=== PATIENT | female | born 1970 | race Caucasian/White ===

== ENCOUNTER → 2017-12-10 16:42 | Outpatient (CLI) | payer OTHER, SELFPAY ==
--- NOTE | 2017-12-10 16:45 | CT_ITS ---
STUDY: CT SOFT TISSUE NECK WITHOUT CONTRAST REASON FOR EXAM: Female, 47 years old. Dysphonia. Sleep apnea. Chronic hoarseness. Prior thyroidectomy. Chronic pansinusitis. RADIATION DOSAGE (If Supplied By Facility): CTDIvol = ( 17.96 ) mGy, DLP = ( 601.12 ) mGycm TECHNIQUE: The patient was scanned in a multi-detector CT scanner. High resolution transaxial imaging was performed without the administration of intravenous contrast material. Sagittal and coronal images were reconstructed. Individualized dose optimization techniques were used for this CT. COMPARISON: CT scan paranasal sinuses. FINDINGS: Normal bilateral parotid glands. Normal bilateral sports psychologist spaces. Normal bilateral parapharyngeal spaces. Normal bilateral carotid spaces. Normal bilateral sublingual and submandibular glands and spaces. Normal visualized nasopharynx. Normal retropharyngeal space. Normal perivertebral space. Normal visualized bilateral faucial tonsils. The visualized tongue, tongue base and oropharynx are normal. The visualized cervical lymph nodes (levels I-) are within normal size limits, and maintain normal morphology. There is no demonstrated solid or cystic mass lesion. Normal epiglottis, bilateral vallecula and hypopharynx. The pre-epiglottic and paraglottic adipose spaces are normal. The left piriform sinus is effaced. There is no visualized soft tissue mass or fat infiltration in this region and finding is of uncertain significance. Otherwise normal visualized piriform sinuses, aryepiglottic folds, vocal cords, and arytenoid-cricoid articulations. Normal subglottic trachea. The thyroid gland is surgically absent. Normal visualized pulmonary apices. There are calcified granulomas in the visualized hilum of the right lung and in the visualized mediastinum. There is minimal mucoperiosteal thickening in the maxillary sinuses. There are multilevel degenerative changes in the cervical spine. Of note is a central posterior disc protrusion at the C3-4 level with superior migration of extruded disc material and with substantial impingement upon the anterior midline spinal cord. CT/Soft Tissue Neck without Contr IMPRESSION: Left piriform sinus is effaced. No discrete mass or fat infiltration is seen in this region, and finding may be incidental. Would suggest direct visualization to ensure against a mucosal lesion. Previous thyroidectomy. Otherwise, normal noncontrast CT scan of the neck. Incidental finding a prominent central posterior disc protrusion and extrusion at the C3-4 level, with spinal cord impingement. Electronically Signed: Jimmie Francis MD at 5:18 EDT , Service support ,
--- NOTE | 2017-12-10 16:45 | CT_ITS ---
STUDY: CT MAXILLOFACIAL SINUSES REASON FOR EXAM: Female, 47 years old. Chronic pansinusitis. Dysphonia. Sleep apnea. Chronic hoarseness. Prior thyroidectomy. RADIATION DOSAGE (If Supplied By Facility): CTDIvol = ( 33.06 ) mGy, DLP = ( 788.40 ) mGycm TECHNIQUE: The patient was scanned in a multi detector CT scanner. High resolution axial imaging was performed without the administration of intravenous contrast material. Sagittal and coronal images were reconstructed. Individualized dose optimization techniques were used for this CT. COMPARISON: None. FINDINGS: FRONTAL SINUSES: Normal aeration, without mucosal inflammatory disease. ETHMOIDAL SINUSES: Normal aeration, without mucosal inflammatory disease. MAXILLARY SINUSES: Mild mucoperiosteal thickening bilaterally. SPHENOIDAL SINUSES: Normal aeration, without mucosal inflammatory disease. There is patency of the bilateral maxillary infundibuli with normal uncinate processes, ethmoid bullae, and hiatus semilunaris. There is a very small jose bullosa of the left middle turbinate. Normal bilateral inferior turbinates. Normal midline nasal septum. There is patency of the bilateral nasal airways. The visualized osseous structures are normal. The visualized bilateral orbital contents are normal. CT/Sinus/Facial Bone IMPRESSION: Very mild chronic bilateral maxillary sinusitis. No evidence for acute sinusitis. Ostiomeatal units are patent bilaterally. Electronically Signed: Jimmie Francis MD at 4:26 EDT , Service support ,
== END ==
PROVIDERS: Family Provider Family Medicine; PCP Family Medicine; Visit Provider Otolaryngology
DX: J32.9 Chronic sinusitis, unspecified (principal); J32.4 Chronic pansinusitis; R49.0 Dysphonia
CPT/HCPCS: 70486; 70490

== ENCOUNTER → 2018-07-17 14:41 | Outpatient (CLI) | payer OTHER, SELFPAY ==
[2017-07-09 12:08] VITALS: BMI 23.1
[2018-07-17 15:29] LABS: Calcium,Total 8.5 mg/dL (8.5-10.1); T4 Total, Thyroxin 18.6 ug/dL (4.8-13.9); Thyroid Stim Hormone (TSH) 1.02 uIU/mL (0.358-3.74)
== END ==
PROVIDERS: Visit Provider Family Medicine
DX: E03.9 Hypothyroidism, unspecified (principal); E21.3 Hyperparathyroidism, unspecified; Z01.419 Encounter for gynecological examination (general) (routine) without abnormal findings
CPT/HCPCS: 36415; 82310; 84436; 84443

== ENCOUNTER → 2018-09-24 17:30 | Outpatient (CLI) | payer OTHER, SELFPAY ==
--- NOTE | 2018-09-24 17:21 | BI_ITS ---
MAMMOGRAPHY - BILATERAL SCREENING REASON FOR EXAM: Female, 48 years old. Routine annual screening examination. PERTINENT HISTORY: Grandmother with breast cancer. TECHNIQUE: Digital bilateral breast roxanne (3D mammographic acquisition) in the CC and MLO projections. 2-D mediolateral oblique (MLO) and craniocaudad (CC) views of both breasts were obtained. CAD: Full Field Digital Mammography with Computer Added Detection was performed. COMPARISON: Comparison is made with prior study dated July 16, 2017 and April 02, 2016. FINDINGS: Breast Composition: The breasts are heterogeneously dense, which may obscure small masses. There are no dominant masses or suspicious calcifications. No other significant abnormalities are identified. There has been no significant change since the prior study. BI/SCREENING MAMM (CAD), BILAT IMPRESSION: Stable bilateral screening mammogram. Yearly follow-up mammogram recommended. (A) ASSESSMENT CATEGORY: BIRADS Category 1: Negative. A letter regarding these results will be sent to the patient by the facility within 30 days. Approximately 10% of breast cancers are not detected by mammography. A normal mammogram should not delay biopsy of a clinically suspicious abnormality. [id number] Electronically Signed: Rodriguez Kurtz MD at 9:33 EST , Service support ,
== END ==
PROVIDERS: Family Provider Family Medicine; PCP Family Medicine; Referring Provider Family Medicine; Visit Provider Family Medicine
DX: Z12.31 Encounter for screening mammogram for malignant neoplasm of breast (principal)
CPT/HCPCS: 77063; 77067

== ENCOUNTER → 2018-12-24 17:56 | Outpatient (CLI) | payer OTHER, SELFPAY ==
[2017-07-09 12:08] VITALS: BMI 23.1
== END ==
PROVIDERS: Family Provider Family Medicine; PCP Family Medicine; Referring Provider Nurse Practitioner Family; Visit Provider Nurse Practitioner Family
DX: N39.0 Urinary tract infection, site not specified (principal)
CPT/HCPCS: 87086; 87088; 87186

== ENCOUNTER → 2019-05-24 16:51 | Outpatient (CLI) | payer OTHER, SELFPAY ==
[2017-07-09 12:08] VITALS: BMI 23.1
[2019-05-24 18:27] LABS: Anion Gap 7 (5-15); BUN 18 mg/dL (7-18); BUN/Creat Ratio 22.9 RATIO (10-20); Calcium,Total 8.5 mg/dL (8.5-10.1); Chloride 105 mmol/L (98-107); Creatinine, Serum 0.78 mg/dL (0.55-1.02); EST Glomerular Filtration Rate 83 mL/min (>60); Est Glom Filt Rate - Afr Amer 100 mL/min (>60); Glucose 86 mg/dL (74-106); Potassium 3.4 mmol/L (3.5-5.1); Sodium Level 137 mmol/L (136-145); T4 Total, Thyroxin 18.1 ug/dL (4.8-13.9); Thyroid Stim Hormone (TSH) 0.66 uIU/mL (0.358-3.74)
== END ==
PROVIDERS: Family Provider Family Medicine; PCP Family Medicine; Visit Provider Family Medicine
DX: I10 Essential (primary) hypertension (principal); E03.9 Hypothyroidism, unspecified
CPT/HCPCS: 36415; 80048; 84436; 84443

== ENCOUNTER → 2019-10-12 15:58 | Outpatient (CLI) | payer OTHER, SELFPAY ==
[2017-07-09 12:08] VITALS: BMI 23.1
--- NOTE | 2019-10-12 16:01 | BI_ITS ---
MAMMOGRAPHY - BILATERAL SCREENING REASON FOR EXAM: Female, 49 years old. Routine annual screening examination. PERTINENT HISTORY: Grandmother with breast cancer. TECHNIQUE: Digital bilateral breast declan (3D mammographic acquisition) in the CC and MLO projections. 2-D mediolateral oblique (MLO) and craniocaudad (CC) views of both breasts were obtained. CAD: Full Field Digital Mammography with Computer Added Detection was performed. COMPARISON: Comparison is made with prior study dated September 24, 2018 and July 16, 2017. FINDINGS: Breast Composition: The breasts are heterogeneously dense, which may obscure small masses. There are no dominant masses or suspicious calcifications. No other significant abnormalities are identified. There has been no significant change since the prior study. BI/SCREEN MAMM (CAD) W/DECLAN BILAT IMPRESSION: Stable bilateral screening mammogram. Yearly follow-up mammogram recommended. (A) ASSESSMENT CATEGORY: BIRADS Category 1: Negative. A letter regarding these results will be sent to the patient by the facility within 30 days. Approximately 10% of breast cancers are not detected by mammography. A normal mammogram should not delay biopsy of a clinically suspicious abnormality. [id number] Electronically Signed: Rodriguez Kurtz, at 9:18 EST , Service support ,
== END ==
PROVIDERS: Family Provider Family Medicine; PCP Family Medicine; Referring Provider Nurse Practitioner Family; Visit Provider Nurse Practitioner Family
DX: Z12.31 Encounter for screening mammogram for malignant neoplasm of breast (principal)
CPT/HCPCS: 77063; 77067

== ENCOUNTER 2019-11-08 10:30 | Day surgery (SDC) | payer OTHER, SELFPAY ==
[2017-07-09 12:08] VITALS: BMI 23.1
[2019-11-08] VITALS (7 sets, daily range): BP systolic 112–126; BP diastolic 63–83; PULSE 74–90; RESP 16; TEMP 36.8–37.4; O2SAT 98–100; BMI 23.6
[2019-11-08] MEDS: Lactated Ringers 1,000 ML 100 ML IV (10:59)
--- NOTE | 2019-11-08 11:29 | H&P.OPEN ---
History of Present Illness Date of Admission: 11/08/19 The patient is a 49 year old F presents for screening colonoscopy. Patient has never had a previous colonoscopy. Denies any family history of colon cancer. Patient denies any chronic abdominal pain/nausea/vomiting/reflux. Patient normally has bowel movements daily denies any blood Past Medical/Surgical History - Planned Operation Planned Operative Procedure/s: COLONOSCOPY Date of Operative Procedure: 11/08/19 Permit Signed: Yes S.O.S: No Is This Patient Having a Total Joint: No - Previous Hospitalizations/Surgeries HX Hospitalizations: No HX of Surgeries: TONSILS. . TUBAL. THYROIDECTOMY Any Problems With Anesthesia: Yes - HARD TIME WAKING, WENT INTO CARDIAC ARREST WITH TONSILS-HAD TRACH PLACED You/Your Family Experience Fever (Hyperthermia) With Anes: No Cholinesterase deficiency: No - Cardiovascular Hx Chest Pain within Last 2 months: No Hx of Irregular Heartbeat and/or Afib: No Hx Heart Attack: No Hx Congestive Heart Failure: No Hx Rheumatic Fever: No Hx Hypertension: Yes - ON MED Hx Internal Defibrillator: No Hx Pacemaker: No Hx Cardiac Catheterization: No Hx Cardiac Surgery/Stents/Etc.: No Hx Stress Test: No HX Edema: No Hx Pain in Legs when Walking/Leg Cramps: No - Respiratory Chronic Cough: No HX of Shortness of Breath: No Hoarseness: No Hx Chronic Obstructive Pulmonary Disease (COPD): No Hx Asthma: No Hx Emphysema: No Hx Sleep Apnea: Yes CPAP: Yes BIPAP: No Hx Oxygen Use at Home: No Hx Respiratory Tract Infection/Cold (presently): No Result (for STOP score): Positive Hx Smoking: No Smoking Status: Never smoker - Gastrointestinal Hx Gastroesophageal Reflux: No Hx Gastrointestinal Disorders: No Hx Gastrointestinal Bleed: No Hx Ulcer: No Hx Hiatal Hernia: No Difficulty Chewing/Swallowing: No Recent Onset of Swallowing Problems: No Special diet followed at home: No Hx Unplanned Weight Loss of 20#: No HX Unplanned Weight Gain of 20#: No - Neurological Hx Seizures: No HX Syncope/Blackout Spells/Unconsciousness: No Hx CVA/Stroke: No Hx Transient Ischemic Attacks (TIA): No Hx Multiple Sclerosis: No Hx Parkinson's Disease: No Hx Head/Neck Injury: No Hx Headaches: No Hx Back Injury/Pain: No Recent Onset of Speech Difficulty: No Restless Legs: No Does patient have nerve stimulator: No - Blood Disorder Hx Leukemia: No Bleeding Tendencies: No Hx Deep Vein Thrombosis: No Hx High Cholesterol: No Blood Transmitted Disease: No Hx Hepatitis: No Hx Cirrhosis: No Hx Anemia: No Hx Blood Disorders: No - Reproduction : No Is Patient Lactating: No Hx Hysterectomy: No Hx Tubal Ligation: No Are You Post Menopause: No Pt Instructed Not To Have Any Sex From Now Until Surgery: No - Genitourinary Hx Renal Disease: No - Musculoskeletal Hx Arthritis: No Hx Rheumatoid Arthritis: No Hx Gout: No Recent Onset of an Orthopedic Problem: No - Endocrine Hx Diabetes: No Thyroid Disease: Yes - ON MED Hx Steroid Therapy: No - Psycho/Social Hx Substance Use: No Hx Alcohol Use: No Hx Anxiety: No Hx Depression: No Mental Illness: No Hx Dementia: No - Miscellaneous Hx Cancer: No Recent Exposure to Contagious Disease: No Active MRSA: No Hx of C-Diff: No Any Loose Teeth: No Allergies No Known Allergies Allergy (Verified 11/04/19 13:06) - Discharge Is Pt Admitted From a Custodial, or a Custodial: No Who Could Help: After D/C, Where Do you Plan to Go: Return Home - Physical Exam Vitals/I&O's: Vital Signs Temp Pulse Resp BP Pulse Ox 99.3 F H 78 16 116/63 98 11/08/19 10:55 11/08/19 10:55 11/08/19 10:55 11/08/19 10:55 11/08/19 10:55 Oxygen Delivery Method Room Air Weight: 135 lb 5.821 oz Body Mass Index (BMI) 23.6 General: Alert, Oriented x3, Cooperative, No apparent distress HEENT: Atraumatic Lungs: Normal air movement Cardiovascular: Regular rate Abdomen: Soft, Non Tender, Non-Distended Extremities: No clubbing, No cyanosis, No edema Neurological: Cranial nerves II-XII grossly intact Psych/Mental Status: Normal Affect Current Medications Lactated Ringer's () 1,000 mls @ 100 mls/hr IV .Q10H NICK Last Admin: 11/08/19 10:59 Dose: 100 mls/hr Documented by: Assessment/Plan 49-year-old female for screening for colon cancer Surgery Risks - Colonoscopy I discussed with the patient the risks of the procedure: Yes Risks Include but are not Limited To: Risks include but are not limited to: Bleeding, perforation requiring further surgery, inability to complete colonoscopy requiring barium enema. Patient and her had no further questions this time.
--- NOTE | 2019-11-08 12:06 | OP.CCLET_ITS ---
11/08/2019 Toshia Sousa [address] [place] [address] Re : Colonoscopy procedure for Nayeli Ryanfabi Dear Dr. Sousa This procedure was performed on Friday, November 08, 2019. My impressions and recommendations are as follows: Impressions : - Hemorrhoids found on perianal exam. - The entire examined colon is normal. - No specimens collected. Recommendations : - Discharge patient to home. - Resume previous diet. - Continue present medications. - Repeat colonoscopy in 10 years for screening purposes. My findings are described in the full procedure note, which is enclosed. If I can be of further assistance, please feel free to contact me at Doctor phone number(s): , Work: . Sincerely, MD Marilee Keyes MD 11/08/2019 12:05:37 PM This report has been signed electronically.
--- NOTE | 2019-11-08 12:06 | OP.COLON_ITS ---
Patient Name: Nayeli Granados Procedure Date: 11/08/2019 11:36 AM Date of : 1970 Age: 49 Procedure: Colonoscopy Indications: Screening for colorectal malignant neoplasm Providers: Marilee Rosen MD Referring MD: Toshia Sousa Medicines: Monitored Anesthesia Care Patient Profile: This is a 49 year old female. Last Colonoscopy: none. The patient's first colonoscopy is today. Complications: No immediate complications. Procedure: Pre-Anesthesia Assessment: - Prior to the procedure, a History and Physical was performed, and patient medications and allergies were reviewed. The patient's tolerance of previous anesthesia was also reviewed. The risks and benefits of the procedure and the sedation options and risks were discussed with the patient. All questions were answered, and informed consent was obtained. Prior Anticoagulants: The patient has taken no previous anticoagulant or antiplatelet agents. ASA Grade Assessment: II - A patient with mild systemic disease. After reviewing the risks and benefits, the patient was deemed in satisfactory condition to undergo the procedure. After I obtained informed consent, the scope was passed under direct vision. Throughout the procedure, the patient's blood pressure, pulse, and oxygen saturations were monitored continuously. The colonoscope was introduced through the anus and advanced to the cecum, identified by the appendiceal orifice, ileocecal valve and palpation. The colonoscopy was performed without difficulty. The patient tolerated the procedure well. The quality of the bowel preparation was good. Scope In: 11:43:59 AM Scope Withdrawal Time 0 hours 10 minutes 36 seconds Scope Out: 11:59:45 AM Total Procedure Duration Time 0 hours 15 minutes 46 seconds Findings: Hemorrhoids were found on perianal exam. The entire examined colon appeared normal. Impression: - Hemorrhoids found on perianal exam. - The entire examined colon is normal. - No specimens collected. Recommendation: - Discharge patient to home. - Resume previous diet. - Continue present medications. - Repeat colonoscopy in 10 years for screening purposes. Procedure Code(s): --- Professional --- G0121, PT, Colorectal cancer screening; colonoscopy on individual not meeting criteria for high risk Diagnosis Code(s): --- Professional --- Z12.11, Encounter for screening for malignant neoplasm of colon K64.9, Unspecified hemorrhoids CPT copyright 2017 [employer]. All rights reserved. The codes documented in this report are preliminary and upon divorce attorney review may be revised to meet current compliance requirements. MD Marilee Keyes MD 11/08/2019 12:05:37 PM This report has been signed electronically. Number of Addenda: 0 Note Initiated On: 11/08/2019 11:36 AM
== END 2019-11-08 12:51 | disposition home or self-care (01) ==
LOC: EN 10:30 → AC 10:32
PROVIDERS: Family Provider Family Medicine; PCP Family Medicine; Referring Provider Family Medicine; Visit Provider Surgery
PROC: 0DJD8ZZ Inspection of Lower Intestinal Tract, Via Natural or Artificial Opening Endoscopic (ICD-10-PCS; CPT 45378; principal; 2019-11-08 11:25)
DX: Z12.11 Encounter for screening for malignant neoplasm of colon (principal); K64.9 Unspecified hemorrhoids; I10 Essential (primary) hypertension; Z86.74 Personal history of sudden cardiac arrest
CPT/HCPCS: 45378; J7120

== ENCOUNTER → 2020-04-12 16:35 | Outpatient (CLI) | payer OTHER, SELFPAY ==
[2019-11-08 10:55] VITALS: BMI 23.6
[2020-04-12 19:30] LABS: Anion Gap 7 (5-15); BUN 14 mg/dL (7-18); BUN/Creat Ratio 20.5 RATIO (10-20); Calcium,Total 8.6 mg/dL (8.5-10.1); Chloride 106 mmol/L (98-107); Creatinine, Serum 0.68 mg/dL (0.55-1.02); EST Glomerular Filtration Rate 97 mL/min (>60); Est Glom Filt Rate - Afr Amer 117 mL/min (>60); Glucose 85 mg/dL (74-106); Potassium 3.7 mmol/L (3.5-5.1); Sodium Level 139 mmol/L (136-145); T4 Total, Thyroxin 18.7 ug/dL (4.8-13.9); Thyroid Stim Hormone (TSH) 0.35 uIU/mL (0.358-3.74)
== END ==
PROVIDERS: PCP Family Medicine; Referring Provider Family Medicine; Visit Provider Family Medicine
DX: I10 Essential (primary) hypertension (principal); E03.9 Hypothyroidism, unspecified
CPT/HCPCS: 36415; 80048; 84436; 84443

== ENCOUNTER → 2020-10-10 16:43 | Outpatient (CLI) | payer OTHER, SELFPAY ==
[2019-11-08 10:55] VITALS: BMI 23.6
[2020-10-10 18:37] LABS: Anion Gap 6 (5-15); BUN 17 mg/dL (7-18); BUN/Creat Ratio 20.3 RATIO (10-20); Calcium,Total 8.5 mg/dL (8.5-10.1); Chloride 109 mmol/L (98-107); Creatinine, Serum 0.84 mg/dL (0.55-1.02); EST Glomerular Filtration Rate 76 mL/min (>60); Est Glom Filt Rate - Afr Amer 92 mL/min (>60); Glucose 97 mg/dL (74-106); Potassium 3.4 mmol/L (3.5-5.1); Sodium Level 139 mmol/L (136-145)
== END ==
PROVIDERS: PCP Family Medicine; Referring Provider Family Medicine; Visit Provider Family Medicine
DX: I10 Essential (primary) hypertension (principal); E21.3 Hyperparathyroidism, unspecified
CPT/HCPCS: 36415; 80048

== ENCOUNTER → 2021-03-20 17:20 | Outpatient (CLI) | payer OTHER, SELFPAY ==
[2019-11-08 10:55] VITALS: BMI 23.6
--- NOTE | 2021-03-20 16:17 | BI_ITS ---
MAMMOGRAPHY - BILATERAL SCREENING REASON FOR EXAM: Female, 50 years old. Routine annual screening examination. PERTINENT HISTORY: Grandmother with breast cancer. TECHNIQUE: Digital bilateral breast declan (3D mammographic acquisition) in the CC and MLO projections. 2-D mediolateral oblique (MLO) and craniocaudad (CC) views of both breasts were obtained. CAD: Full Field Digital Mammography with Computer Added Detection was performed. COMPARISON: Comparison is made with prior study dated 10/12/2019 and 09/24/2018. FINDINGS: Breast Composition: The breasts are heterogeneously dense, which may obscure small masses. There are no dominant masses or suspicious calcifications. No other significant abnormalities are identified. There has been no significant change since the prior study. BI/SCRN MAMM (CAD)W/DECLAN BILAT IMPRESSION: Stable bilateral screening mammogram. Yearly follow-up mammogram recommended. (A) ASSESSMENT CATEGORY: BIRADS Category 1: Negative. A letter regarding these results will be sent to the patient by the facility within 30 days. Approximately 10% of breast cancers are not detected by mammography. A normal mammogram should not delay biopsy of a clinically suspicious abnormality. [id number] Electronically Signed: Rodriguez Kurtz MD at 8:47 EDT , Service support ,
== END ==
PROVIDERS: PCP Family Medicine; Referring Provider Family Medicine; Visit Provider Family Medicine
DX: Z12.31 Encounter for screening mammogram for malignant neoplasm of breast (principal)
CPT/HCPCS: 77063; 77067

== ENCOUNTER → 2021-06-04 16:42 | Outpatient (CLI) | payer OTHER, SELFPAY ==
[2021-06-04 18:37] LABS: Anion Gap 7 (5-15); BUN 12 mg/dL (7-18); BUN/Creat Ratio 17.3 RATIO (10-20); Calcium,Total 8.6 mg/dL (8.5-10.1); Chloride 104 mmol/L (98-107); Creatinine, Serum 0.69 mg/dL (0.55-1.02); EST Glomerular Filtration Rate 95 mL/min (>60); Est Glom Filt Rate - Afr Amer 115 mL/min (>60); Glucose 91 mg/dL (74-106); Potassium 3.4 mmol/L (3.5-5.1); Sodium Level 138 mmol/L (136-145); T4 Total, Thyroxin 16.8 ug/dL (4.8-13.9); Thyroid Stim Hormone (TSH) 1.75 uIU/mL (0.358-3.74)
[2021-06-07 14:12] LABS: HPV Reflexed? NOT INDICATED
== END ==
PROVIDERS: PCP Family Medicine; Referring Provider Family Medicine; Visit Provider Family Medicine
DX: I10 Essential (primary) hypertension (principal); E03.9 Hypothyroidism, unspecified; E21.3 Hyperparathyroidism, unspecified
CPT/HCPCS: 36415; 80048; 84436; 84443; 88175; G0145

== ENCOUNTER → 2022-06-14 | Outpatient (CLI) | payer OTHER, SELFPAY ==
--- NOTE | 2022-06-13 17:02 | BI_ITS ---
MAMMOGRAPHY - BILATERAL SCREENING REASON FOR EXAM: Female, 52 years old. Routine annual screening examination. PERTINENT HISTORY: Grandmother with breast cancer. TECHNIQUE: Digital bilateral breast declan (3D mammographic acquisition) in the CC and MLO projections. 2-D mediolateral oblique (MLO) and craniocaudad (CC) views of both breasts were obtained. CAD: Full Field Digital Mammography with Computer Added Detection was performed. COMPARISON: Comparison is made with prior study dated 03/20/2021 and 10/12/2019. FINDINGS: Breast Composition: The breasts are heterogeneously dense, which may obscure small masses. There are no dominant masses or suspicious calcifications. No other significant abnormalities are identified. There has been no significant change since the prior study. BI/SCRN MAMM (CAD)W/DECLAN BILAT IMPRESSION: Stable bilateral screening mammogram. Yearly follow-up mammogram recommended. (A) ASSESSMENT CATEGORY: BIRADS Category 1: Negative. A letter regarding these results will be sent to the patient by the facility within 30 days. Approximately 10% of breast cancers are not detected by mammography. A normal mammogram should not delay biopsy of a clinically suspicious abnormality. [id number] Electronically Signed: Rodriguez Kurtz MD at 8:30 EDT ,
== END | disposition home or self-care (01) ==
PROVIDERS: PCP Family Medicine; Referring Provider Family Medicine; Visit Provider Family Medicine
DX: Z12.31 Encounter for screening mammogram for malignant neoplasm of breast (principal); Z80.3 Family history of malignant neoplasm of breast
CPT/HCPCS: 77063; 77067

== ENCOUNTER → 2023-08-07 | Outpatient (CLI) | payer OTHER, SELFPAY ==
--- NOTE | 2023-08-07 14:05 | BI_ITS ---
MAMMOGRAPHY - BILATERAL SCREENING REASON FOR EXAM: Female, 53 years old. Routine annual screening examination. PERTINENT HISTORY: Grandmother with breast cancer. TECHNIQUE: Digital bilateral breast roxanne (3D mammographic acquisition) in the CC and MLO projections. 2-D mediolateral oblique (MLO) and craniocaudad (CC) views of both breasts were obtained. CAD: Full Field Digital Mammography with Computer Added Detection was performed. COMPARISON: Comparison is made with prior study June 13, 2022 and March 20, 2021. FINDINGS: Breast Composition: The breasts are heterogeneously dense, which may obscure small masses. There are no dominant masses or suspicious calcifications. No other significant abnormalities are identified. There has been no significant change since the prior study. BI/SCREENING MAMM (CAD), BILAT IMPRESSION: Stable bilateral screening mammogram. Yearly follow-up mammogram recommended. (A) ASSESSMENT CATEGORY: BIRADS Category 1: Negative. A letter regarding these results will be sent to the patient by the facility within 30 days. Approximately 10% of breast cancers are not detected by mammography. A normal mammogram should not delay biopsy of a clinically suspicious abnormality. [id number] Electronically Signed: Rodriguez Kurtz MD at 14:42 EST ,
[2023-08-07 18:08] LABS: Anion Gap 3 (5-15); BUN 15 mg/dL (7-18); BUN/Creat Ratio 20.7 RATIO (10-20); Calcium,Total 8.3 mg/dL (8.5-10.1); Chloride 108 mmol/L (98-107); Creatinine, Serum 0.72 mg/dL (0.55-1.02); EST Glomerular Filtration Rate 89 mL/min (>60); Est Glom Filt Rate - Afr Amer 108 mL/min (>60); Glucose 88 mg/dL (74-106); Potassium 3.9 mmol/L (3.5-5.1); Sodium Level 138 mmol/L (136-145); Thyroid Stim Hormone (TSH) 0.42 uIU/mL (0.358-3.74)
[2023-08-07 18:19] LABS: Microalbumin,Random Urine 11.8 mg/L (NO RANGE EST.); Microalbumin:Creatinine Ratio 15.7 mg/g CRE (<30 mg/g CRE)
== END | disposition home or self-care (01) ==
LOC: OPBI 14:03
PROVIDERS: PCP Family Medicine; Referring Provider Family Medicine; Visit Provider Family Medicine
DX: Z12.31 Encounter for screening mammogram for malignant neoplasm of breast (principal); E21.3 Hyperparathyroidism, unspecified; I10 Essential (primary) hypertension; E03.9 Hypothyroidism, unspecified
CPT/HCPCS: 36415; 77067; 80048; 82043; 82570; 84436; 84443

== ENCOUNTER → 2023-10-15 | Outpatient (CLI) | payer OTHER, SELFPAY ==
--- OUTSIDE RECORDS SUMMARY | 2023-10-15 12:29 | XMS RPT_ITS | CCD ---
Author Name Unknown Address [address] [place] [address] Organization [facility] Care Team Providers Care Vice President Of Consulting Services Name Role Phone Toshia Sousa Unavailable Kandi Macdonald Unavailable Unavailable Medications Current Medications Medication Drug Class(es) Dates Sig (Normalized) Sig (Original) cephalexin 500 mg oral capsule (2 sources) Cephalosporin Antibacterial Start: 06-24-2021 End: 06-28-2021 take 1 capsule by mouth every eight hours Keflex 500 mg oral capsule ; 1 cap(s) orally every 8 hours Quantity: 15 Refills: 0 Ordered: 24-Jun-2021 Kandi Macdonald Start: 24-Jun-2021 End: 28-Jun-2021 Generic Substitution Allowed Comments: Finish all this medication unless otherwise directed by prescriber. Problems Problem Classification Problem Date Documented Da te Episodic/Chronic Open wounds of extremities (3 sources) Laceration of finger; Translations: [Laceration of right index finger] 06-24-2021 Episodic Results Test Name Value Interpretation Reference Range Facil ity Vital Signs Date Time Vital Sign Value Performing Clinician Facility 06-24-2021 12:14040 Body height 162.5 cm Toshia Sousa Other Phone: [facility] 06-24-2021 12:14040 Body temperature 98.24 [degF] Toshia Sousa Other Phone: [facility] 06-24-2021 12:14040 Body weight 62.7 kg Toshia Sousa Other Phone: [facility] 06-24-2021 12:14040 Diastolic blood pressure 82 mm[Hg] Toshia Sousa Other Phone: [facility] 06-24-2021 12:14-0400 Heart rate 87 /min Toshia Sousa Other Phone: [facility] 06-24-2021 12:14-0400 Respiratory rate 15 /min Toshia Sousa Other Phone: [facility] 06-24-2021 12:14-0400 SaO2% (BldA) [Mass fraction] 100 % Toshia Sousa Other Phone: [facility] 06-24-2021 12:14-0400 Systolic blood pressure 130 mm[Hg] Toshia Sousa Other Phone: [facility] Encounters Encounter Date Encounter Type Care Provider Facility Start: 06-24-2021 End: 06-24-2021 Emergency department patient visit Kandi Macdonald [facility] Immunizations Immunization Date Immunization Notes Care Provider Fa cility 06-24-2021 tetanus toxoid, redu wilder diphtheria toxoid, and acellular pertussis vaccine, adsorbed Toshia Islasvince Other Phone: [facility] Payers Date Payer Category Payer Policy ID Unknown [employer] [facility] [employer] [facility] Social History Date Type Detail Facility [facility] Tobacco smoking consumption unknown [facility] Summary Purpose Family History No Family History Records Found Advance Directives No Advanced Directives Records Found Additional Source Comments <item> Privacy Markings (unrecogniz ed section and content) Section Author: Patsy Jenkins PROHIBITION ON REDISCLOSURE OF CONFIDENTIAL INFORMATION This notice accompanies a disclosure of information concerning a client made to you with the consent of such client. INFORMATION SOURCE (unrecogn ized section and content) FOR RECORDS PERTAINING TO PATIENTS WHO ARE OR HAVE BEEN ENROLLED IN A CHEMICAL DEPENDENCY/SUBSTANCEABUSE PROGRAM, SOME INFORMATION MAY BE OMITTED. This clinical summary was aggregated from multiple sources. Caution should be exercised in using it in the provision of clinical care. This summary normalizes information from multiple sources, and as a consequence, information in this document may materially change the coding, format and clinical context of patient data. In addition, data may be omitted in some cases. CLINICAL DECISIONS SHOULD BE BASED ON THE PRIMARY CLINICAL RECORDS. [facility] provides no warranty or guarantee of the accuracy or completeness of information in this document.
[2023-10-15 15:36] LABS: Absolute Lymphocyte Count 1.57 X10^3/uL (0.83-4.51); Absolute Neutrophil Count 3.6 X10^3/uL (2.0-7.7); Basophil# 0.08 X10^3/uL; Basophil% 1.3 % (0-1); Eosinophil# 0.16 X10^3/uL; Eosinophils% 2.6 % (0-5); Hematocrit 42.6 % (37-47); Hemoglobin 13.7 g/dL (12.0-15.0); Lymphocyte # 1.57 X10^3/ul (0.83-4.51); Lymphocyte % 25.5 % (19-41); Mean Corp Hgb Conc 32.2 g/dL (32-36); Mean Corpuscular Volume 87.1 fL (81-99); Mean Platelet Vol. 11.4 fl (6.2-12.0); Monocyte# 0.74 X10^3/uL; NRBC Flagged by Analyzer 0 % (0-5); Neutrophil # 3.57 X10^3/uL (2.7-7.7); Neutrophil % 58.1 % (47-70); Platelet Count 271 K/mm3 (150-450); RBC Distribution Width CV 12.8 % (11.6-14.6); RBC Distribution Width SD 40.5 fl (35.1-43.9); Red Blood Count 4.89 M/mm3 (4.2-5.4); White Blood Count 6.2 K/mm3 (4.4-11.0)
[2023-10-15 16:10] LABS: Vitamin B12 483 pg/mL (211-911); Vitamin D,25 Hydroxy 42.6 ng/mL
[2023-10-15 16:27] LABS: ALB/GLOB Ratio 1.1 RATIO (0.9-2.4); AST(SGOT) 62 U/L (15-37); Alanine Aminotransfer ALT/SGPT 133 U/L (13-56); Albumin, Serum 3.6 g/dL (3.2-5.0); Alkaline Phosphatase 155 U/L (45-117); Anion Gap 3 (5-15); BUN 21 mg/dL (7-18); BUN/Creat Ratio 31.2 RATIO (10-20); CRP < 2.90 mg/L (0.0-3.0); Calcium,Total 9.2 mg/dL (8.5-10.1); Chloride 109 mmol/L (98-107); Creatinine, Serum 0.67 mg/dL (0.55-1.02); EST Glomerular Filtration Rate 97 mL/min (>60); Est Glom Filt Rate - Afr Amer 117 mL/min (>60); Globulin 3.4 g/dL (2.2-4.2); Glucose 94 mg/dL (74-106); Sodium Level 140 mmol/L (136-145); T4 Free Direct 1.57 ng/dL (0.76-1.46); Thyroid Stim Hormone (TSH) 0.01 uIU/mL (0.358-3.74)
[2023-10-17 12:09] LABS: ANTINUCLEAR ANTIBODIES DIRECT Negative (Negative)
== END | disposition home or self-care (01) ==
LOC: MFPLAB 12:16
PROVIDERS: Nurse Practitioner Family; PCP Family Medicine; Visit Provider Family Medicine
DX: R20.0 Anesthesia of skin (principal)
CPT/HCPCS: 36415; 80053; 82306; 82607; 84439; 84443; 85025; 86038; 86140; 86431

== ENCOUNTER → 2023-12-26 | Outpatient (CLI) | payer OTHER, SELFPAY ==
[2023-12-26 13:11] LABS: AST(SGOT) 34 U/L (15-37); Alanine Aminotransfer ALT/SGPT 58 U/L (13-56); Albumin, Serum 3.6 g/dL (3.2-5.0); Alkaline Phosphatase 149 U/L (45-117); Bilirubin, Direct 0.14 mg/dL (0.00-0.30); Globulin 3.4 g/dL (2.2-4.2); Thyroid Stim Hormone (TSH) 0.02 uIU/mL (0.358-3.74)
== END | disposition home or self-care (01) ==
LOC: MFPLAB 09:53
PROVIDERS: PCP Family Medicine; Visit Provider Family Medicine
DX: E03.9 Hypothyroidism, unspecified (principal); R74.8 Abnormal levels of other serum enzymes
CPT/HCPCS: 36415; 80076; 84443

== ENCOUNTER → 2024-01-03 | Outpatient (CLI) | payer OTHER, SELFPAY ==
--- NOTE | 2024-01-03 10:10 | US_ITS ---
EXAM: US ABDOMEN LIMITED, RIGHT UPPER QUADRANT CLINICAL INDICATION: elevated lft TECHNIQUE: Real-time ultrasound of the right upper quadrant with image documentation. COMPARISON: No relevant prior studies available. FINDINGS: LIVER: No significant abnormality. There is normal echotexture. No focal hepatic lesion. No intrahepatic biliary ductal dilation. GALLBLADDER: Small amount of sludge is identified within the gallbladder lumen. There is a round 5 mm polyp within the body of the gallbladder and there is a round 5 mm polyp at the fundus of the gallbladder. No focal stones. No pericholecystic fluid. Negative Dugan''s sign. No gallbladder wall thickening is demonstrated. COMMON BILE DUCT: Normal as visualized. The proximal common bile duct is within normal limits for the patient''s age. PANCREAS: Normal as visualized. No focal abnormality is demonstrated in the pancreas. No pancreatic ductal dilatation. RIGHT KIDNEY: No significant abnormality. There is no hydronephrosis. No shadowing calculus. No focal lesion or perinephric collection is demonstrated. US/Abdomen Limited IMPRESSION: 1. There are 2 gallbladder polyps each measuring 5 mm. These are extremely low risk follow-up space on rounded morphology and therefore no follow-up is indicated. 2. Biliary sludge. No secondary signs of cholecystitis. Electronically Signed: Austin Vieyra DO at 21:50 EDT ,
== END | disposition home or self-care (01) ==
LOC: US 10:06
PROVIDERS: PCP Family Medicine; Referring Provider Family Medicine; Visit Provider Family Medicine
DX: E03.9 Hypothyroidism, unspecified (principal)
CPT/HCPCS: 76705

== ENCOUNTER → 2024-01-27 | Outpatient (CLI) | payer OTHER, SELFPAY ==
[2024-01-27 14:01] LABS: AST(SGOT) 50 U/L (15-37); Alanine Aminotransfer ALT/SGPT 73 U/L (13-56); Albumin, Serum 3.5 g/dL (3.2-5.0); Alkaline Phosphatase 175 U/L (45-117); Bilirubin, Direct 0.08 mg/dL (0.00-0.30); Globulin 3.6 g/dL (2.2-4.2); Protein, Total 7.1 g/dL (6.4-8.2)
== END | disposition home or self-care (01) ==
LOC: PAVLAB 13:15
PROVIDERS: PCP Family Medicine; Referring Provider Surgery; Visit Provider Surgery
DX: R74.8 Abnormal levels of other serum enzymes (principal)
CPT/HCPCS: 36415; 80076

== ENCOUNTER → 2024-01-29 | Outpatient (CLI) | payer OTHER, SELFPAY ==
--- NOTE | 2024-01-29 06:55 | CT_ITS ---
STUDY: CT ABDOMEN WITH CONTRAST REASON FOR EXAM: Female, 53 years old. Elevated LFT/ -- with po an d IV contrast RADIATION DOSAGE (If Supplied By Facility): CTDIvol = ( 10.23 ) mGy, DLP = ( 247.01 ) mGycm TECHNIQUE: Transaxial images were obtained post I.V. administration of Oral and amp; IV Readi-CAT and amp; 100mL Isovue-300, and with oral contrast. Sagittal and coronal images were reconstructed. Individualized dose optimization techniques were used for this CT. COMPARISON: None. FINDINGS: The visualized lung bases are unremarkable. The visualized portions of the heart are within normal limits. Normal liver. Normal gallbladder and extrahepatic biliary system. Normal spleen. Normal pancreas. Normal bilateral adrenal glands. Normal right kidney. Normal left kidney. Normal visualized stomach. Normal small intestine. Large amount of fecal material is seen in the right hemicolon. The appendix is visualized and appears normal. Normal abdominal aorta. Normal inferior vena cava. Normal retroperitoneum. Normal abdominal wall. There are mild degenerative changes of the visualized lumbar spine. CT/Abdomen WITH IV Contrast IMPRESSION: Large amount of fecal material is seen in the right hemicolon. Electronically Signed: Rodriguez Kurtz MD at 13:34 EDT ,
== END | disposition home or self-care (01) ==
PROVIDERS: PCP Family Medicine; Referring Provider Surgery; Visit Provider Surgery
DX: R74.8 Abnormal levels of other serum enzymes (principal)
CPT/HCPCS: 74160; Q9967; A4216

== ENCOUNTER 2024-03-08 09:09 | Day surgery (SDC) | payer OTHER, SELFPAY ==
[2024-03-08] VITALS (10 sets, daily range): BP systolic 133–167; BP diastolic 70–87; PULSE 68–97; RESP 16; TEMP 36.3–37.3; O2SAT 96–99; BMI 24.0
--- NOTE | 2024-03-08 09:28 | PCM.HP.STD ---
HPI - General General Date of Service: 03/08/24 HPI Narrative ARDHA CHASE, is a 53 F who presents for laparoscopic cholecystectomy and liver biopsy due to gallbladder sludge and elevated LFTs. Patient still denies any abdominal pain nausea or vomiting been tolerating a diet. Patient just got back from a trip to [place] for 2 weeks. office visit 01/27/24 HPI HPI: 53-year-old female presents due to elevated LFTs and gallbladder polyp/sludge. Patient states she saw her PCP for annual lab work did note elevated LFTs at that point. Patient denies any abdominal pain nausea vomiting or reflux. However upon talking more patient states she has occasionally gotten some epigastric pain that went to her back that may have lasted for few hours patient's not sure when she got this denies any nausea and vomiting with that denies any issues after eating. Patient states maybe she got it when she had increased activity so they be more of a muscle strain seem to be more over the left lower ribs then really in the epigastrium. Patient states she does have arthritis takes Tylenol occasionally at night otherwise does not take a lot of Tylenol. Patient only rarely has alcohol. Ultrasound showed two 5 mm gallbladder polyps and called some minimal sludge no thickening of the wall no pericholecystic fluid with normal common bile duct. [facility] Medical History (Updated 02/24/24 @ 11:18 by Suzanne Nicholas) Wears glasses Heartburn Gastric reflux CPAP (continuous positive airway pressure) dependence Sleep apnea Non-smoker Thyroid disease HTN (hypertension) Home Medications ?Medication ?Instructions ?Recorded ?Last Taken ?Type lisinopril 20 1 ea PO DAILY 11/04/19 Unknown History mg-hydrochlorothiazide 12.5 mg tablet B-complex with vitamin C 1 tab PO DAILY 01/27/24 Unknown History calcium carbonate 600 mg PO QHS 01/27/24 Unknown History potassium chloride 10 mEq 10 meq PO DAILY 01/27/24 Unknown History tablet,extended release levothyroxine 112 mcg tablet 112 mcg PO DAILY 02/24/24 Unknown History (Synthroid) Allergy/AdvReac Type Severity Reaction Status Date / Time No Known Allergies Allergy Verified 02/24/24 11:07 Surgical History (Updated 02/24/24 @ 11:18 by Suzanne Nicholas) History of History of tonsillectomy (~1973) H/O thyroidectomy Social History (Updated 01/27/24 @ 12:59 by Annalee Grier) Smoking Status: Never smoker alcohol intake: never substance use type: does not use Physical Exam Const alert, oriented x3 and no apparent distress HEENT normocephalic and head/scalp atraumatic Resp normal respiratory effort Cardio regular rate GI soft to palpation and non-tender; Negative for non-distended Palpation: Negative for guarding Extremity no clubbing, cyanosis or edema Skin no rashes or lesions noted Neuro CN's II-XII intact bilaterally Psych mental status grossly normal Results Lab / Micro Data 03/08/24 09:52 03/08/24 09:52 Assessment & Plan Assessment/Plan (1) Gallbladder sludge: (2) Elevated liver enzymes: PLAN: Plan Repeat LFTs are pending Reviewed the anatomy with the patient and discussed the procedure: laparoscopic cholecystectomy with possible cholangiograms, possible open, liver biopsy. Review risks including but not limited to bleeding, infection, hernia, bile leak, retained gallstones requiring another procedure ERCP- Endoscopic Retrograde Cholangiopancreatography, injury to another organ (bile ducts, common bile duct, small bowel, etc.) and conversion to an open procedure. All questions were answered. Marilee Rosen M.D. Pager: [phone] [facility] [address] [place] [address], [facility], [address] [place] [address] Office: [phone]
--- NOTE | 2024-03-08 09:33 | EKG12_ITS ---
Test Reason : pre op Blood Pressure : / mmHG Vent. Rate : 067 BPM Atrial Rate : 067 BPM P-R Int : 132 ms QRS Dur : 086 ms QT Int : 420 ms P-R-T Axes : 077 089 061 degrees QTc Int : 443 ms Normal sinus rhythm Normal ECG When compared with ECG of 03-OCT-2002 06:45, No significant change was found Confirmed by Martin Parra ([id number]), editor magazine SUMANTH SLADE ([id number]) on 03/11/2024 2:24:43 PM Referred By: Marilee Rosen Confirmed By:Martin Parra
--- NOTE | 2024-03-08 09:35 | PRE.ANES_ITS ---
ASA Classification* ASA Classification ASA Classification: 2 Assessment & Plan Anesthesia* Anesthesia Assessment Anesthesia Assessment: Discussed sedation and/or anesthesia options, risks, benefits, and alternatives with patient/parents/legal guardian/POA. Questions invited. The patient/parents/legal guardian/POA seems to understand and agrees to proceed with anesthesia plan. Reviewed the physical assessment, medical history, allergy history and patient home medications list prior to surgery/procedure/anesthetic and documented any changes. Performed airway and anesthesia risk assessments. Anesthesia Type Anesthesia Type: General Anesthesia Focused Assessment* Airway Assessment Mouth opens: >3 cm Mallampati Score: II Focused Labs Anesthesia Preop lab: CBC WBC 6.2 K/mm3 (4.4-11.0) 10/15/23 12:16 RBC 4.89 M/mm3 (4.2-5.4) 10/15/23 12:16 Hgb 13.7 g/dL (12.0-15.0) 10/15/23 12:16 Hct 42.6 % (37-47) 10/15/23 12:16 Plt Count 271 K/mm3 (150-450) 10/15/23 12:16 CHEMISTRY Potassium 4.0 mmol/L (3.5-5.1) 10/15/23 12:16 Sodium 140 mmol/L (136-145) 10/15/23 12:16 BUN 21 mg/dL (7-18) H 10/15/23 12:16 Creatinine 0.67 mg/dL (0.55-1.02) 10/15/23 12:16 Glucose 94 mg/dL (74-106) 10/15/23 12:16 TSH 0.02 uIU/mL (0.358-3.74) L 12/26/23 09:53 COAG Pre-Assessment Diagnosis/Proposed Procedure Planned Operative Procedure(s): LAP MEE WITH IOC, LIVER BIOPSY Anesthesia History Anesthesia History - manufacturing lead: Anesthesia History - manufacturing lead Hx Hospitalization No 02/24/24 11:10 Any Problems With Anesthesia Yes: AT AGE 4 WENT IN 02/24/24 11:10 CARDIAC ARREST, UNSURE OF REASON, NO ISSUES SINCE Cholinesterase deficiency No 02/24/24 11:10 You/Your Family Experience No 02/24/24 11:10 fever (hyperthermia) with Relationship Recent Exposure to Contagious No 11/08/19 10:55 Disease Does patient have nerve No 02/24/24 11:10 stimulator Patient instructed to have device shut off --Does patient have Pacemaker or ICD? When Was Last Pacemaker Check QUESTION #4 FULL TEXT: You/Your Family Experience fever (hyperthermia) with Anesthesia Last Oral Intake Last Oral intake: Last Oral Intake NPO since Meds taken in AM with sips of water? Meds patient instructed to take am of surgery PONV PONV - manufacturing lead: PONV - manufacturing lead Female Yes 02/24/24 11:10 HX of Motion Sickness No 02/24/24 11:10 HX of N/V After Surgery No 02/24/24 11:10 Non-Smoker Yes 02/24/24 11:10 Duration of Surgery greater Yes 02/24/24 11:10 than 60 minutes Number of Risk Factors 3 02/24/24 11:10 PONV Score Moderate Risk 02/24/24 11:10 Height & Weight Height & Weight: Anesthesia: Height & Weight Height 5 ft 3 in 01/27/24 12:59 Respiratory Assessment Respiratory Assessment - manufacturing lead: Respiratory Tract Infection Hx - manufacturing lead Hx Respiratory Tract Infection No 02/24/24 11:10 STOP Sleep Apnea STOP Sleep Apnea - manufacturing lead: STOP Sleep Apnea - manufacturing lead Hx Hypertension Yes: CONTROLLED WITH MED 02/24/24 11:10 Hx Sleep Apnea No 02/24/24 11:10 CPAP No 11/08/19 12:03 BIPAP No 11/04/19 13:10 Do you snore loudly (louder No 02/24/24 11:10 than talking or can be heard Do you often feel tired/ No 02/24/24 11:10 fatigued/ sleepy during daytime? Has anyone observed you stop No 02/24/24 11:10 breathing during sleep? STOP Results Negative 02/24/24 11:10 QUESTION #5 FULL TEXT : Do you snore loudly (louder than talking or can be heard through closed doors)? 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 Specify any problems Hx of Preganancy in last 3 N/A 02/24/24 11:10 Months Nurse Filling Out Transfusion NBUCHER 02/24/24 11:10 & Questions: Date: 02/24/24 02/24/24 11:10 Time: 11:14 02/24/24 11:10 Patient unable to answer at this time (ie. confused, unrespo /Reproduction History /Reproductive History - manufacturing lead: /Reproductive Hx- manufacturing lead Hx Now No 02/24/24 11:10 Gestational Age (in weeks): EDC: Hx Hx Para Hx Section SAB No 02/24/24 11:10 Active Medications Active Medications: Current Medications Generic Name Dose Route Start Last Admin Trade Name Freq PRN Reason Stop Dose Admin Cefazolin Sodium 2 gm/ Sodium 110 mls @ 150 mls/hr 03/08/24 11:00 Chloride IV 03/08/24 11:43 PREOP ONE Lactated Ringer's 1,000 mls @ 15 mls/hr 03/08/24 09:30 IV .Q48H NICK PFSH Medical History (Updated 02/24/24 @ 11:18 by Suzanne Nicholas) Wears glasses Heartburn Gastric reflux CPAP (continuous positive airway pressure) dependence Sleep apnea Non-smoker Thyroid disease HTN (hypertension) Home Medications ?Medication ?Instructions ?Recorded ?Last Taken ?Type lisinopril 20 1 ea PO DAILY 11/04/19 Unknown History mg-hydrochlorothiazide 12.5 mg tablet B-complex with vitamin C 1 tab PO DAILY 01/27/24 Unknown History calcium carbonate 600 mg PO QHS 01/27/24 Unknown History potassium chloride 10 mEq 10 meq PO DAILY 01/27/24 Unknown History tablet,extended release levothyroxine 112 mcg tablet 112 mcg PO DAILY 02/24/24 Unknown History (Synthroid) Allergy/AdvReac Type Severity Reaction Status Date / Time No Known Allergies Allergy Verified 02/24/24 11:07 Surgical History (Updated 02/24/24 @ 11:18 by Suzanne Nicholas) History of History of tonsillectomy (~1973) H/O thyroidectomy Social History (Updated 01/27/24 @ 12:59 by Annalee Grier) Smoking Status: Never smoker alcohol intake: never substance use type: does not use Review of Systems (Anesthesia) ROS Narrative System reviewed and no additional complaints, except as documented.
--- NOTE | 2024-03-08 09:37 | PCM.PRE.AN2 ---
ASA Classification* ASA Classification ASA Classification: 2 Assessment & Plan Anesthesia* Anesthesia Assessment Anesthesia Assessment: Discussed sedation and/or anesthesia options, risks, benefits, and alternatives with patient/parents/legal guardian/POA. Questions invited. The patient/parents/legal guardian/POA seems to understand and agrees to proceed with anesthesia plan. Reviewed the physical assessment, medical history, allergy history and patient home medications list prior to surgery/procedure/anesthetic and documented any changes. Performed airway and anesthesia risk assessments. Anesthesia Type Anesthesia Type: General Anesthesia Focused Assessment* Airway Assessment Mouth opens: >3 cm Mallampati Score: II Focused Labs Anesthesia Preop lab: CBC WBC 8.9 K/mm3 (4.4-11.0) 07/20/24 10:50 07/20/24 RBC 5.12 M/mm3 (4.2-5.4) 07/20/24 10:50 07/20/24 Hgb 14.1 g/dL (12.0-15.0) 07/20/24 10:50 07/20/24 Hct 43.6 % (37-47) 07/20/24 10:50 07/20/24 Plt Count 264 K/mm3 (150-450) 07/20/24 10:50 07/20/24 CHEMISTRY Potassium 3.6 mmol/L (3.5-5.1) 07/20/24 10:50 07/20/24 Sodium 138 mmol/L (136-145) 07/20/24 10:50 07/20/24 BUN 14 mg/dL (7-18) 07/20/24 10:50 07/20/24 Creatinine 0.73 mg/dL (0.55-1.02) 07/20/24 10:50 07/20/24 Glucose 112 mg/dL (74-106) H 07/20/24 10:50 07/20/24 TSH 1.330 uIU/mL (0.358-3.740) 05/01/24 10:02 05/01/24 COAG Pre-Assessment Diagnosis/Proposed Procedure Planned Operative Procedure(s): LAP MEE WITH IOC, LIVER BIOPSY Anesthesia History Anesthesia History - area operations director: Anesthesia History - area operations director Hx Hospitalization No 02/24/24 11:10 Any Problems With Anesthesia Yes: AT AGE 4 WENT IN 02/24/24 11:10 CARDIAC ARREST, UNSURE OF REASON, NO ISSUES SINCE Cholinesterase deficiency No 02/24/24 11:10 You/Your Family Experience No 02/24/24 11:10 fever (hyperthermia) with Relationship Recent Exposure to Contagious No 11/08/19 10:55 Disease Does patient have nerve No 02/24/24 11:10 stimulator Patient instructed to have device shut off --Does patient have Pacemaker or ICD? When Was Last Pacemaker Check QUESTION #4 FULL TEXT: You/Your Family Experience fever (hyperthermia) with Anesthesia Last Oral Intake Last Oral intake: Last Oral Intake NPO since Meds taken in AM with sips of water? Meds patient instructed to take am of surgery PONV PONV - area operations director: PONV - area operations director Female Yes 02/24/24 11:10 HX of Motion Sickness No 02/24/24 11:10 HX of N/V After Surgery No 02/24/24 11:10 Non-Smoker Yes 02/24/24 11:10 Duration of Surgery greater Yes 02/24/24 11:10 than 60 minutes Number of Risk Factors 3 02/24/24 11:10 PONV Score Moderate Risk 02/24/24 11:10 Height & Weight Height & Weight: Anesthesia: Height & Weight Height 5 ft 3 in 01/27/24 12:59 Respiratory Assessment Respiratory Assessment - area operations director: Respiratory Tract Infection Hx - area operations director Hx Respiratory Tract Infection No 02/24/24 11:10 STOP Sleep Apnea STOP Sleep Apnea - area operations director: STOP Sleep Apnea - area operations director Hx Hypertension Yes: CONTROLLED WITH MED 02/24/24 11:10 Hx Sleep Apnea No 02/24/24 11:10 CPAP No 11/08/19 12:03 BIPAP No 11/04/19 13:10 Do you snore loudly (louder No 02/24/24 11:10 than talking or can be heard Do you often feel tired/ No 02/24/24 11:10 fatigued/ sleepy during daytime? Has anyone observed you stop No 02/24/24 11:10 breathing during sleep? STOP Results Negative 02/24/24 11:10 QUESTION #5 FULL TEXT : Do you snore loudly (louder than talking or can be heard through closed doors)? 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 Specify any problems Hx of Preganancy in last 3 N/A 02/24/24 11:10 Months Nurse Filling Out Transfusion NBUCHER 02/24/24 11:10 & Questions: Date: 02/24/24 02/24/24 11:10 Time: 11:14 02/24/24 11:10 Patient unable to answer at this time (ie. confused, unrespo /Reproduction History /Reproductive History - area operations director: /Reproductive Hx- area operations director Hx Now No 02/24/24 11:10 Gestational Age (in weeks): EDC: Hx Hx Para Hx Section SAB No 02/24/24 11:10 Active Medications Active Medications: Current Medications Generic Name Dose Route Start Last Admin Trade Name Freq PRN Reason Stop Dose Admin Cefazolin Sodium 2 gm/ Sodium 110 mls @ 150 mls/hr 03/08/24 11:00 Chloride IV 03/08/24 11:43 PREOP ONE Lactated Ringer's 1,000 mls @ 15 mls/hr 03/08/24 09:30 IV .Q48H [facility] Medical History (Updated 03/17/24 @ 18:[address] Marilee Rosen MD) Wears glasses Heartburn Gastric reflux CPAP (continuous positive airway pressure) dependence Sleep apnea Non-smoker Thyroid disease HTN (hypertension) Home Medications ?Medication ?Instructions ?Recorded ?Last Taken ?Type lisinopril 20 1 ea PO DAILY 11/04/19 Unknown History mg-hydrochlorothiazide 12.5 mg tablet B-complex with vitamin C 1 tab PO DAILY 01/27/24 Unknown History calcium carbonate 600 mg PO QHS 01/27/24 Unknown History potassium chloride 10 mEq 10 meq PO DAILY 01/27/24 Unknown History tablet,extended release levothyroxine 112 mcg tablet 112 mcg PO DAILY 02/24/24 Unknown History (Synthroid) Allergy/AdvReac Type Severity Reaction Status Date / Time No Known Allergies Allergy Verified 03/17/24 13:50 Surgical History (Updated 03/17/24 @ 13:51 by Pat Ryan LPN) History of History of tonsillectomy (~1973) H/O thyroidectomy Social History (Updated 01/27/24 @ 12:59 by Annalee Grier) Smoking Status: Never smoker alcohol intake: never substance use type: does not use Review of Systems (Anesthesia) ROS Narrative System reviewed and no additional complaints, except as documented.
[2024-03-08] MEDS: Lactated Ringers 1,000 ML 15 ML IV (09:58)
[2024-03-08 10:17] LABS: Hematocrit 40.7 % (37-47); Hemoglobin 13.1 g/dL (12.0-15.0); Mean Corp Hgb Conc 32.2 g/dL (32-36); Mean Corpuscular Hgb 27.6 pg (27.0-32.0); Mean Corpuscular Volume 85.7 fL (81-99); Mean Platelet Vol. 10.5 fl (6.2-12.0); Platelet Count 265 K/mm3 (150-450); RBC Distribution Width CV 14.3 % (11.6-14.6); RBC Distribution Width SD 43.9 fl (35.1-43.9); Red Blood Count 4.75 M/mm3 (4.2-5.4)
[2024-03-08 10:31] LABS: Anion Gap 5 (5-15); BUN 26 mg/dL (7-18); BUN/Creat Ratio 36.7 RATIO (10-20); Calcium,Total 9.3 mg/dL (8.5-10.1); Chloride 108 mmol/L (98-107); Creatinine, Serum 0.71 mg/dL (0.55-1.02); EST Glomerular Filtration Rate 91 mL/min (>60); Est Glom Filt Rate - Afr Amer 110 mL/min (>60); Estimated Creatinine Clearance 74.93 ml/min; Glucose 87 mg/dL (74-106); Potassium 3.7 mmol/L (3.5-5.1); Sodium Level 143 mmol/L (136-145)
[2024-03-08 10:35] LABS: AST(SGOT) 47 U/L (15-37); Alanine Aminotransfer ALT/SGPT 72 U/L (13-56); Albumin, Serum 3.6 g/dL (3.2-5.0); Alkaline Phosphatase 183 U/L (45-117); Bilirubin, Direct 0.14 mg/dL (0.00-0.30); Globulin 3.6 g/dL (2.2-4.2); Protein, Total 7.2 g/dL (6.4-8.2)
[2024-03-08] MEDS: Cefazolin 2 GM in 0.9% Normal Saline (100mL Bag) 100 ML IV (10:40)
--- NOTE | 2024-03-08 11:00 | RAD_ITS ---
STUDY: INTRAOPERATIVE CHOLANGIOGRAM. REASON FOR EXAM: Female, 53 years old. Laparoscopic cholecystectomy. FLUOROSCOPY TIME (if supplied): ( 4 seconds ) minutes/seconds. 1.05 mGy. TECHNIQUE: An intraoperative cholangiogram was performed by the surgeon. Imaging was provided. COMPARISON: None. FINDINGS: The intra and extrahepatic biliary ducts are unremarkable. No intraluminal filling defect is seen. There is free flow of contrast into the duodenum. RAD/Cholangiogram/ O R,Initial IMPRESSION: Unremarkable intraoperative cholangiogram. Electronically Signed: Rodriguez Kurtz MD at 15:11 EDT ,
--- NOTE | 2024-03-08 11:00 | LIVB_PTH ---
PATIENT: RADHA CHASE [place] [facility] [id number] AGE/SX: 53/F ROOM: RE03/08/[address]: Dr. Marilee Rosen MD : 1970 BED: DIS: 03/08/2024 SPEC #: [id number] RECD: 03/08/24 15:13 STATUS: ADDIE SRINI #: [id number] YUNIEL: 03/08/24 11:[address]: Marilee Rosen DEPT: SURGICAL PATHOLOGY RECD BY: Anabelle Aguilera ENTERED: 03/09/24 10:28 SP TYPE: LIVER BX OTHR DR: Dr. Toshia Sousa MD Tissues: A - Liver, NOS B - Gallbladder, NOS Procedures: Surgery Specimen Level III Surgery Specimen Level V HEADER OPERATION: Laparoscopic, cholecystectomy with IOC with liver biopsy PRE-OP DIAGNOSIS: Gallbladder sludge/polyp, elevated LFT's TISSUE SUBMITTED: A- Liver biopsy, B- Gallbladder and contents MICROSCOPIC DIAGNOSIS A. Liver, core biopsy: Liver parenchymal tissue with focal minimal portal chronic inflammation. See microscopic description and comment. B. Gallbladder and contents, cholecystectomy: Mild chronic cholecystitis and cholesterolosis. See comment. LONNIE/ 03/10/2024 COMMENT B. No stones are identified in the container or in the gallbladder. Correlation with clinical laboratory findings and appropriate follow up are necessary. MICROSCOPIC DESCRIPTION Slides are reviewed. A. This specimen shows liver parenchymal tissue with preserved lobular architecture. Hepatocytes are unremarkable. Portal area show focal minimal chronic inflammation. Interfaced inflammation is not seen. Iron stains show absent iron. Reticulin stains highlights normal lobular architecture. Trichrome stains do not show any increased portal or periportal fibrosis. PAS stain with and without diastase do not show any abnormal accumulation of protein. All stains are performed with appropriate matched controls. GROSS DESCRIPTION A. Received in fixative is one container labeled with the patient's name and designated Liver biopsy. The specimen consists of an elongated fragment of fox soft tissue measuring 1.5cm in length and 0.1cm in diameter. The entire specimen is submitted in one cassette. B. Received is one container labeled with the patient's name and designated gallbladder. The specimen consists of a gallbladder measuring 8.5 cm in length and up to 4.0 cm in diameter. The external surface is pink-fox, smooth and glistening for the most part. Focally it is granular, hemorrhagic and contains cautery artifact. The gallbladder contains green-yellow mucoid bile and one detached fragment of yellowish-green polyp measuring 0.3cm in greatest dimension. No stones are identified in the container or in the gallbladder. Gallbladder wall also shows a fox-yellowish -green polyp measuring 0.4cm in greatest dimension consistent with cholesterolosis. The mucosa is bile stained. The gallbladder wall measures up to 0.1 cm in thickness. A few smaller polyp measuring 0.1cm is also noted. Sheeter Waxer Operator sections from the gallbladder and the cystic duct are submitted in one cassette. The polyps consistent with cholesterolosis are submitted in entirety. / : 03/09/2024 TC: CPT: 10112,10773,43458u1 / 03/09/2024 TC:3
[2024-03-08 11:28] LABS: Thyroid Stim Hormone (TSH) 0.23 uIU/mL (0.358-3.74)
--- NOTE | 2024-03-08 11:46 | PCM.OPRPT ---
Report of Operation Date of Procedure: 03/08/24 Pre-Operative Diagnosis: Gallbladder sludge, elevated LFTs Post-Operative Diagnosis: Same Surgery/Procedure Performed:: Laparoscopic cholecystectomy with cholangiograms, liver biopsy Surgeon: Marilee Rosen Type of Anesthesia: General/Supplemental Anesthesiologist: Aram Macdonald Special Medications: Ancef 2 g IV x 1 Specimen's removed: Gallbladder, liver biopsy Estimated Blood Loss (mL): 20 cc Description of Procedure: Indications: this is a 53 year-old female who had elevated LFTs with gallbladder sludge, denied abdominal pain. Laparoscopic cholecystectomy was elected. Description procedure: The patient was placed on operating table in supine position. A timeout was completed verifying correct patient, procedure, site, position and special equipment prior to beginning procedure. General Anesthesia was induced. The abdomen was prepped and draped in usual sterile fashion. An incision was made in the natural skin line above the the umbilicus. The fascia was elevated and incised. The peritoneum was elevated and incised. Entry into the peritoneum was confirmed visually and no bowel was noted in the vicinity of the incision. Flaherty trocar was placed. The abdomen was insufflated with carbon dioxide to a pressure of 12-15 mmHg. Patient tolerated insufflation well. The laparoscope was then inserted and abdomen inspected. No injuries from initial trocar placement were noted. Additional trochars were then inserted in the following locations 5 mm trocar in the epigastrium and 2 more 5 mm trochars along the right costal margin. The abdomen was inspected no abnormalities were found. The table is placed in reverse Trendelenburg position with the right side up. The dome of the gallbladder was grasped with atraumatic grasper passed through the lateral port and retracted over the dome of the liver. Infundibulum was then grasped with atraumatic grasper through the midclavicular port and retracted to the right lower quadrant. This maneuver exposed Calot's triangle. The peritoneum overlying the gallbladder infundibulum was then incised and cystic duct and artery identified and circumferentially dissected. Pena catheter was used for cholangiograms. The cholangiogram showed good filling of the common bile duct into the duodenum with no filling defects, good filling of the right and left bile ducts as well. The cystic duct and artery were then doubly clipped and divided close to the gallbladder. The gallbladder then dissected from its peritoneal attachments by electrocautery. Hemostasis was checked and the gallbladder was removed using the endoscopic retrieval bag through the umbilical port. The gallbladder is passed off table as specimen. The Temno biopsy 14-gauge device was used for liver biopsy. Erbe was used for hemostasis along with hemoblast at the biopsy site. The gallbladder fossa was irrigated with saline and hemostasis obtained. There is no evidence of bleeding from the gallbladder fossa or cystic artery leakage of bile from the cystic duct stump. Secondary trochars removed under direct vision. No bleeding was noted the trocar sites. The laparoscope was withdrawn and umbilical trocar removed. The abdomen was allowed to collapse. The fascia of the 12 mm trocar was closed with a [id number] 0 Vicryl suture. The skin was closed with sutures of 4-0 Monocryl and Steri-Strips. The patient was extubated. The patient tolerated procedure well and was taken to the postanesthesia care unit in stable condition. Complications none
[2024-03-08] MEDS: Bupivacaine Mpf 0.5% 30 ML VIAL (11:50)
--- NOTE | 2024-03-08 11:51 | DCINST_ITS ---
Discharge Instructions Diet Discharge Diet: Light diet - advance as tolerated Activity Discharge Activity: May Not Drive (while taking narcotic pain medications.) May shower in (days): 1 Lifting Restrictions: no lifting >20 lbs x 2 wks, no strenuous exercise for 4 wks Dressing / Incision Call your doctor if your incision/area has: Continuous Slow Oozing, Sudden Increased Bleeding, Increased Pain/ Swelling, Increased Redness, Foul Smelling Discharge and Swelling at the incision site Call your doctor if you observe: Fever of 101 or Higher Remove Dressing in: 2 days Cleanse incision/area with: Soap & Water Additional Dressing/Incision Instructions:: Steri-Strips will fall off in 7 to 10 days, if they do not fall off okay to remove after 10 days. Follow Up Care Please Follow Up With: Marilee Rosen MD When: Call the office for a follow-up appointment 2 weeks; after 5 PM and on the weekends call [phone] with any concerns. Test Results: Test results from this visit will be discussed in further detail at your follow- up appointment, if applicable. Discharge Plan Admission Attending Provider: Marilee Rosen Primary Care Provider: Toshia Sousa Instructions Additional Instructions / Restrictions: Avoid aspirin for 5 days-- okay for ibuprofen and Tylenol. Print Language: Montenegrin Discharge Orders/Prescriptions Prescriptions: New tramadol 50 mg tablet 50 mg PO Q6H PRN (Reason: pain) Qty: 7 0RF Continued potassium chloride 10 mEq tablet extended release 10 meq PO DAILY calcium carbonate 600 mg calcium (1,500 mg) tablet 600 mg PO QHS B-complex with vitamin C Tablet 1 tab PO DAILY lisinopril-hydrochlorothiazide 1 EACH tablet 1 ea PO DAILY levothyroxine [Synthroid] 112 mcg tablet 112 mcg PO DAILY Referrals / Follow Up: Toshia Sousa MD [Primary Care Provider] - Disposition Disposition (needs filled in before D/C Order can be placed): Home, Self Care
--- NOTE | 2024-03-08 12:04 | PCM.POST.ANE ---
Anesthesia: Postop Eval I Current Vital Signs Temperature: 97.8 F Pulse Rate: 97 Blood Pressure: 145/85 Respiratory Rate: 16 Pulse Ox: 98 Oxygen Delivery Method: Room Air Assessment Airway patent: Yes Spontaneous unlabored respirations: Yes Mental status: Awake (EASILY AROUSABLE) and Calm nausea: No Vomiting: No Anesthesia Complication: No Fluid Hydration Crystalloid volume administer (ml): 1,100 Total IV fluid infused: 1,100 Progress Note Anesthesia document: Postop Eval 1 completed: Yes
--- NOTE | 2024-03-08 12:43 | POSTOPAN2_ITS ---
Anesthesia Postop Eval I Sum Postop Eval Completion status Anesthesia document: Postop Eval 1 completed: Yes Anesthesia Postop Eval I Summary Anesthesia Postop Eval I Summary: Anesthesia Postop Eval I: Assessment Summary Airway patent Yes 03/08/24 12:06 [email or web address] Spontaneous unlabored Yes 03/08/24 12:06 TECHNICAL [email or web address] respirations Mental status Awake - EASILY 03/08/24 12:06 [email or web address] [email or web address].[email or web address] AROUSABLE,Calm nausea No 03/08/24 12:06 TECHNICAL COORDINATOR.[email or web address] Vomiting No 03/08/24 12:06 TECHNICAL [email or web address] Anesthesia Postop Eval I: Fluid Summary Crystalloid volume administer 1,100 03/08/24 12:06 TECHNICAL [email or web address] (ml) Colloids volume administered ( ml) Blood Product volume administered (ml) Total IV fluid infused 1,100 03/08/24 12:06 TECHNICAL [email or web address] Anesthesia Postop Eval I: Summary Notes Anesthesia Complication No 03/08/24 12:06 TECHNICAL COORDINATOR.[facility] Anesthesia Complication Comment: Post-operative progress note Anesthesia: Postop Eval II Evaluation Mental status: Awake and Calm Pain Level: 1 nausea: No Vomiting: No Complications Anesthesia Complication: No
--- NOTE | 2024-03-08 12:43 | PCM.POSTANE2 ---
Anesthesia Postop Eval I Sum Postop Eval Completion status Anesthesia document: Postop Eval 1 completed: Yes Anesthesia Postop Eval I Summary Anesthesia Postop Eval I Summary: Anesthesia Postop Eval I: Assessment Summary Airway patent Yes 03/08/24 12:06 [email or web address] Spontaneous unlabored Yes 03/08/24 12:06 PUMPER [email or web address] respirations Mental status Awake - EASILY 03/08/24 12:06 PUMPER [email or web address] AROUSABLE,Calm nausea No 03/08/24 12:06 PUMPER [email or web address] Vomiting No 03/08/24 12:06 PUMPER [email or web address] Anesthesia Postop Eval I: Fluid Summary Crystalloid volume administer 1,100 03/08/24 12:06 PUMPER [email or web address] (ml) Colloids volume administered ( ml) Blood Product volume administered (ml) Total IV fluid infused 1,100 03/08/24 12:06 PUMPER [email or web address] Anesthesia Postop Eval I: Summary Notes Anesthesia Complication No 03/08/24 12:06 PUMPER BREWERY.[facility] Anesthesia Complication Comment: Post-operative progress note Anesthesia: Postop Eval II Evaluation Mental status: Awake and Calm Pain Level: 1 nausea: No Vomiting: No Complications Anesthesia Complication: No
== END 2024-03-08 15:15 | disposition home or self-care (01) ==
LOC: SDC 09:10 → AC 09:11
PROVIDERS: Anesthesiology; PCP Family Medicine; Referring Provider Surgery; Visit Provider Surgery
PROC: (CPT 47610; principal; 2024-03-08 10:40)
DX: K73.8 Other chronic hepatitis, not elsewhere classified (principal); I10 Essential (primary) hypertension; K21.9 Gastro-esophageal reflux disease without esophagitis; K81.1 Chronic cholecystitis; Z79.899 Other long term (current) drug therapy; R74.8 Abnormal levels of other serum enzymes
CPT/HCPCS: 47563; 47000; 00790; 74300; 76000; 80048; 80076; 84443; 85027; 88304; 88307; 93005; J7120; J2405

== ENCOUNTER → 2024-03-15 | Outpatient (CLI) | payer OTHER, SELFPAY ==
[2024-03-15 18:23] LABS: AST(SGOT) 44 U/L (15-37); Alanine Aminotransfer ALT/SGPT 83 U/L (13-56); Albumin, Serum 3.6 g/dL (3.2-5.0); Alkaline Phosphatase 225 U/L (45-117); Bilirubin, Direct 0.23 mg/dL (0.00-0.30); Globulin 3.8 g/dL (2.2-4.2); Protein, Total 7.4 g/dL (6.4-8.2)
== END | disposition home or self-care (01) ==
LOC: MFPLAB 14:40
PROVIDERS: PCP Family Medicine; Visit Provider Surgery
DX: R74.8 Abnormal levels of other serum enzymes (principal)
CPT/HCPCS: 36415; 80076

== ENCOUNTER → 2024-03-29 | Outpatient (CLI) | payer OTHER, SELFPAY ==
[2024-03-29 12:23] LABS: AST(SGOT) 24 U/L (15-37); Alanine Aminotransfer ALT/SGPT 34 U/L (13-56); Albumin, Serum 3.3 g/dL (3.2-5.0); Alkaline Phosphatase 218 U/L (45-117); Bilirubin, Direct 0.08 mg/dL (0.00-0.30); Globulin 4.1 g/dL (2.2-4.2); Protein, Total 7.4 g/dL (6.4-8.2)
== END | disposition home or self-care (01) ==
LOC: MFPLAB 09:25
PROVIDERS: PCP Family Medicine; Visit Provider Surgery
DX: R74.8 Abnormal levels of other serum enzymes (principal)
CPT/HCPCS: 36415; 80076

== ENCOUNTER → 2024-05-01 | Outpatient (CLI) | payer OTHER, SELFPAY ==
[2024-05-01 11:42] LABS: AST(SGOT) 45 U/L (15-37); Alanine Aminotransfer ALT/SGPT 53 U/L (13-56); Albumin, Serum 3.7 g/dL (3.2-5.0); Alkaline Phosphatase 190 U/L (45-117); Bilirubin, Direct 0.11 mg/dL (0.00-0.30); Globulin 3.7 g/dL (2.2-4.2); Protein, Total 7.4 g/dL (6.4-8.2)
== END | disposition home or self-care (01) ==
LOC: LAB 09:57
PROVIDERS: PCP Family Medicine; Referring Provider Family Medicine; Visit Provider Family Medicine
DX: R74.8 Abnormal levels of other serum enzymes (principal); E03.9 Hypothyroidism, unspecified
CPT/HCPCS: 36415; 80076; 84443

== ENCOUNTER → 2024-06-07 | Outpatient (CLI) | payer OTHER, SELFPAY ==
[2024-06-11 15:09] LABS: Coxsackie A Type 16 IgM Negative titer (Neg:<1:10); Coxsackie A Type 24 IgM Negative titer (Neg:<1:10); Coxsackie A Type 7 IgM Negative titer (Neg:<1:10); Coxsackie A Type 9 IgM Negative titer (Neg:<1:10); HEPATITIS B SURFACE AG Negative (Negative); Hep C Antibodies Non Reactive (Non Reactive); Hepatitis A AB, Total Negative (Negative); Hepatitis A IgM Antibody Negative (Negative); Hepatitis B Core AB IgM Negative (Negative); Protein S, Free 110 % (61-136); Protein S, Funtional 93 % (63-140); Protein S, Total 84 % (60-150)
== END | disposition home or self-care (01) ==
PROVIDERS: PCP Family Medicine; Referring Provider Family Medicine; Visit Provider Family Medicine
DX: R74.8 Abnormal levels of other serum enzymes (principal)
CPT/HCPCS: 36415; 80074; 85305; 85306; 86658; 86708

== ENCOUNTER → 2024-07-20 | Outpatient (CLI) | payer OTHER, SELFPAY ==
--- NOTE | 2024-07-20 10:43 | RAD_ITS ---
STUDY: X-RAY - PELVIS REASON FOR EXAM: Female, 54 years old. PAIN TECHNIQUE: One view of the pelvis was obtained. COMPARISON: None. FINDINGS: There is a non-specific bowel gas pattern. Normal visualized soft tissue structures. Bilateral fallopian tube implants. Normal bilateral iliac wings, sacroiliac joints and visualized sacrum. Normal visualized bilateral superior and inferior pubic rami. Normal pubic symphysis. Normal ischial tuberosities. Normal visualized right femoral head. Normal right acetabulum. Normal right hip joint. Normal visualized left femoral head. Normal left acetabulum. Normal left hip joint. RAD/Pelvis 1 or 2 Views IMPRESSION: Normal x-ray examination of the pelvis. Electronically Signed: Anshul Mir MD at 10:55 EST ,
[2024-07-20 12:18] LABS: Erythrocyte Sedimentation Rate 19 mm/hr (0-30)
[2024-07-20 12:23] LABS: Absolute Lymphocyte Count 1.98 X10^3/uL (0.83-4.51); Absolute Neutrophil Count 5.8 X10^3/uL (2.0-7.7); Basophil% 1.1 % (0-1); Eosinophil# 0.21 X10^3/uL; Eosinophils% 2.4 % (0-5); Hematocrit 43.6 % (37-47); Hemoglobin 14.1 g/dL (12.0-15.0); Lymphocyte # 1.98 X10^3/ul (0.83-4.51); Lymphocyte % 22.3 % (19-41); Mean Corp Hgb Conc 32.3 g/dL (32-36); Mean Corpuscular Hgb 27.5 pg (27.0-32.0); Mean Corpuscular Volume 85.2 fL (81-99); Mean Platelet Vol. 10.8 fl (6.2-12.0); Monocyte# 0.69 X10^3/uL; Monocyte% 7.8 % (0-10); NRBC Flagged by Analyzer 0 % (0-5); Neutrophil # 5.82 X10^3/uL (2.7-7.7); Neutrophil % 65.7 % (47-70); Platelet Count 264 K/mm3 (150-450); RBC Distribution Width CV 14.3 % (11.6-14.6); RBC Distribution Width SD 44.5 fl (35.1-43.9); Red Blood Count 5.12 M/mm3 (4.2-5.4); White Blood Count 8.9 K/mm3 (4.4-11.0)
[2024-07-20 12:24] LABS: AST(SGOT) 30 U/L (15-37); Alanine Aminotransfer ALT/SGPT 57 U/L (13-56); Albumin, Serum 3.7 g/dL (3.2-5.0); Alkaline Phosphatase 187 U/L (45-117); Anion Gap 3 (5-15); BUN 14 mg/dL (7-18); BUN/Creat Ratio 19.3 RATIO (10-20); CRP 3.71 mg/L (0.0-3.0); Calcium,Total 9.2 mg/dL (8.5-10.1); Chloride 107 mmol/L (98-107); Creatinine, Serum 0.73 mg/dL (0.55-1.02); EST Glomerular Filtration Rate 89 mL/min (>60); Est Glom Filt Rate - Afr Amer 107 mL/min (>60); Globulin 3.8 g/dL (2.2-4.2); Glucose 112 mg/dL (74-106); Potassium 3.6 mmol/L (3.5-5.1); Protein, Total 7.5 g/dL (6.4-8.2); Rheumatoid Factor < 10.0 IU/mL (<15); Sodium Level 138 mmol/L (136-145)
[2024-07-20 13:02] LABS: Hepatitis B Surface Antibody Non-Reactive; Hepatitis B Surface Antigen Non-Reactive (Nonreactive); Hepatitis C Antibody Non-Reactive (Nonreactive)
[2024-07-21 12:10] LABS: CCP IgG Antibodies 11 units (0-19)
== END | disposition home or self-care (01) ==
LOC: MTLAB 10:42
PROVIDERS: PCP Family Medicine; Referring Provider Internal Medicine Rheumatology; Visit Provider Internal Medicine Rheumatology
DX: M06.4 Inflammatory polyarthropathy (principal); M35.00 Sjogren syndrome, unspecified
CPT/HCPCS: 36415; 72170; 80053; 85025; 85652; 86140; 86200; 86431; 86706; 86803; 87340

== ENCOUNTER → 2024-08-19 | Outpatient (CLI) | payer OTHER, SELFPAY ==
--- NOTE | 2024-08-19 10:06 | BI_ITS ---
MAMMOGRAPHY - BILATERAL SCREENING REASON FOR EXAM: Female, 54 years old. Routine annual screening examination. PERTINENT HISTORY: Grandmother with breast cancer. TECHNIQUE: Digital bilateral breast declan (3D mammographic acquisition) in the CC and MLO projections. 2-D mediolateral oblique (MLO) and craniocaudad (CC) views of both breasts were obtained. CAD: Full Field Digital Mammography with Computer Added Detection was performed. COMPARISON: Comparison is made with prior study August 07, 2023 and June 13, 2022. FINDINGS: Breast Composition: The breasts are heterogeneously dense, which may obscure small masses. There are no dominant masses or suspicious calcifications. No other significant abnormalities are identified. There has been no significant change since the prior study. BI/SCRN MAMM (CAD)W/DECLAN BILAT IMPRESSION: Stable bilateral screening mammogram. Yearly follow-up mammogram recommended. (A) ASSESSMENT CATEGORY: BIRADS Category 1: Negative. A letter regarding these results will be sent to the patient by the facility within 30 days. Approximately 10% of breast cancers are not detected by mammography. A normal mammogram should not delay biopsy of a clinically suspicious abnormality. [id number] Electronically Signed: Rodriguez Kurtz MD at 11:16 EST ,
== END | disposition home or self-care (01) ==
LOC: OPBI 10:04
PROVIDERS: PCP Family Medicine; Referring Provider Family Medicine; Visit Provider Family Medicine
DX: Z12.31 Encounter for screening mammogram for malignant neoplasm of breast (principal); Z80.3 Family history of malignant neoplasm of breast
CPT/HCPCS: 77063; 77067

== ENCOUNTER → 2024-10-30 | Outpatient (CLI) | payer OTHER, SELFPAY ==
[2024-10-30 10:51] LABS: Absolute Lymphocyte Count 1.38 X10^3/uL (0.83-4.51); Absolute Neutrophil Count 2.7 X10^3/uL (2.0-7.7); Basophil# 0.07 X10^3/uL; Basophil% 1.4 % (0-1); Eosinophil# 0.18 X10^3/uL; Eosinophils% 3.7 % (0-5); Hematocrit 40.6 % (37-47); Hemoglobin 13.3 g/dL (12.0-15.0); Lymphocyte # 1.38 X10^3/ul (0.83-4.51); Lymphocyte % 28.5 % (19-41); Mean Corp Hgb Conc 32.8 g/dL (32-36); Mean Corpuscular Hgb 28.3 pg (27.0-32.0); Mean Corpuscular Volume 86.4 fL (81-99); Mean Platelet Vol. 10.2 fl (6.2-12.0); Monocyte# 0.48 X10^3/uL; Monocyte% 9.9 % (0-10); NRBC Flagged by Analyzer 0 % (0-5); Neutrophil # 2.71 X10^3/uL (2.7-7.7); Neutrophil % 56.1 % (47-70); Platelet Count 230 K/mm3 (150-450); RBC Distribution Width CV 13.6 % (11.6-14.6); RBC Distribution Width SD 43.1 fl (35.1-43.9); White Blood Count 4.8 K/mm3 (4.4-11.0)
[2024-10-30 11:34] LABS: ALB/GLOB Ratio 1.6 RATIO (0.9-2.4); AST(SGOT) 29 U/L (<=31); Alanine Aminotransfer ALT/SGPT 25 U/L (<=34); Albumin, Serum 4.1 g/dL (3.5-5.0); Alkaline Phosphatase 128 U/L (35-104); Anion Gap 8 (5-15); BUN 17 mg/dL (4-19); BUN/Creat Ratio 22.5 RATIO (10-20); Calcium 9.1 mg/dL (7.6-11.0); Carbon Dioxide 25.7 mmol/L (22.0-29.0); Chloride 109 mmol/L (96-108); Creatinine, Serum 0.75 mg/dL (0.70-1.20); EST Glomerular Filtration Rate 93 (>60); Globulin 2.6 g/dL (2.2-4.2); Glucose 92 mg/dL (70-99); Potassium 4.2 mmol/L (3.3-5.1); Protein, Total 6.8 g/dL (5.9-8.4); Sodium Level 143 mmol/L (133-145); Total Bilirubin 0.37 mg/dL (0.00-1.30)
== END | disposition home or self-care (01) ==
LOC: LAB 10:35
PROVIDERS: PCP Family Medicine; Referring Provider Internal Medicine Rheumatology; Visit Provider Internal Medicine Rheumatology
DX: M06.4 Inflammatory polyarthropathy (principal); M35.00 Sjogren syndrome, unspecified; Z79.899 Other long term (current) drug therapy
CPT/HCPCS: 36415; 80053; 85025

== ENCOUNTER → 2025-01-05 | Outpatient (CLI) | payer OTHER, SELFPAY ==
[2025-01-05 18:12] LABS: PTHIN 50 pg/mL (11-61)
[2025-01-05 18:17] LABS: ALB/GLOB Ratio 1.6 RATIO (0.9-2.4); AST(SGOT) 27 U/L (<=31); Alanine Aminotransfer ALT/SGPT 24 U/L (<=34); Albumin, Serum 4.4 g/dL (3.5-5.0); Alkaline Phosphatase 125 U/L (35-104); Anion Gap 11 (5-15); BUN 15 mg/dL (4-19); BUN/Creat Ratio 20.2 RATIO (10-20); Calcium,Total 9.3 mg/dL (7.6-11.0); Carbon Dioxide 26.1 mmol/L (21.0-32.0); Chloride 104 mmol/L (98-108); Creatinine, Serum 0.73 mg/dL (0.70-1.20); EST Glomerular Filtration Rate 97 (>60); Globulin 2.7 g/dL (2.2-4.2); Glucose 92 mg/dL (70-99); Potassium 3.8 mmol/L (3.3-5.1); Sodium Level 141 mmol/L (133-145)
[2025-01-05 18:26] LABS: Vitamin B12 717 pg/mL (180-914); Vitamin D,25 Hydroxy 36.3 ng/mL (30-100)
[2025-01-07 14:08] LABS: Lyme Scn Total Ab w/Rflx Negative (Negative)
== END | disposition home or self-care (01) ==
LOC: MFPLAB 16:20
PROVIDERS: PCP Family Medicine; Referring Provider Family Medicine; Visit Provider Family Medicine
DX: E21.3 Hyperparathyroidism, unspecified (principal); R53.83 Other fatigue
CPT/HCPCS: 36415; 80053; 82306; 82607; 83970; 84439; 84443; 86618

== ENCOUNTER → 2025-03-05 | Outpatient (CLI) | payer OTHER, SELFPAY ==
[2025-03-05 09:43] LABS: Hematocrit 38.2 % (37-47); Hemoglobin 12.5 g/dL (12.0-15.0); Immature Granulocytes Count 0.030 X10^3/uL (0.0-0.0); Mean Corp Hgb Conc 32.7 g/dL (32-36); Mean Corpuscular Volume 86.2 fL (81-99); Mean Platelet Vol. 10.9 fl (6.2-12.0); NRBC Flagged by Analyzer 0 % (0-5); Platelet Count 241 K/mm3 (150-450); RBC Distribution Width CV 13.5 % (11.6-14.6); RBC Distribution Width SD 42.2 fl (35.1-43.9); Red Blood Count 4.43 M/mm3 (4.2-5.4); White Blood Count 4.8 K/mm3 (4.4-11.0)
[2025-03-05 11:02] LABS: BUN 17 mg/dL (4-19); Glucose 83 mg/dL (70-99)
[2025-03-05 11:03] LABS: AST(SGOT) 34 U/L (<=31); Alanine Aminotransfer ALT/SGPT 36 U/L (<=34); Albumin, Serum 4.2 g/dL (3.5-5.0); Alkaline Phosphatase 120 U/L (35-104); Anion Gap 10 (5-15); BUN/Creat Ratio 28.0 RATIO (10-20); Calcium,Total 9.3 mg/dL (7.6-11.0); Carbon Dioxide 25.6 mmol/L (21.0-32.0); Chloride 106 mmol/L (98-108); Globulin 2.5 g/dL (2.2-4.2); Potassium 3.9 mmol/L (3.3-5.1)
[2025-03-05 11:28] LABS: Cholesterol 172 mg/dL (<=200); Low Density Lipoprotein Calc. 88 mg/dL; Magnesium 2.1 mg/dL (1.5-2.2); Triglycerides 81 mg/dL; Very Low Density Lipoprotein 16 mg/dL (5-40); cholesterol:hdl ratio screen 2.56
== END | disposition home or self-care (01) ==
LOC: LAB 08:21
PROVIDERS: PCP Family Medicine; Referring Provider Internal Medicine Rheumatology; Visit Provider Internal Medicine Rheumatology
DX: M06.4 Inflammatory polyarthropathy (principal); M35.00 Sjogren syndrome, unspecified; I10 Essential (primary) hypertension; Z79.899 Other long term (current) drug therapy
CPT/HCPCS: 36415; 80053; 80061; 83735; 85025

== ENCOUNTER → 2025-03-17 | Outpatient (CLI) | payer OTHER, SELFPAY ==
--- NOTE | 2025-03-17 07:30 | US_ITS ---
PROCEDURE: ABD LIMITED W/ ELASTOGRAPHY REASON FOR EXAM: ELEVATED ALKALINE PHOSPHATASE. COMPARISON: None. TECHNIQUE: Right upper quadrant abdominal ultrasound. [facility] ElastQ Imaging shear wave elastography for non-invasive assessment of liver tissue stiffness. Douglas EPIQ Elite. FINDINGS: LIVER: Size: Unremarkable Length: 15.9 cm cm Echotexture: Normal Contour: Normal Lesions: None identified Elastography: EQI Med: 9.3 kPa EQI Med Killian: 1.74 m/s IQR/Med: 26 %* GALLBLADDER: Surgically absent. COMMON BILE DUCT: Normal measuring 4 mm. . PANCREAS: Visualized portions are sonographically unremarkable. Visualized portions of the right kidney are unremarkable. No right upper quadrant ascites. US/ABD Limited w/ Elastography IMPRESSION: Moderate degree of hepatic fibrosis. Status post cholecystectomy. Reference Values: SRU <1.37 m/s (5.7kPa): No to mild fibrosis 1.37 m/s - 2.2 m/s: Moderate to severe fibrosis >2.2 m/s (15kPa): Significant fibrosis / cirrhosis METAVIR Score F2 or higher: 1.34 m/s (5.7kPa) F3 or higher: 1.55 m/s (7.3kPa) F4: 1.80 m/s (10kPa) * If the IQR/Med is >30%, the variance in the measurements is a large and the a ccuracy of the measurement may be in question. Reading Location: [place] [id number]
--- OUTSIDE RECORDS SUMMARY | 2025-03-17 07:48 | XMS RPT_ITS | CCD ---
Author Organization [facility] Care Team Providers Care Ocular Pathologist Name Role Phone Toshia Sousa Unavailable Kandi Macdonald Unavailable Unavailable Merry ISRAEL, Dr. Toshia Partida Primary Care Provider [phone] Junie ISRAEL, Dr. Gillis Attending Provider Junie ISRAEL, Dr. Gillis Referring Provider Merry ISRAEL, Dr. Toshia Partida Attending Provider Merry ISRAEL, Dr. Toshia Partida Referring Provider Merry ISRAEL, Dr. Toshia Partida Primary Care Provider Dr. Elis Zaman MD Attending Provider Junie ISRAEL, Dr. Gillis Referring Provider Merry ISRAEL, Dr. Toshia Partida Referring Provider Zaire ISRAEL, Dr. Sarah Attending Provider Nelsy ISRAEL, Dr. Stas Ahumada Primary Care Provider [phone] Nelsy ISRAEL, Dr. Stas Ahumada Attending Provider Nelsy ISRAEL, Dr. Stas Ahumada Referring Provider Merry ISRAEL, Dr. Toshia Partida Primary Care Provider Junie ISRAEL, Dr. Gillis Attending Provider Junie ISRAEL, Dr. Gillis Referring Provider Toshia Sousa Attending Unavailable Toshia Sousa Referring Unavailable Toshia Sousa Primary Care Unavailable Jolliff, Toshia S Primary Care Unavailable Jolliff, Toshia S Attending Unavailable Jolliff, Toshia S Referring Unavailable Robotham, Marilee Consulting Unavailable Jolliff, Toshia S Primary Care Unavailable Robotham, Marilee Attending Unavailable Jolliff, Toshia S Primary Care Unavailable Robotham, Marilee Attending Unavailable Tyrel Tai Attending Unavailable Tyrel Tai Referring Unavailable Stas Whittington Primary Care Unavailable VelElis stovall Attending Unavailable Junie, Elis Referring Unavailable SchinStas conti Primary Care Unavailable Tyrel Tai Attending Unavailable Jolliff, Toshia S Referring Unavailable Jolliff, Toshia S Primary Care Unavailable Jolliff, Toshia S Primary Care Unavailable Jolliff, Toshia S Referring Unavailable Jessika, Marilee Attending Unavailable Stas Whittington Primary Care Unavailable Stas Whittington Attending Unavailable Stas Whittington Referring Unavailable Jolliff, Toshia S Primary Care Unavailable Vellanjolie, Elis Attending Unavailable Vellanki, Elis Referring Unavailable Jolliff, Toshia S Attending Unavailable Jolliff, Toshia S Referring Unavailable Jolliff, Toshia S Primary Care Unavailable Jolliff, Toshia S Primary Care Unavailable VellanElis dave Attending Unavailable Junie Elis Referring Unavailable Medications Current Medications Medication Drug Class(es) Dates Sig (Normalized) Sig (Original) B-Complex With Vitamin C tablet (3 sources) Start: 01-27-2024 B-Complex With Vitamin C tablet Active 1 {tbl} PO DAILY January 27, 2024 12:00am calcium carbonate 1500 mg oral tablet (11 sources) Start: 01-27-2024 take 1 tablet by mouth at bedtime Calcium Carbonate 600 mg calcium (1,500 mg) tablet Active 600 mg PO AT BEDTIME January 27, 2024 12:00am Start: 11-04-2019 End: 01-27-2024 take 1 tablet by mouth once daily Calcium Carbonate 500 MG tablet Discontinued 500 mg PO DAILY November 04, 2019 1:00am January 27, 2024 1:00pm cephalexin 500 mg oral capsule (2 sources) Cephalosporin Antibacterial Start: 06-24-2021 End: 06-28-2021 take 1 capsule by mouth every eight hours Keflex 500 mg oral capsule ; 1 cap(s) orally every 8 hours Quantity: 15 Refills: 0 Ordered: 24-Jun-2021 Kandi Macdonald Start: 24-Jun-2021 End: 28-Jun-2021 Generic Substitution Allowed Comments: Finish all this medication unless otherwise directed by prescriber. Comment on above: Finish all this medi cation unless otherwise directed by prescriber. hydroCHLOROthiazide 12.5 mg / lisinopril 20 mg oral tablet (8 sources) Thiazide Diuretic, Angiotensin Converting Enzyme Inhibitor Start: 11-04-2019 Lisinopril-[place] chlorothiazide 1 EACH tablet Active 1 NMA PO DAILY November 04, 2019 1:00am Start: 11-04-2019 Lisinopril-Hyd rochlorothiazide Active 1 EACH PO DAILY November 04, 2019 1:00am hydroxychloroquine sulfate 200 mg oral tablet (2 sources) Antimalarial, Antirheumatic Agent Start: 12-14-2024 Hydroxychloroquine (Plaquenil) 200 mg tablet Active 310 mg PO daily December 14, 2024 12:00am levothyroxine sodium 0.112 mg oral tablet (14 sources) l-Thyroxine Start: 02-24-2024 take 1 tablet by mouth once daily Levothyroxine (Synthroid) 112 mcg tablet Active 112 ug PO DAILY February 24, 2024 12:00am Start: 01-27-2024 End: 02-24-2024 take 1 capsule by mouth once daily Levothyroxine 125 mcg capsule Discontinued 125 ug PO DAILY January 27, 2024 12:00am February 24, 2024 11:08am Start: 07-09-2017 End: 01-27-2024 take 1 tablet by mouth once daily Levothyroxine 150 MCG tablet Discontinued 150 ug PO DAILY July 09, 2017 1:00am January 27, 2024 1:00pm potassium chloride 10 meq extended release oral tablet (3 sources) Start: 01-27-2024 take 1 tablet by mouth once daily Potassium Chloride 10 mEq tablet extended release Active 10 meq PO DAILY January 27, 2024 12:00am Completed/Discontinued Medications Medication Drug Class(es) Dates Sig (Normalized) Sig (Original) Levonorgestrel-Et hinyl Estrad (8 sources) Progestin, Estrogen, Progestin-containin g Intrauterine Device Start: 11-04-2019 End: 01-27-2024 take 1 tablet by mouth once daily Levonorgestrel-Eth inyl Estrad 0.15 mg-30 mcg (91) tablets,dose pack,3 month Discontinued 1 {tbl} PO DAILY November 04, 2019 1:00am January 27, 2024 1:00pm Start: 11-04-2019 take 1 tablet by kehinde th once daily Levonorgestrel-Ethinyl Estrad Active 1 TABLET PO DAILY November 04, 2019 12:00am Start: 11-04-2019 take 1 tablet by kehinde th once daily Levonorgestrel-Ethinyl Estrad Active 1 TABLET PO DAILY November 04, 2019 1:00am meloxicam 15 mg oral tablet (3 sources) Nonsteroidal Anti-inflammatory Drug Start: 01-27-2024 End: 02-24-2024 take 1 tablet by mouth once daily Meloxicam 15 mg tablet Discontinued 15 mg PO DAILY January 27, 2024 12:00am February 24, 2024 11:09am traMADol hydrochloride 50 mg oral tablet (3 sources) Opioid Agonist Start: 03-08-2024 End: 03-17-2024 take 1 tablet by mouth every six hours as needed for pain Tramadol 50 mg tablet Discontinued 50 mg PO EVERY 6 HOURS as needed for pain 7 0 March 08, 2024 12:00am March 17, 2024 1:50pm Postoperative pain Other acute postprocedural pain Problems Active Problems Problem Classification Problem Date Documented Da te Episodic/Chronic Biliary tract disease (3 sources) Biliary sludge; Translations: [Other specified diseases of gallbladder] 03-17-2024 Episodic Comment on above: And two 5 mm polyps Open wounds of extremities (3 sources) Laceration of finger; Translations: [Laceration of right index finger] 06-24-2021 Episodic Comment on above: FINGER LACERATION Other endocrine disorders (1 source) Hyperparathyroidism , unspecified; Translations: [Hyperparathyroidis m, unspecified] Onset: 01-11-2025 Chronic Other liver diseases (5 sources) Elevated liver enzymes level; Translations: [Abnormal levels of other serum enzymes] 01-27-2024 Episodic Other liver diseases (2 sources) Abnormal levels of other serum enzymes; Translations: [Abnormal levels of other serum enzymes] Onset: 06-28-2024 Episodic Rheumatoid arthritis and related disease (1 source) Inflammatory polyarthropathy; Translations: [Inflammatory polyarthropathy] Onset: 03-10-2025 Chronic Unclassified (1 source) Laceration of right index finger 06-24-2021 Past or Other Problems Problem Classification Problem Date Documented Da te Episodic/Chronic Other screening for suspected conditions (not mental disorders or infectious disease) (1 source) Encounter for screening mammogram for malignant neoplasm of breast; Translations: [Encounter for screening mammogram for malignant neoplasm of breast] Onset: 09-22-2024 Episodic Results Test Name Value Interpretation Reference Range Facility Absolute lymphocyte countOrd ered By: Elis Zaman on 03-05-2025 Lymphocytes Auto (Unsp spec) [#/Vol] 1.40 10*3/uL 0.83-4.51 [facility] Absolute neutrophil countOrd ered By: Elischelo Zaman on 03-05-2025 Neutrophils (Bld) [#/Vol] 2.6 10*3/uL 2.0-7.7 [facility] Anion gap in Serum or Plasma Ordered By: Elis Zaman on 03-05-2025 Anion gap [Moles/Vol] 10 mmol/L 5-15 [facility] Automated lymphocyte count a s percentage of total leukocytesOrdered By: Elis Zaman on 03-05-2025 Lymphocytes/100 WBC Auto (Unsp spec) 29.2 % 19-41 [facility] BUN/creatinine ratioOrdered By: [facility] Junie on 03-05-2025 Urea nitrogen/Creatinine [Mass ratio] 28.0 mg/mg High 10-20 [facility] Basophil percentageOrdered B y: Elis Zaman on 03-05-2025 Basophils/100 WBC (Bld) 1.5 % High 0-1 [facility] Bilirubin, totalOrdered By: Elis Zaman on 03-05-2025 Bilirubin [Mass/Vol] 0.46 mg/dL 0.00-1.30 [facility] CBC W/Diff, Automatedon 0 Absolute Lymph 1.40 X10 3/uL Normal 0.83-4.51 [facility] Comment on above: Performed By: #### L [id number] #### [facility] [address] [place], [place], [id number] Absolute Neut 2.6 X10 3/uL Normal 2.0-7.7 [facility] Comment on above: Performed By: #### L 550.4129 #### [facility] [address] [place], [address] Basophils/100 WBC (Bld) 1.5 % High 0-1 [facility] Comment on above: Performed By: #### L [id number] #### [facility] [address] [place], [address] Eosinophils/100 WBC (Bld) 3.3 % Normal 0-5 [facility] Comment on above: Performed By: #### L [id number] #### [facility] [address] [place], [address] Erythrocyte distribution width (RBC) [Ratio] 13.5 % Normal 11.6-14.6 [facility] Comment on above: Performed By: #### L [id number] #### [facility] [address] [place], [address] Hematocrit (Bld) [Volume fraction] 38.2 % Normal 37-47 [facility] Comment on above: Performed By: #### L [id number] #### [facility] [address] [place], [address] Hemoglobin (Bld) [Mass/Vol] 12.5 g/dL Normal 12.0-15.0 [facility] Comment on above: Performed By: #### L [id number] #### [facility] [address] [place], [address] IG% 0.600 Normal 0.0-0.9 [facility] Comment on above: Result Comment: IG% - Immature Granulocytes (promyelocytes, myelocytes and metamyelocytes) > 1% indicates that a LEFT SHIFT is Present. Performed By: #### L [id number] #### [facility] [address] [place], [address] Lymphocytes/100 WBC (Bld) 29.2 % Normal 19-41 [facility] Comment on above: Performed By: #### L [id number] #### [facility] [address] [place], [address] MCH (RBC) [Entitic mass] 28.2 pg Normal 27.0-32.0 [facility] Comment on above: Performed By: #### L [id number] #### [facility] [address] [place], [address] MCHC (RBC) [Mass/Vol] 32.7 g/dL Normal 32-36 [facility] Comment on above: Performed By: #### L [id number] #### [facility] [address] [place], [address] MCV (RBC) [Entitic vol] 86.2 fL Normal 81-99 [facility] Comment on above: Performed By: #### L [id number] #### [facility] [address] [place], [address] Monocytes/100 WBC (Bld) 12.1 % High 0-10 [facility] Comment on above: Performed By: #### L [id number] #### [facility] [address] [place], [address] Neutrophils/100 WBC (Bld) 53.3 % Normal 47-70 [facility] Comment on above: Performed By: #### L [id number] #### [facility] [address] [place], [address] Nucleated RBC (Bld) [#/Vol] 0 10*3/uL Normal 0-5 [facility] Comment on above: Performed By: #### L [id number] #### [facility] [address] [place], [address] Platelet mean volume (Bld) [Entitic vol] 10.9 fL Normal 6.2-12.0 [facility] Comment on above: Performed By: #### L [id number] #### [facility] [address] [place], [address] Platelets (Bld) [#/Vol] 241 10*3/uL Normal 150-450 [facility] Comment on above: Performed By: #### L [id number] #### [facility] [address] [place], [address] RBC (Bld) [#/Vol] 4.43 10*6/uL Normal 4.2-5.4 [facility] Comment on above: Performed By: #### L [id number] #### [facility] [address] [place], [address] RDW SD 42.2 fl Normal 35.1-43.9 [facility] Comment on above: Performed By: #### L [id number] #### [facility] [address] [place], [address] WBC (Bld) [#/Vol] 4.8 10*3/uL Normal 4.4-11.0 [facility] Comment on above: Performed By: #### L [id number] #### [facility] [address] [place], [address] Calculated very low density lipoprotein (VLDL) cholesterol measurementOrdered By: Stas Whittington on 03-05-2025 Calculated very low density lipoprotein (VLDL) cholesterol measurement 16 mg/dL 5-40 [facility] Carbon dioxide, total [Moles /volume] in Central venous bloodOrdered By: Elis Zaman on 03-05-2025 CO2 [Moles/Vol] 25.6 mmol/L 21.0-32.0 [facility] Chloride assayOrdered By: Jeremie Zaman on 03-05-2025 Chloride [Moles/Vol] 106 mmol/L 98-108 [facility] Comprehensive Metabolic Prof ilon 03-05-2025 Albumin [Mass/Vol] 4.2 g/dL Normal 3.5-5.0 [facility] Comment on above: Performed By: #### L [id number] #### [facility] [address] [place], [address] Albumin/Globulin [Mass ratio] 1.7 {ratio} Normal 0.9-2.4 [facility] Comment on above: Performed By: #### L [id number] #### [facility] [address] [place], [address] ALK PHOS 120 U/L High 35-104 [facility] Comment on above: Performed By: #### L 332.3106 #### [facility] [address] [place], [address] ALT [Catalytic activity/Vol] 36 U/L High <=34 [facility] Comment on above: Performed By: #### L 146.97 #### [facility] [address] [place], [address] AST [Catalytic activity/Vol] 34 U/L High <=31 [facility] Comment on above: Result Comment: Hemo lysis present, Results??could be affected. ?? Performed By: #### L 253.8234 #### [facility] [address] [place], [address] Bilirubin [Mass/Vol] 0.46 mg/dL Normal 0.00-1.30 [facility] Comment on above: Performed By: #### L 721.5010 #### [facility] [address] [place], [address] BUN/CRE 28.0 RATIO High 10-20 [facility] Comment on above: Performed By: #### L 380.4892 #### [facility] [address] [place], [address] Calcium [Mass/Vol] 9.3 mg/dL Normal 7.6-11.0 [facility] Comment on above: Performed By: #### L [id number] #### [facility] [address] [place], [address] Chloride [Moles/Vol] 106 mmol/L Normal 98-108 [facility] Comment on above: Performed By: #### L [id number] #### [facility] [address] [place], [address] CO2 [Moles/Vol] 25.6 mmol/L Normal 21.0-32.0 [facility] Comment on above: Performed By: #### L [id number] #### [facility] [address] [place], [address] GAP 10 Normal 5-15 [facility] Comment on above: Performed By: #### L 950.9519 #### [facility] [address] [place], [address] GFR/1.73 sq M.predicted among non-blacks MDRD (S/P/Bld) [Vol rate/Area] 106 mL/min/{1.73_m2} Normal >60 [facility] Comment on above: Result Comment: mL/m in/1.73m2 CKD-EPI Creatinine Equation (2020) Performed By: #### L [id number] #### [facility] [address] [place], [address] Globulin (S) [Mass/Vol] 2.5 g/dL Normal 2.2-4.2 [facility] Comment on above: Performed By: #### L 763.10 #### [facility] [address] [place], [address] Potassium [Moles/Vol] 3.9 mmol/L Normal 3.3-5.1 [facility] Comment on above: Result Comment: Hemo lysis present, Results??could be affected. ?? Performed By: #### L 210.3113 #### [facility] [address] [place], [address] Sodium [Moles/Vol] 142 mmol/L Normal 133-145 [facility] Comment on above: Performed By: #### L [id number] #### [facility] [address] [place], [address] T PROT 6.7 g/dL Normal 5.9-8.4 [facility] Comment on above: Performed By: #### L [id number] #### [facility] [address] [place], [address] Creatinine [Mass/Vol] 0.61 mg/dL Low 0.70-1.20 [facility] Comment on above: Performed By: #### L [id number] #### [facility] [address] [place], [address] Glucose [Mass/Vol] 83 mg/dL Normal 70-99 [facility] Comment on above: Performed By: #### L [id number] #### [facility] [address] [place], [address] Urea nitrogen [Mass/Vol] 17 mg/dL Normal 4-19 [facility] Comment on above: Performed By: #### L [id number] #### [facility] [address] [place], [address] Eosinophil percentageOrdered By: Elis Zaman on 03-05-2025 Eosinophils/100 WBC (Bld) 3.3 % 0-5 [facility] Erythrocyte distribution wid th ratioOrdered By: Elis Zaman on 03-05-2025 Erythrocyte distribution width (RBC) [Ratio] 13.5 % 11.6-14.6 [facility] Erythrocyte distribution wid th standard deviationOrdered By: Elis Zaman on 03-05-2025 Erythrocyte distribution width (RBC) [Ratio] 42.2 fl 35.1-43.9 [facility] Glomerular filtration rate ( GFR) estimation/1.73 sq m using serum, plasma, or whole bOrdered By: Elis Zaman on 03-05-2025 GFR/1.73 sq M.predicted among non-blacks MDRD (S/P/Bld) [Vol rate/Area] 106 mL/min/{1.73_m2} >60 [facility] Comment on above: mL/min/1.73m2 CKD-EP I Creatinine Equation (2020) Hematocrit Auto (Bld) [Volum e fraction]Ordered By: Elis Zaman on 03-05-2025 Hematocrit (Bld) [Volume fraction] 38.2 % 37-47 [facility] Hemoglobin measurementOrdere d By: Elis Zaman on 03-05-2025 Hemoglobin (Bld) [Mass/Vol] 12.5 g/dL 12.0-15.0 [facility] Immature granulocytes/100 WB C Auto (Bld)Ordered By: Elis Zaman on 03-05-2025 Immature granulocytes/100 WBC (Bld) 0.600 % 0.0-0.9 [facility] Comment on above: IG% - Immature Granu locytes (promyelocytes, myelocytes and metamyelocytes) > 1% indicates that a LEFT SHIFT is Present. LDL calc ser/plasOrdered By: Stas Whittington on 03-05-2025 Cholesterol in LDL [Mass/Vol] 88 mg/dL [facility] Comment on above: Gnzwdqumhf=203-402 m g/dL & Higher Qpnm=235 mg/dL or greater Laboratory - Chemistry and C hemistry - challengeOrdered By: Elis Zaman on 03-05-2025 AST [Catalytic activity/Vol] 34 U/L High <32 [facility] Comment on above: Hemolysis present, R esults could be affected. Lipid Profileon 03-05-2025 CHOL:HDL 2.56 Normal [facility] Comment on above: Order Comment: PT DO ES NOT WANT TO DO CHANDS BW AT THIS TIME-SWRIGHTOrder Date: 01/05/25Order Info: [id number] - LIPIDOrder Info: [id number] - MG Performed By: #### L [id number], L505.7010, L3890.6300, L101.9900, L100.0100, L3890.6100, L3890.6200, L4600.0100, L500.4050 #### [facility] [address] [place], [address] Cholesterol [Mass/Vol] 172 mg/dL Normal <=200 [facility] Comment on above: Order Comment: PT DO ES NOT WANT TO DO CHANDS BW AT THIS TIME-SWRIGHTOrder Date: 01/05/25Order Info: [id number] - LIPIDOrder Info: [id number] - MG Result Comment: Chol esterol level, Desirable <200 mg/dL Borderline high cholesterol 200-239 mg/dL High cholesterol >=240 mg/dL Recommendations of the NCEP Adult Treatment Panel for the following risk-cutoff thresholds for the [place] population. Performed By: #### L [id number], L505.7010, L3890.6300, L101.9900, L100.0100, L3890.6100, L3890.6200, L4600.0100, L500.4050 #### [facility] [address] [place], [address] Cholesterol in HDL [Mass/Vol] 67 mg/dL Normal [facility] Comment on above: Order Comment: PT DO ES NOT WANT TO DO CHANDS BW AT THIS TIME-SWRIGHTOrder Date: 01/05/25Order Info: [id number] - LIPIDOrder Info: [id number] - MG Result Comment: Rosa Isela onal Cholesterol Education Program (NCEP) guidelines: <40 mg/dL: Low HDL-cholesterol (major risk factor for CHD) >= 60 mg/dL: High HDL-cholesterol (negative risk factor for CHD) HDL-cholesterol is affected by a number of factors, e.g. smoking, exercise, hormones, sex and age. Performed By: #### L [id number], L505.7010, L3890.6300, L101.9900, L100.0100, L3890.6100, L3890.6200, L4600.0100, L500.4050 #### [facility] [address] [place], [address] Cholesterol in LDL [Mass/Vol] 88 mg/dL Normal [facility] Comment on above: Order Comment: PT DO ES NOT WANT TO DO CHANDS BW AT THIS TIME-SWRIGHTOrder Date: 01/05/25Order Info: [id number] - LIPIDOrder Info: [id number] - MG Result Comment: Bord amrdlq=240-598 mg/dL Higher Gwwq=923 mg/dL or greater Performed By: #### L [id number], L505.7010, L3890.6300, L101.9900, L100.0100, L3890.6100, L3890.6200, L4600.0100, L500.4050 #### [facility] [address] [place], [place], [address] Cholesterol in VLDL [Mass/Vol] 16 mg/dL Normal 5-40 [facility] Comment on above: Order Comment: PT DO ES NOT WANT TO DO CHANDS BW AT THIS TIME-SWRIGHTOrder Date: 01/05/25Order Info: [id number] - LIPIDOrder Info: [id number] - MG Performed By: #### L [id number], L505.7010, L3890.6300, L101.9900, L100.0100, L3890.6100, L3890.6200, L4600.0100, L500.4050 #### [facility] [address] [place], [address] Triglyceride [Mass/Vol] 81 mg/dL Normal [facility] Comment on above: Order Comment: PT DO ES NOT WANT TO DO CHANDS BW AT THIS TIME-SWRIGHTOrder Date: 01/05/25Order Info: [id number] - LIPIDOrder Info: [id number] - MG Result Comment: The drugs N-Acetylcysteine and Metamizole may falsely depress this assay. Normal range: <150 mg/dL Borderline High: 150-199 mg/dL High: 200-499 mg/dL Very High: >500 mg/dL Performed By: #### L [id number], L505.7010, L3890.6300, L101.9900, L100.0100, L3890.6100, L3890.6200, L4600.0100, L500.4050 #### [facility] [address] [place], [place], [id number] MCV (mean corpuscular volume ) determinationOrdered By: Elis Zaman on 03-05-2025 MCV (RBC) [Entitic vol] 86.2 fL 81-99 [facility] Magnesiumon 03-05-2025 Magnesium [Mass/Vol] 2.1 mg/dL Normal 1.5-2.2 [facility] Comment on above: Order Comment: PT DO ES NOT WANT TO DO BRANDON BW AT THIS TIME-SWRIGHTOrder Date: 01/05/25Order Info: [id number] - LIPIDOrder Info: [id number] - MG Performed By: #### L [id number], L505.7010, L3890.6300, L101.9900, L100.0100, L3890.6100, L3890.6200, L4600.0100, L500.4050 #### [facility] [address] [place], [place], [address] Magnesium measurement (mass/ volume)Ordered By: Stas Whittington on 03-05-2025 Magnesium (Unsp spec) [Mass/Vol] 2.1 mg/dL 1.5-2.2 [facility] Mean corpuscular hemoglobin (MCH) determinationOrdered By: Elis Zaman on 03-05-2025 MCH (RBC) [Entitic mass] 28.2 pg 27.0-32.0 [facility] Mean corpuscular hemoglobin concentration (MCHC) determinationOrdered By: Elis Zaman on 03-05-2025 MCHC (RBC) [Mass/Vol] 32.7 g/dL 32-36 [facility] Mean platelet volume determi nationOrdered By: Elis Zaman on 03-05-2025 Platelet mean volume (Bld) [Entitic vol] 10.9 fL 6.2-12.0 [facility] Monocyte percentageOrdered B y: Elis Zaman on 03-05-2025 Monocytes/100 WBC (Bld) 12.1 % High 0-10 [facility] Neutrophil percentageOrdered By: Elis Zaman on 03-05-2025 Neutrophils/100 WBC (Bld) 53.3 % 47-70 [facility] Nucleated red blood cell per centageOrdered By: Elis Zaman on 03-05-2025 Nucleated RBC/100 WBC (Bld) [Ratio] 0 % 0-5 [facility] Platelet countOrdered By: Jeremie Zaman on 03-05-2025 Platelets (Bld) [#/Vol] 241 10*3/uL 150-450 [facility] Potassium measurement (mass/ volume)Ordered By: Elis Zaman on 03-05-2025 Potassium (Unsp spec) [Mass/Vol] 3.9 mmol/L 3.3-5.1 [facility] Comment on above: Hemolysis present, R esults could be affected. RBC Auto (Bld) [#/Vol]Ordere d By: Elis Zaman on 03-05-2025 RBC (Bld) [#/Vol] 4.43 10*6/uL 4.2-5.4 [facility] Screening total cholesterol/ high density lipoprotein (HDL) cholesterol ratioOrdered By: Stas Whittington on 03-05-2025 Cholesterol.total/Lianne sterol in HDL [Mass ratio] 2.56 {ratio} [facility] Serum creatinine measurement (mass/volume)Ordered By: Elis Zaman on 03-05-2025 Creatinine [Mass/Vol] 0.61 mg/dL Low 0.70-1.20 [facility] Serum globulin measurementOr dered By: Elis Zaman on 03-05-2025 Globulin (S) [Mass/Vol] 2.5 g/dL 2.2-4.2 [facility] Serum glucose measurement (m ass/volume)Ordered By: Elis Zaman on 03-05-2025 Glucose [Mass/Vol] 83 mg/dL 70-99 [facility] Serum or plasma alanine ortiz otransferase (ALT) measurementOrdered By: Elis Zaman on 03-05-2025 ALT [Catalytic activity/Vol] 36 U/L High <35 [facility] Serum or plasma albumin maegan urement (mass/volume)Ordered By: Elis Zaman on 03-05-2025 Albumin [Mass/Vol] 4.2 g/dL 3.5-5.0 [facility] Serum or plasma albumin/glob ulin mass ratioOrdered By: Elis Zaman on 03-05-2025 Albumin/Globulin [Mass ratio] 1.7 {ratio} 0.9-2.4 [facility] Serum or plasma alkaline yayo sphatase measurementOrdered By: Elis Zaman on 03-05-2025 ALP [Catalytic activity/Vol] 120 U/L High 35-104 [facility] Serum or plasma calcium maegan urement (mass/volume)Ordered By: Elis Zaman on 03-05-2025 Calcium [Mass/Vol] 9.3 mg/dL 7.6-11.0 [facility] Serum or plasma cholesterol in HDL measurement (mass/volume)Ordered By: Stas Whittington on 03-05-2025 Cholesterol in HDL [Mass/Vol] 67 mg/dL >40 [facility] Comment on above: National Cholesterol Education Program (NCEP) guidelines:<40 mg/dL: Low HDL-cholesterol (major risk factor for CHD)>= 60 mg/dL: High HDL-cholesterol (negative risk factor for CHD)HDL-cholesterol is affected by a number of factors, e.g. smoking, exercise, hormones, sex and age. Serum or plasma cholesterol measurement (mass/volume)Ordered By: Stas Whittington on 03-05-2025 Cholesterol [Mass/Vol] 172 mg/dL <201 [facility] Comment on above: Cholesterol level, D esirable <200 mg/dLBorderline high cholesterol 200-239 mg/dLHigh cholesterol >=240 mg/dLRecommendations of the NCEP Adult Treatment Panel for the following risk-cutoff thresholds for the [place] population. Serum or plasma urea nitroge n measurement (mass/volume)Ordered By: Elis Zaman on 03-05-2025 Urea nitrogen [Mass/Vol] 17 mg/dL 4-19 [facility] Sodium levelOrdered By: Gino Zaman on 03-05-2025 Sodium [Moles/Vol] 142 mmol/L 133-145 [facility] Total proteinOrdered By: Jeni Zaman on 03-05-2025 Protein [Mass/Vol] 6.7 g/dL 5.9-8.4 [facility] Triglycerides measurementOrd ered By: Stas Whittington on 03-05-2025 Triglyceride [Mass/Vol] 81 mg/dL <199 [facility] Comment on above: The drugs N-Acetylcy steine and Metamizole may falsely depress this assay. Normal range: <150 mg/dLBorderline High: 150-199 mg/dLHigh: 200-499 mg/dLVery High: >500 mg/dL White blood cell (WBC) count Ordered By: Elis Zaman on 03-05-2025 WBC (Bld) [#/Vol] 4.8 10*3/uL 4.4-11.0 [facility] Lyme Screen W/Reflex WBon LYME SCREEN Ab Negative Normal Negative [facility] Comment on above: Order Comment: Order Date: 03/31/24 Order Info: 0788-1 - LIVER Order Date: 12/26/23 Order Info: 3016-3 - TSH SEND LIVER TO DR ZAFAR Result Comment: Lyme antibodies not detected. Reflex testing is not indicated. No laboratory evidence of infection with B. burgdorferi (Lyme disease). Negative results may occur in patients recently infected (less than or equal to 14 days) with B. burgdorferi. If recent infection is suspected, repeat testing on a new sample collected in 7 to 14 days is recommended. Performed at: [address] [id number] Computing Systems Mechanic: Scott Dudley PhD, Phone: [phone] Performed By: #### L [id number] #### [facility] [address] [place] [address], [address] Anion gap in Serum or Plasma Ordered By: Stas Whittington on 01-05-2025 Anion gap [Moles/Vol] 11 mmol/L 5-15 [facility] BUN/creatinine ratioOrdered By: Stas Whittington on 01-05-2025 Urea nitrogen/Creatinine [Mass ratio] 20.2 mg/mg High 10-20 [facility] Bilirubin, totalOrdered By: Stas Whittington on 01-05-2025 Bilirubin [Mass/Vol] 0.40 mg/dL 0.00-1.30 [facility] Carbon dioxide, total [Moles /volume] in Central venous bloodOrdered By: Stas Whittington on 01-05-2025 CO2 [Moles/Vol] 26.1 mmol/L 21.0-32.0 [facility] Chloride assayOrdered By: Janel Whittington on 01-05-2025 Chloride [Moles/Vol] 104 mmol/L 98-108 [facility] Comprehensive Metabolic Prof ilon 01-05-2025 Albumin [Mass/Vol] 4.4 g/dL Normal 3.5-5.0 [facility] Comment on above: Order Comment: Order Date: 03/31/24 Order Info: 0788-1 - LIVER Order Date: 12/26/23 Order Info: 3016-3 - TSH SEND LIVER TO DR ZAFAR Performed By: #### L [id number] #### [facility] [address] [place], [place], [address] Albumin/Globulin [Mass ratio] 1.6 {ratio} Normal 0.9-2.4 [facility] Comment on above: Order Comment: Order Date: 03/31/24 Order Info: 0788-1 - LIVER Order Date: 12/26/23 Order Info: 3016-3 - TSH SEND LIVER TO DR ZAFAR Performed By: #### L [id number] #### [facility] [address] [place], [place], [address] ALK PHOS 125 U/L High 35-104 [facility] Comment on above: Order Comment: Order Date: 03/31/24 Order Info: 0788-1 - LIVER Order Date: 12/26/23 Order Info: 3016-3 - TSH SEND LIVER TO DR ZAFAR Performed By: #### L [id number] #### [facility] [address] [place], [address] ALT [Catalytic activity/Vol] 24 U/L Normal <=34 [facility] Comment on above: Order Comment: Order Date: 03/31/24 Order Info: 88- - LIVER Order Date: 12/26/23 Order Info: 3015-3 - TSH SEND LIVER TO DR ZAFAR Performed By: #### L [id number] #### [facility] [address] [place], [place], [address] AST [Catalytic activity/Vol] 27 U/L Normal <=31 [facility] Comment on above: Order Comment: Order Date: 03/31/24 Order Info: 787- - LIVER Order Date: 12/26/23 Order Info: 3015-3 - TSH SEND LIVER TO DR ZAFAR Performed By: #### L [id number] #### [facility] [address] [place], [place], [address] Bilirubin [Mass/Vol] 0.40 mg/dL Normal 0.00-1.30 [facility] Comment on above: Order Comment: Order Date: 03/31/24 Order Info: 787- - LIVER Order Date: 12/26/23 Order Info: 3015-3 - TSH SEND LIVER TO DR ZAFAR Performed By: #### L [id number] #### [facility] [address] [place], [place], [address] BUN/CRE 20.2 RATIO High 10-20 [facility] Comment on above: Order Comment: Order Date: 03/31/24 Order Info: 0788- - LIVER Order Date: 12/26/23 Order Info: 3015-3 - TSH SEND LIVER TO DR ZAFAR Performed By: #### L [id number] #### [facility] [address] [place], [place], [address] Calcium [Mass/Vol] 9.3 mg/dL Normal 7.6-11.0 [facility] Comment on above: Order Comment: Order Date: 03/31/24 Order Info: 0788- - LIVER Order Date: 12/26/23 Order Info: 3015-3 - TSH SEND LIVER TO DR ZAFAR Performed By: #### L [id number] #### [facility] [address] [place], [place], [address] Chloride [Moles/Vol] 104 mmol/L Normal 98-108 [facility] Comment on above: Order Comment: Order Date: 03/31/24 Order Info: 0788- - LIVER Order Date: 12/26/23 Order Info: 3 - TSH SEND LIVER TO DR ZAFAR Performed By: #### L [id number] #### [facility] [address] [place], [place], [address] CO2 [Moles/Vol] 26.1 mmol/L Normal 21.0-32.0 [facility] Comment on above: Order Comment: Order Date: 03/31/24 Order Info: 787-09 - LIVER Order Date: 12/26/23 Order Info: 3 - TSH SEND LIVER TO DR ZAFAR Performed By: #### L [id number] #### [facility] [address] [place], [place], [address] Creatinine [Mass/Vol] 0.73 mg/dL Normal 0.70-1.20 [facility] Comment on above: Order Comment: Order Date: 03/31/24 Order Info: 787-09 - LIVER Order Date: 12/26/23 Order Info: 3 - TSH SEND LIVER TO DR ZAFAR Performed By: #### L [id number] #### [facility] [address] [place], [address] GAP 11 Normal 5-15 [facility] Comment on above: Order Comment: Order Date: 03/31/24 Order Info: 0788 - LIVER Order Date: 12/26/23 Order Info: 3 - TSH SEND LIVER TO DR ZAFAR Performed By: #### L [id number] #### [facility] [address] [place], [place], [address] GFR/1.73 sq M.predicted among non-blacks MDRD (S/P/Bld) [Vol rate/Area] 97 mL/min/{1.73_m2} Normal >60 [facility] Comment on above: Order Comment: Order Date: 03/31/24 Order Info: 0788-1 - LIVER Order Date: 12/26/23 Order Info: 3016-3 - TSH SEND LIVER TO DR ZAFAR Result Comment: mL/m in/1.73m2 CKD-EPI Creatinine Equation (2020) Performed By: #### L [id number] #### [facility] [address] [place], [place], [address] Globulin (S) [Mass/Vol] 2.7 g/dL Normal 2.2-4.2 [facility] Comment on above: Order Comment: Order Date: 03/31/24 Order Info: 0788- - LIVER Order Date: 12/26/23 Order Info: 3 - TSH SEND LIVER TO DR ZAFAR Performed By: #### L [id number] #### [facility] [address] [place], [place], [address] Glucose [Mass/Vol] 92 mg/dL Normal 70-99 [facility] Comment on above: Order Comment: Order Date: 03/31/24 Order Info: 0788- - LIVER Order Date: 12/26/23 Order Info: 3016-3 - TSH SEND LIVER TO DR ZAFAR Performed By: #### L [id number] #### [facility] [address] [place], [place], [address] [phone] Potassium [Moles/Vol] 3.8 mmol/L Normal 3.3-5.1 [facility] Comment on above: Order Comment: Order Date: 03/31/24 Order Info: 0788-1 - LIVER Order Date: 12/26/23 Order Info: 3016-3 - TSH SEND LIVER TO DR ZAFAR Performed By: #### L [id number] #### [facility] [address] [place], [place], [address] ([address]) Sodium [Moles/Vol] 141 mmol/L Normal 133-145 [facility] Comment on above: Order Comment: Order Date: 03/31/24 Order Info: 0788-1 - LIVER Order Date: 12/26/23 Order Info: 3016-3 - TSH SEND LIVER TO DR ZAFAR Performed By: #### L [id number] #### [facility] [address] [place], [address] T PROT 7.0 g/dL Normal 5.9-8.4 [facility] Comment on above: Order Comment: Order Date: 03/31/24 Order Info: 0788-1 - LIVER Order Date: 12/26/23 Order Info: 3016-3 - TSH SEND LIVER TO DR ZAFAR Performed By: #### L [id number] #### [facility] [address] [place], [place], [address] Urea nitrogen [Mass/Vol] 15 mg/dL Normal 4-19 [facility] Comment on above: Order Comment: Order Date: 03/31/24 Order Info: 0788-1 - LIVER Order Date: 12/26/23 Order Info: 3016-3 - TSH SEND LIVER TO DR ZAFAR Performed By: #### L [id number] #### [facility] [address] [place], [address] Glomerular filtration rate ( GFR) estimation/1.73 sq m using serum, plasma, or whole bOrdered By: Stas Whittington on 01-05-2025 GFR/1.73 sq M.predicted among non-blacks MDRD (S/P/Bld) [Vol rate/Area] 97 mL/min/{1.73_m2} >60 [facility] Comment on above: mL/min/1.73m2 CKD-EP I Creatinine Equation (2020) Laboratory - Chemistry and C hemistry - challengeOrdered By: Stas Whittington on 01-05-2025 AST [Catalytic activity/Vol] 27 U/L <32 [facility] PTHINon 01-05-2025 PTH 50 pg/mL Normal 11-61 [facility] Comment on above: Order Comment: Order Date: 03/31/24 Order Info: 88-1 - LIVER Order Date: 12/26/23 Order Info: 3016-3 - TSH SEND LIVER TO DR ZAFAR Performed By: #### L [id number] #### [facility] [place], [address] Potassium measurement (mass/ volume)Ordered By: Stas Whittington on 01-05-2025 Potassium (Unsp spec) [Mass/Vol] 3.8 mmol/L 3.3-5.1 [facility] Serum creatinine measurement (mass/volume)Ordered By: Stas Whittington on 01-05-2025 Creatinine [Mass/Vol] 0.73 mg/dL 0.70-1.20 [facility] Serum globulin measurementOr dered By: Stas Whittington on 01-05-2025 Globulin (S) [Mass/Vol] 2.7 g/dL 2.2-4.2 [facility] Serum glucose measurement (m ass/volume)Ordered By: Stas Whittington on 01-05-2025 Glucose [Mass/Vol] 92 mg/dL 70-99 [facility] Serum or plasma alanine ortiz otransferase (ALT) measurementOrdered By: Stas Whittington on 01-05-2025 ALT [Catalytic activity/Vol] 24 U/L <35 [facility] Serum or plasma albumin maegan urement (mass/volume)Ordered By: Stas Whittington on 01-05-2025 Albumin [Mass/Vol] 4.4 g/dL 3.5-5.0 [facility] Serum or plasma albumin/glob ulin mass ratioOrdered By: Stas Whittington on 01-05-2025 Albumin/Globulin [Mass ratio] 1.6 {ratio} 0.9-2.4 [facility] Serum or plasma alkaline yayo sphatase measurementOrdered By: Stas Whittington on 01-05-2025 ALP [Catalytic activity/Vol] 125 U/L High 35-104 [facility] Serum or plasma calcium maegan urement (mass/volume)Ordered By: Stas Whittington on 01-05-2025 Calcium [Mass/Vol] 9.3 mg/dL 7.6-11.0 [facility] Serum or plasma urea nitroge n measurement (mass/volume)Ordered By: Stas Whittington on 01-05-2025 Urea nitrogen [Mass/Vol] 15 mg/dL 4-19 [facility] Sodium levelOrdered By: Stas Whittington on 01-05-2025 Sodium [Moles/Vol] 141 mmol/L 133-145 [facility] T4 Free Directon 01-05-2025 T4 FREE DIRECT 1.20 ng/dL Normal 0.76-1.46 [facility] Comment on above: Order Comment: Order Date: 03/31/24 Order Info: 0788-1 - LIVER Order Date: 12/26/23 Order Info: 3016-3 - TSH SEND LIVER TO DR ZAFAR Performed By: #### L [id number] #### [facility] [address] [place], [place], [address] T4 freeOrdered By: Stas mckeon on 01-05-2025 Free T4 [Mass/Vol] 1.20 ng/dL 0.76-1.46 [facility] TSH DL <= 0.005 mIU/L QnOrde red By: Stas Whittington on 01-05-2025 TSH Qn 5.640 uIU/mL High 0.300-4.200 [facility] Thyroid Stim Hormone (TSH)on 01-05-2025 TSH 5.640 uIU/mL High 0.300-4.200 [facility] Comment on above: Order Comment: Order Date: 03/31/24 Order Info: 0788-1 - LIVER Order Date: 12/26/23 Order Info: 3016-3 - TSH SEND LIVER TO DR ZAFAR Performed By: #### L [id number] #### [facility] [address] [place], [address] Total proteinOrdered By: Hayden Whittington on 01-05-2025 Protein [Mass/Vol] 7.0 g/dL 5.9-8.4 [facility] Vitamin B12on 01-05-2025 Cobalamin (Vitamin B12) [Mass/Vol] 717 pg/mL Normal 180-914 [facility] Comment on above: Order Comment: Order Date: 01/05/25Order Info: 0786-1 - CMPOrder Info: 3016-3 - TSHOrder Info: 3027 - T4F Performed By: #### L [id number] #### [facility] [address] [place], [address] Vitamin B12 ser/plasOrdered By: Stas Whittington on 01-05-2025 Cobalamin (Vitamin B12) [Mass/Vol] 717 pg/mL 180-914 [facility] Vitamin D,25 Hydroxyon 01-05 Vitamin D 25-OH 36.3 ng/mL Normal 30-100 [facility] Comment on above: Order Comment: Order Date: 01/05/25Order Info: 0786-1 - CMPOrder Info: [id number] - TSHOrder Info: 30212-06 - T4F Result Comment: Rosa M min D Status Deficiency: <20 ng/mL (50nmol/L) Insufficiency: 20-30 ng/mL (50-75 nmol/L) Sufficiency: 30-100 ng/mL (75-250 nmol/L) Toxicity: >100 ng/mL (>250 nmol/L) Performed By: #### L [id number] #### [facility] [address] [place], [address] Gastroenterology Visit Repor ton 12-14-2024 Gastroenterology Visit Report [facility]enterology [address] [place] [address] OFFICE VISIT Date of Service: 12/14/24 MR#: [id number] Acct: [id number] Name: RADHA CHASE Rep #: [id number] : 1970 Provider: Dr. Tyrel schaffer MD Age/Sex: 54/F [place] [facility] [place] [facility] [place]: Signed Intake Vital Signs 03/08/24 09:58 12/14/24 14:06 Height 5 ft 3 in 5 ft 3 in Weight: 142 lb BMI 25.1 BP 121/81 H Blood Pressure Location Lt brachial Position Sitting Pulse 87 Pulse Oximetry (%) 96 Oxygen Delivery Method room air Intake Visit Reasons: Liver Inflammation Allergies No Known Allergies Allergy (Verified 03/17/24 13:50) Medications ???Medication ???Instructions ???Recorded ???Confirmed ???Type lisinopril 20 1 ea PO DAILY 11/04/19 12/14/24 Hi story mg-hydrochlorothiazid e 12.5 mg tablet B-complex with vitamin C 1 tab PO DAILY 01/27/24 02/24/24 H istory calcium carbonate 600 mg PO QHS 01/27/24 12/14/24 Hi story potassium chloride 10 mEq 10 meq PO DAILY 01/27/24 12/14/24 History tablet,extended release levothyroxine 112 mcg tablet 112 mcg PO DAILY 02/24/24 12/14/24 History (Synthroid) hydroxychloroquine 200 mg tablet 310 mg PO QDAY 12/14/24 12/14/24 H istory (Plaquenil) [facility] Medical History Wears glasses Heartburn Gastric reflux CPAP (continuous positive airway pressure) dependence Sleep apnea Non-smoker Thyroid disease HTN (hypertension) Surgical History History of History of tonsillectomy ( 1973) H/O thyroidectomy Social History Smoking Status: Never smoker alcohol intake: never substance use type: does not use HPI HPI Details: RADHA CHASE, is a 54 F who presents to the office today for consult elevated liver enzymes. PCP referred for elevated liver enzymes. ???Underwent cholecystectomy with liver biopsy March 2024 at [facility] that showed liver parenchymal tissue with minimal portal chronic inflammation. BGI Est 12.14.24 Pt referred by artistic associate for clearance from art installer before switching treatment for her inflammatory polyarthropathy. Current taking Plaquenil. Pt reports no hx of FH hx of liver disease. Denies any GI complaints. Does not drink alcohol. Denies abdominal pain or change in bowel movement. History of Graves' disease status post thyroidectomy on thyroid replacement treatment. Patient has inflammatory polyarthropathy with synovitis of the small joints probably RA but RF and anti-CCP for negative ROS Const Constitutional: Positive for fatigue and weight change; No fever(s), frequent falls, headache(s) or weakness ENT ENT: No headache(s) or difficulty swallowing Resp Respiratory: No shortness of breath or wheezing Cardio Cardiology: No leg pain with exertion Gastro GI: Positive for constipation and diarrhea; No abdominal pain, bloating, change in bowel habits, heartburn, difficulty swallowing, excessive flatus, Vomiting blood/hematemesis, Blood in stool, nausea/dyspepsia or vomiting Genitourinary-Female: No difficulty urinating or burning urination Musc Musculoskeletal: Positive for joint pain, numbness, tingling and Arthritis; No back pain, joint swelling, muscle cramps, muscle weakness, stiffness, sciatica, restless legs, leg pain at night or leg pain with exertion Skin Skin: No dry skin, lesions, itchy eyes or rash Neuro Neurology: Positive for numbness and tingling; No behavioral changes, unsteady gait/balance, weakness, frequent falls, headache(s), restless legs, tremor(s), Increased tone in limbs, paralysis or seizures Psych Psychiatric: No anxiety, No behavioral changes, No depression, No paranoia, No Compulsive Behavior, No hyperactivity, No inattentiveness, No obsessions/compulsion s, No Temper Tantrums and No suicidal ideation Endo Endocrine: Positive for fatigue and weight change Aller/Imm Allergy/Immunologic: No itchy eyes or wheezing Barber/Lymp Hematologic/Lymphatic : No easy bleeding or easy bruising Exam Const General: cooperative, no acute distress and well developed Nutritional Appearance: average body habitus Orientation: alert, awake and oriented x3 Other: BMI 25.1 kg/m???. Body weight 142 pounds [facility] Head: normocephalic and atraumatic Nose: external nose normal Face and sinus: normal facial exam Mouth: moist mucous membranes Eyes Pupils: PERRL EOM: EOM intact bilaterally Neck Neck: normal visual inspection, no meningeal signs and trachea midline Carotids: no bruits Chest Chest palpation inspection: normal inspection of the chest Resp Effort Inspection: normal respiratory effort and symmetric chest movement (more content not included)... Normal [facility] Absolute lymphocyte countOrd ered By: Elis Zaman on 10-30-2024 Lymphocytes Auto (Unsp spec) [#/Vol] 1.38 10*3/uL 0.83-4.51 [facility] Absolute neutrophil countOrd ered By: Elis Zaman on 10-30-2024 Neutrophils (Bld) [#/Vol] 2.7 10*3/uL 2.0-7.7 [facility] Automated lymphocyte count a s percentage of total leukocytesOrdered By: Elis Zaman on 10-30-2024 Lymphocytes/100 WBC Auto (Unsp spec) 28.5 % 19-41 [facility] BUN/creatinine ratioOrdered By: Elis Zaman on 10-30-2024 Urea nitrogen/Creatinine [Mass ratio] 22.5 mg/mg High 10-20 [facility] Basophil percentageOrdered B y: Elis Zaman on 10-30-2024 Basophils/100 WBC (Bld) 1.4 % High 0-1 [facility] Bilirubin, totalOrdered By: Elis Zaman on 10-30-2024 Bilirubin [Mass/Vol] 0.37 mg/dL 0.00-1.30 [facility] CBC W/Diff, Automatedon Absolute Lymph 1.38 X10 3/uL Normal 0.83-4.51 [facility] Comment on above: Performed By: #### L [id number] #### [facility] [address] [place], [address] Absolute Neut 2.7 X10 3/uL Normal 2.0-7.7 [facility] Comment on above: Performed By: #### L [id number] #### [facility] [address] [place], [address] Basophils/100 WBC (Bld) 1.4 % High 0-1 [facility] Comment on above: Performed By: #### L [id number] #### [facility] [address] [place], [address] Eosinophils/100 WBC (Bld) 3.7 % Normal 0-5 [facility] Comment on above: Performed By: #### L [id number] #### [facility] [address] [place], [address] Erythrocyte distribution width (RBC) [Ratio] 13.6 % Normal 11.6-14.6 [facility] Comment on above: Performed By: #### L [id number] #### [facility] [address] [place], [place], [address] Hematocrit (Bld) [Volume fraction] 40.6 % Normal 37-47 [facility] Comment on above: Performed By: #### L 500.3400 #### [facility] [address] [place], [address] Hemoglobin (Bld) [Mass/Vol] 13.3 g/dL Normal 12.0-15.0 [facility] Comment on above: Performed By: #### L 500.3400 #### [facility] [address] [place], [address] IG% 0.400 Normal 0.0-0.9 [facility] Comment on above: Result Comment: IG% - Immature Granulocytes (promyelocytes, myelocytes and metamyelocytes) > 1% indicates that a LEFT SHIFT is Present. Performed By: #### L 500.3400 #### [facility] [address] [place] [place], [address] Lymphocytes/100 WBC (Bld) 28.5 % Normal 19-41 [facility] Comment on above: Performed By: #### L 500.3400 #### [facility] [address] [place], [address] MCH (RBC) [Entitic mass] 28.3 pg Normal 27.0-32.0 [facility] Comment on above: Performed By: #### L 500.3400 #### [facility] [address] [place], [address] MCHC (RBC) [Mass/Vol] 32.8 g/dL Normal 32-36 [facility] Comment on above: Performed By: #### L 500.3400 #### [facility] [address] [place], [address] MCV (RBC) [Entitic vol] 86.4 fL Normal 81-99 [facility] Comment on above: Performed By: #### L 500.3400 #### [facility] [address] [place], [address] Monocytes/100 WBC (Bld) 9.9 % Normal 0-10 [facility] Comment on above: Performed By: #### L 500.3400 #### [facility] [address] [place], [address] Neutrophils/100 WBC (Bld) 56.1 % Normal 47-70 [facility] Comment on above: Performed By: #### L 500.3400 #### [facility] [place], [address] Nucleated RBC (Bld) [#/Vol] 0 10*3/uL Normal 0-5 [facility] Comment on above: Performed By: #### L 500.3400 #### [facility] [address] [place], [address] Platelet mean volume (Bld) [Entitic vol] 10.2 fL Normal 6.2-12.0 [facility] Comment on above: Performed By: #### L 500.3400 #### [facility] [address] [place], [address] Platelets (Bld) [#/Vol] 230 10*3/uL Normal 150-450 [facility] Comment on above: Performed By: #### L 500.3400 #### [facility] [address] [place], [address] RBC (Bld) [#/Vol] 4.70 10*6/uL Normal 4.2-5.4 [facility] Comment on above: Performed By: #### L 500.3400 #### [facility] [address] [place], [address] RDW SD 43.1 fl Normal 35.1-43.9 [facility] Comment on above: Performed By: #### L 500.3400 #### [facility] [address] [place], [address] WBC (Bld) [#/Vol] 4.8 10*3/uL Normal 4.4-11.0 [facility] Comment on above: Performed By: #### L 500.3400 #### [facility] [address] [place] [place], [address] Carbon dioxide measurementOr dered By: Elis Zaman on 10-30-2024 CO2 [Moles/Vol] 25.7 mmol/L 22.0-29.0 [facility] Chloride measurementOrdered By: Elis Zaman on 10-30-2024 Chloride [Moles/Vol] 109 mmol/L High 96-108 [facility] Comprehensive Metabolic Prof ilon 10-30-2024 Albumin [Mass/Vol] 4.1 g/dL Normal 3.5-5.0 [facility] Comment on above: Order Comment: CBCD Performed By: #### L 500.3400 #### [facility] [address] [place], [address] Albumin/Globulin [Mass ratio] 1.6 {ratio} Normal 0.9-2.4 [facility] Comment on above: Order Comment: CBCD Performed By: #### L 500.3400 #### [facility] [address] [place], [address] ALK PHOS 128 U/L High 35-104 [facility] Comment on above: Order Comment: CBCD Performed By: #### L 500.3400 #### [facility] [address] [place], [address] ALT [Catalytic activity/Vol] 25 U/L Normal <=34 [facility] Comment on above: Order Comment: CBCD Performed By: #### L 500.3400 #### [facility] [address] [place], [address] Anion gap [Moles/Vol] 8 mmol/L Normal 5-15 [facility] Comment on above: Order Comment: CBCD Performed By: #### L 500.3400 #### [facility] [address] [place], [address] AST [Catalytic activity/Vol] 29 U/L Normal <=31 [facility] Comment on above: Order Comment: CBCD Performed By: #### L 500.3400 #### [facility] [address] [place], [address] Bilirubin [Mass/Vol] 0.37 mg/dL Normal 0.00-1.30 [facility] Comment on above: Order Comment: CBCD Performed By: #### L 500.3400 #### [facility] [address] [place], [address] BUN/CRE 22.5 RATIO High 10-20 [facility] Comment on above: Order Comment: CBCD Performed By: #### L 500.3400 #### [facility] [address] [place], [address] Calcium [Mass/Vol] 9.1 mg/dL Normal 7.6-11.0 [facility] Comment on above: Order Comment: CBCD Performed By: #### L 500.3400 #### [facility] [address] [place], [address] Chloride [Moles/Vol] 109 mmol/L High 96-108 [facility] Comment on above: Order Comment: CBCD Performed By: #### L 500.3400 #### [facility] [address] [place], [address] CO2 [Moles/Vol] 25.7 mmol/L Normal 22.0-29.0 [facility] Comment on above: Order Comment: CBCD Performed By: #### L 500.3400 #### [facility] [address] [place], [address] Creatinine [Mass/Vol] 0.75 mg/dL Normal 0.70-1.20 [facility] Comment on above: Order Comment: CBCD Performed By: #### L 500.3400 #### [facility] [address] [place], [address] GFR/1.73 sq M.predicted among non-blacks MDRD (S/P/Bld) [Vol rate/Area] 93 mL/min/{1.73_m2} Normal >60 [facility] Comment on above: Order Comment: CBCD Result Comment: mL/m in/1.73m2 CKD-EPI Creatinine Equation (2020) Performed By: #### L 500.3400 #### [facility] [address] [place], [address] Globulin (S) [Mass/Vol] 2.6 g/dL Normal 2.2-4.2 [facility] Comment on above: Order Comment: CBCD Performed By: #### L 500.3400 #### [facility] [address] [place], [address] Glucose [Mass/Vol] 92 mg/dL Normal 70-99 [facility] Comment on above: Order Comment: CBCD Performed By: #### L 500.3400 #### [facility] [address] [place], [address] Potassium [Moles/Vol] 4.2 mmol/L Normal 3.3-5.1 [facility] Comment on above: Order Comment: CBCD Performed By: #### L 500.3400 #### [facility] [address] [place], [address] Sodium [Moles/Vol] 143 mmol/L Normal 133-145 [facility] Comment on above: Order Comment: CBCD Performed By: #### L 500.3400 #### [facility] [address] [place], [place], [id number] T PROT 6.8 g/dL Normal 5.9-8.4 [facility] Comment on above: Order Comment: CBCD Performed By: #### L 500.3400 #### [facility] [address] [place], [place], [address] Urea nitrogen [Mass/Vol] 17 mg/dL Normal 4-19 [facility] Comment on above: Order Comment: CBCD Performed By: #### L 500.3400 #### [facility] [address] [place], [place], [address] Eosinophil percentageOrdered By: Elis Zaman on 10-30-2024 Eosinophils/100 WBC (Bld) 3.7 % 0-5 [facility] Erythrocyte distribution wid th ratioOrdered By: Elis Zaman on 10-30-2024 Erythrocyte distribution width (RBC) [Ratio] 13.6 % 11.6-14.6 [facility] Erythrocyte distribution wid th standard deviationOrdered By: Elis Zaman on 10-30-2024 Erythrocyte distribution width (RBC) [Entitic vol] 43.1 fL 35.1-43.9 [facility] Erythrocyte distribution width (RBC) [Ratio] 43.1 fl 35.1-43.9 [facility] GFR/1.73 sq M.predicted marsha g non-blacks MDRD (S/P/Bld) [Vol rate/Area]Ordered By: Elis Zaman on 10-30-2024 Estimated GFR (MDRD) Non-Af Amer 93 >60 [facility] Comment on above: mL/min/1.73m2 CKD-EP I Creatinine Equation (2020) Glomerular filtration rate ( GFR) estimation/1.73 sq m using serum, plasma, or whole bOrdered By: Elis Zaman on 10-30-2024 GFR/1.73 sq M.predicted among non-blacks MDRD (S/P/Bld) [Vol rate/Area] 93 mL/min/{1.73_m2} >60 [facility] Comment on above: mL/min/1.73m2 CKD-EP I Creatinine Equation (2020) Hematocrit Auto (Bld) [Volum e fraction]Ordered By: Elis Zaman on 10-30-2024 Hematocrit (Bld) [Volume fraction] 40.6 % 37-47 [facility] Hemoglobin measurementOrdere d By: Elis Zaman on 10-30-2024 Hemoglobin (Bld) [Mass/Vol] 13.3 g/dL 12.0-15.0 [facility] Immature granulocytes/100 WB C Auto (Bld)Ordered By: Elis Zaman on 10-30-2024 Immature granulocytes/100 WBC (Bld) 0.400 % 0.0-0.9 [facility] Comment on above: IG% - Immature Granu locytes (promyelocytes, myelocytes and metamyelocytes) > 1% indicates that a LEFT SHIFT is Present. Laboratory - Chemistry and C hemistry - challengeOrdered By: Elis Zaman on 10-30-2024 AST [Catalytic activity/Vol] 29 U/L <32 [facility] Lymphocytes Auto (Unsp spec) [#/Vol]Ordered By: Elis Zaman on 10-30-2024 Lymphocytes (Bld) [#/Vol] 1.38 10*3/uL 0.83-4.51 [facility] Lymphocytes/100 WBC Auto (Un sp spec)Ordered By: Elis Zaman on 10-30-2024 Lymphocytes/100 WBC (Bld) 28.5 % 19-41 [facility] MCV (mean corpuscular volume ) determinationOrdered By: Elis Zaman on 10-30-2024 MCV (RBC) [Entitic vol] 86.4 fL 81-99 [facility] Mean corpuscular hemoglobin (MCH) determinationOrdered By: Elis Zaman on 10-30-2024 MCH (RBC) [Entitic mass] 28.3 pg 27.0-32.0 [facility] Mean corpuscular hemoglobin concentration (MCHC) determinationOrdered By: Elis Zaman on 10-30-2024 MCHC (RBC) [Mass/Vol] 32.8 g/dL 32-36 [facility] Mean platelet volume determi nationOrdered By: Elis Zaman on 10-30-2024 Platelet mean volume (Bld) [Entitic vol] 10.2 fL 6.2-12.0 [facility] Monocyte percentageOrdered B y: Elis Zaman on 10-30-2024 Monocytes/100 WBC (Bld) 9.9 % 0-10 [facility] Neutrophil percentageOrdered By: Elis Zaman on 10-30-2024 Neutrophils/100 WBC (Bld) 56.1 % 47-70 [facility] Nucleated red blood cell per centageOrdered By: Elis Zaman on 10-30-2024 Nucleated RBC/100 WBC (Bld) [Ratio] 0 % 0-5 [facility] Platelet countOrdered By: Jeremie Zaman on 10-30-2024 Platelets (Bld) [#/Vol] 230 10*3/uL 150-450 [facility] RBC Auto (Bld) [#/Vol]Ordere d By: Elis Zaman on 10-30-2024 RBC (Bld) [#/Vol] 4.70 10*6/uL 4.2-5.4 [facility] Serum creatinine measurement (mass/volume)Ordered By: Elis Zaman on 10-30-2024 Creatinine [Mass/Vol] 0.75 mg/dL 0.70-1.20 [facility] Serum globulin measurementOr dered By: Elis Zaman on 10-30-2024 Globulin (S) [Mass/Vol] 2.6 g/dL 2.2-4.2 [facility] Serum glucose measurement (m ass/volume)Ordered By: Elis Zaman on 10-30-2024 Glucose [Mass/Vol] 92 mg/dL 70-99 [facility] Serum or plasma alanine ortiz otransferase (ALT) measurementOrdered By: Elis Zaman on 10-30-2024 ALT [Catalytic activity/Vol] 25 U/L <35 [facility] Serum or plasma albumin maegan urement (mass/volume)Ordered By: Elis Zaman on 10-30-2024 Albumin [Mass/Vol] 4.1 g/dL 3.5-5.0 [facility] Serum or plasma albumin/glob ulin mass ratioOrdered By: Elis Zaman on 10-30-2024 Albumin/Globulin [Mass ratio] 1.6 {ratio} 0.9-2.4 [facility] Serum or plasma alkaline yayo sphatase measurementOrdered By: Elis Zaman on 10-30-2024 ALP [Catalytic activity/Vol] 128 U/L High 35-104 [facility] Serum or plasma anion gap de termination (moles/volume)Ordered By: Elis Zaman on 10-30-2024 Anion gap [Moles/Vol] 8 mmol/L 5-15 [facility] Serum or plasma calcium maegan urement (mass/volume)Ordered By: Elis Zaman on 10-30-2024 Calcium [Mass/Vol] 9.1 mg/dL 7.6-11.0 [facility] Serum or plasma potassium me asurementOrdered By: Elis Zaman on 10-30-2024 Potassium [Moles/Vol] 4.2 mmol/L 3.3-5.1 [facility] Serum or plasma sodium measu rement (moles/volume)Ordered By: Elis Zaman on 10-30-2024 Sodium [Moles/Vol] 143 mmol/L 133-145 [facility] Serum or plasma urea nitroge n measurement (mass/volume)Ordered By: Elis Zaman on 10-30-2024 Urea nitrogen [Mass/Vol] 17 mg/dL 4-19 [facility] Total proteinOrdered By: Jeni Zaman on 10-30-2024 Protein [Mass/Vol] 6.8 g/dL 5.9-8.4 [facility] White blood cell (WBC) count Ordered By: Elis Zaman on 10-30-2024 WBC (Bld) [#/Vol] 4.8 10*3/uL 4.4-11.0 [facility] SCRN MAMM (CAD)W/DECLAN BILATo n 08-19-2024 SCRN MAMM (CAD)W/DECLAN BILAT [facility] [address] [place], [place] [id number] SCRN MAMM (CAD)W/DECLAN BILAT MR#: [id number] Acct: [id number] Name: RADHA CHASE Rep #: [id number] : 1970 F 54 From: Rodriguez ozuna MD PCP: Dr. Toshia Sousa MD Status: [facility] Study: SCRN MAMM (CAD)W/DECLAN BILAT Date of Exam: 08/01 05/25 Exam# [id number] Ordering Dr: Toshia Sousa MD [id number] MAMMOGRAPHY - BILATERAL SCREENING REASON FOR EXAM: Female, 54 years old. Routine annual screening examination. PERTINENT HISTORY: Grandmother with breast cancer. TECHNIQUE: Digital bilateral breast declan (3D mammographic acquisition) in the CC and MLO projections. 2-D mediolateral oblique (MLO) and craniocaudad (CC) views of both breasts were obtained. CAD: Full Field Digital Mammography with Computer Added Detection was performed. COMPARISON: Comparison is made with prior study August 07, 2023 and June 13, 2022. FINDINGS: Breast Composition: The breasts are heterogeneously dense, which may obscure small masses. There are no dominant masses or suspicious calcifications. No other significant abnormalities are identified. There has been no significant change since the prior study. BI/SCRN MAMM (CAD)W/DECLAN BILAT IMPRESSION: Stable bilateral screening mammogram. Yearly follow-up mammogram recommended. (A) ASSESSMENT CATEGORY: BIRADS Category 1: Negative. A letter regarding these results will be sent to the patient by the facility within 30 days. Approximately 10% of breast cancers are not detected by mammography. A normal mammogram should not delay biopsy of a clinically suspicious abnormality. [id number] Electronically Signed: Rodriguez Kurtz MD at 11:16 EST Reading Location ID and State: [address] [place] [address] , Service support , CC: Dr. 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 11 units Normal 0-19 [facility] Comment on above: Result Comment: Nega tive <20 Weak positive 20 - 39 Moderate positive 40 - 59 Strong positive >59 Performed at: [facility] [address] [id number] Computing Systems Mechanic: Scott Dudley PhD, Phone: [phone] Performed By: #### L 501.3820 #### [facility] [address] [place], [address] Absolute neutrophil countOrd ered By: Elis Zaman on 07-20-2024 Neutrophils (Bld) [#/Vol] 5.8 10*3/uL 2.0-7.7 [facility] Albumin to globulin ratioOrd ered By: Elis Zaman on 07-20-2024 Albumin/Globulin [Mass ratio] 1.0 {ratio} 0.9-2.4 [facility] Basophil percentageOrdered B y: Elis Zaman on 07-20-2024 Basophils/100 WBC (Bld) 1.1 % High 0-1 [facility] Bilirubin, totalOrdered By: Elis Zaman on 07-20-2024 Bilirubin [Mass/Vol] 0.50 mg/dL 0.20-1.00 [facility] Comment on above: For patients on eltr ombopag therapy, use of [facility] TBIL is not recommended. Blood urea nitrogen (BUN)/cr eatinine ratioOrdered By: Elis Zaman on 07-20-2024 Urea nitrogen/Creatinine [Mass ratio] 19.3 mg/mg 10-20 [facility] C-reactive protein measureme nt by high sensitivity methodOrdered By: Elis Zaman on 07-20-2024 C-Reactive Protein Extended Range 3.71 mg/L High 0.0-3.0 [facility] Comment on above: C-Reactive Protein ( CRP) provides useful information for thediagnosis, therapy and monitoring of inflammatory processesand associated diseases. For the evaluation of Relative Riskfor Cardiovascular Disease, a High Sensitivity CRP (HSCRP)should be ordered. CBC W/Diff, Automatedon 07-02 Absolute Lymph 1.98 X10 3/uL Normal 0.83-4.51 [facility] Comment on above: Performed By: #### L 501.6710, L505.7010, L3890.6300, L101.9900, L100.0100, L3890.6100, L3890.6200, L4600.0100, L500.4050 #### [facility] [address] [place], [address] Absolute Neut 5.8 X10 3/uL Normal 2.0-7.7 [facility] Comment on above: Performed By: #### L 501.6710, L505.7010, L3890.6300, L101.9900, L100.0100, L3890.6100, L3890.6200, L4600.0100, L500.4050 #### [facility] [address] [place], [address] Basophils/100 WBC (Bld) 1.1 % High 0-1 [facility] Comment on above: Performed By: #### L 501.6710, L505.7010, L3890.6300, L101.9900, L100.0100, L3890.6100, L3890.6200, L4600.0100, L500.4050 #### [facility] [address] [place], [address] Eosinophils/100 WBC (Bld) 2.4 % Normal 0-5 [facility] Comment on above: Performed By: #### L 501.6710, L505.7010, L3890.6300, L101.9900, L100.0100, L3890.6100, L3890.6200, L4600.0100, L500.4050 #### [facility] [address] [facility] [place], [address] (010) Erythrocyte distribution width (RBC) [Ratio] 14.3 % Normal 11.6-14.6 [facility] Comment on above: Performed By: #### L 501.6710, L505.7010, L3890.6300, L101.9900, L100.0100, L3890.6100, L3890.6200, L4600.0100, L500.4050 #### [facility] [address] [place], [address] (583) Hematocrit (Bld) [Volume fraction] 43.6 % Normal 37-47 [facility] Comment on above: Performed By: #### L 501.6710, L505.7010, L3890.6300, L101.9900, L100.0100, L3890.6100, L3890.6200, L4600.0100, L500.4050 #### [facility] [address] [place], [address] Hemoglobin (Bld) [Mass/Vol] 14.1 g/dL Normal 12.0-15.0 [facility] Comment on above: Performed By: #### L 501.6710, L505.7010, L3890.6300, L101.9900, L100.0100, L3890.6100, L3890.6200, L4600.0100, L500.4050 #### [facility] [address] [facility] [place], [address] ([address] IG% 0.700 Normal 0.0-0.9 [facility] Comment on above: Result Comment: IG% - Immature Granulocytes (promyelocytes, myelocytes and metamyelocytes) > 1% indicates that a LEFT SHIFT is Present. Performed By: #### L 501.6710, L505.7010, L3890.6300, L101.9900, L100.0100, L3890.6100, L3890.6200, L4600.0100, L500.4050 #### [facility] [address] [place], [address] Lymphocytes/100 WBC (Bld) 22.3 % Normal 19-41 [facility] Comment on above: Performed By: #### L 501.6710, L505.7010, L3890.6300, L101.9900, L100.0100, L3890.6100, L3890.6200, L4600.0100, L500.4050 #### [facility] [address] [facility] [place], [address] MCH (RBC) [Entitic mass] 27.5 pg Normal 27.0-32.0 [facility] Comment on above: Performed By: #### L 501.6710, L505.7010, L3890.6300, L101.9900, L100.0100, L3890.6100, L3890.6200, L4600.0100, L500.4050 #### [facility] [address] [facility] [place], [address] MCHC (RBC) [Mass/Vol] 32.3 g/dL Normal 32-36 [facility] Comment on above: Performed By: #### L 501.6710, L505.7010, L3890.6300, L101.9900, L100.0100, L3890.6100, L3890.6200, L4600.0100, L500.4050 #### [facility] [address] [place], [address] MCV (RBC) [Entitic vol] 85.2 fL Normal 81-99 [facility] Comment on above: Performed By: #### L 501.6710, L505.7010, L3890.6300, L101.9900, L100.0100, L3890.6100, L3890.6200, L4600.0100, L500.4050 #### [facility] [address] [place], [address] Monocytes/100 WBC (Bld) 7.8 % Normal 0-10 [facility] Comment on above: Performed By: #### L 501.6710, L505.7010, L3890.6300, L101.9900, L100.0100, L3890.6100, L3890.6200, L4600.0100, L500.4050 #### [facility] [address] [facility] [place], [address] Neutrophils/100 WBC (Bld) 65.7 % Normal 47-70 [facility] Comment on above: Performed By: #### L 501.6710, L505.7010, L3890.6300, L101.9900, L100.0100, L3890.6100, L3890.6200, L4600.0100, L500.4050 #### [facility] [address] [facility] [place], [address] Nucleated RBC (Bld) [#/Vol] 0 10*3/uL Normal 0-5 [facility] Comment on above: Performed By: #### L 501.6710, L505.7010, L3890.6300, L101.9900, L100.0100, L3890.6100, L3890.6200, L4600.0100, L500.4050 #### [facility] [address] [place], [address] Platelet mean volume (Bld) [Entitic vol] 10.8 fL Normal 6.2-12.0 [facility] Comment on above: Performed By: #### L 501.6710, L505.7010, L3890.6300, L101.9900, L100.0100, L3890.6100, L3890.6200, L4600.0100, L500.4050 #### [facility] [address] [place], [address] Platelets (Bld) [#/Vol] 264 10*3/uL Normal 150-450 [facility] Comment on above: Performed By: #### L 501.6710, L505.7010, L3890.6300, L101.9900, L100.0100, L3890.6100, L3890.6200, L4600.0100, L500.4050 #### [facility] [address] [place], [address] RBC (Bld) [#/Vol] 5.12 10*6/uL Normal 4.2-5.4 [facility] Comment on above: Performed By: #### L 501.6710, L505.7010, L3890.6300, L101.9900, L100.0100, L3890.6100, L3890.6200, L4600.0100, L500.4050 #### [facility] [address] [place], [address] RDW SD 44.5 fl High 35.1-43.9 [facility] Comment on above: Performed By: #### L 501.6710, L505.7010, L3890.6300, L101.9900, L100.0100, L3890.6100, L3890.6200, L4600.0100, L500.4050 #### [facility] [address] [place], [address] WBC (Bld) [#/Vol] 8.9 10*3/uL Normal 4.4-11.0 [facility] Comment on above: Performed By: #### L 501.6710, L505.7010, L3890.6300, L101.9900, L100.0100, L3890.6100, L3890.6200, L4600.0100, L500.4050 #### [facility] [address] [place], [address] CRPon 07-20-2024 C-REACTIVE PROT 3.71 mg/L High 0.0-3.0 [facility] Comment on above: Result Comment: C-Re active Protein (CRP) provides useful information for the diagnosis, therapy and monitoring of inflammatory processes and associated diseases. For the evaluation of Relative Risk for Cardiovascular Disease, a High Sensitivity CRP (HSCRP) should be ordered. Performed By: #### L 501.6710, L505.7010, L3890.6300, L101.9900, L100.0100, L3890.6100, L3890.6200, L4600.0100, L500.4050 #### [facility] [address] [place], [address] Carbon dioxide measurementOr dered By: Elis Zaman on 07-20-2024 CO2 [Moles/Vol] 28.0 mmol/L 21.0-32.0 [facility] Chloride measurementOrdered By: Elis Zaman on 07-20-2024 Chloride [Moles/Vol] 107 mmol/L 98-107 [facility] Comprehensive Metabolic Prof ilon 07-20-2024 Albumin [Mass/Vol] 3.7 g/dL Normal 3.2-5.0 [facility] Comment on above: Performed By: #### L 501.6710, L505.7010, L3890.6300, L101.9900, L100.0100, L3890.6100, L3890.6200, L4600.0100, L500.4050 #### [facility] [address] [place], [place], [address] Albumin/Globulin [Mass ratio] 1.0 {ratio} Normal 0.9-2.4 [facility] Comment on above: Performed By: #### L 501.6710, L505.7010, L3890.6300, L101.9900, L100.0100, L3890.6100, L3890.6200, L4600.0100, L500.4050 #### [facility] [address] [place], [address] ALK P 187 U/L High 45-117 [facility] Comment on above: Performed By: #### L 501.6710, L505.7010, L3890.6300, L101.9900, L100.0100, L3890.6100, L3890.6200, L4600.0100, L500.4050 #### [facility] [address] [place], [place], [id number] ALT [Catalytic activity/Vol] 57 U/L High 13-56 [facility] Comment on above: Performed By: #### L 501.6710, L505.7010, L3890.6300, L101.9900, L100.0100, L3890.6100, L3890.6200, L4600.0100, L500.4050 #### [facility] [address] [place], [address] AST [Catalytic activity/Vol] 30 U/L Normal 15-37 [facility] Comment on above: Performed By: #### L 501.6710, L505.7010, L3890.6300, L101.9900, L100.0100, L3890.6100, L3890.6200, L4600.0100, L500.4050 #### [facility] [address] [place], [address] Bilirubin [Mass/Vol] 0.50 mg/dL Normal 0.20-1.00 [facility] Comment on above: Result Comment: For patients on eltrombopag therapy, use of [facility] [place] TBIL is not recommended. Performed By: #### L 501.6710, L505.7010, L3890.6300, L101.9900, L100.0100, L3890.6100, L3890.6200, L4600.0100, L500.4050 #### [facility] [address] [place], [address] BUN/CRE 19.3 RATIO Normal 10-20 [facility] Comment on above: Performed By: #### L 501.6710, L505.7010, L3890.6300, L101.9900, L100.0100, L3890.6100, L3890.6200, L4600.0100, L500.4050 #### [facility] [address] [place], [address] CA,Total 9.2 mg/dL Normal 8.5-10.1 [facility] Comment on above: Performed By: #### L 501.6710, L505.7010, L3890.6300, L101.9900, L100.0100, L3890.6100, L3890.6200, L4600.0100, L500.4050 #### [facility] [address] [place], [address] Chloride [Moles/Vol] 107 mmol/L Normal 98-107 [facility] Comment on above: Performed By: #### L 501.6710, L505.7010, L3890.6300, L101.9900, L100.0100, L3890.6100, L3890.6200, L4600.0100, L500.4050 #### [facility] [address] [place], [address] CO2 [Moles/Vol] 28.0 mmol/L Normal 21.0-32.0 [facility] Comment on above: Performed By: #### L 501.6710, L505.7010, L3890.6300, L101.9900, L100.0100, L3890.6100, L3890.6200, L4600.0100, L500.4050 #### [facility] [address] [place], [address] Creatinine [Mass/Vol] 0.73 mg/dL Normal 0.55-1.02 [facility] Comment on above: Result Comment: The validity of the calculated GFR GFRAA in patients over 70 years has not been determined. Clinical correlation is essential. Performed By: #### L 501.6710, L505.7010, L3890.6300, L101.9900, L100.0100, L3890.6100, L3890.6200, L4600.0100, L500.4050 #### [facility] [address] [place], [place], [id number] (144) EST GFR - AA 107 mL/min Normal >60 [facility] Comment on above: Result Comment: Afri can Ecuadorean GFR Calc Performed By: #### L 501.6710, L505.7010, L3890.6300, L101.9900, L100.0100, L3890.6100, L3890.6200, L4600.0100, L500.4050 #### [facility] [address] [place], [address] GAP 3 Low 5-15 [facility] Comment on above: Performed By: #### L 501.6710, L505.7010, L3890.6300, L101.9900, L100.0100, L3890.6100, L3890.6200, L4600.0100, L500.4050 #### [facility] [address] [place], [place], [id number] (052) GFR/1.73 sq M.predicted among non-blacks MDRD (S/P/Bld) [Vol rate/Area] 89 mL/min/{1.73_m2} Normal >60 [facility] Comment on above: Result Comment: Non- GFR Calc Performed By: #### L 501.6710, L505.7010, L3890.6300, L101.9900, L100.0100, L3890.6100, L3890.6200, L4600.0100, L500.4050 #### [facility] [address] [place], [address] Globulin (S) [Mass/Vol] 3.8 g/dL Normal 2.2-4.2 [facility] Comment on above: Performed By: #### L 501.6710, L505.7010, L3890.6300, L101.9900, L100.0100, L3890.6100, L3890.6200, L4600.0100, L500.4050 #### [facility] [address] [place], [address] Glucose [Mass/Vol] 112 mg/dL High 74-106 [facility] Comment on above: Result Comment: Fast ing Glucose result from 100 to 125 mg/dL suggests IMPAIRED HOMEOSTASIS per A.D.A. criteria. Performed By: #### L 501.6710, L505.7010, L3890.6300, L101.9900, L100.0100, L3890.6100, L3890.6200, L4600.0100, L500.4050 #### [facility] [address] [place], [address] Potassium [Moles/Vol] 3.6 mmol/L Normal 3.5-5.1 [facility] Comment on above: Performed By: #### L 501.6710, L505.7010, L3890.6300, L101.9900, L100.0100, L3890.6100, L3890.6200, L4600.0100, L500.4050 #### [facility] [address] [place], [address] Sodium [Moles/Vol] 138 mmol/L Normal 136-145 [facility] Comment on above: Performed By: #### L 501.6710, L505.7010, L3890.6300, L101.9900, L100.0100, L3890.6100, L3890.6200, L4600.0100, L500.4050 #### [facility] [address] [place], [address] T PROT 7.5 g/dL Normal 6.4-8.2 [facility] Comment on above: Performed By: #### L 501.6710, L505.7010, L3890.6300, L101.9900, L100.0100, L3890.6100, L3890.6200, L4600.0100, L500.4050 #### [facility] [address] [place], [address] Urea nitrogen [Mass/Vol] 14 mg/dL Normal 7-18 [facility] Comment on above: Performed By: #### L 501.6710, L505.7010, L3890.6300, L101.9900, L100.0100, L3890.6100, L3890.6200, L4600.0100, L500.4050 #### [facility] [address] [place], [address] Cyclic citrullinated peptide IgG QnOrdered By: Elis Zaman on 07-20-2024 Cyclic Citrullinated Peptide IgG Ab 11 units 0-19 [facility] Comment on above: Negative <20 Weak po sitive 20 - 39 Moderate positive 40 - 59 Strong positive >59Performed at: - [facility] [id number] Director: Scott Dudley PhD, Phone: [phone] Eosinophil percentageOrdered By: Elis Zaman on 07-20-2024 Eosinophils/100 WBC (Bld) 2.4 % 0-5 [facility] Erythrocyte Sed Rateon 07-20 SED RATE 19 mm/hr Normal 0-30 [facility] Comment on above: Performed By: #### L 501.6710, L505.7010, L3890.6300, L101.9900, L100.0100, L3890.6100, L3890.6200, L4600.0100, L500.4050 #### [facility] [place], [address] Erythrocyte distribution wid th ratioOrdered By: Elis Zaman on 07-20-2024 Erythrocyte distribution width (RBC) [Ratio] 14.3 % 11.6-14.6 [facility] Erythrocyte distribution wid th standard deviationOrdered By: Elischelo Zaman on 07-20-2024 Erythrocyte distribution width (RBC) [Entitic vol] 44.5 fL High 35.1-43.9 [facility] Erythrocyte sedimentation ra teOrdered By: Elis Zaman on 07-20-2024 ESR (Bld) [Velocity] 19 mm/h 0-30 [facility] Estimated glomerular filtrat ion rate (GFR) AmericanOrdered By: Elis Zaman on 07-20-2024 Estimated GFR (MDRD) Amer 107 mL/min >60 [facility] Comment on above: GFR Calc Glomerular filtration rate ( GFR) estimationOrdered By: Elis Zaman on 07-20-2024 Estimated GFR (MDRD) Non-Af Amer 89 mL/min >60 [facility] Comment on above: Non- GFR Calc Glucose measurementOrdered B y: Elis Zaman on 07-20-2024 Glucose [Mass/Vol] 112 mg/dL High 74-106 [facility] Comment on above: Fasting Glucose resu lt from 100 to 125 mg/dL suggests IMPAIRED HOMEOSTASIS per A.D.A. criteria. HBV surface IgG Ql (S)Ordere d By: Elischelo Zaman on 07-20-2024 Hepatitis B Surface Antibody Non-Reactive [facility] Comment on above: Non Reactive: Incons istent with immunity less than <10 mIU/mL Reactive: Consistent with immunity greater than or equal to 10 mIU/mL Hematocrit Auto (Bld) [Volum e fraction]Ordered By: Elis Zaman on 07-20-2024 Hematocrit (Bld) [Volume fraction] 43.6 % 37-47 [facility] Hemoglobin measurementOrdere d By: Elis Zaman on 07-20-2024 Hemoglobin (Bld) [Mass/Vol] 14.1 g/dL 12.0-15.0 [facility] Hepatitis B Surface Antibody on 07-20-2024 HEP B Surf Ab Non-Reactive Normal [facility] Comment on above: Result Comment: Non Reactive: Inconsistent with immunity less than <10 mIU/mL Reactive: Consistent with immunity greater than or equal to 10 mIU/mL Performed By: #### L 501.6710, L505.7010, L3890.6300, L101.9900, L100.0100, L3890.6100, L3890.6200, L4600.0100, L500.4050 #### [facility] [address] [place], [address] Hepatitis B Surface Antigeno n 07-20-2024 HEP B Surf Ag Non-Reactive Normal Nonreactive [facility] Comment on above: Performed By: #### L 501.6710, L505.7010, L3890.6300, L101.9900, L100.0100, L3890.6100, L3890.6200, L4600.0100, L500.4050 #### [facility] [address] [facility] [place], [address] Hepatitis B surface antigen detectionOrdered By: Elis Zaman on 07-20-2024 Hepatitis B Surface Antigen Non-Reactive Nonreactive [facility] Hepatitis C Antibodyon 07-20 Hepatitis C AB Non-Reactive Normal Nonreactive [facility] Comment on above: Result Comment: Non Reactive: < 0.8 Equivocal: >/= 0.8 to < 1.0 Reactive: >/= 1.0 The CDC requires that a reactive/equivocal HCV antibody result be sent out for confirmation. HCV Quant by PCR testing. Performed By: #### L 501.9520 #### [facility] [address] [place], [address] Hepatitis C virus antibody a ssayOrdered By: Elis Zaman on 07-20-2024 Hepatitis C Antibody Non-Reactive Nonreactive [facility] Comment on above: Non Reactive: < 0.8 Equivocal: >/= 0.8 to < 1.0 Reactive: >/= 1.0The CDC requires that a reactive/equivocal HCV antibody result be sent out for confirmation. HCV Quant by PCR testing. Immature granulocytes/100 WB C Auto (Bld)Ordered By: Elis Zaman on 07-20-2024 Immature granulocytes/100 WBC (Bld) 0.700 % 0.0-0.9 [facility] Comment on above: IG% - Immature Granu locytes (promyelocytes, myelocytes and metamyelocytes) > 1% indicates that a LEFT SHIFT is Present. Laboratory - Chemistry and C hemistry - challengeOrdered By: Elis Zaman on 07-20-2024 AST [Catalytic activity/Vol] 30 U/L 15-37 [facility] Lymphocytes Auto (Unsp spec) [#/Vol]Ordered By: Elis Zaman on 07-20-2024 Lymphocytes (Bld) [#/Vol] 1.98 10*3/uL 0.83-4.51 [facility] Lymphocytes/100 WBC Auto (Un sp spec)Ordered By: Elis Zaman on 07-20-2024 Lymphocytes/100 WBC (Bld) 22.3 % 19-41 [facility] MCV (mean corpuscular volume ) determinationOrdered By: Elis Zaman on 07-20-2024 MCV (RBC) [Entitic vol] 85.2 fL 81-99 [facility] Mean corpuscular hemoglobin (MCH) determinationOrdered By: Elis Zaman on 07-20-2024 MCH (RBC) [Entitic mass] 27.5 pg 27.0-32.0 [facility] Mean corpuscular hemoglobin concentration (MCHC) determinationOrdered By: Elis Zaman on 07-20-2024 MCHC (RBC) [Mass/Vol] 32.3 g/dL 32-36 [facility] Mean platelet volume determi nationOrdered By: Elis Zaman on 07-20-2024 Platelet mean volume (Bld) [Entitic vol] 10.8 fL 6.2-12.0 [facility] Monocyte percentageOrdered B y: Elis Zaman on 07-20-2024 Monocytes/100 WBC (Bld) 7.8 % 0-10 [facility] Neutrophil percentageOrdered By: Elis Zaman on 07-20-2024 Neutrophils/100 WBC (Bld) 65.7 % 47-70 [facility] Nucleated red blood cell per centageOrdered By: Elis Zaman on 07-20-2024 Nucleated RBC/100 WBC (Bld) [Ratio] 0 % 0-5 [facility] Pelvis 1 or 2 Viewson 2023 Pelvis 1 or 2 Views [facility] [address] [place], [place] [address] Pelvis 1 or 2 Views MR#: [id number] Acct: [id number] Name: RADHA CHASE Rep #: [id number] : 1970 F 54 From: Anshul Mir MD PCP: Dr. Toshia Sousa MD Status: REG CLI Study: Pelvis 1 or 2 Views Date of Exam: 07/20/24 Exam# [id number] Ordering Dr: Elis Zaman MD [id number] STUDY: X-RAY - PELVIS REASON FOR EXAM: Female, 54 years old. PAIN TECHNIQUE: One view of the pelvis was obtained. COMPARISON: None. FINDINGS: There is a non-specific bowel gas pattern. Normal visualized soft tissue structures. Bilateral fallopian tube implants. Normal bilateral iliac wings, sacroiliac joints and visualized sacrum. Normal visualized bilateral superior and inferior pubic rami. Normal pubic symphysis. Normal ischial tuberosities. Normal visualized right femoral head. Normal right acetabulum. Normal right hip joint. Normal visualized left femoral head. Normal left acetabulum. Normal left hip joint. RAD/Pelvis 1 or 2 Views IMPRESSION: Normal x-ray examination of the pelvis. Electronically Signed: Anshul Mir MD at 10:55 EST , CC: Dr. Toshia Sousa MD; Dr. 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: Signed Normal [facility] Platelet countOrdered By: Jeremie Zaman on 07-20-2024 Platelets (Bld) [#/Vol] 264 10*3/uL 150-450 [facility] Potassium measurementOrdered By: Elis Zaman on 07-20-2024 Potassium [Moles/Vol] 3.6 mmol/L 3.5-5.1 [facility] RBC Auto (Bld) [#/Vol]Ordere d By: Elis Zaman on 07-20-2024 RBC (Bld) [#/Vol] 5.12 10*6/uL 4.2-5.4 [facility] Rheumatoid Factoron 07-20-20 24 RHEUMATOID FAC < 10.0 Normal <15 [facility] Comment on above: Performed By: #### L 501.6710, L505.7010, L3890.6300, L101.9900, L100.0100, L3890.6100, L3890.6200, L4600.0100, L500.4050 #### [facility] [address] [place] [address], [address] Rheumatoid factor measuremen tOrdered By: Elis Zaman on 07-20-2024 Rheumatoid Factor < 10.0 IU/mL <15 [facility] Serum anion gap measurementO rdered By: Elis Zaman on 07-20-2024 Anion gap [Moles/Vol] 3 mmol/L Low 5-15 [facility] Serum globulin measurementOr dered By: Elis Zaman on 07-20-2024 Globulin (S) [Mass/Vol] 3.8 g/dL 2.2-4.2 [facility] Serum or plasma alanine ortiz otransferase (ALT) measurementOrdered By: Elis Zaman on 07-20-2024 ALT [Catalytic activity/Vol] 57 U/L High 13-56 [facility] Serum or plasma albumin maegan urement (mass/volume)Ordered By: Elis Zaman on 07-20-2024 Albumin [Mass/Vol] 3.7 g/dL 3.2-5.0 [facility] Serum or plasma alkaline yayo sphatase measurementOrdered By: Elis Zaman on 07-20-2024 ALP [Catalytic activity/Vol] 187 U/L High 45-117 [facility] Serum or plasma calcium maegan urement (mass/volume)Ordered By: Elis Zaman on 07-20-2024 Calcium [Mass/Vol] 9.2 mg/dL 8.5-10.1 [facility] Serum or plasma creatinine m easurement (mass/volume)Ordered By: Elis Zaman on 07-20-2024 Creatinine [Mass/Vol] 0.73 mg/dL 0.55-1.02 [facility] Comment on above: The validity of the calculated GFR & GFRAA in patients over 70 years has not been determined. Clinical correlation is essential. Serum or plasma urea nitroge n measurement (mass/volume)Ordered By: Elis Zaman on 07-20-2024 Urea nitrogen [Mass/Vol] 14 mg/dL 7-18 [facility] Sodium levelOrdered By: Gino Zaman on 07-20-2024 Sodium [Moles/Vol] 138 mmol/L 136-145 [facility] Total proteinOrdered By: Jeni Zaman on 07-20-2024 Protein [Mass/Vol] 7.5 g/dL 6.4-8.2 [facility] White blood cell (WBC) count Ordered By: Elis Zaman on 07-20-2024 WBC (Bld) [#/Vol] 8.9 10*3/uL 4.4-11.0 [facility] [place] A AB Panelon 06-11 COXA TYPE 7 IgG 1:400 Abnormal Neg:<1:100 [facility] Comment on above: Performed By: #### L 500.8304 #### [facility] [address] [place], [address] COXA TYPE 7 IgM Negative Normal Neg:<1:10 [facility] Comment on above: Performed By: #### L 500.3400 #### [facility] [address] [place], [address] COXA TYPE 9 IgG 1:400 Abnormal Neg:<1:100 [facility] Comment on above: Performed By: #### L 500.3400 #### [facility] [address] [place], [address] COXA TYPE 9 IgM Negative Normal Neg:<1:10 [facility] Comment on above: Performed By: #### L 500.3400 #### [facility] [address] [place], [address] COXA TYPE16 IgG 1:400 Abnormal Neg:<1:100 [facility] Comment on above: Performed By: #### L 500.3400 #### [facility] [address] [place], [address] COXA TYPE16 IgM Negative Normal Neg:<1:10 [facility] Comment on above: Performed By: #### L 500.3400 #### [facility] [address] [place], [address] COXA TYPE24 IgG 1:400 Abnormal Neg:<1:100 [facility] Comment on above: Performed By: #### L 500.3400 #### [facility] [address] [place], [address] COXA TYPE24 IgM Negative Normal Neg:<1:10 [facility] Comment on above: Performed By: #### L 500.3400 #### [facility] [address] [place], [address] Hepatitis A AB, Totalon 10- HEPATITIS A,TOT Negative Normal Negative [facility] Comment on above: Result Comment: Comm ent: The HAV total antibody assay detects both IgG and IgM but does not differentiate between them. A negative result suggests susceptibility to infection. A positive result could be due to vaccination, previously resolved infection or active infection. Testing for HAV IgM should be performed if active HAV infection is suspected. [facility] offers profiles that will automatically reflex positive HAV total antibody results to IgM (e.g., panel #[id number] HAV Antibody w/ Rfx). Performed at: [address] [id number] Computing Systems Mechanic: Emiliano Farmer MD, Phone: [phone] Performed at: [address] [id number] Computing Systems Mechanic: Scott Dudley PhD, Phone: [phone] Performed By: #### L 500.3400 #### [facility] [address] [place], [address] Hepatitis Panel Acuteon 10- COMMENT Comment Normal . [facility] Comment on above: Result Comment: Not infected with HCV unless early or acute infection is suspected (which may be delayed in an immunocompromised individual), or other evidence exists to indicate HCV infection. Performed By: #### L 500.3400 #### [facility] [address] [place], [address] HEP B CORE,IgM Negative Normal Negative [facility] Comment on above: Performed By: #### L 500.3400 #### [facility] [address] [place], [address] HEP B SURF AG Negative Normal Negative [facility] Comment on above: Performed By: #### L 500.3400 #### [facility] [address] [place], [address] HEP C VIRUS AB Non-Reactive Normal Non Reactive [facility] Comment on above: Performed By: #### L 500.3400 #### [facility] [address] [place], [address] HEPATITIS A-IgM Negative Normal Negative [facility] Comment on above: Result Comment: A ne gative anti-HAV IgM result suggests no recent or current HAV infection. Performed By: #### L 500.3400 #### [facility] [address] [place], [address] Protein S Defic. Profileon 1 PROTEIN S, FREE 110 Normal 61-136 [facility] Comment on above: Performed By: #### L 500.3400 #### [facility] [address] [place], [address] PROTEIN S, FUNC 93 Normal 63-140 [facility] Comment on above: Result Comment: Prot ein S activity may be falsely increased (masking an abnormal, low result) in patients receiving direct Xa inhibitor (e.g., rivaroxaban, apixaban, edoxaban) or a direct thrombin inhibitor (e.g., dabigatran) anticoagulant treatment due to assay interference by these drugs. Performed By: #### L 500.3400 #### [facility] [address] [place], [address] PROTEIN S,TOTAL 84 Normal 60-150 [facility] Comment on above: Result Comment: This test was developed and its performance characteristics determined by [employer]. It has not been cleared or approved by the Food and Drug Administration. Performed By: #### L 500.3400 #### [facility] [address] [place], [address] Miscellaneous Lab Procedureo n 06-09-2024 [facility] Normal [facility] Comment on above: Order Comment: [id number] CO WB LAV [id number] CO WB LAV RF Result Comment: TEST RESULTS LIMITS Carbon Monoxide, Blood 2.1 % 0.0-3.6 Environmental Exposure: Nonsmokers <3.7 Smokers <9.9 Occupational Exposure: AMANDA 3.5 Detection Limit = 0.2 TESTING PERFORMED AT [facility]. ORIGINAL REPORT ON FILE IN LAB CONTAINS ADDITIONAL TEST SITE INFORMATION. Performed By: #### L 500.3400 #### [facility] [address] [place], [place], [address] Liver Profileon 05-01-2024 Albumin [Mass/Vol] 3.7 g/dL Normal 3.2-5.0 [facility] Comment on above: Order Comment: Order Date: 03/31/24Order Info: [id number] - LIVEROrder Date: 12/26/23Order Info: [id number] - TSHSEND LIVER TO DR ZAFAR Performed By: #### L 500.3400 #### [facility] [address] [place], [address] ALK P 190 U/L High 45-117 [facility] Comment on above: Order Comment: Order Date: 03/31/24Order Info: [id number] LIVEROrder Date: 12/26/23Order Info: [id number] - TSHSEND LIVER TO DR ZAFAR Performed By: #### L 500.3400 #### [facility] [address] [place], [place], [address] ALT [Catalytic activity/Vol] 53 U/L Normal 13-56 [facility] Comment on above: Order Comment: Order Date: 03/31/24Order Info: [id number] - LIVEROrder Date: 12/26/23Order Info: [id number] - TSHSEND LIVER TO DR ZAFAR Performed By: #### L 500.3400 #### [facility] [address] [place], [address] AST [Catalytic activity/Vol] 45 U/L High 15-37 [facility] Comment on above: Order Comment: Order Date: 03/31/24Order Info: 787-09 - LIVEROrder Date: 12/26/23Order Info: 3016-3 - TSHSEND LIVER TO DR ZAFAR Result Comment: Slig ht Hemolysis, Result may be falsely increased. Performed By: #### L [id number] #### [facility] [address] [place], [address] Bilirubin [Mass/Vol] 0.60 mg/dL Normal 0.20-1.00 [facility] Comment on above: Order Comment: Order Date: 03/31/24Order Info: 787-09 - LIVEROrder Date: 12/26/23Order Info: 3016-3 - TSHSEND LIVER TO DR ZAFAR Result Comment: For patients on eltrombopag therapy, use of [facility] TBIL is not recommended. Performed By: #### L [id number] #### [facility] [address] [place], [place], [address] (696) Bilirubin.direct [Mass/Vol] 0.11 mg/dL Normal 0.00-0.30 [facility] Comment on above: Order Comment: Order Date: 03/31/24Order Info: 787-09 - LIVEROrder Date: 12/26/23Order Info: 3016-3 - TSHSEND LIVER TO DR ZAFAR Performed By: #### L [id number] #### [facility] [address] [place], [place], [address] (978) Globulin (S) [Mass/Vol] 3.7 g/dL Normal 2.2-4.2 [facility] Comment on above: Order Comment: Order Date: 03/31/24Order Info: 787-09 - LIVEROrder Date: 12/26/23Order Info: 3016-3 - TSHSEND LIVER TO DR ZAFAR Performed By: #### L [id number] #### [facility] [address] [place], [place], [address] (713) T PROT 7.4 g/dL Normal 6.4-8.2 [facility] Comment on above: Order Comment: Order Date: 03/31/24Order Info: [id number] - LIVEROrder Date: 12/26/23Order Info: 3016-3 - TSHSEND LIVER TO DR ZAFAR Performed By: #### L [id number] #### [facility] [address] [place], [address] Thyroid Stim Hormone (TSH)on 05-01-2024 TSH 1.330 uIU/mL Normal 0.358-3.740 [facility] Comment on above: Order Comment: Order Date: 03/31/24 Order Info: [id number] - LIVER Order Date: 12/26/23 Order Info: 3016-3 - TSH SEND LIVER TO DR ZAFAR Performed By: #### L [id number] #### [facility] [address] [place], [address] Liver Profileon 03-29-2024 Albumin [Mass/Vol] 3.3 g/dL Normal 3.2-5.0 [facility] Comment on above: Performed By: #### L [id number] #### [facility] [address] [place], [address] ALK P 218 U/L High 45-117 [facility] Comment on above: Performed By: #### L [id number] #### [facility] [address] [place], [address] ALT [Catalytic activity/Vol] 34 U/L Normal 13-56 [facility] Comment on above: Performed By: #### [id number] #### [facility] [address] [place], [address] AST [Catalytic activity/Vol] 24 U/L Normal 15-37 [facility] Comment on above: Performed By: #### L [id number] #### [facility] [address] [place], [address] Bilirubin [Mass/Vol] 0.40 mg/dL Normal 0.20-1.00 [facility] Comment on above: Result Comment: For patients on eltrombopag therapy, use of [facility] TBIL is not recommended. Performed By: #### L [id number] #### [facility] [address] [place], [place], [address] Bilirubin.direct [Mass/Vol] 0.08 mg/dL Normal 0.00-0.30 [facility] Comment on above: Performed By: #### L [id number] #### [facility] [address] [place], [address] Globulin (S) [Mass/Vol] 4.1 g/dL Normal 2.2-4.2 [facility] Comment on above: Performed By: #### L [id number] #### [facility] [address] [place], [place], [address] T PROT 7.4 g/dL Normal 6.4-8.2 [facility] Comment on above: Performed By: #### L [id number] #### [facility] [address] [place], [place], [address] Surgery Visit Reporton 03-17 Surgery Visit Report [facility] [address] [place] [address] OFFICE VISIT Date of Service: 03/17/24 MR#: [id number] Acct: [id number] Name: RADHA CHASE Rep #: [id number] 18 : 1970 Provider: Dr. Marilee davis MD Age/Sex: 53/F Location: [facility] Status: Signed Intake Vital Signs 03/08/24 09:58 Height 5 ft 3 in Intake Visit Reasons: Cholecystectomy DOS 03/08 Chief Complaint: cholecystectomy f/u Is patient in pain?: No Allergies No Known Allergies Allergy (Verified 03/17/24 13:50) Medications ???Medication ???Instructions ???Recorded ???Confirmed ???Type lisinopril 20 1 ea PO DAILY 11/04/19 02/24/24 History mg-hydrochlorothiazid e 12.5 mg tablet B-complex with vitamin C 1 tab PO DAILY 01/27/24 02/24/24 History calcium carbonate 600 mg PO QHS 01/27/24 02/24/24 History potassium chloride 10 mEq 10 meq PO DAILY 01/27/24 02/24/24 History tablet,extended release levothyroxine 112 mcg tablet 112 mcg PO DAILY 02/24/24 02/24/24 History (Synthroid) Have you fallen in the past year?: No Subjective Details: 53-year-old female presents status post laparoscopic cholecystectomy. Patient's abdominal pain is improving from incisions. Patient's repeat LFTs were about the same a week from surgery. Patient still tolerating diet and having bowel function. Did review patient's liver biopsy briefly with GI recommended MRCP-Orders placed. Objective Details: Abdomen: Soft, nondistended, nontender, incisions healing well clean dry and intact Coding Level of Care Code Global Post Op Diagnoses Elevated liver enzymes R74.8 S/P cholecystectomy Z90.49 [facility] Medical History (Updated 03/17/24 @ 18:[address] Marilee Rosen MD) Wears glasses Heartburn Gastric reflux CPAP (continuous positive airway pressure) dependence Sleep apnea Non-smoker Thyroid disease HTN (hypertension) Surgical History (Updated 03/17/24 @ 13:51 by Pat Ryan LPN) History of History of tonsillectomy ( 1973) H/O thyroidectomy Social History (Updated 01/27/24 @ 12:59 by Annalee Grier) Smoking Status: Never smoker alcohol intake: never substance use type: does not use Assessment and Plan (No Qualifiers) Assessment and Plan (1) Elevated liver enzymes: Status: Acute (2) S/P cholecystectomy: Status: Acute Plan Discussed pathology report with the patient as well as repeat LFTs results--will repeat again 03/29- MRCP not schedule until early April. if LFTs normalize may hold off of MRCP- otherwise will refer to GI. Marilee Rosen M.D. Pager: [phone] [facility] [address] [place] [address], [facility], [address] [place] [address] Office: [phone] 03/17/24 183 Date Marilee Marie Signature: Date (if applicable) CC: Dr. Toshia Sousa MD Normal [facility] Liver Profileon 03-15-2024 Albumin [Mass/Vol] 3.6 g/dL Normal 3.2-5.0 [facility] Comment on above: Performed By: #### L [id number] #### [facility] [address] [place], [address] ALK P 225 U/L High 45-117 [facility] Comment on above: Performed By: #### L [id number] #### [facility] [address] [place], [address] ALT [Catalytic activity/Vol] 83 U/L High 13-56 [facility] Comment on above: Performed By: #### L [id number] #### [facility] [address] [place], [address] AST [Catalytic activity/Vol] 44 U/L High 15-37 [facility] Comment on above: Performed By: #### L [id number] #### [facility] [address] [place], [address] Bilirubin [Mass/Vol] 0.90 mg/dL Normal 0.20-1.00 [facility] Comment on above: Result Comment: For patients on eltrombopag therapy, use of [facility] [place] [facility] TBIL is not recommended. Performed By: #### L [id number] #### [facility] [address] [place], [place], [address] Bilirubin.direct [Mass/Vol] 0.23 mg/dL Normal 0.00-0.30 [facility] Comment on above: Performed By: #### L [id number] #### [facility] [address] [place], [address] Globulin (S) [Mass/Vol] 3.8 g/dL Normal 2.2-4.2 [facility] Comment on above: Performed By: #### L [id number] #### [facility] [address] [place], [place], [address] T PROT 7.4 g/dL Normal 6.4-8.2 [facility] Comment on above: Performed By: #### L [id number] #### [facility] [address] [place], [place], [address] Basophil percentageOrdered B y: Toshia Sousa on 12-26-2023 Bilirubin [Mass/Vol] 0.40 mg/dL 0.20-1.00 [facility] Comment on above: For patients on eltr ombopag therapy, use of [facility] TBIL is not recommended. Protein [Mass/Vol] 7.0 g/dL 6.4-8.2 [facility] Direct bilirubinOrdered By: Toshia Sousa on 12-26-2023 Bilirubin.direct [Mass/Vol] 0.14 mg/dL 0.00-0.30 [facility] - Chemistry and C hemistry - challengeOrdered By: Toshia Sousa on 12-26-2023 ALP [Catalytic activity/Vol] 149 U/L 45-117 [facility] ALT [Catalytic activity/Vol] 58 U/L 13-56 [facility] Globulin (S) [Mass/Vol] 3.4 g/dL 2.2-4.2 [facility] Serum or plasma thyroid stim ulating hormone (TSH) measurement (units/volume)Ordered By: Toshia Sousa on 12-26-2023 TSH Qn 0.02 uIU/mL 0.358-3.74 [facility] Thin prep Papanicolaou smear with manual screeningOrdered By: Toshia Sousa on 12-26-2023 Thin prep Papanicolaou smear with manual screening 3.6 g/dL 3.2-5.0 [facility] Thin prep Papanicolaou smear with manual screening 34 U/L 15-37 [facility] Absolute lymphocyte countOrd ered By: Lesia Statmiladoulos on 10-15-2023 Lymphocytes Auto (Unsp spec) [#/Vol] 1.57 10*3/uL 0.83-4.51 [facility] Automated lymphocyte count a s percentage of total leukocytesOrdered By: Lesia Statmiladoulos on 10-15-2023 Lymphocytes/100 WBC Auto (Unsp spec) 25.5 % 19-41 [facility] Basophil percentageOrdered B y: Lesia Stathopoulos on 10-15-2023 Basophil percentage 16.0 IU/mL <15 [facility] Basophils/100 WBC (Bld) 1.3 % 0-1 [facility] Bilirubin [Mass/Vol] 0.30 mg/dL 0.20-1.00 [facility] Comment on above: For patients on eltr ombopag therapy, use of [facility] TBIL is not recommended. Chloride [Moles/Vol] 109 mmol/L 98-107 [facility] Eosinophils/100 WBC (Bld) 2.6 % 0-5 [facility] Glucose [Mass/Vol] 94 mg/dL 74-106 [facility] Hemoglobin (Bld) [Mass/Vol] 13.7 g/dL 12.0-15.0 [facility] Monocytes/100 WBC (Bld) 12.0 % 0-10 [facility] Neutrophils (Bld) [#/Vol] 3.6 10*3/uL 2.0-7.7 [facility] Neutrophils/100 WBC (Bld) 58.1 % 47-70 [facility] Potassium [Moles/Vol] 4.0 mmol/L 3.5-5.1 [facility] Protein [Mass/Vol] 7.0 g/dL 6.4-8.2 [facility] Sodium [Moles/Vol] 140 mmol/L 136-145 [facility] WBC (Bld) [#/Vol] 6.2 10*3/uL 4.4-11.0 [facility] Determination of erythrocyte mean corpuscular volume (MCV)Ordered By: Lesia Mena on 10-15-2023 MCV (RBC) [Entitic vol] 87.1 fL 81-99 [facility] Erythrocyte distribution wid th ratioOrdered By: [facility] on 10-15-2023 Erythrocyte distribution width (RBC) [Ratio] 12.8 % 11.6-14.6 [facility] Erythrocyte distribution wid th standard deviationOrdered By: [facility] on 10-15-2023 Erythrocyte distribution width (RBC) [Entitic vol] 40.5 fL 35.1-43.9 [facility] Hematocrit Auto (Bld) [Volum e fraction]Ordered By: [facility] on 10-15-2023 Hematocrit (Bld) [Volume fraction] 42.6 % 37-47 [facility] Immature granulocytes/100 WB C Auto (Bld)Ordered By: [facility] on 10-15-2023 Immature granulocytes/100 WBC (Bld) 0.500 % 0.0-0.9 [facility] Comment on above: IG% - Immature Granu locytes (promyelocytes, myelocytes and metamyelocytes) > 1% indicates that a LEFT SHIFT is Present. Laboratory - Chemistry and C hemistry - challengeOrdered By: [facility] Trina on 10-15-2023 Albumin/Globulin [Mass ratio] 1.1 {ratio} 0.9-2.4 [facility] ALP [Catalytic activity/Vol] 155 U/L 45-117 [facility] ALT [Catalytic activity/Vol] 133 U/L 13-56 [facility] CO2 [Moles/Vol] 28.0 mmol/L 21.0-32.0 [facility] Cobalamin (Vitamin B12) [Mass/Vol] 483 pg/mL 211-911 [facility] Globulin (S) [Mass/Vol] 3.4 g/dL 2.2-4.2 [facility] Urea nitrogen/Creatinine [Mass ratio] 31.2 mg/mg 10-20 [facility] - Hematology and Cell countsOrdered By: Lesia Mena on 10-15-2023 MCH (RBC) [Entitic mass] 28.0 pg 27.0-32.0 [facility] MCHC (RBC) [Mass/Vol] 32.2 g/dL 32-36 [facility] Nucleated RBC/100 WBC (Bld) [Ratio] 0 % 0-5 [facility] Platelet mean volume (Bld) [Entitic vol] 11.4 fL 6.2-12.0 [facility] Platelets (Bld) [#/Vol] 271 10*3/uL 150-450 [facility] No Panel InformationOrdered By: Lesia Mena on 10-15-2023 Anti-Nuclear Antibody Screen Negative Negative [facility] Comment on above: Performed at: [employer] [address] [id number] Director: Scott Dudley PhD, Phone: [phone] C-Reactive Protein Extended Range < 2.90 mg/L 0.0-3.0 [facility] Comment on above: C-Reactive Protein ( CRP) provides useful information for thediagnosis, therapy and monitoring of inflammatory processesand associated diseases. For the evaluation of Relative Riskfor Cardiovascular Disease, a High Sensitivity CRP (HSCRP)should be ordered. Estimated GFR (MDRD) Amer 117 mL/min >60 [facility] Comment on above: GFR Calc Estimated GFR (MDRD) Non-Af Amer 97 mL/min >60 [facility] Comment on above: Non- GFR Calc Vitamin D 25-Hydroxy 42.6 ng/mL [facility] Comment on above: Vitamin D 25(OH) Sta tus Range Deficiency <20 ng/mL (50nmol/L) Insufficiency 20 - 30 ng/mL (50 - 75 nmol/L) Sufficiency 30 - 100 ng/mL (75 - 250 nmol/L) Toxicity >100 ng/mL (>250 nmol/L) RBC Auto (Bld) [#/Vol]Ordere d By: Lesia Mena on 10-15-2023 RBC (Bld) [#/Vol] 4.89 10*6/uL 4.2-5.4 [facility] Serum or plasma calcium maegan urement (mass/volume)Ordered By: [facility] Trina on 10-15-2023 Calcium [Mass/Vol] 9.2 mg/dL 8.5-10.1 [facility] Serum or plasma creatinine m easurement (mass/volume)Ordered By: [facility] on 10-15-2023 Creatinine [Mass/Vol] 0.67 mg/dL 0.55-1.02 [facility] Comment on above: The validity of the calculated GFR & GFRAA in patients over 70 years has not been determined. Clinical correlation is essential. Serum or plasma thyroid stim ulating hormone (TSH) measurement (units/volume)Ordered By: [facility] on 10-15-2023 TSH Qn 0.01 uIU/mL 0.358-3.74 [facility] Serum or plasma urea nitroge n measurement (mass/volume)Ordered By: [facility] on 10-15-2023 Urea nitrogen [Mass/Vol] 21 mg/dL 7-18 [facility] Thin prep Papanicolaou smear with manual screeningOrdered By: [facility] on 10-15-2023 Thin prep Papanicolaou smear with manual screening 3.6 g/dL 3.2-5.0 [facility] Thin prep Papanicolaou smear with manual screening 62 U/L 15-37 [facility] Thin prep Papanicolaou smear with manual screening 3 5-15 [facility] Thin prep Papanicolaou smear with manual screening 1.57 ng/dL 0.76-1.46 [facility] Basophil percentageOrdered B y: Toshia Sousa on 08-07-2023 Chloride [Moles/Vol] 108 mmol/L 98-107 [facility] Glucose [Mass/Vol] 88 mg/dL 74-106 [facility] Potassium [Moles/Vol] 3.9 mmol/L 3.5-5.1 [facility] Sodium [Moles/Vol] 138 mmol/L 136-145 [facility] - Chemistry and C hemistry - challengeOrdered By: Toshia Sousa on 08-07-2023 CO2 [Moles/Vol] 27.0 mmol/L 21.0-32.0 [facility] T4 [Mass/Vol] 16.0 ug/dL 4.8-13.9 [facility] Urea nitrogen/Creatinine [Mass ratio] 20.7 mg/mg 10-20 [facility] No Panel InformationOrdered By: Toshia Sousa on 08-07-2023 Estimated GFR (MDRD) Amer 108 mL/min >60 [facility] Comment on above: GFR Calc Estimated GFR (MDRD) Non-Af Amer 89 mL/min >60 [facility] Comment on above: Non- GFR Calc Thyroid Stimulating Hormone (TSH) 0.42 uIU/mL 0.358-3.74 [facility] Urine Microalbumin/Creatinine Ratio 15.7 mg/g CRE <30 [facility] Serum or plasma calcium maegan urement (mass/volume)Ordered By: Toshia Sousa on 08-07-2023 Calcium [Mass/Vol] 8.3 mg/dL 8.5-10.1 [facility] Serum or plasma creatinine m easurement (mass/volume)Ordered By: Toshia Sousa on 08-07-2023 Creatinine [Mass/Vol] 0.72 mg/dL 0.55-1.02 [facility] Comment on above: The validity of the calculated GFR & GFRAA in patients over 70 years has not been determined. Clinical correlation is essential. Serum or plasma urea nitroge n measurement (mass/volume)Ordered By: Toshia Sousa on 08-07-2023 Urea nitrogen [Mass/Vol] 15 mg/dL 7-18 [facility] Thin prep Papanicolaou smear with manual screeningOrdered By: Toshia Sousa on 08-07-2023 Thin prep Papanicolaou smear with manual screening 3 5-15 [facility] Thin prep Papanicolaou smear with manual screening 11.8 mg/L NO RANGE EST. [facility] Urine creatinine measurement (mass/volume)Ordered By: Toshia Sousa on 08-07-2023 Creatinine (U) [Mass/Vol] 75.00 mg/dL NO RANGE EST. [facility] Provider Note - ED v3on 10-2 Provider Note - ED v3 Provider Note: Chart Review: ED NOTES ED NOTES: ====HPI==== Patient present to the ED with a chief complaint of a right index finger laceration. She states that this occurred around 4:00 yesterday evening while she was working on a fence. She states that it continues to bleed. She denies any difficulty with movement. She is not up-to-date on her tetanus immunization. She denies any redness or warmth to the area. No purulent drainage. PMHX: Denies Social HX: Denies TOBACCO Denies ETOH Denies DRUGS ====Review of Systems==== 10 point system review is negative except for those specifically mentioned in history of present illness ====Physical Exam==== Constitutional/Genera l: Alert and oriented x3, well appearing, nontoxic, and in NAD. Head: Normocephalic and atraumatic. Eyes: EOMI, conjunctive normal, sclera nonicteric, subconjunctival layer is pink. Neck: Supple, full ROM, no stridor, no crepitus, no meningeal signs. Trachea at midline. Respiratory: Lungs clear to auscultation bilaterally, no wheezes, rales, or rhonchi, not in respiratory distress. Cardiovascular: Regular rate, regular rhythm, no murmurs, gallops, or rubs, 2+ distal pulses. GI: Abdomen soft, nontender, nondistended, + BS, no organomegaly, no palpable masses, no rebound, guarding, or rigidity. Musculoskeletal: right second finger laceration there is a 3 cm gaping irregular laceartion. Moves all extremities x4, warm and well perfused, no clubbing, cyanosis, or edema, cap refill <3 seconds Integument: Skin warm and dry, no rashes. Neurologic: No focal deficits Psychiatric: Normal affect. ====ED Course and Medical Decision Making==== See MDM section for review of findings & plan of care. Portions of this note were dictated by speech recognition. An attempt at proof reading was made to minimize errors. Minor errors in fraud manager may be present. Please call if questions.. HISTORY OF PRESENTING ILLNESS RADHA ALVES is a 51 year old Female and was seen by me at 24-Jun-2021 10:09 for a chief complaint of finger injury (Laceration to R fore finger happened about 1600 06/23)(1). Triage Information: Most recent Vital Sign Value Date Temp (F): 98.4 06-24-2021 10:14 Temp (C): 36.8 06-24-2021 10:14 Heart Rate (beats/min): 87 06-24-2021 10:14 Respirations (breaths/min): 15 06-24-2021 10:14 SpO2 (%): 100 06-24-2021 10:14 BP Systolic (mm Hg): 130 06-24-2021 10:14 BP Diastolic (mm Hg): 82 06-24-2021 10:14 PAST MEDICAL HISTORY ALLERGIES/INTOLERANCE S: No Known Allergies HEALTH HISTORY: No documented data. OUTPATIENT MEDICATIONS: Home Medications Review Status for Reconciliation: Complete Med Status: Patient Currently Takes Medications Drug Name: Keflex 500 mg oral capsule Instructions: 1 cap(s) orally every 8 hours SIGNIFICANT EVENTS: Immunizations Description:Tdap Past Medical History Description:Hypertens ion (HTN) MDM MDM/ED COURSE: Patient presents with a right index finger laceration. This occurred around 4:00 yesterday evening. The wound is still gaping and is actively bleeding. No evidence of any tendon injury. She has full range of motion. I did discuss with the patient the concern of closing this wound as it is a delayed closure. We discussed the risk of possible infection. At this time the patient would like the wound closed but I do feel it is reasonable as the wound is still gaping. I will place her on prophylactic antibiotics. The wound was copiously irrigated. Her tetanus immunization was updated. She is to follow-up with her family physician to return for any new or worsening symptoms. PROGRESS NOTE LACERATION REPAIR Procedure performed by: ia Electron Beam Operator(s): none Findings: grossly normal anatomy Specimen: no Estimated Blood Loss (mL): none Post-Procedure Diagnosis: right index finger laceration The patient presents with a 3.00 cm long laceration of the 2nd digit of the right, finger. The area was draped and prepped per protocol. Local anesthesia was achieved with 1% lidocaine. The wound was extensively cleansed, cleansed and irrigated, the area was explored in a bloodless field. There was no injury to the tendon(s). 4 4-0 interrupted Ethilon sutures in the skin. Complications: There were no complications associated with the procedure DISPOSITION Diagnosis/Annotation: ED Dx Name:Laceration of right index finger Code:S61.210A Disposition: discharged Type: home CONSULT CRITICAL CARE TIME Is this a critically ill patient: no Electronic Signatures: Kandi Macdonald (PAC) (Signed 24-Jun-2021 10:53) Authored: ED Notes, HPI, PMH, MDM/ED Course, Procedure, Clinical Impression, Attestation, Chart Review, Scores Last Updated: 24-Jun-2021 10:53 by Kandi Macdonald (PAC) References: 1. Data Referenced From Triage - ED 24-Jun-2021 10:14 [facility] Risk Screen - Adult Emergenc yon 06-24-2021 Risk Screen - Adult Emergency Preferred Language: Preferred Language: Preferred Language for Discussing Health Care (patient/designee)Eng caty Advanced Directives: Advance Directive/DNRno Advance Directive Information Givenpatient/family declined Family Violence Adult: Abuse Screen: Are you or have you been threatened or abused physically, emotionally, or sexually by anyoneno Learning Assessment (Patient): Learning Assessment (Patient): Patient is Able to be Assessed for Learningyes Factors Influencing Readiness to Learninterest in learning Factors that Impact Ability to Learnnone Devices/Methods Used to Communicatenone Learning Preferencesaudio Cultural Considerationsnone Developmental Considerationsnone Nondenominational Considerationsnone Learning Assessment (Other Learner): Learning Assessment (Other Learner): Other learner availableno Pressure Injury/TB/Substance: Pressure Injury: Pressure Injury Present on Admissionno Do you have a coughno Smoking Statusnever smoker Admission Risk Screen: Significant IndicatorsComplete CAGE: CAGE: Is this an injured patient at a Trauma Center ([facility] [place]/[facility]/[place]): no Electronic Signatures: Zari Gonzalez (CLAYTON) (Signed 24-Jun-2021 11:01) Authored: Preferred Language, Advanced Directives, Family Violence Adult, Learning Assessment (Patient), Learning Assessment (Other Learner), Pressure Injury/TB/Substance, Pressure Injury, CAGE Last Updated: 24-Jun-2021 11:01 by Zari Gonzalez (CLAYTON) [facility] Triage - EDon 06-24-2021 Triage - ED Quick Triage: Are You no Have You Given In The Last 6 Weeksno Are You Currently Breastfeedingno The patient and/or guardian verbally acknowledges placement for services into the following (when Urgent Care Service hours are operating):emergency department Chart Review: ARRIVAL INFORMATION Mode of Arrival: private vehicle CHIEF COMPLAINT RADHA CHASE is a Female patient with a chief complaint of finger injury (Laceration to R fore finger happened about 1600 06/23). Triage Date/Time: 24-Jun-2021 10:14 LAURITA: 4 Pain Rating (0-10): 3 = Mild Vital Signs: Temperature: 98.4F ( 36.8C) taken temporal Blood Pressure: 130/82 Mean: Heart Rate: 87 Respiratory Rate: 15 Pulse Oximetry: 100% on room air, no respiratory support. Height: 5 feet 4.00 inches. 162.5 CM Weight: 138.2 pounds. Calculated 62.7 kg. (stated) Calculated BMI (kg/m2): 23.744 Calculated BSA (m2) 1.68 Christopher Coma Scale: Best Eye Response: (E4) spontaneous Best Motor Response: (M6) obeys commands Best Verbal Response: (V5) oriented Christopher Score: 15 Cough lasting greater than 3 weeks: no Allergies: no Mask applied: yes Patient has homicidal thoughts: no Symptom Notes: . Symptoms Are POSITIVE For: bleeding and pain (describe). Symptoms Are Negative For: abrasion, bruising, deformity, difficulty bending, difficulty walking, numbness, decreased ROM and tingling. Risk Screens Suicide Risk Screen In the Past Month: Have you wished you were or wished you could go to sleep and not wake up no In the Past Month: Have you had any actual thoughts of killing yourself no In Your Lifetime: Have you ever done anything, started to do anything, or prepared to do anything to end your life no Haley Fall Scale Screening Has the patient fallen before (or is the patient in the ED as a result of a fall) has not had a fall Does the patient have an impaired gait does not have impaired gait Is the patient cognitively impaired not cognitively impaired Interventions: Sudha Fall Interventions: LOW INTERVENTIONS: *patient oriented to surroundings and call system, * patient/family falls education completed and documented, *patients fall status communicated during bedside handoff, *whiteboard updated, *mode of toileting discussed with patient, *bed in low position with brakes locked, *call light in reach, * non-skid footwear TRAVEL HISTORY Travel History Coronavirus Screening: no exposure or symptoms Travel Exposure History: NO travel to International locations in the past 30 days PAIN Pain Scale Used: KEMAL Pain Rating (0-10): 3 = Mild Past Medical History: Past Medical History Reviewedyes Hypertension (HTN): Past Medical History, Active Electronic Signatures: Zari GonzalezRN) (Signed 24-Jun-2021 10:34) Authored: Quick Triage, Chart Review Darrin Graf (EMT-P) (Signed 24-Jun-2021 10:18) Entered: Risk Screens, Pain, Travel History, Chart Review, Scores, Past Medical History Authored: Quick Triage, Risk Screens, Pain, Travel History, Chart Review, Scores, Past Medical History Last Updated: 24-Jun-2021 10:34 by Zari Gonzlaez (RN) [facility] Vital Signs Date Time Vital Sign Value Performing Clinician Facility 12-14-2024 14:06-0400 Body height 160.[address] Toshia Sousa MD Work Phone: [facility] 12-14-2024 14:06-0400 Body mass index (BMI) [Ratio] 25.1 kg/m2 Dr. Toshia Sousa MD Work Phone: [facility] 12-14-2024 14:06-0400 Body weight 64.[address] Toshia Sousa MD Work Phone: [facility] 12-14-2024 14:06-0400 Diastolic blood pressure 81 mm[Hg] Dr. Toshia Sousa MD Work Phone: [facility] 12-14-2024 14:06-0400 Heart rate 87 /min Dr. Toshia Sousa MD Work Phone: [facility] 12-14-2024 14:06-0400 SaO2% (BldA) [Mass fraction] 96 % Dr. Toshia Sousa MD Work Phone: [facility] 12-14-2024 14:06-0400 Systolic blood pressure 121 mm[Hg] Dr. Toshia Sousa MD Work Phone: [facility] 06-24-2021 12:14-0400 Body height 162.5 cm Toshia Sousa Other Phone: [facility] 06-24-2021 12:14-0400 Body temperature 98.24 [degF] Toshia Sousa Other Phone: [facility] 06-24-2021 12:14-0400 Body weight 62.7 kg Toshia Sousa Other Phone: [facility] 06-24-2021 12:14-0400 Diastolic blood pressure 82 mm[Hg] Toshia Sousa Other Phone: [facility] 06-24-2021 12:14-0400 Heart rate 87 /min Toshia Sousa Other Phone: [facility] 06-24-2021 12:14-0400 Respiratory rate 15 /min Toshia Sousa Other Phone: [facility] 06-24-2021 12:14-0400 SaO2% (BldA) [Mass fraction] 100 % Toshia Sousa Other Phone: [facility] 06-24-2021 12:14-0400 Systolic blood pressure 130 mm[Hg] Toshia Sousa Other Phone: [facility] Encounters Encounter Date Encounter Type Care Provider Facility Start: 03-17-2025 ambulatory [facility] Facility: [facility] Start: 03-05-2025 End: 03-05-[address] Toshia Sousa MD Work Phone: -Laboratory Start: 03-05-2025 End: 03-05-[address] Elis Zaman MD -Laboratory Work Phone: Start: 03-05-2025 End: 03-05-2025 ambulatory Elis Zaman Facility:[facility] Start: 01-05-2025 End: 01-05-[address] Toshia Sousa MD Work Phone: [facility] Work Phone: Start: 01-05-2025 End: 01-05-[address] [facility] Start: 01-05-2025 End: 01-05-2025 ambulatory Stas Whittington Facility:[facility] Start: 12-14-2024 End: 12-14-[address] Tyrel Tai MD -[facility] Work Phone: Start: 12-14-2024 End: 12-14-2024 ambulatory Tyrel Tai Facility:[facility] Start: 10-30-2024 End: 10-30-[address] Toshia Sousa MD Work Phone: [facility] Work Phone: Start: 10-30-2024 End: 10-30-[address] Elis Zaman MD -Laboratory Work Phone: Start: 10-30-2024 End: 10-30-2024 ambulatory Toshia S Jolliff Facility:[facility] Start: 08-19-2024 End: 08-19-[address] Toshia Sousa MD -Outpatient [facility] Work Phone: Start: 08-19-2024 End: 08-19-2024 ambulatory Toshia S Janellladriano Facility:[facility] Start: 07-20-2024 End: 07-20-[address] Elis Zaman MD -Laboratory, [place] Work Phone: Start: 07-20-2024 End: 07-20-2024 ambulatory Toshia S Jolliff Facility:[facility] Start: 06-07-2024 End: 06-07-2024 ambulatory Toshia S Jolliff Facility:[facility] Start: 05-01-2024 End: 05-01-2024 ambulatory Toshia S Jolladriano Facility:[facility] Start: 03-29-2024 End: 03-29-2024 ambulatory Toshia S Jolladriano Facility:[facility] Start: 03-17-2024 End: 03-17-2024 ambulatory Toshia Sousa [place] [place] Start: 03-15-2024 End: 03-15-2024 ambulatory Toshia Sousa Facility:[facility] Start: 01-03-2024 End: 01-03-2024 [facility]ulatory [facility] Work Phone: Start: 01-03-2024 End: 01-03-2024 Patient encounter procedure [facility] [place], [facility] Work Phone: Start: 12-26-2023 End: 12-26-2023 ambulatory [facility] Work Phone: Start: 12-26-2023 End: 12-26-2023 Patient encounter procedure [facility] Start: 10-15-2023 End: 10-15-2023 ambulatory [facility] Work Phone: Start: 10-15-2023 End: 10-15-2023 Patient encounter procedure [facility] Start: 08-07-2023 End: 08-07-2023 ambulatory [facility] Work Phone: Start: 08-07-2023 End: 08-07-2023 Patient encounter procedure [facility] Work Phone: Start: 06-14-2022 End: 06-14-2022 ambulatory [facility] Work Phone: Start: 06-14-2022 End: 06-14-2022 Patient encounter procedure [facility] Start: 06-24-2021 End: 06-24-2021 Emergency department patient visit Kandi Renae [facility] Emergency 14 Procedures Date Procedure Procedure Detail Performing Clinician Start: 01-05-2025 Measurement of Borre jess burgdorferi antibody Dr. Toshia Sousa MD Work Phone: Comment on above: Lyme antibodies not detected. Reflex testing is notindicated.No laboratory evidence of infection with B. burgdorferi(Lyme disease). Negative results may occur in patientsrecently infected (less than or equal to 14 days) with B.burgdorferi. If recent infection is suspected, repeattesting on a new sample collected in 7 to 14 days isrecommended.Performed at: [facility] [employer] [id number] Director: Scott Dudley PhD, Phone: [phone] Start: 01-05-[address] Toshia Sousa MD Work Phone: Start: 01-05-2025 Vitamin D, 25-hydrox y measurement Dr. Toshia Sousa MD Work Phone: Comment on above: Vitamin D StatusDefi ciency: <20 ng/mL (50nmol/L)Insufficiency: 20-30 ng/mL (50-75 nmol/L)Sufficiency: 30-100 ng/mL (75-250 nmol/L)Toxicity: >100 ng/mL (>250 nmol/L) Start: 08-19-2024 Screening mammography Araseli Sousa MD Work Phone: Start: 07-20-2024 Plain radiography of pelvis Dr. Toshia Sousa MD Work Phone: Start: 01-03-2024 Ultrasonography of abdomen Start: 08-07-2023 Screening mammograph y of bilateral breasts Start: 06-13-2022 Screening mammography History of cholecystectomy S/P cholecyste ctomy Dr. Toshia Sousa MD Work Phone: Plan of Treatment Date Care Activity Detail Author Bilirubin.direct [Ma ss/volume] in Serum or Plasma [facility] C reactive protein [ Mass/volume] in Serum or Plasma [facility] CBC W Auto Differential panel - Blood [facility] Comprehensive metabo lic 1999 panel - Serum or Plasma [facility] Cytoplasmic ANCA Screen [facility] Ferritin [Mass/volume] in Serum or Plasma [facility] Gamma glutamyl transferase measurement [facility] Hemoglobin A1c/Hemoglobin.total in Blood [facility] Hepatitis B virus rice rface Ab [Presence] in Serum [facility] Immunoglobulin measurement [facility] Iron and Iron bindin g capacity panel - Serum or Plasma [facility] Lipid 1995 panel - Serum or Plasma [facility] Liver stiffness by US.transient elastogra phy [facility] Mitochondria Ab [Presence] in Serum [facility] Prothrombin time [facility] Serum immunofixation [facility] Smooth muscle Ab [Presence] in Serum [facility] T4 free measurement [facility] Thyroid stimulating hormone measurement [facility] Immunizations Immunization Date Immunization Notes Care Provider Cali adan 06-24-2021 tetanus toxoid, redu wilder diphtheria toxoid, and acellular pertussis vaccine, adsorbed Toshia Sousa Other Phone: [facility] Payers Date Payer Category Payer Self-pay [id number] 2024 Unknown [id number] 1999 Unknown [id number] Unknown [facility] CE PLAN\[facility] CHOICE PREF Unknown [employer] DO NOT USE [id number] Unknown [id number] Unknown [id number] Unknown [id number] Unknown [id number] Unknown [id number] Unknown [id number] Unknown [id number] Unknown [id number] Unknown [id number] Unknown [id number] Unknown [id number] Unknown [id number] Social History Date Type Detail Facility [facility] Start: 11-04-2019 End: 11-04-2019 Tobacco smoking consumption unknown [facility] Start: 11-04-2019 Non-smoker [facility] Start: 1970 Sex Assigned At Female [facility] Start: 02-24-2024 Tobacco smoking status NHIS Never smoked tobacco (finding) [facility] Start: 11-12-2024 Sex Female (finding) [facility] Medical Equipment Procedure Code Equipment Code Equipment Original Text Equipment Identifier Dates Total cholecystectomy with exploration of common bile duct CLIP,HEMOLOCK MED WECK FDA Start: 03-08-2024 Total cholecystectomy with exploration of common bile duct CLIP,HEMOLOCK MED WECK FDA Start: 03-08-2024 Total cholecystectomy with exploration of common bile duct HEMOBLAST CIERA FDA Start: 03-08-2024 Total cholecystectomy with exploration of common bile duct CLIP,HEMOLOCK MED WECK FDA Start: 03-08-2024 Total cholecystectomy with exploration of common bile duct CLIP,HEMOLOCK MED WECK FDA Start: 03-08-2024 Total cholecystectomy with exploration of common bile duct HEMOBLAST CIERA FDA Start: 03-08-2024 Total cholecystectomy with exploration of common bile duct CLIP,HEMOLOCK MED WECK FDA Start: 03-08-2024 Total cholecystectomy with exploration of common bile duct CLIP,HEMOLOCK MED WECK FDA Start: 03-08-2024 Total cholecystectomy with exploration of common bile duct HEMOBLAST CIERA FDA Start: 03-08-2024 Evaluation note 12-14-2024 Note Date & Type Note Facility 12-14-2024 Evaluation note Diagnosis Onset Date Resolution Elevated liver enzymes chronic December 14, 2024 2:01pm [facility] Work Phone: Evaluation note Note Date & Type Note Facility Evaluation note No assessment information availa timothy [facility] Work Phone: Reason for referral (narrative) Note Date & Type Note Facility Reason for referral (narrative) No reason for referral information available [facility] Work Phone: Summary Purpose Family History No Family History Records FoundNo Family History Records Found Advance Directives No Advanced Directives Records Found Advance Directive Response Recorded Date/ Time Living Will No November 04, 2019 2:10pm Power of Plexiglas Former No November 03 0 2:10pm Advance Directive Response Recorded Date/ Time Living Will No November 04, 2019 1:10pm Power of Plexiglas Former No November 03 0 1:10pm Advance Directive Response Recorded Date/ Time Living Will No February 24, 2024 11:10am Power of [place]lexiglas Former No February 23 4 11:10am Chief Complaint and Reason for Visit Chief Complaint SCREENING Chief Complaint SCREENING Chief Complaint ELEVATED LFT Chief Complaint Admit Date LABS AND XRAY- PAIN- COPY PCP July 022023 10:39am SCREENING August 19, 2024 10:04am Chief Complaint Admit Date Liver Inflammation December 14, 2024 2:0 1pm Reason for Visit Admit Date Elevated liver enzymes December 14, 2024 2:01pm Chief Complaint Admit Date Liver Inflammation December 14, 2024 2:0 1pm M06.4-714.9/ Z79.899- V58.69/ M35.00- 71 March 05, 2025 8:19am Additional Source Comments <item> Privacy Markings (unrecogniz ed section and content) Section Author: Patsy Jenkins PROHIBITION ON REDISCLOSURE OF CONFIDENTIAL INFORMATION This notice accompanies a disclosure of information concerning a client made to you with the consent of such client. INFORMATION SOURCE (unrecogn ized section and content) DATE CREATED AUTHOR 06/27/2021 [facility] DATE CREATED AUTHOR AUTHOR'S ORGANIZ ATION 03/13/2025 [facility] y [facility] Goals (unrecognized section and content) Goals may be documented in a n alternate sectionGoals may be documented in an alternate sectionGoals may be documented in an alternate sectionGoals may be documented in an alternate sectionGoals may be documented in an alternate sectionGoals may be documented in an alternate sectionGoals may be documented in an alternate sectionGoals may be documented in an alternate section Care Teams (unrecognized sec tion and content) Team Status: Active Member Role Status Dates Dr. Toshia Sousa MD Family Provider Active Dr. Toshia Sousa MD Primary Care Provider Active Team Status: Inactive Member Role Status Dates Dr. Toshia Sousa MD Primary Care Prov ider, Attending Provider, Referring Provider Active Team Status: Inactive Member Role Status Dates Dr. Toshia Sousa MD Primary Care Provider, Attendin g Provider Active Team Status: Inactive Member Role Status Dates Dr. Toshia Sousa MD Primary Care Provider Active Start: July 20, 2024 End: July 20, 2024 Dr. Elis Zaman MD Attending Provider Active Start: July 20, 2024 End: July 20, 2024 Dr. Elis Zaman MD Referring Provider Active Start: July 20, 2024 End: July 20, 2024 Team Status: Inactive Member Role Status Dates Dr. Toshia Sousa MD Primary Care Provider Active Start: August 19, 2024 End: August 19, 2024 Dr. Toshia Sousa MD Attending Provider Active Start: August 19, 2024 End: August 19, 2024 Dr. Toshia Sousa MD Referring Provider Active Start: August 19, 2024 End: August 19, 2024 Team Status: Inactive Member Role Status Dates Dr. Toshia Sousa MD Primary Care Provider Active Start: October 30, 2024 End: October 30, 2024 Dr. Elis Zaman MD Attending Provider Active Start: October 30, 2024 End: October 30, 2024 Dr. Elis Zaman MD Referring Provider Active Start: October 30, 2024 End: October 30, 2024 Team Status: Active Member Role Status Dates Dr. Stas Whittington MD Primary Care Provider Active Team Status: Inactive Member Role Status Dates Dr. Toshia Sousa MD Primary Care Provider Active Start: December 14, 2024 End: December 14, 2024 Dr. Toshia Sousa MD Referring Provider Active Start: December 14, 2024 End: December 14, 2024 Dr. Tyrel Tai MD Attending Provider Active Start: December 14, 2024 End: December 14, 2024 Team Status: Inactive Member Role Status Dates Dr. Stas Whittington MD Primary Care Provider Active Start: January 05, 2025 End: January 05, 2025 Dr. Stas Whittington MD Attending Provider Active Start: January 05, 2025 End: January 05, 2025 Dr. Stas Whittington MD Referring Provider Active Start: January 05, 2025 End: January 05, 2025 Team Status: Active Member Role/Relationship Status Dates Dr. Stas Whittington MD Primary Care Provider Active Team Status: Inactive Member Role/Relationship Status Dates Dr. Toshia Sousa MD Primary Care Provider Active Start: December 14, 2024 End: December 14, 2024 Dr. Toshia Sousa MD Referring Provider Active Start: December 14, 2024 End: December 14, 2024 Dr. Tyrel Tai MD Attending Provider Active Start: December 14, 2024 End: December 14, 2024 Team Status: Inactive Member Role/Relationship Status Dates Dr. Stas Whittington MD Primary Care Provider Active Start: January 05, 2025 End: January 05, 2025 Dr. Stas Whittington MD Attending Provider Active Start: January 05, 2025 End: January 05, 2025 Dr. Stas Whittington MD Referring Provider Active Start: January 05, 2025 End: January 05, 2025 Team Status: Inactive Member Role/Relationship Status Dates Dr. Stas Whittington MD Primary Care Provider Active Start: March 05, 2025 End: March 05, 2025 Dr. Elis Zaman MD Attending Provider Active Start: March 05, 2025 End: March 05, 2025 Dr. Elis Zaman MD Referring Provider Active Start: March 05, 2025 End: March 05, 2025 FOR RECORDS PERTAINING TO PATIENTS WHO ARE [...] BE BASED ON THE PRIMARY CLINICAL RECORDS. [facility] [employer] [facility]. provides no warranty or guarantee of the accuracy or completeness of information in this document.
== END | disposition home or self-care (01) ==
LOC: US 07:26
PROVIDERS: PCP Family Medicine; Referring Provider Internal Medicine; Visit Provider Internal Medicine
DX: R74.8 Abnormal levels of other serum enzymes (principal); Z90.49 Acquired absence of other specified parts of digestive tract
CPT/HCPCS: 76705; 76981

== ENCOUNTER → 2025-05-28 | Outpatient (CLI) | payer OTHER, SELFPAY ==
[2025-05-28 10:00] LABS: Hematocrit 37.6 % (37-47); Hemoglobin 12.2 g/dL (12.0-15.0); Immature Granulocytes Count 0.030 X10^3/uL (0.0-0.0); Mean Corp Hgb Conc 32.4 g/dL (32-36); Mean Corpuscular Volume 86.0 fL (81-99); Mean Platelet Vol. 10.9 fl (6.2-12.0); NRBC Flagged by Analyzer 0 % (0-5); Platelet Count 224 K/mm3 (150-450); RBC Distribution Width CV 13.4 % (11.6-14.6); RBC Distribution Width SD 42.1 fl (35.1-43.9); Red Blood Count 4.37 M/mm3 (4.2-5.4); White Blood Count 4.5 K/mm3 (4.4-11.0)
[2025-05-28 10:32] LABS: AST(SGOT) 25 U/L (<=31); Alanine Aminotransfer ALT/SGPT 20 U/L (<=34); Albumin, Serum 4.0 g/dL (3.5-5.0); Alkaline Phosphatase 101 U/L (35-104); Anion Gap 11 (5-15); BUN 15 mg/dL (4-19); BUN/Creat Ratio 23.6 RATIO (10-20); Calcium,Total 8.8 mg/dL (7.6-11.0); Carbon Dioxide 22.0 mmol/L (21.0-32.0); Chloride 109 mmol/L (98-108); Globulin 2.3 g/dL (2.2-4.2); Glucose 87 mg/dL (70-99); Potassium 3.9 mmol/L (3.3-5.1)
== END | disposition home or self-care (01) ==
LOC: LAB 09:18
PROVIDERS: PCP Family Medicine; Referring Provider Internal Medicine Rheumatology; Visit Provider Internal Medicine Rheumatology
DX: M06.4 Inflammatory polyarthropathy (principal); Z79.899 Other long term (current) drug therapy; M35.00 Sjogren syndrome, unspecified
CPT/HCPCS: 36415; 80053; 85025

== ENCOUNTER → 2025-08-02 | Outpatient (CLI) | payer OTHER, SELFPAY ==
--- OUTSIDE RECORDS SUMMARY | 2025-08-02 17:37 | XMS RPT_ITS | CCD ---
Author Organization 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 Stas Ahumada Primary Care Provider Nelsy ISRAEL, Dr. Stas Ahumada Attending Provider Nelsy ISRAEL, Dr. Stas Ahumada Referring Provider Merry ISRAEL, Dr. Toshia Partida Primary Care Provider Junie ISRAEL, Dr. Gillis Attending Provider Junie ISRAEL, Dr. Gillis Referring Provider Zaire ISRAEL, Dr. Sarah Referring Provider Stas Whittington Primary Care Unavailable Stas Whittington Referring Unavailable Tyrel Tai Attending Unavailable Toshia Sousa Referring Unavailable Tyrel Tai Attending Unavailable Jolliff, Toshia S Primary Care Unavailable Stas Whittington Primary Care Unavailable Tyrel Tai Attending Unavailable Tyrel Tai Referring Unavailable Elis Zaman Attending Unavailable Stas Whittington Primary Care Unavailable Vellanki, Elis Referring Unavailable Vellanki, Elis Referring Unavailable Jolliff, Toshia S Primary Care Unavailable Vellanki, Elis Attending Unavailable Jolliff, Toshia S Primary Care Unavailable Jolliff, Toshia S Attending Unavailable Jolliff, Toshia S Referring Unavailable Vellanki, Elis Referring Unavailable Jolliff, Toshia S Primary Care Unavailable Junie, Elis Attending Unavailable Stas Whittington Primary Care Unavailable Stas Whittington Attending Unavailable Stas Whittington Referring Unavailable Junie, Elis Referring Unavailable Stas Whittington Primary Care Unavailable Elis Zaman Attending Unavailable Nelsy ISRAEL, Dr. Stas Ahumada Primary Care Physician Junie ISRAEL, Dr. Gillis Attending Physician Zaire ISRAEL, Dr. Sarah Attending Physician Nelsy ISRAEL, Dr. Stas Ahumada Referring Provider [phone] Medications Current Medications Medication Drug Class(es) Dates Sig (Normalized) Sig (Original) B-Complex With Vitamin C tablet (6 sources) Start: 01-27-2024 Start: 01-27-2024 B-Complex With Vitamin C tablet Active 1 {tbl} PO DAILY January 27, 2024 12:00am calcium carbonate 1500 mg or al tablet (17 sources) Start: 01-27-2024 take 1 tablet by kehinde at bedtime Start: 11-04-2019 End: 01-27-2024 take 1 tablet [...] mg / lisinopril 20 mg oral tablet (11 sources) Thiazide Diuretic, Angiotensin Converting Enzyme Inhibitor Start: 11-04-2019 Start: 11-04-2019 Lisinopril-Hyd rochlorothiazide Active 1 EACH PO DAILY November 04, 2019 1:00am hydroxychloroquine sulfate 200 mg oral tablet (5 sources) Antimalarial, Antirheumatic Agent Start: 12-14-2024 levothyroxine sodium 0.112 mg oral tablet (20 sources) l-Thyroxine Start: 02-24-2024 take 1 tablet by mouth once daily Start: 01-27-2024 End: 02-24-2024 take 1 capsule [...] chloride 10 meq extended release oral tablet (6 sources) Start: 01-27-2024 take 1 tablet by kehinde th once daily Completed/Discontinued Medications Medication Drug Class(es) Dates Sig (Normalized) Sig (Original) Levonorgestrel-Et hinyl Estrad (11 sources) Progestin, Estrogen, Progestin-containin g Intrauterine Device [...] 2019 1:00am meloxicam 15 mg oral tablet (6 sources) Nonsteroidal Anti-inflammatory Drug Start: 01-27-2024 End: 02-24-2024 take 1 tablet by mouth once daily Meloxicam 15 mg tablet Discontinued 15 mg PO DAILY January 27, 2024 12:00am February 24, 2024 11:09am traMADol hydrochloride 50 mg oral tablet (6 sources) Opioid Agonist Start: 03-08-2024 End: 03-17-2024 [...] Documented Da te Episodic/Chronic Biliary tract disease (6 sources) Biliary sludge; Translations: [Other specified diseases of gallbladder] 03-17-2024 Episodic Comment on above: And two 5 mm polyps Hepatitis (1 source) Autoimmune hepatitis; Translations: [Autoimmune hepatitis] 04-06-2025 Chronic Open wounds of extremities (3 sources) Laceration of finger; Translations: [Laceration of right index finger] 06-24-2021 Episodic Comment on above: FINGER LACERATION Other endocrine disorders (1 source) Hyperparathyroidism , unspecified; Translations: [Hyperparathyroidis m, unspecified] Onset: 01-11-2025 Chronic Other liver diseases (1 source) Hepatic fibrosis; Translations: [Hepatic fibrosis] 04-06-2025 Chronic Other liver diseases (12 sources) Elevated liver enzymes level; Translations: [Abnormal levels of other serum enzymes] 01-27-2024 Episodic Other liver diseases (1 source) Abnormal levels of other serum enzymes; Translations: [Abnormal levels of other serum enzymes] Onset: 03-22-2025 Episodic Rheumatoid arthritis and related disease (1 source) Inflammatory polyarthropathy; Translations: [Inflammatory polyarthropathy] Onset: 06-11-2025 Chronic Unclassified (1 source) Laceration of right [...] lymphocyte countOrd ered By: Elis Zaman on 05-28-2025 Lymphocytes Auto (Unsp spec) [#/Vol] 1.36 10*3/uL 0.83-4.51 [facility] Absolute neutrophil countOrd ered By: Elis Zaman on 05-28-2025 Neutrophils (Bld) [#/Vol] 2.4 10*3/uL 2.0-7.7 [facility] Anion gap in Serum or Plasma Ordered By: Elis Zaman on 05-28-2025 Anion gap [Moles/Vol] 11 mmol/L 5- [facility] Automated lymphocyte count a s percentage of total leukocytesOrdered By: Elis Zaman on 05-28-2025 Lymphocytes/100 WBC Auto (Unsp spec) 30.6 % [facility] BUN/creatinine ratioOrdered By: Elischelo Zaman on 05-28-2025 Urea nitrogen/Creatinine [Mass ratio] 23.6 mg/mg High 10- [facility] Bilirubin, totalOrdered By: Elischelo Zaman on 05-28-2025 Bilirubin [Mass/Vol] 0.38 mg/dL 0.00-1.30 [facility] CBC W/Diff, Automatedon 05-03 Absolute Lymph 1.36 X10 3/uL Normal 0.83-4.51 [facility] Comment on above: Performed By: #### L 500.4050, L100.0100 ####[facility] [address] [place], [address] Absolute Neut 2.4 X10 3/uL Normal 2.0-7.7 [facility] Comment on above: Performed By: #### L 500.4050, L100.0100 ####[facility] [address] [place], [address] IG% 0.700 Normal 0.0-0.9 [facility] Comment on above: Result Comment: IG% - Immature Granulocytes (promyelocytes, myelocytes and metamyelocytes) > 1% indicates that a LEFT SHIFT is Present. Performed By: #### L 500.4050, L100.0100 ####[facility] [address] [place], [address] Lymphocytes/100 WBC (Bld) 30.6 % Normal 19-41 [facility] Comment on above: Performed By: #### L 500.4050, L100.0100 ####[facility] [address] [place], [address] Nucleated RBC (Bld) [#/Vol] 0 10*3/uL Normal 0-5 [facility] Comment on above: Performed By: #### L 500.4050, L100.0100 ####[facility] [address] [place], [address] RDW SD 42.1 fl Normal 35.1-43.9 [facility] Comment on above: Performed By: #### L 500.4050, L100.0100 ####[facility] [address] [place], [address] CBC W/Diff, AutomatedOrdered By: Elis Zaman on 05-28-2025 Basophils/100 WBC (Bld) 1.1 % High 0-1 [facility] Comment on above: Performed By: #### L 500.4050, L100.0100 ####[facility] [address] [place], [address] Eosinophils/100 WBC (Bld) 4.0 % Normal 0-5 [facility] Comment on above: Performed By: #### L 500.4050, L100.0100 ####[facility] [address] [place], [address] Erythrocyte distribution width (RBC) [Ratio] 13.4 % Normal 11.6-14.6 [facility] Comment on above: Performed By: #### L 500.4050, L100.0100 ####[facility] [address] [place], [address] Hematocrit (Bld) [Volume fraction] 37.6 % Normal 37-47 [facility] Comment on above: Performed By: #### L 500.4050, L100.0100 ####[facility] [address] [place], [address] Hemoglobin (Bld) [Mass/Vol] 12.2 g/dL Normal 12.0-15.0 [facility] Comment on above: Performed By: #### L 500.4050, L100.0100 ####[facility] [address] [place], [address] MCH (RBC) [Entitic mass] 27.9 pg Normal 27.0-32.0 [facility] Comment on above: Performed By: #### L 500.4050, L100.0100 ####[facility] [address] [place], [address] MCHC (RBC) [Mass/Vol] 32.4 g/dL Normal 32-36 [facility] Comment on above: Performed By: #### L 500.4050, L100.0100 ####[facility] [address] [place], [address] MCV (RBC) [Entitic vol] 86.0 fL Normal 81-99 [facility] Comment on above: Performed By: #### L 500.4050, L100.0100 ####[facility] [address] [place], [address] Monocytes/100 WBC (Bld) 10.6 % High 0-10 [facility] Comment on above: Performed By: #### L 500.4050, L100.0100 ####[facility] [address] [place], [address] Neutrophils/100 WBC (Bld) 53.0 % Normal 47-70 [facility] Comment on above: Performed By: #### L 500.4050, L100.0100 ####[facility] [address] [place], [address] Platelet mean volume (Bld) [Entitic vol] 10.9 fL Normal 6.2-12.0 [facility] Comment on above: Performed By: #### L 500.4050, L100.0100 ####[facility] [address] [place], [address] Platelets (Bld) [#/Vol] 224 10*3/uL Normal 150-450 [facility] Comment on above: Performed By: #### L 500.4050, L100.0100 ####[facility] [address] [place], [address] RBC (Bld) [#/Vol] 4.37 10*6/uL Normal 4.2-5.4 [facility] Comment on above: Performed By: #### L 500.4050, L100.0100 ####[facility] [address] [place], [address] WBC (Bld) [#/Vol] 4.5 10*3/uL Normal 4.4-11.0 [facility] Comment on above: Performed By: #### L 500.4050, L100.0100 ####[facility] [address] [place], [address] Carbon dioxide, total [Moles /volume] in Central venous bloodOrdered By: Elis Zaman on 05-28-2025 CO2 [Moles/Vol] 22.0 mmol/L 21.0-32.0 [facility] Chloride assayOrdered By: Jeremie Zaman on 05-28-2025 Chloride [Moles/Vol] 109 mmol/L High 98-108 [facility] Comprehensive Metabolic Prof ilon 05-28-2025 Albumin [Mass/Vol] 4.0 g/dL Normal 3.5-5.0 [facility] Comment on above: Order Comment: PT ON LY WANTED VELLANKIS ORDERS Performed By: #### L 500.4050, L100.0100 ####[facility] [address] [place], [address] Albumin/Globulin [Mass ratio] 1.8 {ratio} Normal 0.9-2.4 [facility] Comment on above: Order Comment: PT ON LY WANTED VELLANKIS ORDERS Performed By: #### L 500.4050, L100.0100 ####[facility] [address] [place], [address] ALK PHOS 101 U/L Normal 35-104 [facility] Comment on above: Order Comment: PT ON LY WANTED VELLANKIS ORDERS Performed By: #### L 500.4050, L100.0100 ####[facility] [address] [place], [address] ALT [Catalytic activity/Vol] 20 U/L Normal <=34 [facility] Comment on above: Order Comment: PT ON LY WANTED VELLANKIS ORDERS Performed By: #### L 500.4050, L100.0100 ####[facility] [address] [place], [address] AST [Catalytic activity/Vol] 25 U/L Normal <=31 [facility] Comment on above: Order Comment: PT ON LY WANTED VELLANKIS ORDERS Performed By: #### L 500.4050, L100.0100 ####[facility] [address] [place], [address] Bilirubin [Mass/Vol] 0.38 mg/dL Normal 0.00-1.30 [facility] Comment on above: Order Comment: PT ON LY WANTED VELLANKIS ORDERS Performed By: #### L 500.4050, L100.0100 ####[facility] [address] [place], [address] BUN/CRE 23.6 RATIO High 10-20 [facility] Comment on above: Order Comment: PT ON LY WANTED VELLANKIS ORDERS Performed By: #### L 500.4050, L100.0100 ####[facility] [address] [place], [address] Calcium [Mass/Vol] 8.8 mg/dL Normal 7.6-11.0 [facility] Comment on above: Order Comment: PT ON LY WANTED VELLANKIS ORDERS Performed By: #### L 500.4050, L100.0100 ####[facility] [address] [place], [address] Chloride [Moles/Vol] 109 mmol/L High 98-108 [facility] Comment on above: Order Comment: PT ON LY WANTED VELLANKIS ORDERS Performed By: #### L 500.4050, L100.0100 ####[facility] [address] [place], [address] CO2 [Moles/Vol] 22.0 mmol/L Normal 21.0-32.0 [facility] Comment on above: Order Comment: PT ON LY WANTED VELLANKIS ORDERS Performed By: #### L 500.4050, L100.0100 ####[facility] [address] [place], [address] Creatinine [Mass/Vol] 0.62 mg/dL Low 0.70-1.20 [facility] Comment on above: Order Comment: PT ON LY WANTED VELLANKIS ORDERS Performed By: #### L 500.4050, L100.0100 ####[facility] [address] [place], [address] GAP 11 Normal 5-15 [facility] Comment on above: Order Comment: PT ON LY WANTED VELLANKIS ORDERS Performed By: #### L 500.4050, L100.0100 ####[facility] [address] [place], [address] GFR/1.73 sq M.predicted among non-blacks MDRD (S/P/Bld) [Vol rate/Area] 104 mL/min/{1.73_m2} Normal >60 [facility] Comment on above: Order Comment: PT ON LY WANTED VELLANKIS ORDERS Result Comment: mL/m in/1.73m2 CKD-EPI Creatinine Equation (2020) Performed By: #### L 500.4050, L100.0100 ####[facility] [address] [place], [address] Globulin (S) [Mass/Vol] 2.3 g/dL Normal 2.2-4.2 [facility] Comment on above: Order Comment: PT ON LY WANTED VELLANKIS ORDERS Performed By: #### L 500.4050, L100.0100 ####[facility] [address] [place], [address] Glucose [Mass/Vol] 87 mg/dL Normal 70-99 [facility] Comment on above: Order Comment: PT ON LY WANTED VELLANKIS ORDERS Performed By: #### L 500.4050, L100.0100 ####[facility] [address] [place], [address] Potassium [Moles/Vol] 3.9 mmol/L Normal 3.3-5.1 [facility] Comment on above: Order Comment: PT ON LY WANTED VELLANKIS ORDERS Result Comment: Hemo lysis present, Results??could be affected. ?? Performed By: #### L 500.4050, L100.0100 ####[facility] [address] [place], [address] Sodium [Moles/Vol] 141 mmol/L Normal 133-145 [facility] Comment on above: Order Comment: PT ON LY WANTED VELLANKIS ORDERS Performed By: #### L 500.4050, L100.0100 ####[facility] [address] [place], [address] T PROT 6.3 g/dL Normal 5.9-8.4 [facility] Comment on above: Order Comment: PT ON LY WANTED VELLANKIS ORDERS Performed By: #### L 500.4050, L100.0100 ####[facility] [address] [place], [address] Urea nitrogen [Mass/Vol] 15 mg/dL Normal 4-19 [facility] Comment on above: Order Comment: PT ON LY WANTED VELLANKIS ORDERS Performed By: #### L 500.4050, L100.0100 ####[facility] [address] [place], [address] Erythrocyte distribution wid th standard deviationOrdered By: Elis Zaman on 05-28-2025 Erythrocyte distribution width (RBC) [Ratio] 42.1 fl 35.1-43.9 [facility] Glomerular filtration rate ( GFR) estimation/1.73 sq m using serum, plasma, or whole bOrdered By: Elis Zaman on 05-28-2025 GFR/1.73 sq M.predicted among non-blacks MDRD (S/P/Bld) [Vol rate/Area] 104 mL/min/{1.73_m2} >60 [facility] Comment on above: mL/min/1.73m2 CKD-EP I Creatinine Equation (2020) Immature granulocytes/100 WB C Auto (Bld)Ordered By: Elis Zaman on 05-28-2025 Immature granulocytes/100 WBC (Bld) 0.700 % 0.0-0.9 [facility] Comment on above: IG% - Immature Granu locytes (promyelocytes, myelocytes and metamyelocytes) > 1% indicates that a LEFT SHIFT is Present. Laboratory - Chemistry and C hemistry - challengeOrdered By: Elis Zaman on 05-28-2025 AST [Catalytic activity/Vol] 25 U/L <32 [facility] Nucleated red blood cell per centageOrdered By: Elis Zaman on 05-28-2025 Nucleated RBC/100 WBC (Bld) [Ratio] 0 % 0-5 [facility] Potassium measurement (mass/ volume)Ordered By: Elis Zaman on 05-28-2025 Potassium (Unsp spec) [Mass/Vol] 3.9 mmol/L 3.3-5.1 [facility] Comment on above: Hemolysis present, R esults could be affected. Serum creatinine measurement (mass/volume)Ordered By: Elis Zaman on 05-28-2025 Creatinine [Mass/Vol] 0.62 mg/dL Low 0.70-1.20 [facility] Serum globulin measurementOr dered By: Elis Zaman on 05-28-2025 Globulin (S) [Mass/Vol] 2.3 g/dL 2.2-4.2 [facility] Serum glucose measurement (m ass/volume)Ordered By: Elis Zaman on 05-28-2025 Glucose [Mass/Vol] 87 mg/dL 70-99 [facility] Serum or plasma alanine ortiz otransferase (ALT) measurementOrdered By: Elis Zaman on 05-28-2025 ALT [Catalytic activity/Vol] 20 U/L <35 [facility] Serum or plasma albumin maegan urement (mass/volume)Ordered By: Elis Zaman on 05-28-2025 Albumin [Mass/Vol] 4.0 g/dL 3.5-5.0 [facility] Serum or plasma albumin/glob ulin mass ratioOrdered By: Elis Zaman on 05-28-2025 Albumin/Globulin [Mass ratio] 1.8 {ratio} 0.9-2.4 [facility] Serum or plasma alkaline yayo sphatase measurementOrdered By: Elis Zaman on 05-28-2025 ALP [Catalytic activity/Vol] 101 U/L 35-104 [facility] Serum or plasma calcium maegan urement (mass/volume)Ordered By: Elis Zaman on 05-28-2025 Calcium [Mass/Vol] 8.8 mg/dL 7.6-11.0 [facility] Serum or plasma urea nitroge n measurement (mass/volume)Ordered By: Elis Zaman on 05-28-2025 Urea nitrogen [Mass/Vol] 15 mg/dL 4-19 [facility] Sodium levelOrdered By: Gino Zaman on 05-28-2025 Sodium [Moles/Vol] 141 mmol/L 133-145 [facility] Total proteinOrdered By: Jeni chelo Junie on 05-28-2025 Protein [Mass/Vol] 6.3 g/dL 5.9-8.4 [facility] Gastroenterology Visit Repor ton 04-06-2025 Gastroenterology Visit Report [facility]enterology [address] [place] [address] OFFICE VISIT Date of Service: 04/06/25 MR#: [id number] Acct: [id number] Name: RADHA CHASE Rep #: [id number] : 1970 Provider: Dr. Tyrel schaffer MD Age/Sex: 54/F Location: [facility] Status: Signed Intake Vital Signs 12/14/24 14:06 04/06/25 08:44 Height 5 ft 3 in 5 ft 3 in Weight: 142 lb 141 lb BMI 25.1 25.0 BP 121/81 H 138/87 H Blood Pressure Location Lt brachial Rt brachial Position Sitting Sitting Pulse 87 67 Pulse Oximetry (%) 96 98 Oxygen Delivery Method room air room air Intake Visit Reasons: Test Result Chief Complaint: Elevated LFTs Allergies No Known Allergies Allergy (Verified 04/06/25 08:29) Medications ???Medication ???Instructions ???Recorded ???Confirmed ???Type lisinopril 20 1 ea PO DAILY 11/04/19 04/06/25 Hi story mg-hydrochlorothiazid e 12.5 mg tablet B-complex with vitamin C 1 tab PO DAILY 01/27/24 04/06/25 H istory calcium carbonate 600 mg PO QHS 01/27/24 04/06/25 Hi story potassium chloride 10 mEq 10 meq PO DAILY 01/27/24 04/06/25 History tablet,extended release levothyroxine 112 mcg tablet 112 mcg PO DAILY 02/24/24 04/06/25 History (Synthroid) hydroxychloroquine 200 mg tablet 310 mg PO QDAY 12/14/24 04/06/25 H istory (Plaquenil) [facility] Medical History Wears glasses Heartburn Gastric reflux CPAP (continuous positive airway pressure) dependence Sleep apnea Non-smoker Thyroid disease HTN (hypertension) Surgical History History of History of tonsillectomy ( 1973) H/O thyroidectomy Social History Smoking Status: Never smoker alcohol intake: never substance use type: does not use HPI HPI Chief Complaint: Elevated LFTs Details: RADHA CHASE, is a 54 F who presents to the office today for follow up. PCP referred for elevated liver enzymes. Underwent cholecystectomy with liver biopsy March 2024 at [facility] that showed liver parenchymal tissue with minimal portal chronic inflammation. BGI Est 25 Pt referred by trademark paralegal for clearance from sql application developer before switching treatment for her inflammatory polyarthropathy. [...] RA but RF and anti-CCP for negative US abd/ elastography 7.17.25- Liver measures 15.9cm, Stiffness 9.3 kPA 7.5.25- Fib-4 1.29 OV 8.6.25- Pt well since last visit. Denies GI complaints. Is concerned about fluctuating LFTs. ROS Const Constitutional: No fatigue, fever(s) or weight change ENT ENT: No difficulty swallowing Gastro GI: No abdominal pain, belching, bloating, change in bowel habits, change in stool character, coffee ground emesis, constipation, cramping, diarrhea, heartburn, difficulty swallowing, feeling full early, excessive flatus, incontinent of stools, Vomiting blood/hematemesis, Blood in stool, loose stools, Black,tarry stools, nausea/dyspepsia, pain with swallowing, vomiting or other Musc Musculoskeletal: Positive for joint pain and Arthritis Skin Skin: No yellowing of the eye or itchy eyes Psych Psychiatric: No anxiety and No depression Endo Endocrine: No fatigue or weight change Aller/Imm Allergy/Immunologic: No itchy eyes Barber/Lymp Hematologic/Lymphatic : No easy bleeding or easy bruising Assessment and Plan Assessment and Plan (1) Elevated liver enzymes: Status: Chronic Plan: Denies abdominal pain. 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 Patient had screening colonoscopy in October 2019 and was reported hemorrhoids on perianal exam otherwise entire examined colon was normal She had elevated alkaline phosphatase and transaminases with gallbladder sludge and required lap lianne and cholangiogram with liver biopsy. She did not have abdominal pain. Liver chemistry reviewed. Platelet count is normal. Normalization of transaminases. ALP also improving from 225 in March 2024 to 128 in October 2024. Total bilirubin normal. Albumin and A/G ratio normal. Patient also had liver biopsy during lap lianne which reported preserved lobular architecture, hepatocytes unremarkable. Focal minimal chronic portal inflammation but interface inflammation not seen. Iron stains, reticulin stain trichrome stain) stains were all negative. Patient currently taki (more content not included)... Normal [facility] ABD Limited w/ Elastographyo n 03-17-2025 ABD Limited w/ Elastography [facility] Imaging Services [address] [place] [address] [id number] ABD Limited w/ Elastography MR#: [id number] Acct: [id number] Name: RADHA CHASE Rep #: [id number] : 1970 F 54 From: Rodriguez ozuna MD PCP: Dr. Stas Whittington MD Status: [facility] Study: ABD Limited w/ Elastography Date of Exam: 03/01 03/25 Exam# [id number] Ordering Dr: Tyrel Tai MD PROCEDURE: ABD LIMITED W/ ELASTOGRAPHY REASON FOR EXAM: ELEVATED ALKALINE PHOSPHATASE. COMPARISON: None. TECHNIQUE: Right upper quadrant abdominal ultrasound. [email or web address] ElastQ Imaging shear wave elastography for non- invasive assessment of liver tissue stiffness. [email or web address] EPIQ Elite. FINDINGS: LIVER: Size: Unremarkable Length: 15.9 cm cm Echotexture: Normal Contour: Normal Lesions: None identified Elastography: EQI Med: 9.3 kPa EQI Med Killian: 1.74 m/s IQR/Med: 26 %* GALLBLADDER: Surgically absent. COMMON BILE DUCT: Normal measuring 4 mm. . PANCREAS: Visualized portions are sonographically unremarkable. Visualized portions of the right kidney are unremarkable. No right upper quadrant ascites. US/ABD Limited w/ Elastography IMPRESSION: Moderate degree of hepatic fibrosis. Status post cholecystectomy. Reference Values: SRU <1.37 m/s (5.7kPa): No to mild fibrosis 1.37 m/s - 2.2 m/s: Moderate to severe fibrosis >2.2 m/s (15kPa): Significant fibrosis / cirrhosis METAVIR Score F2 or higher: 1.34 m/s (5.7kPa) F3 or higher: 1.55 m/s (7.3kPa) F4: 1.80 m/s (10kPa) * If the IQR/Med is >30%, the variance in the measurements is a large and the accuracy of the measurement may be in question. Reading Location: [place] [address] CC: Dr. Stas Whittington MD; Dr. Tyrel Tai MD [employer]: Signed Normal [facility] Absolute lymphocyte countOrd ered By: Elis Zaman on 03-05-2025 Lymphocytes Auto (Unsp spec) [#/Vol] 1.40 10*3/uL 0.83-4.51 [facility] Absolute neutrophil countOrd ered By: Elis Zaman on 03-05-2025 Neutrophils (Bld) [#/Vol] 2.6 10*3/uL 2.0-7.7 [facility] Anion gap in Serum or Plasma Ordered By: Elis Zaman on 03-05-2025 Anion gap [Moles/Vol] 10 mmol/L 5-15 [facility] Automated lymphocyte count a s percentage of total leukocytesOrdered By: Elis Zaman on 03-05-2025 Lymphocytes/100 WBC Auto (Unsp spec) 29.2 % 19-41 [facility] BUN/creatinine ratioOrdered By: Elis Zaman on 03-05-2025 Urea nitrogen/Creatinine [Mass ratio] 28.0 mg/mg High 10-20 [facility] Basophil percentageOrdered B y: Elis Zaman on 03-05-2025 Basophils/100 WBC (Bld) 1.5 % High 0-1 [facility] Bilirubin, totalOrdered By: Elis Zaman on 03-05-2025 Bilirubin [Mass/Vol] 0.46 mg/dL 0.00-1.30 [facility] CBC W/Diff, Automatedon 07-0 Absolute Lymph 1.40 X10 3/uL Normal 0.83-4.51 [facility] Comment on above: Performed By: #### L 500.4050, L100.0100 ####[facility] [address] [place], [address] Absolute Neut 2.6 X10 3/uL Normal 2.0-7.7 [facility] Comment on above: Performed By: #### L 500.4050, L100.0100 ####[facility] [address] [place], [address] Basophils/100 WBC (Bld) 1.5 % High 0-1 [facility] Comment on above: Performed By: #### L 500.4050, L100.0100 ####[facility] [address] [place], [address] Eosinophils/100 WBC (Bld) 3.3 % Normal 0-5 [facility] Comment on above: Performed By: #### L 500.4050, L100.0100 ####[facility] [address] [place], [address] Erythrocyte distribution width (RBC) [Ratio] 13.5 % Normal 11.6-14.6 [facility] Comment on above: Performed By: #### L 500.4050, L100.0100 ####[facility] [address] [place], [address] Hematocrit (Bld) [Volume fraction] 38.2 % Normal 37-47 [facility] Comment on above: Performed By: #### L 500.4050, L100.0100 ####[facility] [address] [place], [address] Hemoglobin (Bld) [Mass/Vol] 12.5 g/dL Normal 12.0-15.0 [facility] Comment on above: Performed By: #### L 500.4050, L100.0100 ####[facility] [address] [place], [address] IG% 0.600 Normal 0.0-0.9 [facility] Comment on above: Result Comment: IG% - Immature Granulocytes (promyelocytes, myelocytes and metamyelocytes) > 1% indicates that a LEFT SHIFT is Present. Performed By: #### L 500.4050, L100.0100 ####[facility] [address] [place], [address] Lymphocytes/100 WBC (Bld) 29.2 % Normal 19-41 [facility] Comment on above: Performed By: #### L 500.4050, L100.0100 ####[facility] [address] [place], [address] MCH (RBC) [Entitic mass] 28.2 pg Normal 27.0-32.0 [facility] Comment on above: Performed By: #### L 500.4050, L100.0100 ####[facility] [address] [place], [address] MCHC (RBC) [Mass/Vol] 32.7 g/dL Normal 32-36 [facility] Comment on above: Performed By: #### L 500.4050, L100.0100 ####[facility] [address] [place], [address] MCV (RBC) [Entitic vol] 86.2 fL Normal 81-99 [facility] Comment on above: Performed By: #### L 500.4050, L100.0100 ####[facility] [address] [place], [address] Monocytes/100 WBC (Bld) 12.1 % High 0-10 [facility] Comment on above: Performed By: #### L 500.4050, L100.0100 ####[facility] [address] [place], [address] Neutrophils/100 WBC (Bld) 53.3 % Normal 47-70 [facility] Comment on above: Performed By: #### L 500.4050, L100.0100 ####[facility] [address] [place], [address] Nucleated RBC (Bld) [#/Vol] 0 10*3/uL Normal 0-5 [facility] Comment on above: Performed By: #### L 500.4050, L100.0100 ####[facility] [address] [place], [address] Platelet mean volume (Bld) [Entitic vol] 10.9 fL Normal 6.2-12.0 [facility] Comment on above: Performed By: #### L 500.4050, L100.0100 ####[facility] [address] [place], [address] Platelets (Bld) [#/Vol] 241 10*3/uL Normal 150-450 [facility] Comment on above: Performed By: #### L 500.4050, L100.0100 ####[facility] [address] [place], [address] RBC (Bld) [#/Vol] 4.43 10*6/uL Normal 4.2-5.4 [facility] Comment on above: Performed By: #### L 500.4050, L100.0100 ####[facility] [address] [place], [address] RDW SD 42.2 fl Normal 35.1-43.9 [facility] Comment on above: Performed By: #### L 500.4050, L100.0100 ####[facility] [address] [place], [address] WBC (Bld) [#/Vol] 4.8 10*3/uL Normal 4.4-11.0 [facility] Comment on above: Performed By: #### L 500.4050, L100.0100 ####[facility] [address] [place], [address] Calculated very low density lipoprotein (VLDL) cholesterol measurementOrdered By: Stas Whittington on 03-05-2025 Calculated very low density lipoprotein (VLDL) cholesterol measurement 16 mg/dL 5-40 [facility] Carbon dioxide, total [Moles /volume] in Central venous bloodOrdered By: Elis Zaman on 03-05-2025 CO2 [Moles/Vol] 25.6 mmol/L 21.0-32.0 [facility] Chloride assayOrdered By: Jeremie Zaman on 03-05-2025 Chloride [Moles/Vol] 106 mmol/L 98-108 [facility] Comprehensive Metabolic Prof ilon 03-05-2025 Albumin [Mass/Vol] 4.2 g/dL Normal 3.5-5.0 [facility] Comment on above: Performed By: #### L 500.4050, L100.0100 ####[facility] [address] [place], [address] Albumin/Globulin [Mass ratio] 1.7 {ratio} Normal 0.9-2.4 [facility] Comment on above: Performed By: #### L 500.4050, L100.0100 ####[facility] [address] [place], [address] ALK PHOS 120 U/L High 35-104 [facility] Comment on above: Performed By: #### L 500.4050, L100.0100 ####[facility] [address] [place], [address] ALT [Catalytic activity/Vol] 36 U/L High <=34 [facility] Comment on above: Performed By: #### L 500.4050, L100.0100 ####[facility] [address] [place], [address] AST [Catalytic activity/Vol] 34 U/L High <=31 [facility] Comment on above: Result Comment: Hemo lysis present, Results??could be affected. ?? Performed By: #### L 500.4050, L100.0100 ####[facility] [address] [place], [address] Bilirubin [Mass/Vol] 0.46 mg/dL Normal 0.00-1.30 [facility] Comment on above: Performed By: #### L 500.4050, L100.0100 ####[facility] [address] [place], [address] BUN/CRE 28.0 RATIO High 10-20 [facility] Comment on above: Performed By: #### L 500.4050, L100.0100 ####[facility] [address] [place], [address] Calcium [Mass/Vol] 9.3 mg/dL Normal 7.6-11.0 [facility] Comment on above: Performed By: #### L 500.4050, L100.0100 ####[facility] [address] [place], [address] Chloride [Moles/Vol] 106 mmol/L Normal 98-108 [facility] Comment on above: Performed By: #### L 500.4050, L100.0100 ####[facility] [address] [place], [address] CO2 [Moles/Vol] 25.6 mmol/L Normal 21.0-32.0 [facility] Comment on above: Performed By: #### L 500.4050, L100.0100 ####[facility] [address] [place], [address] GAP 10 Normal 5-15 [facility] Comment on above: Performed By: #### L 500.4050, L100.0100 ####[facility] [address] [place], [address] GFR/1.73 sq M.predicted among non-blacks MDRD (S/P/Bld) [Vol rate/Area] 106 mL/min/{1.73_m2} Normal >60 [facility] Comment on above: Result Comment: mL/m in/1.73m2 CKD-EPI Creatinine Equation (2020) Performed By: #### L 500.4050, L100.0100 ####[facility] [address] [place], [address] Globulin (S) [Mass/Vol] 2.5 g/dL Normal 2.2-4.2 [facility] Comment on above: Performed By: #### L 500.4050, L100.0100 ####[facility] [address] [place], [address] Potassium [Moles/Vol] 3.9 mmol/L Normal 3.3-5.1 [facility] Comment on above: Result Comment: Hemo lysis present, Results??could be affected. ?? Performed By: #### L 500.4050, L100.0100 ####[facility] [address] [place], [address] Sodium [Moles/Vol] 142 mmol/L Normal 133-145 [facility] Comment on above: Performed By: #### L 500.4050, L100.0100 ####[facility] [address] [place], [address] T PROT 6.7 g/dL Normal 5.9-8.4 [facility] Comment on above: Performed By: #### L 500.4050, L100.0100 ####[facility] [address] [place], [address] Creatinine [Mass/Vol] 0.61 mg/dL Low 0.70-1.20 [facility] Comment on above: Performed By: #### L 500.4050, L100.0100 ####[facility] [address] [place], [address] Glucose [Mass/Vol] 83 mg/dL Normal 70-99 [facility] Comment on above: Performed By: #### L 500.4050, L100.0100 ####[facility] [address] [place], [address] Urea nitrogen [Mass/Vol] 17 mg/dL Normal 4-19 [facility] Comment on above: Performed By: #### L 500.4050, L100.0100 ####[facility] [address] [place], [address] Eosinophil percentageOrdered By: Elis Zaman on 03-05-2025 Eosinophils/100 WBC (Bld) 3.3 % 0-5 [facility] Erythrocyte distribution wid th ratioOrdered By: Elis Zaman on 03-05-2025 Erythrocyte distribution width (RBC) [Ratio] 13.5 % 11.6-14.6 [facility] Erythrocyte distribution wid th standard deviationOrdered By: Elis Zaman on 03-05-2025 Erythrocyte distribution width (RBC) [Ratio] 42.2 fl 35.1-43.9 [facility] Glomerular filtration rate ( GFR) estimation/1.73 sq m using serum, plasma, or whole bOrdered By: Elis Zaman on 03-05-2025 GFR/1.73 sq M.predicted among non-blacks MDRD (S/P/Bld) [Vol rate/Area] 106 mL/min/{1.73_m2} >60 [facility] Comment on above: mL/min/1.73m2 CKD-EP I Creatinine Equation (2020) Hematocrit Auto (Bld) [Volum e fraction]Ordered By: Elis Zaman on 03-05-2025 Hematocrit (Bld) [Volume fraction] 38.2 % 37-47 [facility] Hemoglobin measurementOrdere d By: Elis Zaman on 03-05-2025 Hemoglobin (Bld) [Mass/Vol] 12.5 g/dL 12.0-15.0 [facility] Immature granulocytes/100 WB C Auto (Bld)Ordered By: Elis Zaman on 03-05-2025 Immature granulocytes/100 WBC (Bld) 0.600 % 0.0-0.9 [facility] Comment on above: IG% - Immature Granu locytes (promyelocytes, myelocytes and metamyelocytes) > 1% indicates that a LEFT SHIFT is Present. LDL calc ser/plasOrdered By: Stas Whittington on 03-05-2025 Cholesterol in LDL [Mass/Vol] 88 mg/dL [facility] Comment on above: Bzfudnkjpf=354-788 m g/dL & Higher Stcn=865 mg/dL or greater Laboratory - Chemistry and C hemistry - challengeOrdered By: Elis Zaman on 03-05-2025 AST [Catalytic activity/Vol] 34 U/L High <32 [facility] Comment on above: Hemolysis present, R esults could be affected. Lipid Profileon 03-05-2025 CHOL:HDL 2.56 Normal [facility] Comment on above: Order Comment: PT DO ES NOT WANT TO DO CHANDS BW AT THIS TIME-SWRIGHTOrder Date: 01/05/25Order Info: [id number] - LIPIDOrder Info: - MG Performed By: #### L 500.4100, L501.5200 ####[facility] [address] [place], [address] Cholesterol [Mass/Vol] 172 mg/dL Normal <=200 [facility] Comment on above: Order Comment: PT DO ES NOT WANT TO DO CHANDS BW AT THIS TIME-SWRIGHTOrder Date: 01/05/25Order Info: [id number] - LIPIDOrder Info: [id number] - MG Result Comment: Chol esterol level, Desirable <200 mg/dL Borderline high cholesterol 200-239 mg/dL High cholesterol >=240 mg/dL Recommendations of the NCEP Adult Treatment Panel for the following risk-cutoff thresholds for the [place] population. Performed By: #### L 500.4100, L501.5200 ####[facility] [address] [place], [address] Cholesterol in HDL [Mass/Vol] 67 mg/dL Normal [facility] Comment on above: Order Comment: PT DO ES NOT WANT TO DO CHANDS BW AT THIS TIME-SWRIGHTOrder Date: 01/05/25Order Info: [id number] - LIPIDOrder Info: [id number] - MG Result Comment: Rosa Isela onal Cholesterol Education Program (NCEP) guidelines: <40 mg/dL: Low HDL-cholesterol (major risk factor for CHD) >= 60 mg/dL: High HDL-cholesterol (negative risk factor for CHD) HDL-cholesterol is affected by a number of factors, e.g. smoking, exercise, hormones, sex and age. Performed By: #### L 500.4100, L501.5200 ####[facility] [address] [place], [address] Cholesterol in LDL [Mass/Vol] 88 mg/dL Normal [facility] Comment on above: Order Comment: PT DO ES NOT WANT TO DO CHANDS BW AT THIS TIME-SWRIGHTOrder Date: 01/05/25Order Info: [id number] - LIPIDOrder Info: [id number] - MG Result Comment: Bord jtvucv=003-720 mg/dL Higher Bnnx=026 mg/dL or greater Performed By: #### L 500.4100, L501.5200 ####[facility] [address] [place], [address] Cholesterol in VLDL [Mass/Vol] 16 mg/dL Normal 5-40 [facility] Comment on above: Order Comment: PT DO ES NOT WANT TO DO CHANDS BW AT THIS TIME-SWRIGHTOrder Date: 01/05/25Order Info: [id number] - LIPIDOrder Info: - MG Performed By: #### L 500.4100, L501.5200 ####[facility] [address] [place], [address] Triglyceride [Mass/Vol] 81 mg/dL Normal [facility] Comment on above: Order Comment: PT DO ES NOT WANT TO DO CHANDS BW AT THIS TIME-SWRIGHTOrder Date: 01/05/25Order Info: [id number] - LIPIDOrder Info: - MG Result Comment: The drugs N-Acetylcysteine and Metamizole may falsely depress this assay. Normal range: <150 mg/dL Borderline High: 150-199 mg/dL High: 200-499 mg/dL Very High: >500 mg/dL Performed By: #### L 500.4100, L501.5200 ####[facility] [address] [place], [place], [address] MCV (mean corpuscular volume ) determinationOrdered By: Elis Zaman on 03-05-2025 MCV (RBC) [Entitic vol] 86.2 fL 81-99 [facility] Magnesiumon 03-05-2025 Magnesium [Mass/Vol] 2.1 mg/dL Normal 1.5-2.2 [facility] Comment on above: Order Comment: PT DO ES NOT WANT TO DO CHANDS BW AT THIS TIME-SWRIGHTOrder Date: 01/05/25Order Info: [id number] - LIPIDOrder Info: - MG Performed By: #### L 500.4100, L501.5200 ####[facility] [address] [place], [place], [address] Magnesium measurement (mass/ volume)Ordered By: Stas Whittington on 03-05-2025 Magnesium (Unsp spec) [Mass/Vol] 2.1 mg/dL 1.5-2.2 [facility] Mean corpuscular hemoglobin (MCH) determinationOrdered By: Elis Zaman on 03-05-2025 MCH (RBC) [Entitic mass] 28.2 pg 27.0-32.0 [facility] Mean corpuscular hemoglobin concentration (MCHC) determinationOrdered By: Elis Zaman on 03-05-2025 MCHC (RBC) [Mass/Vol] 32.7 g/dL 32-36 [facility] Mean platelet volume determi nationOrdered By: Elis Zaman on 03-05-2025 Platelet mean volume (Bld) [Entitic vol] 10.9 fL 6.2-12.0 [facility] Monocyte percentageOrdered B y: Elis Zaman on 03-05-2025 Monocytes/100 WBC (Bld) 12.1 % High 0-10 [facility] Neutrophil percentageOrdered By: Elis Zaman on 03-05-2025 Neutrophils/100 WBC (Bld) 53.3 % 47-70 [facility] Nucleated red blood cell per centageOrdered By: Elis Zaman on 03-05-2025 Nucleated RBC/100 WBC (Bld) [Ratio] 0 % 0-5 [facility] Platelet countOrdered By: Jeremie Zaman on 03-05-2025 Platelets (Bld) [#/Vol] 241 10*3/uL 150-450 [facility] Potassium measurement (mass/ volume)Ordered By: Elis Zaman on 03-05-2025 Potassium (Unsp spec) [Mass/Vol] 3.9 mmol/L 3.3-5.1 [facility] Comment on above: Hemolysis present, R esults could be affected. RBC Auto (Bld) [#/Vol]Ordere d By: Elis Zaman on 03-05-2025 RBC (Bld) [#/Vol] 4.43 10*6/uL 4.2-5.4 [facility] Screening total cholesterol/ high density lipoprotein (HDL) cholesterol ratioOrdered By: Stas Whittington on 03-05-2025 Cholesterol.total/Lianne sterol in HDL [Mass ratio] 2.56 {ratio} [facility] Serum creatinine measurement (mass/volume)Ordered By: Elis Zaman on 03-05-2025 Creatinine [Mass/Vol] 0.61 mg/dL Low 0.70-1.20 [facility] Serum globulin measurementOr dered By: Elis Zaman on 03-05-2025 Globulin (S) [Mass/Vol] 2.5 g/dL 2.2-4.2 [facility] Serum glucose measurement (m ass/volume)Ordered By: Elis Zaman on 03-05-2025 Glucose [Mass/Vol] 83 mg/dL 70-99 [facility] Serum or plasma alanine ortiz otransferase (ALT) measurementOrdered By: Elis Zaman on 03-05-2025 ALT [Catalytic activity/Vol] 36 U/L High <35 [facility] Serum or plasma albumin maegan urement (mass/volume)Ordered By: Elis Zaman on 03-05-2025 Albumin [Mass/Vol] 4.2 g/dL 3.5-5.0 [facility] Serum or plasma albumin/glob ulin mass ratioOrdered By: [facility] Junie on 03-05-2025 Albumin/Globulin [Mass ratio] 1.7 {ratio} 0.9-2.4 [facility] Serum or plasma alkaline yayo sphatase measurementOrdered By: Elis Zaman on 03-05-2025 ALP [Catalytic activity/Vol] 120 U/L High 35-104 [facility] Serum or plasma calcium maegan urement (mass/volume)Ordered By: Elis Zaman on 03-05-2025 Calcium [Mass/Vol] 9.3 mg/dL 7.6-11.0 [facility] Serum or plasma cholesterol in HDL measurement (mass/volume)Ordered By: Stas Whittington on 03-05-2025 Cholesterol in HDL [Mass/Vol] 67 mg/dL >40 [facility] Comment on above: National Cholesterol Education Program (NCEP) guidelines:<40 mg/dL: Low HDL-cholesterol (major risk factor for CHD)>= 60 mg/dL: High HDL-cholesterol (negative risk factor for CHD)HDL-cholesterol is affected by a number of factors, e.g. smoking, exercise, hormones, sex and age. Serum or plasma cholesterol measurement (mass/volume)Ordered By: Stas Whittnigton on 03-05-2025 Cholesterol [Mass/Vol] 172 mg/dL <201 [facility] Comment on above: Cholesterol level, D esirable <200 mg/dLBorderline high cholesterol 200-239 mg/dLHigh cholesterol >=240 mg/dLRecommendations of the NCEP Adult Treatment Panel for the following risk-cutoff thresholds for the [place] population. Serum or plasma urea nitroge n measurement (mass/volume)Ordered By: Elis Zaman on 03-05-2025 Urea nitrogen [Mass/Vol] 17 mg/dL 4-19 [facility] Sodium levelOrdered By: Gino Zaman on 03-05-2025 Sodium [Moles/Vol] 142 mmol/L 133-145 [facility] Total proteinOrdered By: Jeni Zaman on 03-05-2025 Protein [Mass/Vol] 6.7 g/dL 5.9-8.4 [facility] Triglycerides measurementOrd ered By: Stas Whittington on 03-05-2025 Triglyceride [Mass/Vol] 81 mg/dL <199 [facility] Comment on above: The drugs N-Acetylcy steine and Metamizole may falsely depress this assay. Normal range: <150 mg/dLBorderline High: 150-199 mg/dLHigh: 200-499 mg/dLVery High: >500 mg/dL White blood cell (WBC) count Ordered By: Elis Zaman on 03-05-2025 WBC (Bld) [#/Vol] 4.8 10*3/uL 4.4-11.0 [facility] Lyme Screen W/Reflex WBon LYME SCREEN Ab Negative Normal Negative [facility] Comment on above: Order Comment: Order Date: 01/05/25Order Info: [id number] - LYMS Result Comment: Lyme antibodies not detected. Reflex testing is not indicated. No laboratory evidence of infection with B. burgdorferi (Lyme disease). Negative results may occur in patients recently infected (less than or equal to 14 days) with B. burgdorferi. If recent infection is suspected, repeat testing on a new sample collected in 7 to 14 days is recommended. Performed at: [facility] [address] [id number] [employer] [facility] Supervisor: Scott Dudley PhD, Phone: [phone] Performed By: #### L 509.1000, L3800.8660, L506.0400, L501.4620, L500.2960 ####[facility] [address] [place], [address] Anion gap in Serum or Plasma Ordered By: Stas Whittington on 01-05-2025 Anion gap [Moles/Vol] 11 mmol/L 5-15 [facility] BUN/creatinine ratioOrdered By: Stas Whittington on 01-05-2025 Urea nitrogen/Creatinine [Mass ratio] 20.2 mg/mg High 10-20 [facility] Bilirubin, totalOrdered By: Stas Whittington on 01-05-2025 Bilirubin [Mass/Vol] 0.40 mg/dL 0.00-1.30 [facility] Carbon dioxide, total [Moles /volume] in Central venous bloodOrdered By: Stas Whittington on 01-05-2025 CO2 [Moles/Vol] 26.1 mmol/L 21.0-32.0 [facility] Chloride assayOrdered By: Janel Whittington on 01-05-2025 Chloride [Moles/Vol] 104 mmol/L 98-108 [facility] Comprehensive Metabolic Prof ilon 01-05-2025 Albumin [Mass/Vol] 4.4 g/dL Normal 3.5-5.0 [facility] Comment on above: Order Comment: Order Date: 01/05/25Order Info: [id number] - CMPOrder Info: [id number] - TSHOrder Info: [id number] - T4F Performed By: #### L 509.1000, L7000.5300, L506.0400, L501.9520, L500.4050 ####[facility] [address] [place], [place], [address] Albumin/Globulin [Mass ratio] 1.6 {ratio} Normal 0.9-2.4 [facility] Comment on above: Order Comment: Order Date: 01/05/25Order Info: [id number] - CMPOrder Info: [id number] - TSHOrder Info: [id number] - T4F Performed By: #### L 509.1000, L7000.5300, L506.0400, L501.9520, L500.4050 ####[facility] [address] [place], [place], [address] ALK PHOS 125 U/L High 35-104 [facility] Comment on above: Order Comment: Order Date: 01/05/25Order Info: [id number] - CMPOrder Info: [id number] - TSHOrder Info: 7 - T4F Performed By: #### L 509.1000, L7000.5300, L506.0400, L501.9520, L500.4050 ####[facility] [address] [place], [address] ALT [Catalytic activity/Vol] 24 U/L Normal <=34 [facility] Comment on above: Order Comment: Order Date: 01/05/25Order Info: [id number] - CMPOrder Info: [id number] - TSHOrder Info: [id number] - T4F Performed By: #### L 509.1000, L7000.5300, L506.0400, L501.9520, L500.4050 ####[facility] [address] [place], [place], [address] AST [Catalytic activity/Vol] 27 U/L Normal <=31 [facility] Comment on above: Order Comment: Order Date: 01/05/25Order Info: [id number] - CMPOrder Info: [id number] - TSHOrder Info: 3024-03 - T4F Performed By: #### L 509.1000, L7000.5300, L506.0400, L501.9520, L500.4050 ####[facility] [address] [place], [address] Bilirubin [Mass/Vol] 0.40 mg/dL Normal 0.00-1.30 [facility] Comment on above: Order Comment: Order Date: 01/05/25Order Info: 0786 - CMPOrder Info: 3015-10 - TSHOrder Info: 3024-03 - T4F Performed By: #### L 509.1000, L7000.5300, L506.0400, L501.9520, L500.4050 ####[facility] [address] [place], [address] BUN/CRE 20.2 RATIO High 10-20 [facility] Comment on above: Order Comment: Order Date: 01/05/25Order Info: 785-1 - CMPOrder Info: 3015-10 - TSHOrder Info: 3023-7 - T4F Performed By: #### L 509.1000, L7000.5300, L506.0400, L501.9520, L500.4050 ####[facility] [address] [place], [address] Calcium [Mass/Vol] 9.3 mg/dL Normal 7.6-11.0 [facility] Comment on above: Order Comment: Order Date: 01/05/25Order Info: 785- - CMPOrder Info: 3015-10 - TSHOrder Info: 7 - T4F Performed By: #### L 509.1000, L7000.5300, L506.0400, L501.9520, L500.4050 ####[facility] [address] [place], [address] Chloride [Moles/Vol] 104 mmol/L Normal 98-108 [facility] Comment on above: Order Comment: Order Date: 01/05/25Order Info: 07-1 - CMPOrder Info: 3015-10 - TSHOrder Info: 7 - T4F Performed By: #### L 509.1000, L7000.5300, L506.0400, L501.9520, L500.4050 ####[facility] [address] [place], [address] CO2 [Moles/Vol] 26.1 mmol/L Normal 21.0-32.0 [facility] Comment on above: Order Comment: Order Date: 01/05/25Order Info: 07-1 - CMPOrder Info: 3015-10 - TSHOrder Info: 3027 - T4F Performed By: #### L 509.1000, L7000.5300, L506.0400, L501.9520, L500.4050 ####[facility] [address] [place], [address] Creatinine [Mass/Vol] 0.73 mg/dL Normal 0.70-1.20 [facility] Comment on above: Order Comment: Order Date: 01/05/25Order Info: 0786-1 - CMPOrder Info: 3015-3 - TSHOrder Info: 3024-7 - T4F Performed By: #### L 509.1000, L7000.5300, L506.0400, L501.9520, L500.4050 ####[facility] [address] [place], [address] GAP 11 Normal 5-15 [facility] Comment on above: Order Comment: Order Date: 01/05/25Order Info: 0786-1 - CMPOrder Info: 3 - TSHOrder Info: 3024-7 - T4F Performed By: #### L 509.1000, L7000.5300, L506.0400, L501.9520, L500.4050 ####[facility] [address] [place], [address] GFR/1.73 sq M.predicted among non-blacks MDRD (S/P/Bld) [Vol rate/Area] 97 mL/min/{1.73_m2} Normal >60 [facility] Comment on above: Order Comment: Order Date: 01/05/25Order Info: 0786-1 - CMPOrder Info: 3015-3 - TSHOrder Info: 3024-7 - T4F Result Comment: mL/m in/1.73m2 CKD-EPI Creatinine Equation (2020) Performed By: #### L 509.1000, L7000.5300, L506.0400, L501.9520, L500.4050 ####[facility] [address] [place], [address] Globulin (S) [Mass/Vol] 2.7 g/dL Normal 2.2-4.2 [facility] Comment on above: Order Comment: Order Date: 01/05/25Order Info: 0786-1 - CMPOrder Info: 3016-3 - TSHOrder Info: 3024-7 - T4F Performed By: #### L 509.1000, L7000.5300, L506.0400, L501.9520, L500.4050 ####[facility] [address] [place], [address] Glucose [Mass/Vol] 92 mg/dL Normal 70-99 [facility] Comment on above: Order Comment: Order Date: 01/05/25Order Info: 86-1 - CMPOrder Info: 3 - TSHOrder Info: 3023-7 - T4F Performed By: #### L 509.1000, L7000.5300, L506.0400, L501.9520, L500.4050 ####[facility] [address] [place], [address] Potassium [Moles/Vol] 3.8 mmol/L Normal 3.3-5.1 [facility] Comment on above: Order Comment: Order Date: 01/05/25Order Info: 0786-1 - CMPOrder Info: 3015-10 - TSHOrder Info: 3023-7 - T4F Performed By: #### L 509.1000, L7000.5300, L506.0400, L501.9520, L500.4050 ####[facility] [address] [place], [address] Sodium [Moles/Vol] 141 mmol/L Normal 133-145 [facility] Comment on above: Order Comment: Order Date: 01/05/25Order Info: 0786-1 - CMPOrder Info: 3 - TSHOrder Info: 3024-7 - T4F Performed By: #### L 509.1000, L7000.5300, L506.0400, L501.9520, L500.4050 ####[facility] [address] [place], [address] T PROT 7.0 g/dL Normal 5.9-8.4 [facility] Comment on above: Order Comment: Order Date: 01/05/25Order Info: 0786-1 - CMPOrder Info: 3 - TSHOrder Info: 7 - T4F Performed By: #### L 509.1000, L7000.5300, L506.0400, L501.9520, L500.4050 ####[facility] [address] [place], [address] Urea nitrogen [Mass/Vol] 15 mg/dL Normal 4-19 [facility] Comment on above: Order Comment: Order Date: 01/05/25Order Info: 0786-1 - CMPOrder Info: 3015-10 - TSHOrder Info: 7 - T4F Performed By: #### L 509.1000, L7000.5300, L506.0400, L501.9520, L500.4050 ####[facility] [address] [place], [address] Glomerular filtration rate ( GFR) estimation/1.73 sq m using serum, plasma, or whole bOrdered By: Stas Whittington on 01-05-2025 GFR/1.73 sq M.predicted among non-blacks MDRD (S/P/Bld) [Vol rate/Area] 97 mL/min/{1.73_m2} >60 [facility] Comment on above: mL/min/1.73m2 CKD-EP I Creatinine Equation (2020) Laboratory - Chemistry and C hemistry - challengeOrdered By: Stas Whittington on 01-05-2025 AST [Catalytic activity/Vol] 27 U/L <32 [facility] PTHINon 01-05-2025 PTH 50 pg/mL Normal 11-61 [facility] Comment on above: Order Comment: Order Date: 01/05/25Order Info: 0565-1 - PTHIN Performed By: #### L 509.1000, L7000.5300, L506.0400, L501.9520, L500.4050 ####[facility] [address] [place], [address] Potassium measurement (mass/ volume)Ordered By: Stas Whittington on 01-05-2025 Potassium (Unsp spec) [Mass/Vol] 3.8 mmol/L 3.3-5.1 [facility] Serum creatinine measurement (mass/volume)Ordered By: Stas Whittington on 01-05-2025 Creatinine [Mass/Vol] 0.73 mg/dL 0.70-1.20 [facility] Serum globulin measurementOr dered By: Stas Whittington on 01-05-2025 Globulin (S) [Mass/Vol] 2.7 g/dL 2.2-4.2 [facility] Serum glucose measurement (m ass/volume)Ordered By: Stas Whittington on 01-05-2025 Glucose [Mass/Vol] 92 mg/dL 70-99 [facility] Serum or plasma alanine ortiz otransferase (ALT) measurementOrdered By: Stas Whittington on 01-05-2025 ALT [Catalytic activity/Vol] 24 U/L <35 [facility] Serum or plasma albumin maegan urement (mass/volume)Ordered By: Stas Whittington on 01-05-2025 Albumin [Mass/Vol] 4.4 g/dL 3.5-5.0 [facility] Serum or plasma albumin/glob ulin mass ratioOrdered By: Stas Whittington on 01-05-2025 Albumin/Globulin [Mass ratio] 1.6 {ratio} 0.9-2.4 [facility] Serum or plasma alkaline yayo sphatase measurementOrdered By: Stas Whittington on 01-05-2025 ALP [Catalytic activity/Vol] 125 U/L High 35-104 [facility] Serum or plasma calcium maegan urement (mass/volume)Ordered By: Stas Whittington on 01-05-2025 Calcium [Mass/Vol] 9.3 mg/dL 7.6-11.0 [facility] Serum or plasma urea nitroge n measurement (mass/volume)Ordered By: Stas Whittington on 01-05-2025 Urea nitrogen [Mass/Vol] 15 mg/dL 4-19 [facility] Sodium levelOrdered By: Stas Whittington on 01-05-2025 Sodium [Moles/Vol] 141 mmol/L 133-145 [facility] T4 Free Directon 05-07-2025 T4 FREE DIRECT 1.20 ng/dL Normal 0.76-1.46 [facility] Comment on above: Order Comment: Order Date: 01/05/25Order Info: 07- - CMPOrder Info: 3015-10 - TSHOrder Info: 7 - T4F Performed By: #### L 509.1000, L7000.5300, L506.0400, L501.9520, L500.4050 ####[facility] [address] [place], [address] T4 freeOrdered By: Stas mckeon on 01-05-2025 Free T4 [Mass/Vol] 1.20 ng/dL 0.76-1.46 [facility] TSH DL <= 0.005 mIU/L QnOrde red By: Stas Whittington on 01-05-2025 TSH Qn 5.640 uIU/mL High 0.300-4.200 [facility] Thyroid Stim Hormone (TSH)on 01-05-2025 TSH 5.640 uIU/mL High 0.300-4.200 [facility] Comment on above: Order Comment: Order Date: 01/05/25Order Info: 785-09 - CMPOrder Info: 3015-10 - TSHOrder Info: 3024-03 - T4F Performed By: #### L 509.1000, L7000.5300, L506.0400, L501.9520, L500.4050 ####[facility] [address] [place], [place], [address] Total proteinOrdered By: Hayden Whittington on 01-05-2025 Protein [Mass/Vol] 7.0 g/dL 5.9-8.4 [facility] Vitamin B12on 01-05-2025 Cobalamin (Vitamin B12) [Mass/Vol] 717 pg/mL Normal 180-914 [facility] Comment on above: Order Comment: Order Date: 01/05/25Order Info: 0786- - CMPOrder Info: 3015-10 - TSHOrder Info: 3024-03 - T4F Performed By: #### L 503.0106, L506.1001 ####[facility] [address] [place], [address] Vitamin B12 ser/plasOrdered By: Stas Whittington on 01-05-2025 Cobalamin (Vitamin B12) [Mass/Vol] 717 pg/mL 180-914 [facility] Vitamin D,25 Hydroxyon 01-05 Vitamin D 25-OH 36.3 ng/mL Normal 30-100 [facility] Comment on above: Order Comment: Order Date: 01/05/25Order Info: 0786-1 - CMPOrder Info: 3016-3 - TSHOrder Info: 3024-7 - T4F Result Comment: Rosa M min D Status Deficiency: <20 ng/mL (50nmol/L) Insufficiency: 20-30 ng/mL (50-75 nmol/L) Sufficiency: 30-100 ng/mL (75-250 nmol/L) Toxicity: >100 ng/mL (>250 nmol/L) Performed By: #### L 503.0106, L506.1001 ####[facility] [address] [place], [address] Gastroenterology Visit Repor ton 12-14-2024 Gastroenterology Visit Report [facility]enterology [address] [place] [address] OFFICE VISIT Date of Service: 12/14/24 MR#: [id number] Acct: [id number] Name: RADHA CHASE Rep #: [id number] : 1970 Provider: Dr. Tyrel schaffer MD Age/Sex: 54/F Location: [facility] Status: Signed Intake Vital Signs 03/08/24 09:58 [...] PO QDAY 12/14/24 12/14/24 H istory ([place]) [facility] Medical History Wears glasses Heartburn Gastric [...] cholecystectomy with liver biopsy March 2024 at [facility] that showed liver parenchymal tissue with minimal portal chronic inflammation. BGI Est 12.14.24 Pt referred by trademark paralegal for clearance from sql application developer before switching treatment for her inflammatory polyarthropathy. [...] BMI 25.1 kg/m???. Body weight 142 pounds HENWI Head: normocephalic and atraumatic Nose: external nose normal Face and sinus: normal facial exam Mouth: moist mucous membranes Eyes Pupils: PERRL EOM: EOM intact bilaterally Neck Neck: normal visual inspection, no meningeal signs and trachea midline Carotids: no bruits Chest Chest palpation inspection: normal inspection of the chest Resp Effort Inspection: normal respiratory effort and symmetric chest movement (more content not included)... Normal [facility] Absolute lymphocyte countOrd ered By: Elis Zaman on 10-30-2024 Lymphocytes Auto (Unsp spec) [#/Vol] 1.38 10*3/uL 0.83-4.51 [facility] Absolute neutrophil countOrd ered By: Elis Zaman on 10-30-2024 Neutrophils (Bld) [#/Vol] 2.7 10*3/uL 2.0-7.7 [facility] Automated lymphocyte count a s percentage of total leukocytesOrdered By: Elis Zaman on 10-30-2024 Lymphocytes/100 WBC Auto (Unsp spec) 28.5 % 19-41 [facility] BUN/creatinine ratioOrdered By: Elischelo Zaman on 10-30-2024 Urea nitrogen/Creatinine [Mass ratio] 22.5 mg/mg High 10-20 [facility] Basophil percentageOrdered B y: Elis Zaman on 10-30-2024 Basophils/100 WBC (Bld) 1.4 % High 0-1 [facility] Bilirubin, totalOrdered By: Elischelo Zaman on 10-30-2024 Bilirubin [Mass/Vol] 0.37 mg/dL 0.00-1.30 [facility] CBC W/Diff, Automatedon Absolute Lymph 1.38 X10 3/uL Normal 0.83-4.51 [facility] Comment on above: Performed By: #### L 500.4050, L100.0100 ####[facility] [address] [place], [address] Absolute Neut 2.7 X10 3/uL Normal 2.0-7.7 [facility] Comment on above: Performed By: #### L 500.4050, L100.0100 ####[facility] [address] [place], [address] Basophils/100 WBC (Bld) 1.4 % High 0-1 [facility] Comment on above: Performed By: #### L 500.4050, L100.0100 ####[facility] [address] [place], [address] Eosinophils/100 WBC (Bld) 3.7 % Normal 0-5 [facility] Comment on above: Performed By: #### L 500.4050, L100.0100 ####[facility] [address] [place], [address] Erythrocyte distribution width (RBC) [Ratio] 13.6 % Normal 11.6-14.6 [facility] Comment on above: Performed By: #### L 500.4050, L100.0100 ####[facility] [address] [place], [address] Hematocrit (Bld) [Volume fraction] 40.6 % Normal 37-47 [facility] Comment on above: Performed By: #### L 500.4050, L100.0100 ####[facility] [address] [place], [address] Hemoglobin (Bld) [Mass/Vol] 13.3 g/dL Normal 12.0-15.0 [facility] Comment on above: Performed By: #### L 500.4050, L100.0100 ####[facility] [address] [place], [address] IG% 0.400 Normal 0.0-0.9 [facility] Comment on above: Result Comment: IG% - Immature Granulocytes (promyelocytes, myelocytes and metamyelocytes) > 1% indicates that a LEFT SHIFT is Present. Performed By: #### L 500.4050, L100.0100 ####[facility] [address] [place], [address] Lymphocytes/100 WBC (Bld) 28.5 % Normal 19-41 [facility] Comment on above: Performed By: #### L 500.4050, L100.0100 ####[facility] [address] [place], [address] MCH (RBC) [Entitic mass] 28.3 pg Normal 27.0-32.0 [facility] Comment on above: Performed By: #### L 500.4050, L100.0100 ####[facility] [address] [place], [address] MCHC (RBC) [Mass/Vol] 32.8 g/dL Normal 32-36 [facility] Comment on above: Performed By: #### L 500.4050, L100.0100 ####[facility] [address] [place], [address] MCV (RBC) [Entitic vol] 86.4 fL Normal 81-99 [facility] Comment on above: Performed By: #### L 500.4050, L100.0100 ####[facility] [address] [place], [address] Monocytes/100 WBC (Bld) 9.9 % Normal 0-10 [facility] Comment on above: Performed By: #### L 500.4050, L100.0100 ####[facility] [address] [place], [address] Neutrophils/100 WBC (Bld) 56.1 % Normal 47-70 [facility] Comment on above: Performed By: #### L 500.4050, L100.0100 ####[facility] [address] [place], [address] Nucleated RBC (Bld) [#/Vol] 0 10*3/uL Normal 0-5 [facility] Comment on above: Performed By: #### L 500.4050, L100.0100 ####[facility] [address] [place], [address] Platelet mean volume (Bld) [Entitic vol] 10.2 fL Normal 6.2-12.0 [facility] Comment on above: Performed By: #### L 500.4050, L100.0100 ####[facility] [address] [place], [address] Platelets (Bld) [#/Vol] 230 10*3/uL Normal 150-450 [facility] Comment on above: Performed By: #### L 500.4050, L100.0100 ####[facility] [address] [place], [address] RBC (Bld) [#/Vol] 4.70 10*6/uL Normal 4.2-5.4 [facility] Comment on above: Performed By: #### L 500.4050, L100.0100 ####[facility] [address] [place], [address] RDW SD 43.1 fl Normal 35.1-43.9 [facility] Comment on above: Performed By: #### L 500.4050, L100.0100 ####[facility] [address] [place], [address] WBC (Bld) [#/Vol] 4.8 10*3/uL Normal 4.4-11.0 [facility] Comment on above: Performed By: #### L 500.4050, L100.0100 ####[facility] [address] [place], [address] Carbon dioxide measurementOr dered By: Elis Zaman on 10-30-2024 CO2 [Moles/Vol] 25.7 mmol/L 22.0-29.0 [facility] Chloride measurementOrdered By: Elis Zaman on 10-30-2024 Chloride [Moles/Vol] 109 mmol/L High 96-108 [facility] Comprehensive Metabolic Prof ilon 10-30-2024 Albumin [Mass/Vol] 4.1 g/dL Normal 3.5-5.0 [facility] Comment on above: Order Comment: CBCD Performed By: #### L 500.4050, L100.0100 ####[facility] [address] [place], [address] Albumin/Globulin [Mass ratio] 1.6 {ratio} Normal 0.9-2.4 [facility] Comment on above: Order Comment: CBCD Performed By: #### L 500.4050, L100.0100 ####[facility] [address] [place], [address] ALK PHOS 128 U/L High 35-104 [facility] Comment on above: Order Comment: CBCD Performed By: #### L 500.4050, L100.0100 ####[facility] [address] [place], [address] ALT [Catalytic activity/Vol] 25 U/L Normal <=34 [facility] Comment on above: Order Comment: CBCD Performed By: #### L 500.4050, L100.0100 ####[facility] [address] [place], [address] Anion gap [Moles/Vol] 8 mmol/L Normal 5-15 [facility] Comment on above: Order Comment: CBCD Performed By: #### L 500.4050, L100.0100 ####[facility] [address] [place], [address] AST [Catalytic activity/Vol] 29 U/L Normal <=31 [facility] Comment on above: Order Comment: CBCD Performed By: #### L 500.4050, L100.0100 ####[facility] [address] [place], [address] Bilirubin [Mass/Vol] 0.37 mg/dL Normal 0.00-1.30 [facility] Comment on above: Order Comment: CBCD Performed By: #### L 500.4050, L100.0100 ####[facility] [address] [place], [address] BUN/CRE 22.5 RATIO High 10-20 [facility] Comment on above: Order Comment: CBCD Performed By: #### L 500.4050, L100.0100 ####[facility] [address] [place], [address] Calcium [Mass/Vol] 9.1 mg/dL Normal 7.6-11.0 [facility] Comment on above: Order Comment: CBCD Performed By: #### L 500.4050, L100.0100 ####[facility] [address] [place], [address] Chloride [Moles/Vol] 109 mmol/L High 96-108 [facility] Comment on above: Order Comment: CBCD Performed By: #### L 500.4050, L100.0100 ####[facility] [address] [place], [address] CO2 [Moles/Vol] 25.7 mmol/L Normal 22.0-29.0 [facility] Comment on above: Order Comment: CBCD Performed By: #### L 500.4050, L100.0100 ####[facility] [address] [place], [address] Creatinine [Mass/Vol] 0.75 mg/dL Normal 0.70-1.20 [facility] Comment on above: Order Comment: CBCD Performed By: #### L 500.4050, L100.0100 ####[facility] [address] [place], [address] GFR/1.73 sq M.predicted among non-blacks MDRD (S/P/Bld) [Vol rate/Area] 93 mL/min/{1.73_m2} Normal >60 [facility] Comment on above: Order Comment: CBCD Result Comment: mL/m in/1.73m2 CKD-EPI Creatinine Equation (2020) Performed By: #### L 500.4050, L100.0100 ####[facility] [address] [place], [address] Globulin (S) [Mass/Vol] 2.6 g/dL Normal 2.2-4.2 [facility] Comment on above: Order Comment: CBCD Performed By: #### L 500.4050, L100.0100 ####[facility] [address] [place], [address] Glucose [Mass/Vol] 92 mg/dL Normal 70-99 [facility] Comment on above: Order Comment: CBCD Performed By: #### L 500.4050, L100.0100 ####[facility] [address] [place], [address] Potassium [Moles/Vol] 4.2 mmol/L Normal 3.3-5.1 [facility] Comment on above: Order Comment: CBCD Performed By: #### L 500.4050, L100.0100 ####[facility] [address] [place], [address] Sodium [Moles/Vol] 143 mmol/L Normal 133-145 [facility] Comment on above: Order Comment: CBCD Performed By: #### L 500.4050, L100.0100 ####[facility] [address] [place], [address] T PROT 6.8 g/dL Normal 5.9-8.4 [facility] Comment on above: Order Comment: CBCD Performed By: #### L 500.4050, L100.0100 ####[facility] [address] [place], [address] Urea nitrogen [Mass/Vol] 17 mg/dL Normal 4-19 [facility] Comment on above: Order Comment: CBCD Performed By: #### L 500.4050, L100.0100 ####[facility] [address] [place], [address] Eosinophil percentageOrdered By: Elis Zaman on 10-30-2024 Eosinophils/100 WBC (Bld) 3.7 % 0-5 [facility] Erythrocyte distribution wid th ratioOrdered By: Elis Zaman on 10-30-2024 Erythrocyte distribution width (RBC) [Ratio] 13.6 % 11.6-14.6 [facility] Erythrocyte distribution wid th standard deviationOrdered By: Elis Zaman on 10-30-2024 Erythrocyte distribution width (RBC) [Entitic vol] 43.1 fL 35.1-43.9 [facility] Erythrocyte distribution width (RBC) [Ratio] 43.1 fl 35.1-43.9 [facility] GFR/1.73 sq M.predicted marsha g non-blacks MDRD (S/P/Bld) [Vol rate/Area]Ordered By: Elis Zaman on 10-30-2024 Estimated GFR (MDRD) Non-Af Amer 93 >60 [facility] Comment on above: mL/min/1.73m2 CKD-EP I Creatinine Equation (2020) Glomerular filtration rate ( GFR) estimation/1.73 sq m using serum, plasma, or whole bOrdered By: Elis Zaman on 10-30-2024 GFR/1.73 sq M.predicted among non-blacks MDRD (S/P/Bld) [Vol rate/Area] 93 mL/min/{1.73_m2} >60 [facility] Comment on above: mL/min/1.73m2 CKD-EP I Creatinine Equation (2020) Hematocrit Auto (Bld) [Volum e fraction]Ordered By: Elis Zaman on 10-30-2024 Hematocrit (Bld) [Volume fraction] 40.6 % 37-47 [facility] Hemoglobin measurementOrdere d By: Elis Zaman on 10-30-2024 Hemoglobin (Bld) [Mass/Vol] 13.3 g/dL 12.0-15.0 [facility] Immature granulocytes/100 WB C Auto (Bld)Ordered By: Elis Zaman on 10-30-2024 Immature granulocytes/100 WBC (Bld) 0.400 % 0.0-0.9 [facility] Comment on above: IG% - Immature Granu locytes (promyelocytes, myelocytes and metamyelocytes) > 1% indicates that a LEFT SHIFT is Present. Laboratory - Chemistry and C hemistry - challengeOrdered By: Elis Zaman on 10-30-2024 AST [Catalytic activity/Vol] 29 U/L <32 [facility] Lymphocytes Auto (Unsp spec) [#/Vol]Ordered By: Elis Zaman on 10-30-2024 Lymphocytes (Bld) [#/Vol] 1.38 10*3/uL 0.83-4.51 [facility] Lymphocytes/100 WBC Auto (Un sp spec)Ordered By: Elis Zaman on 10-30-2024 Lymphocytes/100 WBC (Bld) 28.5 % 19-41 [facility] MCV (mean corpuscular volume ) determinationOrdered By: Elis Zaman on 10-30-2024 MCV (RBC) [Entitic vol] 86.4 fL 81-99 [facility] Mean corpuscular hemoglobin (MCH) determinationOrdered By: Elis Zaman on 10-30-2024 MCH (RBC) [Entitic mass] 28.3 pg 27.0-32.0 [facility] Mean corpuscular hemoglobin concentration (MCHC) determinationOrdered By: Elis Zaman on 10-30-2024 MCHC (RBC) [Mass/Vol] 32.8 g/dL 32-36 [facility] Mean platelet volume determi nationOrdered By: Elis Zaman on 10-30-2024 Platelet mean volume (Bld) [Entitic vol] 10.2 fL 6.2-12.0 [facility] Monocyte percentageOrdered B y: Elis Zaman on 10-30-2024 Monocytes/100 WBC (Bld) 9.9 % 0-10 [facility] Neutrophil percentageOrdered By: Elis Zaman on 10-30-2024 Neutrophils/100 WBC (Bld) 56.1 % 47-70 [facility] Nucleated red blood cell per centageOrdered By: Elis Zaman on 10-30-2024 Nucleated RBC/100 WBC (Bld) [Ratio] 0 % 0-5 [facility] Platelet countOrdered By: Jeremie Zaman on 10-30-2024 Platelets (Bld) [#/Vol] 230 10*3/uL 150-450 [facility] RBC Auto (Bld) [#/Vol]Ordere d By: Elis Zaman on 10-30-2024 RBC (Bld) [#/Vol] 4.70 10*6/uL 4.2-5.4 [facility] Serum creatinine measurement (mass/volume)Ordered By: Elis Zaman on 10-30-2024 Creatinine [Mass/Vol] 0.75 mg/dL 0.70-1.20 [facility] Serum globulin measurementOr dered By: Elis Zaman on 10-30-2024 Globulin (S) [Mass/Vol] 2.6 g/dL 2.2-4.2 [facility] Serum glucose measurement (m ass/volume)Ordered By: Elis Zaman on 10-30-2024 Glucose [Mass/Vol] 92 mg/dL 70-99 [facility] Serum or plasma alanine ortiz otransferase (ALT) measurementOrdered By: Elis Zaman on 10-30-2024 ALT [Catalytic activity/Vol] 25 U/L <35 [facility] Serum or plasma albumin maegan urement (mass/volume)Ordered By: Elis Zaman on 10-30-2024 Albumin [Mass/Vol] 4.1 g/dL 3.5-5.0 [facility] Serum or plasma albumin/glob ulin mass ratioOrdered By: Elis Zaman on 10-30-2024 Albumin/Globulin [Mass ratio] 1.6 {ratio} 0.9-2.4 [facility] Serum or plasma alkaline yayo sphatase measurementOrdered By: Elis Zaman on 10-30-2024 ALP [Catalytic activity/Vol] 128 U/L High 35-104 [facility] Serum or plasma anion gap de termination (moles/volume)Ordered By: Elis Zaman on 10-30-2024 Anion gap [Moles/Vol] 8 mmol/L 5-15 [facility] Serum or plasma calcium maegan urement (mass/volume)Ordered By: Elis Zaman on 10-30-2024 Calcium [Mass/Vol] 9.1 mg/dL 7.6-11.0 [facility] Serum or plasma potassium me asurementOrdered By: Elis Zaman on 10-30-2024 Potassium [Moles/Vol] 4.2 mmol/L 3.3-5.1 [facility] Serum or plasma sodium measu rement (moles/volume)Ordered By: Elis Zaman on 03-01-2025 Sodium [Moles/Vol] 143 mmol/L 133-145 [facility] Serum or plasma urea nitroge n measurement (mass/volume)Ordered By: Elis Zaman on 10-30-2024 Urea nitrogen [Mass/Vol] 17 mg/dL - [facility] Total proteinOrdered By: Jeni Zaman on 10-30-2024 Protein [Mass/Vol] 6.8 g/dL 5.9-8.4 [facility] White blood cell (WBC) count Ordered By: Elis Zaman on 10-30-2024 WBC (Bld) [#/Vol] 4.8 10*3/uL 4.4-11.0 [facility] SCRN MAMM (CAD)W/DECLAN BILATo n 08-19-2024 SCRN MAMM (CAD)W/DECLAN BILAT [facility] Imaging Services [address] [place] [address] SCRN MAMM (CAD)W/DECLAN BILAT MR#: [id number] Acct: [id number] Name: RADHA CHASE Rep #: [id number] : 1970 F 54 From: Rodriguez ozuna MD PCP: Dr. Toshia Sousa MD Status: [facility] Study: SCRN MAMM (CAD)W/DECLAN BILAT Date of Exam: 08/01 05/25 Exam# [id number] Ordering Dr: Toshia Sousa MD [id number] MAMMOGRAPHY - BILATERAL SCREENING REASON FOR EXAM: [...] delay biopsy of a clinically suspicious abnormality. [id number] Electronically Signed: Rodriguez Kurtz MD at 11:16 [facility] Reading Location ID and State: [address] [place] [address] , Service support , CC: Dr. Toshia Sousa MD Circuit Rider: Signed Normal [facility] CCP IgG Antibodieson 024 CCP IgG Ab. 11 units Normal 0-19 [facility] Comment on above: Result Comment: Nega tive <20 Weak positive 20 - 39 Moderate positive 40 - 59 Strong positive >59 Performed at: [facility] [address] [id number] [employer] [facility] Supervisor: Scott Dudley PhD, Phone: [phone] Performed By: #### L 100.0100, L3890.6100, L3890.6200, L4600.0100, L501.6710, L505.7010, L3890.6300, L500.4050, L101.9900 ####[facility] [address] [place], [place], [address] Absolute neutrophil countOrd ered By: Elis Zaman on 07-20-2024 Neutrophils (Bld) [#/Vol] 5.8 10*3/uL 2.0-7.7 [facility] Albumin to globulin ratioOrd ered By: Elis Zaman on 07-20-2024 Albumin/Globulin [Mass ratio] 1.0 {ratio} 0.9-2.4 [facility] Basophil percentageOrdered B y: Elis Zaman on 07-20-2024 Basophils/100 WBC (Bld) 1.1 % High 0-1 [facility] Bilirubin, totalOrdered By: Elis Zaman on 07-20-2024 Bilirubin [Mass/Vol] 0.50 mg/dL 0.20-1.00 [facility] Comment on above: For patients on eltr ombopag therapy, use of Dimension [place] TBIL is not recommended. Blood urea nitrogen (BUN)/cr eatinine ratioOrdered By: Elis Zaman on 07-20-2024 Urea nitrogen/Creatinine [Mass ratio] 19.3 mg/mg 10-20 [facility] C-reactive protein measureme nt by high sensitivity methodOrdered By: Elis Zaman on 07-20-2024 C-Reactive Protein Extended Range 3.71 mg/L High 0.0-3.0 [facility] Comment on above: C-Reactive Protein ( CRP) provides useful information for thediagnosis, therapy and monitoring of inflammatory processesand associated diseases. For the evaluation of Relative Riskfor Cardiovascular Disease, a High Sensitivity CRP (HSCRP)should be ordered. CBC W/Diff, Automatedon 07-02 Absolute Lymph 1.98 X10 3/uL Normal 0.83-4.51 [facility] Comment on above: Performed By: #### L 100.0100, L3890.6100, L3890.6200, L4600.0100, L501.6710, L505.7010, L3890.6300, L500.4050, L101.9900 #### [facility] [place], [address] Absolute Neut 5.8 X10 3/uL Normal 2.0-7.7 [facility] Comment on above: Performed By: #### L 100.0100, L3890.6100, L3890.6200, L4600.0100, L501.6710, L505.7010, L3890.6300, L500.4050, L101.9900 #### [facility] [address] [place], [address] Basophils/100 WBC (Bld) 1.1 % High 0-1 [facility] Comment on above: Performed By: #### L 100.0100, L3890.6100, L3890.6200, L4600.0100, L501.6710, L505.7010, L3890.6300, L500.4050, L101.9900 #### [facility] [address] [facility] [address] [place], [address] Eosinophils/100 WBC (Bld) 2.4 % Normal 0-5 [facility] Comment on above: Performed By: #### L 100.0100, L3890.6100, L3890.6200, L4600.0100, L501.6710, L505.7010, L3890.6300, L500.4050, L101.9900 #### [facility] [address] [facility] [address] [place], [address] Erythrocyte distribution width (RBC) [Ratio] 14.3 % Normal 11.6-14.6 [facility] Comment on above: Performed By: #### L 100.0100, L3890.6100, L3890.6200, L4600.0100, L501.6710, L505.7010, L3890.6300, L500.4050, L101.9900 #### [facility] [address] [place], [address] Hematocrit (Bld) [Volume fraction] 43.6 % Normal 37-47 [facility] Comment on above: Performed By: #### L 100.0100, L3890.6100, L3890.6200, L4600.0100, L501.6710, L505.7010, L3890.6300, L500.4050, L101.9900 #### [facility] [address] [place], [address] Hemoglobin (Bld) [Mass/Vol] 14.1 g/dL Normal 12.0-15.0 [facility] Comment on above: Performed By: #### L 100.0100, L3890.6100, L3890.6200, L4600.0100, L501.6710, L505.7010, L3890.6300, L500.4050, L101.9900 #### [facility] [address] [facility] [place], [address] IG% 0.700 Normal 0.0-0.9 [facility] Comment on above: Result Comment: IG% - Immature Granulocytes (promyelocytes, myelocytes and metamyelocytes) > 1% indicates that a LEFT SHIFT is Present. Performed By: #### L 100.0100, L3890.6100, L3890.6200, L4600.0100, L501.6710, L505.7010, L3890.6300, L500.4050, L101.9900 #### [facility] [address] [place], [address] Lymphocytes/100 WBC (Bld) 22.3 % Normal 19-41 [facility] Comment on above: Performed By: #### L 100.0100, L3890.6100, L3890.6200, L4600.0100, L501.6710, L505.7010, L3890.6300, L500.4050, L101.9900 #### [facility] [address] [place], [address] MCH (RBC) [Entitic mass] 27.5 pg Normal 27.0-32.0 [facility] Comment on above: Performed By: #### L 100.0100, L3890.6100, L3890.6200, L4600.0100, L501.6710, L505.7010, L3890.6300, L500.4050, L101.9900 #### [facility] [address] [place], [address] MCHC (RBC) [Mass/Vol] 32.3 g/dL Normal 32-36 [facility] Comment on above: Performed By: #### L 100.0100, L3890.6100, L3890.6200, L4600.0100, L501.6710, L505.7010, L3890.6300, L500.4050, L101.9900 #### [facility] [address] [facility] [address] [place], [address] MCV (RBC) [Entitic vol] 85.2 fL Normal 81-99 [facility] Comment on above: Performed By: #### L 100.0100, L3890.6100, L3890.6200, L4600.0100, L501.6710, L505.7010, L3890.6300, L500.4050, L101.9900 #### [facility] [address] [facility] [address] [place], [address] Monocytes/100 WBC (Bld) 7.8 % Normal 0-10 [facility] Comment on above: Performed By: #### L 100.0100, L3890.6100, L3890.6200, L4600.0100, L501.6710, L505.7010, L3890.6300, L500.4050, L101.9900 #### [facility] [address] [facility] [address] [place], [address] Neutrophils/100 WBC (Bld) 65.7 % Normal 47-70 [facility] Comment on above: Performed By: #### L 100.0100, L3890.6100, L3890.6200, L4600.0100, L501.6710, L505.7010, L3890.6300, L500.4050, L101.9900 #### [facility] [address] [place] [place], [address] Nucleated RBC (Bld) [#/Vol] 0 10*3/uL Normal 0-5 [facility] Comment on above: Performed By: #### L 100.0100, L3890.6100, L3890.6200, L4600.0100, L501.6710, L505.7010, L3890.6300, L500.4050, L101.9900 #### [facility] [address] [facility] [address] [place], [address] Platelet mean volume (Bld) [Entitic vol] 10.8 fL Normal 6.2-12.0 [facility] Comment on above: Performed By: #### L 100.0100, L3890.6100, L3890.6200, L4600.0100, L501.6710, L505.7010, L3890.6300, L500.4050, L101.9900 #### [facility] [address] [facility] [address] [place], [address] Platelets (Bld) [#/Vol] 264 10*3/uL Normal 150-450 [facility] Comment on above: Performed By: #### L 100.0100, L3890.6100, L3890.6200, L4600.0100, L501.6710, L505.7010, L3890.6300, L500.4050, L101.9900 #### [facility] [address] [place], [address] RBC (Bld) [#/Vol] 5.12 10*6/uL Normal 4.2-5.4 [facility] Comment on above: Performed By: #### L 100.0100, L3890.6100, L3890.6200, L4600.0100, L501.6710, L505.7010, L3890.6300, L500.4050, L101.9900 #### [facility] [address] [place], [place], [id number] (183) RDW SD 44.5 fl High 35.1-43.9 [facility] Comment on above: Performed By: #### L 100.0100, L3890.6100, L3890.6200, L4600.0100, L501.6710, L505.7010, L3890.6300, L500.4050, L101.9900 #### [facility] [address] [place], [address] WBC (Bld) [#/Vol] 8.9 10*3/uL Normal 4.4-11.0 [facility] Comment on above: Performed By: #### L 100.0100, L3890.6100, L3890.6200, L4600.0100, L501.6710, L505.7010, L3890.6300, L500.4050, L101.9900 #### [facility] [address] [place], [place], [id number] CRPon 07-20-2024 C-REACTIVE PROT 3.71 mg/L High 0.0-3.0 [facility] Comment on above: Result Comment: C-Re active Protein (CRP) provides useful information for the diagnosis, therapy and monitoring of inflammatory processes and associated diseases. For the evaluation of Relative Risk for Cardiovascular Disease, a High Sensitivity CRP (HSCRP) should be ordered. Performed By: #### L 100.0100, L3890.6100, L3890.6200, L4600.0100, L501.6710, L505.7010, L3890.6300, L500.4050, L101.9900 #### [facility] [address] [place], [address] Carbon dioxide measurementOr dered By: Elis Zaman on 07-20-2024 CO2 [Moles/Vol] 28.0 mmol/L 21.0-32.0 [facility] Chloride measurementOrdered By: Elis Zaman on 07-20-2024 Chloride [Moles/Vol] 107 mmol/L 98-107 [facility] Comprehensive Metabolic Prof ilon 07-20-2024 Albumin [Mass/Vol] 3.7 g/dL Normal 3.2-5.0 [facility] Comment on above: Performed By: #### L 100.0100, L3890.6100, L3890.6200, L4600.0100, L501.6710, L505.7010, L3890.6300, L500.4050, L101.9900 #### [facility] [address] [facility] [place], [address] Albumin/Globulin [Mass ratio] 1.0 {ratio} Normal 0.9-2.4 [facility] Comment on above: Performed By: #### L 100.0100, L3890.6100, L3890.6200, L4600.0100, L501.6710, L505.7010, L3890.6300, L500.4050, L101.9900 #### [facility] [address] [facility] [place], [address] ALK P 187 U/L High 45-117 [facility] Comment on above: Performed By: #### L 100.0100, L3890.6100, L3890.6200, L4600.0100, L501.6710, L505.7010, L3890.6300, L500.4050, L101.9900 #### [facility] [address] [place], [address] ALT [Catalytic activity/Vol] 57 U/L High 13-56 [facility] Comment on above: Performed By: #### L 100.0100, L3890.6100, L3890.6200, L4600.0100, L501.6710, L505.7010, L3890.6300, L500.4050, L101.9900 #### [facility] [address] [place], [place], [id number] (375) AST [Catalytic activity/Vol] 30 U/L Normal 15-37 [facility] Comment on above: Performed By: #### L 100.0100, L3890.6100, L3890.6200, L4600.0100, L501.6710, L505.7010, L3890.6300, L500.4050, L101.9900 #### [facility] [address] [place], [address] (919) Bilirubin [Mass/Vol] 0.50 mg/dL Normal 0.20-1.00 [facility] Comment on above: Result Comment: For patients on eltrombopag therapy, use of Dimension [place] TBIL is not recommended. Performed By: #### L 100.0100, L3890.6100, L3890.6200, L4600.0100, L501.6710, L505.7010, L3890.6300, L500.4050, L101.9900 #### [facility] [address] [place], [place], [id number] (166) BUN/CRE 19.3 RATIO Normal 10-20 [facility] Comment on above: Performed By: #### L 100.0100, L3890.6100, L3890.6200, L4600.0100, L501.6710, L505.7010, L3890.6300, L500.4050, L101.9900 #### [facility] [address] [place], [address] (838) CA,Total 9.2 mg/dL Normal 8.5-10.1 [facility] Comment on above: Performed By: #### L 100.0100, L3890.6100, L3890.6200, L4600.0100, L501.6710, L505.7010, L3890.6300, L500.4050, L101.9900 #### [facility] [address] [place], [address] Chloride [Moles/Vol] 107 mmol/L Normal 98-107 [facility] Comment on above: Performed By: #### L 100.0100, L3890.6100, L3890.6200, L4600.0100, L501.6710, L505.7010, L3890.6300, L500.4050, L101.9900 #### [facility] [address] [place], [place], [id number] (374) CO2 [Moles/Vol] 28.0 mmol/L Normal 21.0-32.0 [facility] Comment on above: Performed By: #### L 100.0100, L3890.6100, L3890.6200, L4600.0100, L501.6710, L505.7010, L3890.6300, L500.4050, L101.9900 #### [facility] [address] [place], [place], [id number] (102) Creatinine [Mass/Vol] 0.73 mg/dL Normal 0.55-1.02 [facility] Comment on above: Result Comment: The validity of the calculated GFR GFRAA in patients over 70 years has not been determined. Clinical correlation is essential. Performed By: #### L 100.0100, L3890.6100, L3890.6200, L4600.0100, L501.6710, L505.7010, L3890.6300, L500.4050, L101.9900 #### [facility] [address] [place], [address] EST GFR - AA 107 mL/min Normal >60 [facility] Comment on above: Result Comment: Afri can Welsh GFR Calc Performed By: #### L 100.0100, L3890.6100, L3890.6200, L4600.0100, L501.6710, L505.7010, L3890.6300, L500.4050, L101.9900 #### [facility] [address] [place], [place], [id number] (470) GAP 3 Low 5-15 [facility] Comment on above: Performed By: #### L 100.0100, L3890.6100, L3890.6200, L4600.0100, L501.6710, L505.7010, L3890.6300, L500.4050, L101.9900 #### [facility] [address] [place], [address] (647 GFR/1.73 sq M.predicted among non-blacks MDRD (S/P/Bld) [Vol rate/Area] 89 mL/min/{1.73_m2} Normal >60 [facility] Comment on above: Result Comment: Non- GFR Calc Performed By: #### L 100.0100, L3890.6100, L3890.6200, L4600.0100, L501.6710, L505.7010, L3890.6300, L500.4050, L101.9900 #### [facility] [address] [place], [place], [phone] (448 Globulin (S) [Mass/Vol] 3.8 g/dL Normal 2.2-4.2 [facility] Comment on above: Performed By: #### L 100.0100, L3890.6100, L3890.6200, L4600.0100, L501.6710, L505.7010, L3890.6300, L500.4050, L101.9900 #### [facility] [address] [place], [place], [phone] ([address] Glucose [Mass/Vol] 112 mg/dL High 74-106 [facility] Comment on above: Result Comment: Fast ing Glucose result from 100 to 125 mg/dL suggests IMPAIRED HOMEOSTASIS per A.D.A. criteria. Performed By: #### L 100.0100, L3890.6100, L3890.6200, L4600.0100, L501.6710, L505.7010, L3890.6300, L500.4050, L101.9900 #### [facility] [address] [place], [address] Potassium [Moles/Vol] 3.6 mmol/L Normal 3.5-5.1 [facility] Comment on above: Performed By: #### L 100.0100, L3890.6100, L3890.6200, L4600.0100, L501.6710, L505.7010, L3890.6300, L500.4050, L101.9900 #### [facility] [address] [place], [address] Sodium [Moles/Vol] 138 mmol/L Normal 136-145 [facility] Comment on above: Performed By: #### L 100.0100, L3890.6100, L3890.6200, L4600.0100, L501.6710, L505.7010, L3890.6300, L500.4050, L101.9900 #### [facility] [address] [place], [address] T PROT 7.5 g/dL Normal 6.4-8.2 [facility] Comment on above: Performed By: #### L 100.0100, L3890.6100, L3890.6200, L4600.0100, L501.6710, L505.7010, L3890.6300, L500.4050, L101.9900 #### [facility] [address] [place], [address] Urea nitrogen [Mass/Vol] 14 mg/dL Normal 7-18 [facility] Comment on above: Performed By: #### L 100.0100, L3890.6100, L3890.6200, L4600.0100, L501.6710, L505.7010, L3890.6300, L500.4050, L101.9900 #### [facility] [address] [place], [address] Cyclic citrullinated peptide IgG QnOrdered By: Elis Zaman on 07-20-2024 Cyclic Citrullinated Peptide IgG Ab 11 units 0-19 [facility] Comment on above: Negative <20 Weak po sitive 20 - 39 Moderate positive 40 - 59 Strong positive >59Performed at: [facility] [place] [id number] Director: Scott Dudley PhD, Phone: [phone] Eosinophil percentageOrdered By: Elis Zaman on 07-20-2024 Eosinophils/100 WBC (Bld) 2.4 % 0-5 [facility] Erythrocyte Sed Rateon 07-20 SED RATE 19 mm/hr Normal 0-30 [facility] Comment on above: Performed By: #### L 100.0100, L3890.6100, L3890.6200, L4600.0100, L501.6710, L505.7010, L3890.6300, L500.4050, L101.9900 #### [facility] [address] [facility] [place], [address] Erythrocyte distribution wid th ratioOrdered By: Elis Zaman on 07-20-2024 Erythrocyte distribution width (RBC) [Ratio] 14.3 % 11.6-14.6 [facility] Erythrocyte distribution wid th standard deviationOrdered By: Elis Zaman on 07-20-2024 Erythrocyte distribution width (RBC) [Entitic vol] 44.5 fL High 35.1-43.9 [facility] Erythrocyte sedimentation ra teOrdered By: Elis Zaman on 07-20-2024 ESR (Bld) [Velocity] 19 mm/h 0-30 [facility] Estimated glomerular filtrat ion rate (GFR) AmericanOrdered By: Elis Zaman on 07-20-2024 Estimated GFR (MDRD) Amer 107 mL/min >60 [facility] Comment on above: GFR Calc Glomerular filtration rate ( GFR) estimationOrdered By: Elis Zaman on 07-20-2024 Estimated GFR (MDRD) Non-Af Amer 89 mL/min >60 [facility] Comment on above: Non- GFR Calc Glucose measurementOrdered B y: Elis Zaman on 07-20-2024 Glucose [Mass/Vol] 112 mg/dL High 74-106 [facility] Comment on above: Fasting Glucose resu lt from 100 to 125 mg/dL suggests IMPAIRED HOMEOSTASIS per A.D.A. criteria. HBV surface IgG Ql (S)Ordere d By: Elis Zaman on 07-20-2024 Hepatitis B Surface Antibody Non-Reactive [facility] Comment on above: Non Reactive: Incons istent with immunity less than <10 mIU/mL Reactive: Consistent with immunity greater than or equal to 10 mIU/mL Hematocrit Auto (Bld) [Volum e fraction]Ordered By: Elis Zaman on 07-20-2024 Hematocrit (Bld) [Volume fraction] 43.6 % 37-47 [facility] Hemoglobin measurementOrdere d By: Elis Zaman on 07-20-2024 Hemoglobin (Bld) [Mass/Vol] 14.1 g/dL 12.0-15.0 [facility] Hepatitis B Surface Antibody on 07-20-2024 HEP B Surf Ab Non-Reactive Normal [facility] Comment on above: Result Comment: Non Reactive: Inconsistent with immunity less than <10 mIU/mL Reactive: Consistent with immunity greater than or equal to 10 mIU/mL Performed By: #### L 100.0100, L3890.6100, L3890.6200, L4600.0100, L501.6710, L505.7010, L3890.6300, L500.4050, L101.9900 ####[facility] [address] [place], [address] Hepatitis B Surface Antigeno n 07-20-2024 HEP B Surf Ag Non-Reactive Normal Nonreactive [facility] Comment on above: Performed By: #### L 100.0100, L3890.6100, L3890.6200, L4600.0100, L501.6710, L505.7010, L3890.6300, L500.4050, L101.9900 ####[facility] [address] [place], [place], [id number] Hepatitis B surface antigen detectionOrdered By: Elis Zaman on 07-20-2024 Hepatitis B Surface Antigen Non-Reactive Nonreactive [facility] Hepatitis C Antibodyon 07-20 Hepatitis C AB Non-Reactive Normal Nonreactive [facility] Comment on above: Result Comment: Non Reactive: < 0.8 Equivocal: >/= 0.8 to < 1.0 Reactive: >/= 1.0 The [facility] requires that a reactive/equivocal HCV antibody result be sent out for confirmation. HCV Quant by PCR testing. Performed By: #### L 100.0100, L3890.6100, L3890.6200, L4600.0100, L501.6710, L505.7010, L3890.6300, L500.4050, L101.9900 ####[facility] [address] [place], [address] Hepatitis C virus antibody a ssayOrdered By: Elis Zaman on 07-20-2024 Hepatitis C Antibody Non-Reactive Nonreactive [facility] Comment on above: Non Reactive: < 0.8 Equivocal: >/= 0.8 to < 1.0 Reactive: >/= 1.0The CDC requires that a reactive/equivocal HCV antibody result be sent out for confirmation. HCV Quant by PCR testing. Immature granulocytes/100 WB C Auto (Bld)Ordered By: Elis Zaman on 07-20-2024 Immature granulocytes/100 WBC (Bld) 0.700 % 0.0-0.9 [facility] Comment on above: IG% - Immature Granu locytes (promyelocytes, myelocytes and metamyelocytes) > 1% indicates that a LEFT SHIFT is Present. Laboratory - Chemistry and C hemistry - challengeOrdered By: Elis Zaman on 07-20-2024 AST [Catalytic activity/Vol] 30 U/L 15-37 [facility] Lymphocytes Auto (Unsp spec) [#/Vol]Ordered By: Elischelo Zaman on 07-20-2024 Lymphocytes (Bld) [#/Vol] 1.98 10*3/uL 0.83-4.51 [facility] Lymphocytes/100 WBC Auto (Un sp spec)Ordered By: Elis Zaman on 07-20-2024 Lymphocytes/100 WBC (Bld) 22.3 % 19-41 [facility] MCV (mean corpuscular volume ) determinationOrdered By: Elischelo Zaman on 07-20-2024 MCV (RBC) [Entitic vol] 85.2 fL 81-99 [facility] Mean corpuscular hemoglobin (MCH) determinationOrdered By: Elischelo Zaman on 07-20-2024 MCH (RBC) [Entitic mass] 27.5 pg 27.0-32.0 [facility] Mean corpuscular hemoglobin concentration (MCHC) determinationOrdered By: Elis Zaman on 07-20-2024 MCHC (RBC) [Mass/Vol] 32.3 g/dL 32-36 [facility] Mean platelet volume determi nationOrdered By: [facility] Junie on 07-20-2024 Platelet mean volume (Bld) [Entitic vol] 10.8 fL 6.2-12.0 [facility] Monocyte percentageOrdered B y: Elis Zaman on 07-20-2024 Monocytes/100 WBC (Bld) 7.8 % 0-10 [facility] Neutrophil percentageOrdered By: [facility] Junie on 07-20-2024 Neutrophils/100 WBC (Bld) 65.7 % 47-70 [facility] Nucleated red blood cell per centageOrdered By: [facility] Junie on 07-20-2024 Nucleated RBC/100 WBC (Bld) [Ratio] 0 % 0-5 [facility] Pelvis 1 or 2 Viewson 2023 Pelvis 1 or 2 Views [facility] Imaging Services [address] [place] [address] Pelvis 1 or 2 Views MR#: [id number] Acct: [id number] Name: RADHA CHASE Rep #: [id number] : 1970 F 54 From: Anshul Mir MD PCP: Dr. Toshia Sousa MD Status: REG CLI Study: Pelvis 1 or 2 Views Date of Exam: 07/20/24 Exam# [id number] Ordering Dr: Elis Zaman MD [id number] STUDY: X-RAY - PELVIS REASON FOR EXAM: [...] Toshia Sousa MD; Dr. Elis Zaman MD Circuit Rider: Signed Normal [facility] Platelet countOrdered By: Jeremie Zaman on 07-20-2024 Platelets (Bld) [#/Vol] 264 10*3/uL 150-450 [facility] Potassium measurementOrdered By: Elis Zaman on 07-20-2024 Potassium [Moles/Vol] 3.6 mmol/L 3.5-5.1 [facility] RBC Auto (Bld) [#/Vol]Ordere d By: Elis Zaman on 07-20-2024 RBC (Bld) [#/Vol] 5.12 10*6/uL 4.2-5.4 [facility] Rheumatoid Factoron 07-20-20 24 RHEUMATOID FAC < 10.0 Normal <15 [facility] Comment on above: Performed By: #### L 100.0100, L3890.6100, L3890.6200, L4600.0100, L501.6710, L505.7010, L3890.6300, L500.4050, L101.9900 #### [facility] [address] [place], [place], [id number] Rheumatoid factor measuremen tOrdered By: Elis Zaman on 07-20-2024 Rheumatoid Factor < 10.0 IU/mL <15 [facility] Serum anion gap measurementO rdered By: Elis Zaman on 07-20-2024 Anion gap [Moles/Vol] 3 mmol/L Low 5-15 [facility] Serum globulin measurementOr dered By: Elis Zaman on 07-20-2024 Globulin (S) [Mass/Vol] 3.8 g/dL 2.2-4.2 [facility] Serum or plasma alanine ortiz otransferase (ALT) measurementOrdered By: Elis Zaman on 07-20-2024 ALT [Catalytic activity/Vol] 57 U/L High 13-56 [facility] Serum or plasma albumin maegan urement (mass/volume)Ordered By: Elis Zaman on 07-20-2024 Albumin [Mass/Vol] 3.7 g/dL 3.2-5.0 [facility] Serum or plasma alkaline yayo sphatase measurementOrdered By: Eils Zaman on 07-20-2024 ALP [Catalytic activity/Vol] 187 U/L High 45-117 [facility] Serum or plasma calcium maegan urement (mass/volume)Ordered By: Elis Zaman on 07-20-2024 Calcium [Mass/Vol] 9.2 mg/dL 8.5-10.1 [facility] Serum or plasma creatinine m easurement (mass/volume)Ordered By: Elis Zaman on 07-20-2024 Creatinine [Mass/Vol] 0.73 mg/dL 0.55-1.02 [facility] Comment on above: The validity of the calculated GFR & GFRAA in patients over 70 years has not been determined. Clinical correlation is essential. Serum or plasma urea nitroge n measurement (mass/volume)Ordered By: Elis Zaman on 07-20-2024 Urea nitrogen [Mass/Vol] 14 mg/dL 7-18 [facility] Sodium levelOrdered By: Gino Zaman on 07-20-2024 Sodium [Moles/Vol] 138 mmol/L 136-145 [facility] Total proteinOrdered By: Jeni Zaman on 07-20-2024 Protein [Mass/Vol] 7.5 g/dL 6.4-8.2 [facility] White blood cell (WBC) count Ordered By: Elis Zaman on 07-20-2024 WBC (Bld) [#/Vol] 8.9 10*3/uL 4.4-11.0 [facility] Basophil percentageOrdered B y: Toshia Sousa on 12-26-2023 Bilirubin [Mass/Vol] 0.40 mg/dL 0.20-1.00 [facility] Comment on above: For patients on eltr ombopag therapy, use of Dimension [place] TBIL is not recommended. Protein [Mass/Vol] 7.0 g/dL 6.4-8.2 [facility] Direct bilirubinOrdered By: Toshia Sousa on 12-26-2023 Bilirubin.direct [Mass/Vol] 0.14 mg/dL 0.00-0.30 [facility] Laboratory - Chemistry and C hemistry - challengeOrdered By: Toshia Sousa on 12-26-2023 ALP [Catalytic activity/Vol] 149 U/L 45-117 [facility] ALT [Catalytic activity/Vol] 58 U/L 13-56 [facility] Globulin (S) [Mass/Vol] 3.4 g/dL 2.2-4.2 [facility] Serum or plasma thyroid stim ulating hormone (TSH) measurement (units/volume)Ordered By: Toshia Sousa on 12-26-2023 TSH Qn 0.02 uIU/mL 0.358-3.74 [facility] Thin prep Papanicolaou smear with manual screeningOrdered By: Toshia Sousa on 12-26-2023 Thin prep Papanicolaou smear with manual screening 3.6 g/dL 3.2-5.0 [facility] Thin prep Papanicolaou smear with manual screening 34 U/L 15-37 [facility] Absolute lymphocyte countOrd ered By: Lesia Mena on 10-15-2023 Lymphocytes Auto (Unsp spec) [#/Vol] 1.57 10*3/uL 0.83-4.51 [facility] Automated lymphocyte count a s percentage of total leukocytesOrdered By: Lesia Mena on 10-15-2023 Lymphocytes/100 WBC Auto (Unsp spec) 25.5 % 19-41 [facility] Basophil percentageOrdered B y: Lesia Mena on 10-15-2023 Basophil percentage 16.0 IU/mL <15 [facility] Basophils/100 WBC (Bld) 1.3 % 0-1 [facility] Bilirubin [Mass/Vol] 0.30 mg/dL 0.20-1.00 [facility] Comment on above: For patients on eltr ombopag therapy, use of Dimension [place] TBIL is not recommended. Chloride [Moles/Vol] 109 mmol/L 98-107 [facility] Eosinophils/100 WBC (Bld) 2.6 % 0-5 [facility] Glucose [Mass/Vol] 94 mg/dL 74-106 [facility] Hemoglobin (Bld) [Mass/Vol] 13.7 g/dL 12.0-15.0 [facility] Monocytes/100 WBC (Bld) 12.0 % 0-10 [facility] Neutrophils (Bld) [#/Vol] 3.6 10*3/uL 2.0-7.7 [facility] Neutrophils/100 WBC (Bld) 58.1 % 47-70 [facility] Potassium [Moles/Vol] 4.0 mmol/L 3.5-5.1 [facility] Protein [Mass/Vol] 7.0 g/dL 6.4-8.2 [facility] Sodium [Moles/Vol] 140 mmol/L 136-145 [facility] WBC (Bld) [#/Vol] 6.2 10*3/uL 4.4-11.0 [facility] Determination of erythrocyte mean corpuscular volume (MCV)Ordered By: Lesia Trina on 10-15-2023 MCV (RBC) [Entitic vol] 87.1 fL 81-99 [facility] Erythrocyte distribution wid th ratioOrdered By: [facility] on 10-15-2023 Erythrocyte distribution width (RBC) [Ratio] 12.8 % 11.6-14.6 [facility] Erythrocyte distribution wid th standard deviationOrdered By: [facility] on 10-15-2023 Erythrocyte distribution width (RBC) [Entitic vol] 40.5 fL 35.1-43.9 [facility] Hematocrit Auto (Bld) [Volum e fraction][facility]2023 Hematocrit (Bld) [Volume fraction] 42.6 % 37-47 [facility] Immature granulocytes/100 WB C Auto (Bld)Ordered By: [facility] on 10-15-2023 Immature granulocytes/100 WBC (Bld) 0.500 % 0.0-0.9 [facility] Comment on above: IG% - Immature Granu locytes (promyelocytes, myelocytes and metamyelocytes) > 1% indicates that a LEFT SHIFT is Present. Laboratory - Chemistry and C hemistry - challengeOrdered By: [facility] on 10-15-2023 Albumin/Globulin [Mass ratio] 1.1 {ratio} 0.9-2.4 [facility] ALP [Catalytic activity/Vol] 155 U/L 45-117 [facility] ALT [Catalytic activity/Vol] 133 U/L 13-56 [facility] CO2 [Moles/Vol] 28.0 mmol/L 21.0-32.0 [facility] Cobalamin (Vitamin B12) [Mass/Vol] 483 pg/mL 211-911 [facility] Globulin (S) [Mass/Vol] 3.4 g/dL 2.2-4.2 [facility] Urea nitrogen/Creatinine [Mass ratio] 31.2 mg/mg 10-20 [facility] Laboratory - Hematology and Cell countsOrdered By: Lesia Mena on 10-15-2023 MCH (RBC) [Entitic mass] 28.0 pg 27.0-32.0 [facility] MCHC (RBC) [Mass/Vol] 32.2 g/dL 32-36 [facility] Nucleated RBC/100 WBC (Bld) [Ratio] 0 % 0-5 [facility] Platelet mean volume (Bld) [Entitic vol] 11.4 fL 6.2-12.0 [facility] Platelets (Bld) [#/Vol] 271 10*3/uL 150-450 [facility] No Panel InformationOrdered By: Lesia Mena on 10-15-2023 Anti-Nuclear Antibody Screen Negative Negative [facility] Comment on above: Performed at: [facility] [address] [id number] Director: Scott Dudley PhD, Phone: [phone] C-Reactive Protein Extended Range < 2.90 mg/L 0.0-3.0 [facility] Comment on above: C-Reactive Protein ( CRP) provides useful information for thediagnosis, therapy and monitoring of inflammatory processesand associated diseases. For the evaluation of Relative Riskfor Cardiovascular Disease, a High Sensitivity CRP (HSCRP)should be ordered. Estimated GFR (MDRD) Amer 117 mL/min >60 [facility] Comment on above: GFR Calc Estimated GFR (MDRD) Non-Af Amer 97 mL/min >60 [facility] Comment on above: Non- GFR Calc Vitamin D 25-Hydroxy 42.6 ng/mL [facility] Comment on above: Vitamin D 25(OH) Sta tus Range Deficiency <20 ng/mL (50nmol/L) Insufficiency 20 - 30 ng/mL (50 - 75 nmol/L) Sufficiency 30 - 100 ng/mL (75 - 250 nmol/L) Toxicity >100 ng/mL (>250 nmol/L) RBC Auto (Bld) [#/Vol]Ordere d By: Lesia Mena on 10-15-2023 RBC (Bld) [#/Vol] 4.89 10*6/uL 4.2-5.4 [facility] Serum or plasma calcium maegan urement (mass/volume)Ordered By: Lesia Mena on 10-15-2023 Calcium [Mass/Vol] 9.2 mg/dL 8.5-10.1 [facility] Serum or plasma creatinine m easurement (mass/volume)Ordered By: Lesia Mena on 10-15-2023 Creatinine [Mass/Vol] 0.67 mg/dL 0.55-1.02 [facility] Comment on above: The validity of the calculated GFR & GFRAA in patients over 70 years has not been determined. Clinical correlation is essential. Serum or plasma thyroid stim ulating hormone (TSH) measurement (units/volume)Ordered By: [facility] Trina on 10-15-2023 TSH Qn 0.01 uIU/mL 0.358-3.74 [facility] Serum or plasma urea nitroge n measurement (mass/volume)Ordered By: [facility] on 10-15-2023 Urea nitrogen [Mass/Vol] 21 mg/dL 7-18 [facility] Thin prep Papanicolaou smear with manual screeningOrdered By: [facility] Thin prep Papanicolaou smear with manual screening 3.6 g/dL 3.2-5.0 [facility] Thin prep Papanicolaou smear with manual screening 62 U/L 15-37 [facility] Thin prep Papanicolaou smear with manual screening 3 5-15 [facility] Thin prep Papanicolaou smear with manual screening 1.57 ng/dL 0.76-1.46 [facility] Basophil percentageOrdered B y: Toshia Sousa on 08-07-2023 Chloride [Moles/Vol] 108 mmol/L 98-107 [facility] Glucose [Mass/Vol] 88 mg/dL 74-106 [facility] Potassium [Moles/Vol] 3.9 mmol/L 3.5-5.1 [facility] Sodium [Moles/Vol] 138 mmol/L 136-145 [facility] Laboratory - Chemistry and C hemistry - challengeOrdered By: Toshia Sousa on 08-07-2023 CO2 [Moles/Vol] 27.0 mmol/L 21.0-32.0 [facility] T4 [Mass/Vol] 16.0 ug/dL 4.8-13.9 [facility] Urea nitrogen/Creatinine [Mass ratio] 20.7 mg/mg 10-20 [facility] No Panel InformationOrdered By: Toshia Sousa on 08-07-2023 Estimated GFR (MDRD) Amer 108 mL/min >60 [facility] Comment on above: GFR Calc Estimated GFR (MDRD) Non-Af Amer 89 mL/min >60 [facility] Comment on above: Non- GFR Calc Thyroid Stimulating Hormone (TSH) 0.42 uIU/mL 0.358-3.74 [facility] Urine Microalbumin/Creatinine Ratio 15.7 mg/g CRE <30 [facility] Serum or plasma calcium maegan urement (mass/volume)Ordered By: Toshia Sousa on 08-07-2023 Calcium [Mass/Vol] 8.3 mg/dL 8.5-10.1 [facility] Serum or plasma creatinine m easurement (mass/volume)Ordered By: Toshia Sousa on 08-07-2023 Creatinine [Mass/Vol] 0.72 mg/dL 0.55-1.02 [facility] Comment on above: The validity of the calculated GFR & GFRAA in patients over 70 years has not been determined. Clinical correlation is essential. Serum or plasma urea nitroge n measurement (mass/volume)Ordered By: Toshia Sousa on 08-07-2023 Urea nitrogen [Mass/Vol] 15 mg/dL 7-18 [facility] Thin prep Papanicolaou smear with manual screeningOrdered By: Toshia Sousa on 08-07-2023 Thin prep Papanicolaou smear with manual screening 3 5-15 [facility] Thin prep Papanicolaou smear with manual screening 11.8 mg/L NO RANGE EST. [facility] Urine creatinine measurement (mass/volume)Ordered By: Toshia Sousa on 08-07-2023 Creatinine (U) [Mass/Vol] 75.00 mg/dL NO RANGE EST. [facility] Provider Note - ED v3on 10-2 [...] made to minimize errors. Minor errors in marine mammal trainer may be present. Please call if questions.. [...] PROGRESS NOTE LACERATION REPAIR Procedure performed by: sd Car Spotter(s): none Findings: grossly normal anatomy Specimen: no [...] ill patient: no Electronic Signatures: Kandi Macdonald (JORDYN) (Signed 24-Jun-2021 10:53) Authored: ED Notes, HPI, PMH, MDM/ED Course, Procedure, Clinical Impression, Attestation, Chart Review, Scores Last Updated: 24-Jun-2021 10:53 by Kandi Macdonald (PAC) References: 1. Data Referenced From Triage - ED 24-Jun-2021 10:14 [facility] Risk Screen - Adult Emergenc yon 06-24-2021 [...] Communicatenone Learning Preferencesaudio Cultural Considerationsnone Developmental Considerationsnone Buddhism Considerationsnone Learning Assessment (Other Learner): Learning Assessment (Other Learner): Other learner availableno Pressure Injury/TB/Substance: Pressure Injury: Pressure Injury Present on Admissionno Do you have a coughno Smoking Statusnever smoker Admission Risk Screen: Significant IndicatorsComplete CAGE: CAGE: Is this an injured patient at a Trauma Center ([facility] [place]): no Electronic Signatures: Zari Gonzalez) (Signed 24-Jun-2021 11:01) Authored: Preferred Language, Advanced Directives, Family Violence Adult, Learning Assessment (Patient), Learning Assessment (Other Learner), Pressure Injury/TB/Substance, Pressure Injury, CAGE Last Updated: 24-Jun-2021 11:01 by Zari Gonzalez) [facility] Triage - EDon 06-24-2021 Triage - ED [...] patient cognitively impaired not cognitively impaired Interventions: Haley Fall Interventions: LOW INTERVENTIONS: *patient oriented to [...] Past Medical History, Active Electronic Signatures: Zari Gonzalez (RN) (Signed 24-Jun-2021 10:34) Authored: Quick Triage, Chart Review Darrin Graf (EMT-P) (Signed 24-Jun-2021 10:18) Entered: Risk Screens, Pain, Travel History, Chart Review, Scores, Past Medical History Authored: Quick Triage, Risk Screens, Pain, Travel History, Chart Review, Scores, Past Medical History Last Updated: 24-Jun-2021 10:34 by Zari Gonzalez (CLAYTON) [facility] Vital Signs Date Time Vital Sign Value Performing Clinician Facility 04-06-2025 08:44-0400 Body height 160.[address] Toshia Sousa MD Work Phone: [facility] 04-06-2025 08:44-0400 Body mass index (BMI) [Ratio] 25 kg/m2 Dr. Toshia Sousa MD Work Phone: [facility] 04-06-2025 08:44-0400 Body weight 63.[address] Toshia Sousa MD Work Phone: [facility] 04-06-2025 08:44-0400 Diastolic blood pressure 87 mm[Hg] Dr. Toshia Sousa MD Work Phone: [facility] 04-06-2025 08:44-0400 Heart rate 67 /min Dr. Toshia Sousa MD Work Phone: [facility] 04-06-2025 08:44-0400 SaO2% (BldA) [Mass fraction] 98 % Dr. Toshia Sousa MD Work Phone: [facility] 04-06-2025 08:44-0400 Systolic blood pressure 138 mm[Hg] Dr. Toshia Sousa MD Work Phone: [facility] 12-14-2024 14:06-0400 Body height 160.[address] Toshia Sousa MD Work Phone: [facility] 12-14-2024 14:06-0400 Body mass index (BMI) [Ratio] 25.1 kg/m2 Dr. Toshia Sousa MD Work Phone: [facility] 12-14-2024 14:06-0400 Body weight 64.[address] Toshia Sousa MD Work Phone: [facility] 12-14-2024 14:06-0400 Diastolic blood pressure 81 mm[Hg] Dr. Toshia Sousa MD Work Phone: [facility] 12-14-2024 14:06-0400 Heart rate 87 /min Dr. Toshia Sousa MD Work Phone: [facility] 12-14-2024 14:06-0400 SaO2% (BldA) [Mass fraction] 96 % Dr. Toshia Sousa MD Work Phone: [facility] 12-14-2024 14:06-0400 Systolic blood pressure 121 mm[Hg] Dr. Toshia Sousa MD Work Phone: [facility] 06-24-2021 12:14-0400 Body height 162.5 cm Toshia Sousa Other Phone: [facility] 06-24-2021 12:14-0400 Body temperature 98.24 [degF] Toshia Sousa Other Phone: [facility] 06-24-2021 12:14-0400 Body weight 62.7 kg Toshia Sousa Other Phone: [facility] 06-24-2021 12:14-0400 Diastolic blood pressure 82 mm[Hg] Toshia Sousa Other Phone: [facility] 06-24-2021 12:14-0400 Heart rate 87 /min Toshia Suosa Other Phone: [facility] 06-24-2021 12:14-0400 Respiratory rate 15 /min Toshia Sousa Other Phone: [facility] 06-24-2021 12:14-0400 SaO2% (BldA) [Mass fraction] 100 % Toshia Sousa Other Phone: [facility] 06-24-2021 12:14-0400 Systolic blood pressure 130 mm[Hg] Toshia Sousa Other Phone: [facility] Encounters Encounter Date Encounter Type Care Provider Facility Start: 05-28-2025 End: 05-28-[address] Stas Whittington MD Work Phone: -Laboratory Start: 05-28-2025 End: 05-28-[address] Elis Zaman MD -Laboratory Work Phone: Start: 05-28-2025 End: 05-28-2025 ambulatory Elis Zaman Facility:[facility] Start: 04-06-2025 End: 04-06-[address] Tyrel Tai MD -[facility] Work Phone: Start: 04-06-2025 End: 04-06-[address] Toshia Sousa MD Work Phone: -[facility] Start: 03-17-2025 End: 03-17-[address] Toshia Sousa MD Work Phone: -Ultrasound [facility] Start: 03-17-2025 End: 03-17-[address] Tyrel Tai MD -Ultrasound [facility] Work Phone: Start: 03-17-2025 End: 03-17-2025 ambulatory Stas Whittington Facility:[facility] Start: 03-05-2025 End: 03-05-[address] Toshia Sousa MD Work Phone: -Laboratory Start: 03-05-2025 End: 03-05-[address] Elis Zaman MD -Laboratory Work Phone: Start: 03-05-2025 End: 03-05-2025 ambulatory [facility] Facility:[facility] Start: 01-05-2025 End: 01-05-[address] Toshia Sousa MD Work Phone: [facility] Work Phone: Start: 01-05-2025 End: 01-05-[address] [facility] Start: 01-05-2025 End: 01-05-2025 ambulatory Stas Whittington Facility:[facility] Start: 12-14-2024 End: 12-14-[address] Tyrel Tai MD -[facility] Work Phone: Start: 12-14-2024 End: 12-14-2024 ambulatory Toshia Sousa Facility:[facility] Start: 10-30-2024 End: 10-30-[address] Toshia Sousa MD Work Phone: [facility] Work Phone: Start: 10-30-2024 End: 10-30-[address] Elis Zaman MD -Laboratory Work Phone: Start: 10-30-2024 End: 10-30-[facility] Start: 08-19-2024 End: 08-19-[address] Toshia Sousa MD -Outpatient Breast Imaging Work Phone: Start: 08-19-2024 End: 08-19-2024 ambulatory Toshia Sousa Facility:[facility] Start: 07-20-2024 End: 07-20-[address] Elis Zaman MD -Laboratory, [place] Work Phone: Start: 07-20-2024 End: 07-20-2024 ambulatory [facility] Junie Facility:[facility] Start: 01-03-2024 End: 01-03-2024 ambulatory [facility] Work Phone: Start: 01-03-2024 End: 01-03-2024 Patient encounter procedure [facility]-Ultrasound, [facility] Work Phone: Start: 12-26-2023 End: 12-26-2023 ambulatory [facility] Work Phone: Start: 12-26-2023 End: 12-26-2023 [facility] Start: 10-15-2023 End: 10-15-2023 ambulatory [facility] Work Phone: Start: 10-15-2023 End: 10-15-2023 Patient encounter procedure [facility] Start: 08-07-2023 End: 08-07-2023 ambulatory [facility] Work Phone: Start: 08-07-2023 End: 08-07-2023 Patient encounter procedure [facility]-Outpatient Breast Imaging Work Phone: Start: 06-14-2022 End: 06-14-2022 ambulatory [facility] Work Phone: Start: 06-14-2022 End: 06-14-2022 Patient encounter procedure [facility] Start: 06-24-2021 End: 06-24-2021 Emergency department patient visit Kandi Dillenmanuel [facility] Emergency 14 Procedures Date Procedure Procedure Detail Performing Clinician Start: 03-17-2025 Ultrasound elastogra phy of liver Dr. Toshia Sousa MD Work Phone: Start: 01-05-2025 Measurement of Borre jess burgdorferi [...] in 7 to 14 days isrecommended.Performed at: [address] [id number] Director: Scott Dudley PhD, Phone: [phone] Start: 01-05-[address] Toshia [...] Bilirubin.direct [Ma ss/volume] in Serum or Plasma [facility] C reactive protein [ Mass/volume] in Serum or Plasma [facility] CBC W Auto Differential panel - Blood [facility] Comprehensive metabo lic 1999 panel - Serum or Plasma [facility] metabo lic 1999 panel - Serum or Plasma [facility] Cytoplasmic ANCA Screen [facility] Ferritin [Mass/volume] in Serum or Plasma [facility] Gamma glutamyl transferase measurement [facility] Hemoglobin A1c/Hemoglobin.total in Blood [facility] Hepatitis B virus rice rface Ab [Presence] in Serum [facility] Immunoglobulin measurement [facility] Iron and Iron bindin g capacity panel - Serum or Plasma [facility] Lipid 1995 panel - Serum or Plasma [facility] Liver stiffness by US.transient elastogra phy [facility] Mitochondria Ab [Presence] in Serum [facility] Procedure [facility] Prothrombin time [facility] Prothrombin time [facility] Serum immunofixation [facility] Smooth muscle Ab [Presence] in Serum [facility] T4 free measurement [facility] Thyroid stimulating hormone measurement [facility] Immunizations Immunization Date Immunization Notes Care Provider Fa antionette 06-24-2021 tetanus toxoid, redu wilder diphtheria toxoid, and acellular pertussis vaccine, adsorbed Toshia Sousa Other Phone: [facility] Payers Date Payer Category Payer Self-pay [id number] 2024 Unknown [id number] 1999 Unknown [id number] Unknown [facility] CE PLAN\[facility] CHOICE PREF Unknown [facility] [facility] DO NOT USE [id number] Unknown [id number] Unknown [id number] Unknown [id number] Unknown [id number] Unknown [id number] Unknown [id number] Unknown [id number] Unknown [id number] Unknown [id number] Social History Date Type Detail Facility [facility] Start: 11-04-2019 End: 11-04-2019 Tobacco smoking consumption unknown [facility] Start: 11-04-2019 Non-smoker [facility] Start: 1970 Sex Assigned At Female W [facility] Start: 02-24-2024 Tobacco smoking status NHIS Never smoked tobacco (finding) [facility] Start: 11-12-2024 Sex Female (finding) [facility] Sex Female [facility] Medical Equipment Procedure Code Equipment Code [...] HEMOBLAST [facility]ER[facility] FDA Start: 03-08-2024 Evaluation note 04-06-2025 Note Date & Type Note Facility 04-06-2025 Evaluation note Diagnosis Onset Date Resolution Elevated liver enzymes chronic April 06, 2025 8:28am [facility] Work Phone: Radiology Diagnostic study note 03-17-2025 Note Date & Type Note Facility 03-17-2025 Radiology Diagnostic study note [facility] Imaging Services [address] [place] [address] ABD Limited w/ Elastography MR#: [id number] Acct: [id number] Name: RADHA CHASE Rep #: [id number] : 1970 F 54 From: Nathen Kurtz MD PCP: Dr. Stas Whittington MD Status: RE G CLI Study:ABD Limited w/ Elastography Date of Exa m: 03/17/25 Exam# [id number] Ordering Dr: Lauren Tai MD PROCEDURE: ABD LIMITED W/ ELASTOGRAPHY REASON FOR EXAM: ELEVATED ALKALINE PHOSPHATASE. COMPARISON: None. TECHNIQUE: Right upper quadrant abdominal ultrasound. [facility] ElastQ Imaging shear wave elastography for non-invasive assessment of liver tissue stiffness. [facility] EPIQ Elite. FINDINGS: LIVER: Size: Unremarkable Length: 15.9 cm cm Echotexture: Normal Contour: Normal Lesions: None identified Elastography: EQI Med: 9.3 kPa EQI Med Killian: 1.74 m/s IQR/Med: 26 %* GALLBLADDER: Surgically absent. COMMON BILE DUCT: Normal measuring 4 mm. . PANCREAS: Visualized portions are sonographically unremarkable. Visualized portions of the right kidney are unremarkable. No right upper quadrant ascites. US/ABD Limited w/ Elastography IMPRESSION: Moderate degree of hepatic fibrosis. Status post cholecystectomy. Reference Values: SRU <1.37 m/s (5.7kPa): No to mild fibrosis 1.37 m/s - 2.2 m/s: Moderate to severe fibrosis >2.2 m/s (15kPa): Significant fibrosis / cirrhosis METAVIR Score F2 or higher: 1.34 m/s (5.7kPa) F3 or higher: 1.55 m/s (7.3kPa) F4: 1.80 m/s (10kPa) * If the IQR/Med is >30%, the variance in the measurements is a large and the accuracy of the measurement may be in question. Reading Location: [place] [address] CC: Dr. Stas Whittington MD; Dr. Tyrel Tai MD ~ Circuit Rider: Signed [facility] Evaluation note 12-14-2024 Note Date & Type Note Facility 12-14-2024 Evaluation note Diagnosis Onset Date Resolution Elevated liver enzymes chronic December 14, 2024 2:01pm [facility] Work Phone: Evaluation note 12-14-2024 Note Date & Type Note Facility 12-14-2024 Evaluation note Diagnosis Onset Date Resolution Elevated liver enzymes chronic December 14, 2024 2:01pm Elevated liver enzymes chronic April 06, 2025 8:28am [facility] Work Phone: Evaluation note Note Date & Type Note Facility Evaluation note No assessment information availa ble [facility] Work Phone: Reason for referral (narrative) Note Date & Type Note Facility Reason for referral (narrative) No reason for referral information available [facility] Work Phone: Summary Purpose Family History No Family History Records FoundNo Family History Records Found Advance Directives Advance Directive Response Recorded Date/ Time Living Will No November 04, 2019 2:10pm Power of Manager Community No November 03 0 2:10pm Advance Directive Response Recorded Date/ Time Living Will No November 04, 2019 1:10pm Power of Manager Community No November 03 0 1:10pm Advance Directive Response Recorded Date/ Time Living Will No February 24, 2024 11:10am Power of Manager Community No February 23 11:10am Chief Complaint and Reason for Visit [...] V58.69/ M35.00- 71 March 05, 2025 8:19am Chief Complaint Admit Date Liver Inflammation December 14, 2024 2:0 1pm M06.4-714.9/ Z79.899- V58.69/ M35.00- 71 March 05, 2025 8:19am STATUS POSTCHOLECYSTECTOMY, INCLUDING SP CANDELARIO March 17, 2025 7:25am Chief Complaint Admit Date Liver Inflammation December 14, 2024 2:0 1pm M06.4-714.9/ Z79.899- V58.69/ M35.00- 71 March 05, 2025 8:19am STATUS POSTCHOLECYSTECTOMY, INCLUDING SP CANDELARIO March 17, 2025 7:25am Test Result April 06, 2025 8:2 8am Reason for Visit Admit Date Elevated liver enzymes December 14, 2024 2:01pm Elevated liver enzymes April 06, 2025 8:28am Chief Complaint Admit Date M06.4-714.9/ Z79.899- V58.69/ M35.00- 71 March 05, 2025 8:19am STATUS POSTCHOLECYSTECTOMY, INCLUDING SP CANDELARIO March 17, 2025 7:25am Test Result April 06, 2025 8:2 8am ORDER SCANNED May 28, 2025 9:15am Reason for Visit Admit Date Elevated liver enzymes April 06, 2025 8:28am Additional Source Comments <item> Privacy Markings (unrecogniz ed section and content) Section Author: Patsy Jenkins PROHIBITION ON REDISCLOSURE OF CONFIDENTIAL INFORMATION This notice accompanies a disclosure of information concerning a client made to you with the consent of such client. INFORMATION SOURCE (unrecogn ized section and content) DATE CREATED AUTHOR 06/27/2021 [facility] DATE CREATED AUTHOR AUTHOR'S ORGANIZ ATION 06/13/2025 [facility] Goals (unrecognized section and content) Goals may [...] March 05, 2025 End: March 05, 2025 Team Status: Inactive Member Role/Relationship Status Dates Dr. Tyrel Tai MD Attending Provider Active Start: March 17, 2025 End: March 17, 2025 Dr. Tyrel Tai MD Referring Provider Active Start: March 17, 2025 End: March 17, 2025 Dr. Stas Whittington MD Primary Care Provider Active Start: March 17, 2025 End: March 17, 2025 Team Status: Inactive Member Role/Relationship Status Dates Dr. Stas Whittington MD Primary Care Provider Active Start: April 06, 2025 End: April 06, 2025 Dr. Stas Whittington MD Referring Provider Active Start: April 06, 2025 End: April 06, 2025 Dr. Tyrel Tai MD Attending Provider Active Start: April 06, 2025 End: April 06, 2025 Team Status: Active Member Role/Relationship Status Dates Dr. Stas Whittington MD Primary care physician Active Team Status: Inactive Member Role/Relationship Status Dates Dr. Stas Whittington MD Primary care physician Active Start: March 05, 2025 End: March 05, 2025 Dr. Elis Zaman MD Attending physician Active Start: March 05, 2025 End: March 05, 2025 Dr. Elis Zaman MD Referring Provider Active Start: March 05, 2025 End: March 05, 2025 Team Status: Inactive Member Role/Relationship Status Dates Dr. Tyrel Tai MD Attending physician Active Start: March 17, 2025 End: March 17, 2025 Dr. Tyrel Tai MD Referring Provider Active Start: March 17, 2025 End: March 17, 2025 Dr. Stas Whittington MD Primary care physician Active Start: March 17, 2025 End: March 17, 2025 Team Status: Inactive Member Role/Relationship Status Dates Dr. Stas Whittington MD Primary care physician Active Start: April 06, 2025 End: April 06, 2025 Dr. Stas Whittington MD Referring Provider Active Start: April 06, 2025 End: April 06, 2025 Dr. Tyrel Tai MD Attending physician Active Start: April 06, 2025 End: April 06, 2025 Team Status: Inactive Member Role/Relationship Status Dates Dr. Stas Whittington MD Primary care physician Active Start: May 28, 2025 End: May 28, 2025 Dr. Elis Zaman MD Attending physician Active Start: May 28, 2025 End: May 28, 2025 Dr. Elis Zaman MD Referring Provider Active Start: May 28, 2025 End: May 28, 2025 FOR RECORDS PERTAINING TO PATIENTS WHO [...] BE BASED ON THE PRIMARY CLINICAL RECORDS. [employer] provides no warranty or guarantee of the accuracy or completeness of information in this document.
[2025-08-02 18:24] LABS: Cholesterol 175 mg/dL (<=200); Low Density Lipoprotein Calc. 90 mg/dL; Triglycerides 106 mg/dL; Very Low Density Lipoprotein 21 mg/dL (5-40); cholesterol:hdl ratio screen 2.64
== END | disposition home or self-care (01) ==
LOC: MTLAB 14:43
PROVIDERS: PCP Family Medicine; Referring Provider Nurse Practitioner Family; Visit Provider Nurse Practitioner Family
DX: Z13.1 Encounter for screening for diabetes mellitus (principal); E03.9 Hypothyroidism, unspecified; Z13.220 Encounter for screening for lipoid disorders
CPT/HCPCS: 36415; 80061; 83036; 84439; 84443

== ENCOUNTER → 2025-08-24 | Outpatient (CLI) | payer OTHER, SELFPAY ==
--- OUTSIDE RECORDS SUMMARY | 2025-08-24 11:46 | XMS RPT_ITS | CCD ---
Author Organization [facility] CliniSyia Care Team Providers Care Substation Operator Helper Name Role Phone Toshia Sousa Unavailable Kandi [...] Dr. Stas Ahumada Primary Care Provider [phone] Nelsy ISRAEL, Dr. Stas Ahumada Attending Provider [...] Nelsy [place]RAEL, Dr. Stas Ahumada Referring Provider Medications Current Medications Medication Drug Class(es) Dates [...] 12:00am Start: 11-04-2019 take 1 tablet by keihnde th once daily Levonorgestrel-Ethinyl Estrad Active 1 [...] Auto (Unsp spec) [#/Vol] 1.36 10*3/uL 0.83-4.51 [facility] Absolute neutrophil countOrd ered By: Elis Zaman on 05-28-2025 Neutrophils (Bld) [#/Vol] 2.4 10*3/uL 2.0-7.7 [facility] Anion gap in Serum or Plasma Ordered By: Elis Zaman on 05-28-2025 Anion gap [Moles/Vol] 11 mmol/L 5- [facility] Automated lymphocyte count a s percentage of total leukocytesOrdered By: Elis Zaman on 05-28-2025 Lymphocytes/100 WBC Auto (Unsp spec) 30.6 % [facility] BUN/creatinine ratioOrdered By: Elischelo Zaman on 05-28-2025 Urea nitrogen/Creatinine [Mass ratio] 23.6 mg/mg High 10- [facility] Bilirubin, totalOrdered By: Elischelo Zaman on 05-28-2025 Bilirubin [Mass/Vol] 0.38 mg/dL 0.00-1.30 [facility] CBC W/Diff, Automatedon 05-03 Absolute Lymph 1.36 X10 3/uL Normal 0.83-4.51 [facility] Comment on above: Performed By: #### L 500.4050, L100.0100 ####[facility] [address] [place], [address] Absolute Neut 2.4 X10 3/uL Normal 2.0-7.7 [facility] Comment on above: Performed By: #### L 500.4050, L100.0100 ####[facility] [address] [place], [address] IG% 0.700 Normal 0.0-0.9 [facility] Comment on above: Result Comment: IG% - Immature Granulocytes (promyelocytes, myelocytes and metamyelocytes) > 1% indicates that a LEFT SHIFT is Present. Performed By: #### L 500.4050, L100.0100 ####[facility] [address] [place], [address] Lymphocytes/100 WBC (Bld) 30.6 % Normal 19-41 [facility] Comment on above: Performed By: #### L 500.4050, L100.0100 ####[facility] [address] [place], [address] Nucleated RBC (Bld) [#/Vol] 0 10*3/uL Normal 0-5 [facility] Comment on above: Performed By: #### L 500.4050, L100.0100 ####[facility] [address] [place], [address] RDW SD 42.1 fl Normal 35.1-43.9 [facility] Comment on above: Performed By: #### L 500.4050, L100.0100 ####[facility] [address] [place], [address] CBC W/Diff, AutomatedOrdered By: Elis Zaman on 05-28-2025 Basophils/100 WBC (Bld) 1.1 % High 0-[address] [facility] Comment on above: Performed By: #### L 500.4050, L100.0100 ####[facility] [address] [place], [address] Eosinophils/100 WBC (Bld) 4.0 % Normal 0-5 [facility] Comment on above: Performed By: #### L 500.4050, L100.0100 ####[facility] [address] [place], [address] Erythrocyte distribution width (RBC) [Ratio] 13.4 % Normal 11.6-14.6 [facility] Comment on above: Performed By: #### L 500.4050, L100.0100 ####[facility] [address] [place], [address] Hematocrit (Bld) [Volume fraction] 37.6 % Normal 37-47 [facility] Comment on above: Performed By: #### L 500.4050, L100.0100 ####[facility] [address] [place], [address] Hemoglobin (Bld) [Mass/Vol] 12.2 g/dL Normal 12.0-15.0 [facility] Comment on above: Performed By: #### L 500.4050, L100.0100 ####[facility] [address] [place], [address] MCH (RBC) [Entitic mass] 27.9 pg Normal 27.0-32.0 [facility] Comment on above: Performed By: #### L 500.4050, L100.0100 ####[facility] [address] [place], [address] MCHC (RBC) [Mass/Vol] 32.4 g/dL Normal 32-36 [facility] Comment on above: Performed By: #### L 500.4050, L100.0100 ####[facility] [address] [place], [address] MCV (RBC) [Entitic vol] 86.0 fL Normal 81-99 [facility] Comment on above: Performed By: #### L 500.4050, L100.0100 ####[facility] [address] [place], [address] Monocytes/100 WBC (Bld) 10.6 % High 0-[address] [facility] Comment on above: Performed By: #### L 500.4050, L100.0100 ####[facility] [address] [place], [address] Neutrophils/100 WBC (Bld) 53.0 % Normal 47-70 [facility] Comment on above: Performed By: #### L 500.4050, L100.0100 ####[facility] [address] [place], [address] Platelet mean volume (Bld) [Entitic vol] 10.9 fL Normal 6.2-12.0 [facility] Comment on above: Performed By: #### L 500.4050, L100.0100 ####[facility] [address] [place], [address] Platelets (Bld) [#/Vol] 224 10*3/uL Normal 150-450 [facility] Comment on above: Performed By: #### L 500.4050, L100.0100 ####[facility] [address] [place], [address] RBC (Bld) [#/Vol] 4.37 10*6/uL Normal 4.2-5.4 [facility] Comment on above: Performed By: #### L 500.4050, L100.0100 ####[facility] [address] [place], [address] WBC (Bld) [#/Vol] 4.5 10*3/uL Normal 4.4-11.0 [facility] Comment on above: Performed By: #### L 500.4050, L100.0100 ####[facility] [address] [place], [address] Carbon dioxide, total [Moles /volume] in Central venous bloodOrdered By: Elis Zaman on 05-28-2025 CO2 [Moles/Vol] 22.0 mmol/L 21.0-32.0 [facility] Chloride assayOrdered By: Jeremie Zaman on 05-28-2025 Chloride [Moles/Vol] 109 mmol/L High 98-108 [facility] Comprehensive Metabolic Prof ilon 05-28-2025 Albumin [Mass/Vol] 4.0 g/dL Normal 3.5-5.0 [facility] Comment on above: Order Comment: PT ON LY WANTED VELLANKIS ORDERS Performed By: #### L 500.4050, L100.0100 ####[facility] [address] [place], [address] Albumin/Globulin [Mass ratio] 1.8 {ratio} Normal 0.9-2.4 [facility] Comment on above: Order Comment: PT ON LY WANTED VELLANKIS ORDERS Performed By: #### L 500.4050, L100.0100 ####[facility] [address] [place], [address] ALK PHOS 101 U/L Normal 35-104 [facility] Comment on above: Order Comment: PT ON LY WANTED VELLANKIS ORDERS Performed By: #### L 500.4050, L100.0100 ####[facility] [address] [place], [address] ALT [Catalytic activity/Vol] 20 U/L Normal <=34 [facility] Comment on above: Order Comment: PT ON LY WANTED VELLANKIS ORDERS Performed By: #### L 500.4050, L100.0100 ####[facility] [address] [place], [address] AST [Catalytic activity/Vol] 25 U/L Normal <=31 [facility] Comment on above: Order Comment: PT ON LY WANTED VELLANKIS ORDERS Performed By: #### L 500.4050, L100.0100 ####[facility] [address] [place], [address] Bilirubin [Mass/Vol] 0.38 mg/dL Normal 0.00-1.30 [facility] Comment on above: Order Comment: PT ON LY WANTED VELLANKIS ORDERS Performed By: #### L 500.4050, L100.0100 ####[facility] [address] [place], [address] BUN/CRE 23.6 RATIO High 10-20 [facility] Comment on above: Order Comment: PT ON LY WANTED VELLANKIS ORDERS Performed By: #### L 500.4050, L100.0100 ####[facility] [address] [place], [address] Calcium [Mass/Vol] 8.8 mg/dL Normal 7.6-11.0 [facility] Comment on above: Order Comment: PT ON LY WANTED VELLANKIS ORDERS Performed By: #### L 500.4050, L100.0100 ####[facility] [address] [place], [address] Chloride [Moles/Vol] 109 mmol/L High 98-108 [facility] Comment on above: Order Comment: PT ON LY WANTED VELLANKIS ORDERS Performed By: #### L 500.4050, L100.0100 ####[facility] [address] [place], [address] CO2 [Moles/Vol] 22.0 mmol/L Normal 21.0-32.0 [facility] Comment on above: Order Comment: PT ON LY WANTED VELLANKIS ORDERS Performed By: #### L 500.4050, L100.0100 ####[facility] [address] [place], [address] Creatinine [Mass/Vol] 0.62 mg/dL Low 0.70-1.20 [facility] Comment on above: Order Comment: PT ON LY WANTED VELLANKIS ORDERS Performed By: #### L 500.4050, L100.0100 ####[facility] [address] [place], [address] GAP 11 Normal 5-15 [facility] Comment on above: Order Comment: PT ON LY WANTED VELLANKIS ORDERS Performed By: #### L 500.4050, L100.0100 ####[facility] [address] [place], [address] GFR/1.73 sq M.predicted among non-blacks MDRD (S/P/Bld) [Vol rate/Area] 104 mL/min/{1.73_m2} Normal >60 [facility] Comment on above: Order Comment: PT ON LY WANTED VELLANKIS ORDERS Result Comment: mL/m in/1.73m2 CKD-EPI Creatinine Equation (2020) Performed By: #### L 500.4050, L100.0100 ####[facility] [address] [place], [address] Globulin (S) [Mass/Vol] 2.3 g/dL Normal 2.2-4.2 [facility] Comment on above: Order Comment: PT ON LY WANTED VELLANKIS ORDERS Performed By: #### L 500.4050, L100.0100 ####[facility] [address] [place], [address] Glucose [Mass/Vol] 87 mg/dL Normal 70-99 [facility] Comment on above: Order Comment: PT ON LY WANTED VELLANKIS ORDERS Performed By: #### L 500.4050, L100.0100 ####[facility] [address] [place], [address] Potassium [Moles/Vol] 3.9 mmol/L Normal 3.3-5.1 [facility] Comment on above: Order Comment: PT ON LY WANTED VELLANKIS ORDERS Result Comment: Hemo lysis present, Results??could be affected. ?? Performed By: #### L 500.4050, L100.0100 ####[facility] [address] [place], [address] Sodium [Moles/Vol] 141 mmol/L Normal 133-145 [facility] Comment on above: Order Comment: PT ON LY WANTED VELLANKIS ORDERS Performed By: #### L 500.4050, L100.0100 ####[facility] [address] [place], [address] T PROT 6.3 g/dL Normal 5.9-8.4 [facility] Comment on above: Order Comment: PT ON LY WANTED VELLANKIS ORDERS Performed By: #### L 500.4050, L100.0100 ####[facility] [address] [place], [address] Urea nitrogen [Mass/Vol] 15 mg/dL Normal 4-19 [facility] Comment on above: Order Comment: PT ON LY WANTED VELLANKIS ORDERS Performed By: #### L 500.4050, L100.0100 ####[facility] [address] [place], [address] Erythrocyte distribution wid th standard deviationOrdered By: Elis Zaman on 05-28-2025 Erythrocyte distribution width (RBC) [Ratio] 42.1 fl 35.1-43.9 [facility] Glomerular filtration rate ( GFR) estimation/1.73 sq m using serum, plasma, or whole bOrdered By: Elis Zaman on 05-28-2025 GFR/1.73 sq M.predicted among non-blacks MDRD (S/P/Bld) [Vol rate/Area] 104 mL/min/{1.73_m2} >60 [facility] Comment on above: mL/min/1.73m2 CKD-EP I Creatinine Equation (2020) Immature granulocytes/100 WB C Auto (Bld)Ordered By: Elis Zaman on 05-28-2025 Immature granulocytes/100 WBC (Bld) 0.700 % 0.0-0.9 [facility] Comment on above: IG% - Immature Granu locytes (promyelocytes, myelocytes and metamyelocytes) > 1% indicates that a LEFT SHIFT is Present. Laboratory - Chemistry and C hemistry - challengeOrdered By: Elis Zaman on 05-28-2025 AST [Catalytic activity/Vol] 25 U/L <32 [facility] Nucleated red blood cell per centageOrdered By: Elis Zaman on 05-28-2025 Nucleated RBC/100 WBC (Bld) [Ratio] 0 % 0-5 [facility] Potassium measurement (mass/ volume)Ordered By: Elis Zaman on 05-28-2025 Potassium (Unsp spec) [Mass/Vol] 3.9 mmol/L 3.3-5.1 [facility] Comment on above: Hemolysis present, R esults could be affected. Serum creatinine measurement (mass/volume)Ordered By: Eils Zaman on 05-28-2025 Creatinine [Mass/Vol] 0.62 mg/dL Low 0.70-1.20 [facility] Serum globulin measurementOr dered By: Elis Zaman on 05-28-2025 Globulin (S) [Mass/Vol] 2.3 g/dL 2.2-4.[address] [facility] Serum glucose measurement (m ass/volume)Ordered By: Elis Zaman on 05-28-2025 Glucose [Mass/Vol] 87 mg/dL 70-99 [facility] Serum or plasma alanine ortiz otransferase (ALT) measurementOrdered By: Elis Zaman on 05-28-2025 ALT [Catalytic activity/Vol] 20 U/L <35 [facility] Serum or plasma albumin maegan urement (mass/volume)Ordered By: Elis Zaman on 05-28-2025 Albumin [Mass/Vol] 4.0 g/dL 3.5-5.0 [facility] Serum or plasma albumin/glob ulin mass ratioOrdered By: Elis Zaman on 05-28-2025 Albumin/Globulin [Mass ratio] 1.8 {ratio} 0.9-2.4 [facility] Serum or plasma alkaline yayo sphatase measurementOrdered By: Elis Zaman on 05-28-2025 ALP [Catalytic activity/Vol] 101 U/L 35-104 [facility] Serum or plasma calcium maegan urement (mass/volume)Ordered By: Elis Zaman on 05-28-2025 Calcium [Mass/Vol] 8.8 mg/dL 7.6-11.0 [facility] Serum or plasma urea nitroge n measurement (mass/volume)Ordered By: Elis Zaman on 05-28-2025 Urea nitrogen [Mass/Vol] 15 mg/dL 4-19 [facility] Sodium levelOrdered By: Gino Zaman on 05-28-2025 Sodium [Moles/Vol] 141 mmol/L 133-145 [facility] Total proteinOrdered By: Jeni chelo Junie on 05-28-2025 Protein [Mass/Vol] 6.3 g/dL 5.9-8.4 [facility] Gastroenterology Visit Repor ton 04-06-2025 Gastroenterology Visit Report [facility] [address] [place] [address] OFFICE VISIT Date of Service: 04/06/25 MR#: [id number] Acct: [id number] Name: RADHA CHASE Rep #: [id number] : 1970 Provider: Dr. Tyrel schaffer MD Age/Sex: 54/F [place] [facility] [place]: Signed Intake Vital Signs 12/14/24 14:06 [...] PO QDAY 12/14/24 04/06/25 H istory ([place]) [facility] Medical History Wears glasses Heartburn Gastric reflux [...] cholecystectomy with liver biopsy March 2024 at [facility] that showed liver parenchymal tissue with minimal portal chronic inflammation. 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 [...] currently taki (more content not included)... Normal [facility] ABD Limited w/ Elastographyo n 03-17-2025 ABD Limited w/ Elastography [facility] [address] [place] [address] [id number] ABD Limited w/ Elastography MR#: [id number] Acct: [id number] Name: RADHA CHASE Rep #: [id number] : 1970 F 54 From: Rodriguez ozuna MD PCP: Dr. Stas Whittington MD Status: [facility] Study: ABD Limited w/ Elastography Date of Exam: 03/01 03/25 Exam# [id number] Ordering Dr: Tyrel Tai MD PROCEDURE: ABD LIMITED W/ ELASTOGRAPHY REASON FOR EXAM: ELEVATED ALKALINE PHOSPHATASE. COMPARISON: None. TECHNIQUE: Right upper quadrant abdominal ultrasound. [employer] ElastQ Imaging shear wave elastography for non- invasive assessment of liver tissue stiffness. [employer] EPIQ Elite. FINDINGS: LIVER: Size: Unremarkable Length: [...] measurement may be in question. Reading Location: [place] [address] CC: Dr. Stas Whittington MD; Dr. Tyrel Tai MD Tower Foreman: Signed Normal [facility] Absolute lymphocyte countOrd ered By: Elis Zaman on 03-05-2025 Lymphocytes Auto (Unsp spec) [#/Vol] 1.40 10*3/uL 0.83-4.51 [facility] Absolute neutrophil countOrd ered By: Eils Zaman on 03-05-2025 Neutrophils (Bld) [#/Vol] 2.6 10*3/uL 2.0-7.7 [facility] Anion gap in Serum or Plasma Ordered By: Elis Zaman on 03-05-2025 Anion gap [Moles/Vol] 10 mmol/L 5-15 [facility] Automated lymphocyte count a s percentage of total leukocytesOrdered By: Elis Zaman on 03-05-2025 Lymphocytes/100 WBC Auto (Unsp spec) 29.2 % 19-41 [facility] BUN/creatinine ratioOrdered By: Elis Zaman on 03-05-2025 Urea nitrogen/Creatinine [Mass ratio] 28.0 mg/mg High 10-20 [facility] Basophil percentageOrdered B y: Elis Zaman on 03-05-2025 Basophils/100 WBC (Bld) 1.5 % High 0-[address] [facility] Bilirubin, totalOrdered By: Elis Zaman on 03-05-2025 Bilirubin [Mass/Vol] 0.46 mg/dL 0.00-1.30 [facility] CBC W/Diff, Automatedon 07-0 Absolute Lymph 1.40 X10 3/uL Normal 0.83-4.51 [facility] Comment on above: Performed By: #### L 500.4050, L100.0100 ####[facility] [address] [place], [address] Absolute Neut 2.6 X10 3/uL Normal 2.0-7.7 [facility] Comment on above: Performed By: #### L 500.4050, L100.0100 ####[facility] [address] [place], [address] Basophils/100 WBC (Bld) 1.5 % High 0-[address] [facility] Comment on above: Performed By: #### L 500.4050, L100.0100 ####[facility] [address] [place], [address] Eosinophils/100 WBC (Bld) 3.3 % Normal 0-5 [facility] Comment on above: Performed By: #### L 500.4050, L100.0100 ####[facility] [address] [place], [address] Erythrocyte distribution width (RBC) [Ratio] 13.5 % Normal 11.6-14.6 [facility] Comment on above: Performed By: #### L 500.4050, L100.0100 ####[facility] [address] [place], [address] Hematocrit (Bld) [Volume fraction] 38.2 % Normal 37-47 [facility] Comment on above: Performed By: #### L 500.4050, L100.0100 ####[facility] [address] [place], [address] Hemoglobin (Bld) [Mass/Vol] 12.5 g/dL Normal 12.0-15.0 [facility] Comment on above: Performed By: #### L 500.4050, L100.0100 ####[facility] [address] [place], [address] IG% 0.600 Normal 0.0-0.9 [facility] Comment on above: Result Comment: IG% - Immature Granulocytes (promyelocytes, myelocytes and metamyelocytes) > 1% indicates that a LEFT SHIFT is Present. Performed By: #### L 500.4050, L100.0100 ####[facility] [address] [place], [address] Lymphocytes/100 WBC (Bld) 29.2 % Normal 19-41 [facility] Comment on above: Performed By: #### L 500.4050, L100.0100 ####[facility] [address] [place], [address] MCH (RBC) [Entitic mass] 28.2 pg Normal 27.0-32.0 [facility] Comment on above: Performed By: #### L 500.4050, L100.0100 ####[facility] [address] [place], [address] MCHC (RBC) [Mass/Vol] 32.7 g/dL Normal 32-36 [facility] Comment on above: Performed By: #### L 500.4050, L100.0100 ####[facility] [address] [place], [address] MCV (RBC) [Entitic vol] 86.2 fL Normal 81-99 [facility] Comment on above: Performed By: #### L 500.4050, L100.0100 ####[facility] [address] [place], [address] Monocytes/100 WBC (Bld) 12.1 % High 0-[address] [facility] Comment on above: Performed By: #### L 500.4050, L100.0100 ####[facility] [address] [place], [address] Neutrophils/100 WBC (Bld) 53.3 % Normal 47-70 [facility] Comment on above: Performed By: #### L 500.4050, L100.0100 ####[facility] [address] [place], [address] Nucleated RBC (Bld) [#/Vol] 0 10*3/uL Normal 0-5 [facility] Comment on above: Performed By: #### L 500.4050, L100.0100 ####[facility] [address] [place], [address] Platelet mean volume (Bld) [Entitic vol] 10.9 fL Normal 6.2-12.0 [facility] Comment on above: Performed By: #### L 500.4050, L100.0100 ####[facility] [address] [place], [address] Platelets (Bld) [#/Vol] 241 10*3/uL Normal 150-450 [facility] Comment on above: Performed By: #### L 500.4050, L100.0100 ####[facility] [address] [place], [address] RBC (Bld) [#/Vol] 4.43 10*6/uL Normal 4.2-5.4 [facility] Comment on above: Performed By: #### L 500.4050, L100.0100 ####[facility] [address] [place], [address] RDW SD 42.2 fl Normal 35.1-43.9 [facility] Comment on above: Performed By: #### L 500.4050, L100.0100 ####[facility] [facility] [address] [place], [address] WBC (Bld) [#/Vol] 4.8 10*3/uL Normal 4.4-11.0 [facility] Comment on above: Performed By: #### L 500.4050, L100.0100 ####[facility] [address] [place], [address] Calculated very low density lipoprotein (VLDL) cholesterol measurementOrdered By: Stas Whittington on 03-05-2025 Calculated very low density lipoprotein (VLDL) cholesterol measurement 16 mg/dL 5-40 [facility] Carbon dioxide, total [Moles /volume] in Central venous bloodOrdered By: Elis Zaman on 03-05-2025 CO2 [Moles/Vol] 25.6 mmol/L 21.0-32.0 [facility] Chloride assayOrdered By: Jeremie Zaman on 03-05-2025 Chloride [Moles/Vol] 106 mmol/L 98-108 [facility] Metabolic Prof ilon 03-05-2025 Albumin [Mass/Vol] 4.2 g/dL Normal 3.5-5.0 [facility] Comment on above: Performed By: #### L 500.4050, L100.0100 ####[facility] [address] [place], [address] Albumin/Globulin [Mass ratio] 1.7 {ratio} Normal 0.9-2.4 [facility] Comment on above: Performed By: #### L 500.4050, L100.0100 ####[facility] [address] [place], [address] ALK PHOS 120 U/L High 35-104 [facility] Comment on above: Performed By: #### L 500.4050, L100.0100 ####[facility] [address] [place], [address] ALT [Catalytic activity/Vol] 36 U/L High <=34 [facility] Comment on above: Performed By: #### L 500.4050, L100.0100 ####[facility] [address] [place], [address] AST [Catalytic activity/Vol] 34 U/L High <=31 [facility] Comment on above: Result Comment: Hemo lysis present, Results??could be affected. ?? Performed By: #### L 500.4050, L100.0100 ####[facility] [address] [place], [address] Bilirubin [Mass/Vol] 0.46 mg/dL Normal 0.00-1.30 [facility] Comment on above: Performed By: #### L 500.4050, L100.0100 ####[facility] [address] [place], [address] BUN/CRE 28.0 RATIO High 10-20 [facility] Comment on above: Performed By: #### L 500.4050, L100.0100 ####[facility] [address] [place], [address] Calcium [Mass/Vol] 9.3 mg/dL Normal 7.6-11.0 [facility] Comment on above: Performed By: #### L 500.4050, L100.0100 ####[facility] [address] [place], [address] Chloride [Moles/Vol] 106 mmol/L Normal 98-108 [facility] Comment on above: Performed By: #### L 500.4050, L100.0100 ####[facility] [address] [place], [address] CO2 [Moles/Vol] 25.6 mmol/L Normal 21.0-32.0 [facility] Comment on above: Performed By: #### L 500.4050, L100.0100 ####[facility] [address] [place], [address] GAP 10 Normal 5-15 [facility] Comment on above: Performed By: #### L 500.4050, L100.0100 ####[facility] [address] [place], [address] GFR/1.73 sq M.predicted among non-blacks MDRD (S/P/Bld) [Vol rate/Area] 106 mL/min/{1.73_m2} Normal >60 [facility] Comment on above: Result Comment: mL/m in/1.73m2 CKD-EPI Creatinine Equation (2020) Performed By: #### L 500.4050, L100.0100 ####[facility] [address] [place], [address] Globulin (S) [Mass/Vol] 2.5 g/dL Normal 2.2-4.2 [facility] Comment on above: Performed By: #### L 500.4050, L100.0100 ####[facility] [address] [place], [address] Potassium [Moles/Vol] 3.9 mmol/L Normal 3.3-5.1 [facility] Comment on above: Result Comment: Hemo lysis present, Results??could be affected. ?? Performed By: #### L 500.4050, L100.0100 ####[facility] [address] [place], [address] Sodium [Moles/Vol] 142 mmol/L Normal 133-145 [facility] Comment on above: Performed By: #### L 500.4050, L100.0100 ####[facility] [address] [place], [address] T PROT 6.7 g/dL Normal 5.9-8.4 [facility] Comment on above: Performed By: #### L 500.4050, L100.0100 ####[facility] [address] [place], [address] Creatinine [Mass/Vol] 0.61 mg/dL Low 0.70-1.20 [facility] Comment on above: Performed By: #### L 500.4050, L100.0100 ####[facility] [address] [place], [address] Glucose [Mass/Vol] 83 mg/dL Normal 70-99 [facility] Comment on above: Performed By: #### L 500.4050, L100.0100 ####[facility] [address] [place], [address] Urea nitrogen [Mass/Vol] 17 mg/dL Normal 4-19 [facility] Comment on above: Performed By: #### L 500.4050, L100.0100 ####[facility] [address] [place], [address] Eosinophil percentageOrdered By: Elis Zaman on 03-05-2025 Eosinophils/100 WBC (Bld) 3.3 % 0-5 [facility] Erythrocyte distribution wid th ratioOrdered By: Elis Zaman on 03-05-2025 Erythrocyte distribution width (RBC) [Ratio] 13.5 % 11.6-14.6 [facility] Erythrocyte distribution wid th standard deviationOrdered By: Elis Zaman on 03-05-2025 Erythrocyte distribution width (RBC) [Ratio] 42.2 fl 35.1-43.9 [facility] Glomerular filtration rate ( GFR) estimation/1.73 sq m using serum, plasma, or whole bOrdered By: Elis Zaman on 03-05-2025 GFR/1.73 sq M.predicted among non-blacks MDRD (S/P/Bld) [Vol rate/Area] 106 mL/min/{1.73_m2} >60 [facility] Comment on above: mL/min/1.73m2 CKD-EP I Creatinine Equation (2020) Hematocrit Auto (Bld) [Volum e fraction]Ordered By: Elis Zaman on 03-05-2025 Hematocrit (Bld) [Volume fraction] 38.2 % 37-47 [facility] Hemoglobin measurementOrdere d By: Elis Zaman on 03-05-2025 Hemoglobin (Bld) [Mass/Vol] 12.5 g/dL 12.0-15.0 [facility] Immature granulocytes/100 WB C Auto (Bld)Ordered By: Elis Zaman on 03-05-2025 Immature granulocytes/100 WBC (Bld) 0.600 % 0.0-0.9 [facility] Comment on above: IG% - Immature Granu locytes (promyelocytes, myelocytes and metamyelocytes) > 1% indicates that a LEFT SHIFT is Present. LDL calc ser/plasOrdered By: Stas Whittington on 03-05-2025 Cholesterol in LDL [Mass/Vol] 88 mg/dL [facility] Comment on above: Bnzplueang=367-531 m g/dL & Higher Xpnm=015 mg/dL or greater Laboratory - Chemistry and C hemistry - challengeOrdered By: Elis Zaman on 03-05-2025 AST [Catalytic activity/Vol] 34 U/L High <32 [facility] Comment on above: Hemolysis present, R esults could be affected. Lipid Profileon 03-05-2025 CHOL:HDL 2.56 Normal [facility] Comment on above: Order Comment: PT DO ES NOT WANT TO DO CHANDS BW AT THIS TIME-SWRIGHTOrder Date: 01/05/25Order Info: [id number] - LIPIDOrder Info: - MG Performed By: #### L 500.4100, L501.5200 ####[facility] [address] [place], [address] Cholesterol [Mass/Vol] 172 mg/dL Normal <=200 [facility] Comment on above: Order Comment: PT DO ES NOT WANT TO DO CHANDS BW AT THIS TIME-SWRIGHTOrder Date: 01/05/25Order Info: [id number] - LIPIDOrder Info: [id number] - MG Result Comment: Chol esterol level, Desirable <200 mg/dL Borderline high cholesterol 200-239 mg/dL High cholesterol >=240 mg/dL Recommendations of the NCEP Adult Treatment Panel for the following risk-cutoff thresholds for the [place] population. Performed By: #### L 500.4100, L501.5200 ####[facility] [address] [place], [address] Cholesterol in HDL [Mass/Vol] 67 mg/dL Normal [facility] Comment on above: Order Comment: PT DO ES NOT WANT TO DO CHANDS BW AT THIS TIME-SWRIGHTOrder Date: 01/05/25Order Info: [id number] - LIPIDOrder Info: [id number] - MG Result Comment: Rosa Isela onal Cholesterol Education Program (NCEP) guidelines: <40 mg/dL: Low HDL-cholesterol (major risk factor for CHD) >= 60 mg/dL: High HDL-cholesterol (negative risk factor for CHD) HDL-cholesterol is affected by a number of factors, e.g. smoking, exercise, hormones, sex and age. Performed By: #### L 500.4100, L501.5200 ####[facility] [address] [place], [address] Cholesterol in LDL [Mass/Vol] 88 mg/dL Normal [facility] Comment on above: Order Comment: PT DO ES NOT WANT TO DO CHANDS BW AT THIS TIME-SWRIGHTOrder Date: 01/05/25Order Info: [id number] - LIPIDOrder Info: [id number] - MG Result Comment: Bord qxwkde=617-638 mg/dL Higher Wzci=399 mg/dL or greater Performed By: #### L 500.4100, L501.5200 ####[facility] [address] [place], [address] Cholesterol in VLDL [Mass/Vol] 16 mg/dL Normal 5-40 [facility] Comment on above: Order Comment: PT DO ES NOT WANT TO DO CHANDS BW AT THIS TIME-SWRIGHTOrder Date: 01/05/25Order Info: [id number] - LIPIDOrder Info: - MG Performed By: #### L 500.4100, L501.5200 ####[facility] [address] [place], [address] Triglyceride [Mass/Vol] 81 mg/dL Normal [facility] Comment on above: Order Comment: PT DO ES NOT WANT TO DO CHANDS BW AT THIS TIME-SWRIGHTOrder Date: 01/05/25Order Info: [id number] - LIPIDOrder Info: - MG Result Comment: The drugs N-Acetylcysteine and Metamizole may falsely depress this assay. Normal range: <150 mg/dL Borderline High: 150-199 mg/dL High: 200-499 mg/dL Very High: >500 mg/dL Performed By: #### L 500.4100, L501.5200 ####[facility] [address] [place], [place], [address] MCV (mean corpuscular volume ) determinationOrdered By: Elis Zaman on 03-05-2025 MCV (RBC) [Entitic vol] 86.2 fL 81-[address] [facility] Magnesiumon 03-05-2025 Magnesium [Mass/Vol] 2.1 mg/dL Normal 1.5-2.2 [facility] Comment on above: Order Comment: PT DO ES NOT WANT TO DO CHANDS BW AT THIS TIME-SWRIGHTOrder Date: 01/05/25Order Info: [id number] - LIPIDOrder Info: - MG Performed By: #### L 500.4100, L501.5200 ####[facility] [address] [place], [place], [address] Magnesium measurement (mass/ volume)Ordered By: Stas Whittington on 03-05-2025 Magnesium (Unsp spec) [Mass/Vol] 2.1 mg/dL 1.5-2.2 [facility] Mean corpuscular hemoglobin (MCH) determinationOrdered By: Elis Zaman on 03-05-2025 MCH (RBC) [Entitic mass] 28.2 pg 27.0-32.0 [facility] Mean corpuscular hemoglobin concentration (MCHC) determinationOrdered By: Elis Zaman on 03-05-2025 MCHC (RBC) [Mass/Vol] 32.7 g/dL 32-36 [facility] Mean platelet volume determi nationOrdered By: Elis Zaman on 03-05-2025 Platelet mean volume (Bld) [Entitic vol] 10.9 fL 6.2-12.0 [facility] Monocyte percentageOrdered B y: Elis Zaman on 03-05-2025 Monocytes/100 WBC (Bld) 12.1 % High 0-[address] [facility] Neutrophil percentageOrdered By: Elis Zaman on 03-05-2025 Neutrophils/100 WBC (Bld) 53.3 % 47-70 [facility] Nucleated red blood cell per centageOrdered By: Elis Zaman on 03-05-2025 Nucleated RBC/100 WBC (Bld) [Ratio] 0 % 0-5 [facility] Platelet countOrdered By: Jeremie Zaman on 03-05-2025 Platelets (Bld) [#/Vol] 241 10*3/uL 150-450 [facility] Potassium measurement (mass/ volume)Ordered By: Elis Zaman on 03-05-2025 Potassium (Unsp spec) [Mass/Vol] 3.9 mmol/L 3.3-5.1 [facility] Comment on above: Hemolysis present, R esults could be affected. RBC Auto (Bld) [#/Vol]Ordere d By: Elis Zaman on 03-05-2025 RBC (Bld) [#/Vol] 4.43 10*6/uL 4.2-5.4 [facility] Screening total cholesterol/ high density lipoprotein (HDL) cholesterol ratioOrdered By: Stas Whittington on 03-05-2025 Cholesterol.total/Lianne sterol in HDL [Mass ratio] 2.56 {ratio} [facility] Serum creatinine measurement (mass/volume)Ordered By: Elis Zaman on 03-05-2025 Creatinine [Mass/Vol] 0.61 mg/dL Low 0.70-1.20 [facility] Serum globulin measurementOr dered By: Elis Zaman on 03-05-2025 Globulin (S) [Mass/Vol] 2.5 g/dL 2.2-4.[address] [facility] Serum glucose measurement (m ass/volume)Ordered By: Elis Zaman on 03-05-2025 Glucose [Mass/Vol] 83 mg/dL 70-99 [facility] Serum or plasma alanine ortiz otransferase (ALT) measurementOrdered By: Elis Zaman on 03-05-2025 ALT [Catalytic activity/Vol] 36 U/L High <35 [facility] Serum or plasma albumin maegan urement (mass/volume)Ordered By: Elis Zaman on 03-05-2025 Albumin [Mass/Vol] 4.2 g/dL 3.5-5.0 [facility] Serum or plasma albumin/glob ulin mass ratioOrdered By: [facility] Junie on 03-05-2025 Albumin/Globulin [Mass ratio] 1.7 {ratio} 0.9-2.4 [facility] Serum or plasma alkaline yayo sphatase measurementOrdered By: Elis Zaman on 03-05-2025 ALP [Catalytic activity/Vol] 120 U/L High 35-104 [facility] Serum or plasma calcium maegan urement (mass/volume)Ordered By: Elis Zaman on 03-05-2025 Calcium [Mass/Vol] 9.3 mg/dL 7.6-11.0 [facility] Serum or plasma cholesterol in HDL measurement (mass/volume)Ordered By: Stas Whittington on 03-05-2025 Cholesterol in HDL [Mass/Vol] 67 mg/dL >40 [facility] Comment on above: National Cholesterol Education Program (NCEP) guidelines:<40 mg/dL: Low HDL-cholesterol (major risk factor for CHD)>= 60 mg/dL: High HDL-cholesterol (negative risk factor for CHD)HDL-cholesterol is affected by a number of factors, e.g. smoking, exercise, hormones, sex and age. Serum or plasma cholesterol measurement (mass/volume)Ordered By: Stas Whittington on 03-05-2025 Cholesterol [Mass/Vol] 172 mg/dL <201 [facility] Comment on above: Cholesterol level, D esirable <200 mg/dLBorderline high cholesterol 200-239 mg/dLHigh cholesterol >=240 mg/dLRecommendations of the NCEP Adult Treatment Panel for the following risk-cutoff thresholds for the [place] population. Serum or plasma urea nitroge n measurement (mass/volume)Ordered By: Elis Zaman on 03-05-2025 Urea nitrogen [Mass/Vol] 17 mg/dL 4-19 [facility] Sodium levelOrdered By: Gino Zaman on 03-05-2025 Sodium [Moles/Vol] 142 mmol/L 133-145 [facility] Total proteinOrdered By: Jeni Zaman on 03-05-2025 Protein [Mass/Vol] 6.7 g/dL 5.9-8.4 [facility] Triglycerides measurementOrd ered By: Stas Whittington on 03-05-2025 Triglyceride [Mass/Vol] 81 mg/dL <[address] [facility] Comment on above: The drugs N-Acetylcy steine and Metamizole may falsely depress this assay. Normal range: <150 mg/dLBorderline High: 150-199 mg/dLHigh: 200-499 mg/dLVery High: >500 mg/dL White blood cell (WBC) count Ordered By: Elis Zaman on 03-05-2025 WBC (Bld) [#/Vol] 4.8 10*3/uL 4.4-11.0 [facility] Lyme Screen W/Reflex WBon LYME SCREEN Ab Negative Normal Negative [facility] Comment on above: Order [...] to 14 days is recommended. Performed at: [facility] [address] [id number] Train Attendant: Scott Dudley PhD, Phone: [phone] Performed By: #### L 509.1000, L3200.3610, L506.0400, L501.6620, L500.5860 ####[facility] [address] [place], [address] Anion gap in Serum or Plasma Ordered By: Stas Whittington on 01-05-2025 Anion gap [Moles/Vol] 11 mmol/L 5-15 [facility] BUN/creatinine ratioOrdered By: Stas Whittington on 01-05-2025 Urea nitrogen/Creatinine [Mass ratio] 20.2 mg/mg High 10-20 [facility] Bilirubin, totalOrdered By: Stas Whittington on 01-05-2025 Bilirubin [Mass/Vol] 0.40 mg/dL 0.00-1.30 [facility] Carbon dioxide, total [Moles /volume] in Central venous bloodOrdered By: Stas Whittington on 01-05-2025 CO2 [Moles/Vol] 26.1 mmol/L 21.0-32.0 [facility] Chloride assayOrdered By: Janel Whittington on 01-05-2025 Chloride [Moles/Vol] 104 mmol/L 98-108 [facility] Comprehensive Metabolic Prof ilon 01-05-2025 Albumin [Mass/Vol] 4.4 g/dL Normal 3.5-5.0 [facility] Comment on above: Order Comment: Order Date: 01/05/25Order Info: [id number] - CMPOrder Info: [id number] - TSHOrder Info: [id number] - T4F Performed By: #### L 509.1000, L7000.5300, L506.0400, L501.9520, L500.4050 ####[facility] [address] [place], [place], [id number] Albumin/Globulin [Mass ratio] 1.6 {ratio} Normal 0.9-2.4 [facility] Comment on above: Order Comment: Order Date: 01/05/25Order Info: [id number] - CMPOrder Info: [id number] - TSHOrder Info: [id number] - T4F Performed By: #### L 509.1000, L7000.5300, L506.0400, L501.9520, L500.4050 ####[facility] [address] [place], [place], [address] ALK PHOS 125 U/L High 35-104 [facility] Comment on above: Order Comment: Order Date: 01/05/25Order Info: [id number] - CMPOrder Info: [id number] - TSHOrder Info: 7 - T4F Performed By: #### L 509.1000, L7000.5300, L506.0400, L501.9520, L500.4050 ####[facility] [address] [place], [address] ALT [Catalytic activity/Vol] 24 U/L Normal <=34 [facility] Comment on above: Order Comment: Order Date: 01/05/25Order Info: [id number] - CMPOrder Info: [id number] - TSHOrder Info: [id number] - T4F Performed By: #### L 509.1000, L7000.5300, L506.0400, L501.9520, L500.4050 ####[facility] [address] [place], [place], [address] AST [Catalytic activity/Vol] 27 U/L Normal <=31 [facility] Comment on above: Order Comment: Order Date: 01/05/25Order Info: [id number] - CMPOrder Info: [id number] - TSHOrder Info: [id number] - T4F Performed By: #### L 509.1000, L7000.5300, L506.0400, L501.9520, L500.4050 ####[facility] [address] [place], [address] Bilirubin [Mass/Vol] 0.40 mg/dL Normal 0.00-1.30 [facility] Comment on above: Order Comment: Order Date: 01/05/25Order Info: [id number] - CMPOrder Info: [id number] - TSHOrder Info: [id number] - T4F Performed By: #### L 509.1000, L7000.5300, L506.0400, L501.9520, L500.4050 ####[facility] [address] [place], [address] BUN/CRE 20.2 RATIO High 10-20 [facility] Comment on above: Order Comment: Order Date: 01/05/25Order Info: [id number] - CMPOrder Info: [id number] - TSHOrder Info: [id number] - T4F Performed By: #### L 509.1000, L7000.5300, L506.0400, L501.9520, L500.4050 ####[facility] [address] [place], [address] Calcium [Mass/Vol] 9.3 mg/dL Normal 7.6-11.0 [facility] Comment on above: Order Comment: Order Date: 01/05/25Order Info: [id number]- - CMPOrder Info: [id number] - TSHOrder Info: 7 - T4F Performed By: #### L 509.1000, L7000.5300, L506.0400, L501.9520, L500.4050 ####[facility] [address] [place], [address] Chloride [Moles/Vol] 104 mmol/L Normal 98-108 [facility] Comment on above: Order Comment: Order Date: 01/05/25Order Info: 07-1 - CMPOrder Info: [id number] - TSHOrder Info: 7 - T4F Performed By: #### L 509.1000, L7000.5300, L506.0400, L501.9520, L500.4050 ####[facility] [address] [place], [address] CO2 [Moles/Vol] 26.1 mmol/L Normal 21.0-32.0 [facility] Comment on above: Order Comment: Order Date: 01/05/25Order Info: 07-1 - CMPOrder Info: [id number] - TSHOrder Info: [id number] - T4F Performed By: #### L 509.1000, L7000.5300, L506.0400, L501.9520, L500.4050 ####[facility] [address] [place], [address] Creatinine [Mass/Vol] 0.73 mg/dL Normal 0.70-1.20 [facility] Comment on above: Order Comment: Order Date: 01/05/25Order Info: [id number] - CMPOrder Info: [id number] - TSHOrder Info: 3024-7 - T4F Performed By: #### L 509.1000, L7000.5300, L506.0400, L501.9520, L500.4050 ####[facility] [address] [place], [address] GAP 11 Normal 5-15 [facility] Comment on above: Order Comment: Order Date: 01/05/25Order Info: [id number] - CMPOrder Info: 3 - TSHOrder Info: 3024-7 - T4F Performed By: #### L 509.1000, L7000.5300, L506.0400, L501.9520, L500.4050 ####[facility] [address] [place], [address] GFR/1.73 sq M.predicted among non-blacks MDRD (S/P/Bld) [Vol rate/Area] 97 mL/min/{1.73_m2} Normal >60 [facility] Comment on above: Order Comment: Order Date: 01/05/25Order Info: [id number] - CMPOrder Info: [id number] - TSHOrder Info: 3024-7 - T4F Result Comment: mL/m in/1.73m2 CKD-EPI Creatinine Equation (2020) Performed By: #### L 509.1000, L7000.5300, L506.0400, L501.9520, L500.4050 ####[facility] [address] [place], [address] Globulin (S) [Mass/Vol] 2.7 g/dL Normal 2.2-4.[address] [facility] Comment on above: Order Comment: Order Date: 01/05/25Order Info: [id number] - CMPOrder Info: [id number] - TSHOrder Info: 3024-7 - T4F Performed By: #### L 509.1000, L7000.5300, L506.0400, L501.9520, L500.4050 ####[facility] [address] [place], [address] Glucose [Mass/Vol] 92 mg/dL Normal 70-99 [facility] Comment on above: Order Comment: Order Date: 01/05/25Order Info: 86-1 - CMPOrder Info: 3 - TSHOrder Info: 3023-7 - T4F Performed By: #### L 509.1000, L7000.5300, L506.0400, L501.9520, L500.4050 ####[facility] [address] [place], [address] Potassium [Moles/Vol] 3.8 mmol/L Normal 3.3-5.1 [facility] Comment on above: Order Comment: Order Date: 01/05/25Order Info: [id number] - CMPOrder Info: [id number] - TSHOrder Info: 3023-7 - T4F Performed By: #### L 509.1000, L7000.5300, L506.0400, L501.9520, L500.4050 ####[facility] [address] [place], [address] Sodium [Moles/Vol] 141 mmol/L Normal 133-145 [facility] Comment on above: Order Comment: Order Date: 01/05/25Order Info: [id number] - CMPOrder Info: 3 - TSHOrder Info: 3024-7 - T4F Performed By: #### L 509.1000, L7000.5300, L506.0400, L501.9520, L500.4050 ####[facility] [address] [place], [address] T PROT 7.0 g/dL Normal 5.9-8.4 [facility] Comment on above: Order Comment: Order Date: 01/05/25Order Info: [id number] - CMPOrder Info: 3 - TSHOrder Info: 7 - T4F Performed By: #### L 509.1000, L7000.5300, L506.0400, L501.9520, L500.4050 ####[facility] [address] [place], [address] Urea nitrogen [Mass/Vol] 15 mg/dL Normal 4-19 [facility] Comment on above: Order Comment: Order Date: 01/05/25Order Info: [id number] - CMPOrder Info: 3015-10 - TSHOrder Info: 7 - T4F Performed By: #### L 509.1000, L7000.5300, L506.0400, L501.9520, L500.4050 ####[facility] [address] [place], [address] Glomerular filtration rate ( GFR) estimation/1.73 sq m using serum, plasma, or whole bOrdered By: Stas Whittington on 01-05-2025 GFR/1.73 sq M.predicted among non-blacks MDRD (S/P/Bld) [Vol rate/Area] 97 mL/min/{1.73_m2} >60 [facility] Comment on above: mL/min/1.73m2 CKD-EP I Creatinine Equation (2020) Laboratory - Chemistry and C hemistry - challengeOrdered By: Stas Whittington on 01-05-2025 AST [Catalytic activity/Vol] 27 U/L <32 [facility] PTHINon 01-05-2025 PTH 50 pg/mL Normal 11-61 [facility] Comment on above: Order Comment: Order Date: 01/05/25Order Info: [id number] - PTHIN Performed By: #### L 509.1000, L7000.5300, L506.0400, L501.9520, L500.4050 ####[facility] [address] [place], [address] Potassium measurement (mass/ volume)Ordered By: Stas Whittington on 01-05-2025 Potassium (Unsp spec) [Mass/Vol] 3.8 mmol/L 3.3-5.1 [facility] Serum creatinine measurement (mass/volume)Ordered By: Stas Whittington on 01-05-2025 Creatinine [Mass/Vol] 0.73 mg/dL 0.70-1.20 [facility] Serum globulin measurementOr dered By: Stas Whittington on 01-05-2025 Globulin (S) [Mass/Vol] 2.7 g/dL 2.2-4.[address] [facility] Serum glucose measurement (m ass/volume)Ordered By: Stas Whittignton on 01-05-2025 Glucose [Mass/Vol] 92 mg/dL 70-99 [facility] Serum or plasma alanine ortiz otransferase (ALT) measurementOrdered By: Stas Whittington on 01-05-2025 ALT [Catalytic activity/Vol] 24 U/L <35 [facility] Serum or plasma albumin maegan urement (mass/volume)Ordered By: Stas Whittington on 01-05-2025 Albumin [Mass/Vol] 4.4 g/dL 3.5-5.0 [facility] Serum or plasma albumin/glob ulin mass ratioOrdered By: Stas Whittington on 01-05-2025 Albumin/Globulin [Mass ratio] 1.6 {ratio} 0.9-2.4 [facility] Serum or plasma alkaline yayo sphatase measurementOrdered By: Stas Whittington on 01-05-2025 ALP [Catalytic activity/Vol] 125 U/L High 35-104 [facility] Serum or plasma calcium maegan urement (mass/volume)Ordered By: Stas Whittington on 01-05-2025 Calcium [Mass/Vol] 9.3 mg/dL 7.6-11.0 [facility] Serum or plasma urea nitroge n measurement (mass/volume)Ordered By: Stas Whittington on 01-05-2025 Urea nitrogen [Mass/Vol] 15 mg/dL 4-19 [facility] Sodium levelOrdered By: Stas Whittington on 01-05-2025 Sodium [Moles/Vol] 141 mmol/L 133-145 [facility] T4 Free Directon 05-07-2025 T4 FREE DIRECT 1.20 ng/dL Normal 0.76-1.46 [facility] Comment on above: Order Comment: Order Date: 01/05/25Order Info: 07- - CMPOrder Info: [id number] - TSHOrder Info: 7 - T4F Performed By: #### L 509.1000, L7000.5300, L506.0400, L501.9520, L500.4050 ####[facility] [address] [place], [address] T4 freeOrdered By: Stas mckeon on 01-05-2025 Free T4 [Mass/Vol] 1.20 ng/dL 0.76-1.46 [facility] TSH DL <= 0.005 mIU/L QnOrde red By: Stas Whittington on 01-05-2025 TSH Qn 5.640 uIU/mL High 0.300-4.200 [facility] Thyroid Stim Hormone (TSH)on 01-05-2025 TSH 5.640 uIU/mL High 0.300-4.200 [facility] Comment on above: Order Comment: Order Date: 01/05/25Order Info: [id number] - CMPOrder Info: [id number] - TSHOrder Info: 3024-03 - T4F Performed By: #### L 509.1000, L7000.5300, L506.0400, L501.9520, L500.4050 ####[facility] [address] [place], [place], [address] Total proteinOrdered By: Hayden Whittington on 01-05-2025 Protein [Mass/Vol] 7.0 g/dL 5.9-8.4 [facility] Vitamin B12on 01-05-2025 Cobalamin (Vitamin B12) [Mass/Vol] 717 pg/mL Normal 180-914 [facility] Comment on above: Order Comment: Order Date: 01/05/25Order Info: [id number]- - CMPOrder Info: [id number] - TSHOrder Info: 3024-03 - T4F Performed By: #### L 503.0106, L506.1001 ####[facility] [address] [place], [address] Vitamin B12 ser/plasOrdered By: Stas Whittington on 01-05-2025 Cobalamin (Vitamin B12) [Mass/Vol] 717 pg/mL 180-914 [facility] Vitamin D,25 Hydroxyon 01-05 Vitamin D 25-OH 36.3 ng/mL Normal 30-100 [facility] Comment on above: Order Comment: Order Date: 01/05/25Order Info: [id number] - CMPOrder Info: [id number] - TSHOrder Info: 3024-7 - T4F Result Comment: Rosa M min D Status Deficiency: <20 ng/mL (50nmol/L) Insufficiency: 20-30 ng/mL (50-75 nmol/L) Sufficiency: 30-100 ng/mL (75-250 nmol/L) Toxicity: >100 ng/mL (>250 nmol/L) Performed By: #### L 503.0106, L506.1001 ####[facility] [address] [place], [address] Gastroenterology Visit Repor ton 12-14-2024 Gastroenterology Visit Report [facility] [address] [place] [address] OFFICE VISIT Date of Service: 12/14/24 MR#: [id number] Acct: [id number] Name: RADHA CHASE Rep #: [id number] : 1970 Provider: Dr. Tyrel schaffer MD Age/Sex: 54/F [place] [facility] [place]: Signed Intake Vital Signs 03/08/24 09:58 [...] PO QDAY 12/14/24 12/14/24 H istory ([place]) [facility] Medical History Wears glasses Heartburn Gastric reflux [...] cholecystectomy with liver biopsy March 2024 at [facility] that showed liver parenchymal tissue with minimal portal chronic inflammation. BGI Est 12.14.24 Pt referred by chief administrative officer for clearance from reducing salon attendant before switching treatment for her inflammatory polyarthropathy. [...] BMI 25.1 kg/m???. Body weight 142 pounds HENKY Head: normocephalic and atraumatic Nose: external nose normal Face and sinus: normal facial exam Mouth: moist mucous membranes Eyes Pupils: PERRL EOM: EOM intact bilaterally Neck Neck: normal visual inspection, no meningeal signs and trachea midline Carotids: no bruits Chest Chest palpation inspection: normal inspection of the chest Resp Effort Inspection: normal respiratory effort and symmetric chest movement (more content not included)... Normal [facility] Absolute lymphocyte countOrd ered By: Elis Zaman on 10-30-2024 Lymphocytes Auto (Unsp spec) [#/Vol] 1.38 10*3/uL 0.83-4.51 [facility] Absolute neutrophil countOrd ered By: Elis Zaman on 10-30-2024 Neutrophils (Bld) [#/Vol] 2.7 10*3/uL 2.0-7.7 [facility] Automated lymphocyte count a s percentage of total leukocytesOrdered By: Elis Zaman on 10-30-2024 Lymphocytes/100 WBC Auto (Unsp spec) 28.5 % 19-41 [facility] BUN/creatinine ratioOrdered By: Elischelo Zaman on 10-30-2024 Urea nitrogen/Creatinine [Mass ratio] 22.5 mg/mg High 10-20 [facility] Basophil percentageOrdered B y: Elis Zaman on 10-30-2024 Basophils/100 WBC (Bld) 1.4 % High 0-[address] [facility] Bilirubin, totalOrdered By: Elischelo Zaman on 10-30-2024 Bilirubin [Mass/Vol] 0.37 mg/dL 0.00-1.30 [facility] CBC W/Diff, Automatedon Absolute Lymph 1.38 X10 3/uL Normal 0.83-4.51 [facility] Comment on above: Performed By: #### L 500.4050, L100.0100 ####[facility] [address] [place], [address] Absolute Neut 2.7 X10 3/uL Normal 2.0-7.7 [facility] Comment on above: Performed By: #### L 500.4050, L100.0100 ####[facility] [address] [place], [address] Basophils/100 WBC (Bld) 1.4 % High 0-[address] [facility] Comment on above: Performed By: #### L 500.4050, L100.0100 ####[facility] [address] [place], [address] Eosinophils/100 WBC (Bld) 3.7 % Normal 0-5 [facility] Comment on above: Performed By: #### L 500.4050, L100.0100 ####[facility] [address] [place], [address] Erythrocyte distribution width (RBC) [Ratio] 13.6 % Normal 11.6-14.6 [facility] Comment on above: Performed By: #### L 500.4050, L100.0100 ####[facility] [address] [place], [address] Hematocrit (Bld) [Volume fraction] 40.6 % Normal 37-47 [facility] Comment on above: Performed By: #### L 500.4050, L100.0100 ####[facility] [address] [place], [address] Hemoglobin (Bld) [Mass/Vol] 13.3 g/dL Normal 12.0-15.0 [facility] Comment on above: Performed By: #### L 500.4050, L100.0100 ####[facility] [address] [place], [address] IG% 0.400 Normal 0.0-0.9 [facility] Comment on above: Result Comment: IG% - Immature Granulocytes (promyelocytes, myelocytes and metamyelocytes) > 1% indicates that a LEFT SHIFT is Present. Performed By: #### L 500.4050, L100.0100 ####[facility] [address] [place], [address] Lymphocytes/100 WBC (Bld) 28.5 % Normal 19-41 [facility] Comment on above: Performed By: #### L 500.4050, L100.0100 ####[facility] [address] [place], [address] MCH (RBC) [Entitic mass] 28.3 pg Normal 27.0-32.0 [facility] Comment on above: Performed By: #### L 500.4050, L100.0100 ####[facility] [address] [place], [address] MCHC (RBC) [Mass/Vol] 32.8 g/dL Normal 32-36 [facility] Comment on above: Performed By: #### L 500.4050, L100.0100 ####[facility] [address] [place], [address] MCV (RBC) [Entitic vol] 86.4 fL Normal 81-[address] [facility] Comment on above: Performed By: #### L 500.4050, L100.0100 ####[facility] [address] [place], [address] Monocytes/100 WBC (Bld) 9.9 % Normal 0-[address] [facility] Comment on above: Performed By: #### L 500.4050, L100.0100 ####[facility] [address] [place], [address] Neutrophils/100 WBC (Bld) 56.1 % Normal 47-70 [facility] Comment on above: Performed By: #### L 500.4050, L100.0100 ####[facility] [address] [place], [address] Nucleated RBC (Bld) [#/Vol] 0 10*3/uL Normal 0-5 [facility] Comment on above: Performed By: #### L 500.4050, L100.0100 ####[facility] [address] [place], [address] Platelet mean volume (Bld) [Entitic vol] 10.2 fL Normal 6.2-12.0 [facility] Comment on above: Performed By: #### L 500.4050, L100.0100 ####[facility] [address] [place], [address] Platelets (Bld) [#/Vol] 230 10*3/uL Normal 150-450 [facility] Comment on above: Performed By: #### L 500.4050, L100.0100 ####[facility] [address] [place], [address] RBC (Bld) [#/Vol] 4.70 10*6/uL Normal 4.2-5.4 [facility] Comment on above: Performed By: #### L 500.4050, L100.0100 ####[facility] [address] [place], [address] RDW SD 43.1 fl Normal 35.1-43.9 [facility] Comment on above: Performed By: #### L 500.4050, L100.0100 ####[facility] [address] [place], [address] WBC (Bld) [#/Vol] 4.8 10*3/uL Normal 4.4-11.0 [facility] Comment on above: Performed By: #### L 500.4050, L100.0100 ####[facility] [address] [place], [address] Carbon dioxide measurementOr dered By: Elis Zaman on 10-30-2024 CO2 [Moles/Vol] 25.7 mmol/L 22.0-29.0 [facility] Chloride measurementOrdered By: Elis Zaman on 10-30-2024 Chloride [Moles/Vol] 109 mmol/L High 96-108 [facility] Comprehensive Metabolic Prof ilon 10-30-2024 Albumin [Mass/Vol] 4.1 g/dL Normal 3.5-5.0 [facility] Comment on above: Order Comment: CBCD Performed By: #### L 500.4050, L100.0100 ####[facility] [address] [place], [address] Albumin/Globulin [Mass ratio] 1.6 {ratio} Normal 0.9-2.4 [facility] Comment on above: Order Comment: CBCD Performed By: #### L 500.4050, L100.0100 ####[facility] [address] [place], [address] ALK PHOS 128 U/L High 35-104 [facility] Comment on above: Order Comment: CBCD Performed By: #### L 500.4050, L100.0100 ####[facility] [address] [place], [address] ALT [Catalytic activity/Vol] 25 U/L Normal <=34 [facility] Comment on above: Order Comment: CBCD Performed By: #### L 500.4050, L100.0100 ####[facility] [address] [place], [address] Anion gap [Moles/Vol] 8 mmol/L Normal 5-15 [facility] Comment on above: Order Comment: CBCD Performed By: #### L 500.4050, L100.0100 ####[facility] [address] [place], [address] AST [Catalytic activity/Vol] 29 U/L Normal <=31 [facility] Comment on above: Order Comment: CBCD Performed By: #### L 500.4050, L100.0100 ####[facility] [address] [place], [address] Bilirubin [Mass/Vol] 0.37 mg/dL Normal 0.00-1.30 [facility] Comment on above: Order Comment: CBCD Performed By: #### L 500.4050, L100.0100 ####[facility] [address] [place], [address] BUN/CRE 22.5 RATIO High 10-20 [facility] Comment on above: Order Comment: CBCD Performed By: #### L 500.4050, L100.0100 ####[facility] [address] [place], [address] Calcium [Mass/Vol] 9.1 mg/dL Normal 7.6-11.0 [facility] Comment on above: Order Comment: CBCD Performed By: #### L 500.4050, L100.0100 ####[facility] [address] [place], [address] Chloride [Moles/Vol] 109 mmol/L High 96-108 [facility] Comment on above: Order Comment: CBCD Performed By: #### L 500.4050, L100.0100 ####[facility] [address] [place], [address] CO2 [Moles/Vol] 25.7 mmol/L Normal 22.0-29.0 [facility] Comment on above: Order Comment: CBCD Performed By: #### L 500.4050, L100.0100 ####[facility] [address] [place], [address] Creatinine [Mass/Vol] 0.75 mg/dL Normal 0.70-1.20 [facility] Comment on above: Order Comment: CBCD Performed By: #### L 500.4050, L100.0100 ####[facility] [address] [place], [address] GFR/1.73 sq M.predicted among non-blacks MDRD (S/P/Bld) [Vol rate/Area] 93 mL/min/{1.73_m2} Normal >60 [facility] Comment on above: Order Comment: CBCD Result Comment: mL/m in/1.73m2 CKD-EPI Creatinine Equation (2020) Performed By: #### L 500.4050, L100.0100 ####[facility] [address] [place], [address] Globulin (S) [Mass/Vol] 2.6 g/dL Normal 2.2-4.2 [facility] Comment on above: Order Comment: CBCD Performed By: #### L 500.4050, L100.0100 ####[facility] [address] [place], [address] Glucose [Mass/Vol] 92 mg/dL Normal 70-99 [facility] Comment on above: Order Comment: CBCD Performed By: #### L 500.4050, L100.0100 ####[facility] [address] [place], [address] Potassium [Moles/Vol] 4.2 mmol/L Normal 3.3-5.1 [facility] Comment on above: Order Comment: CBCD Performed By: #### L 500.4050, L100.0100 ####[facility] [address] [place], [address] Sodium [Moles/Vol] 143 mmol/L Normal 133-145 [facility] Comment on above: Order Comment: CBCD Performed By: #### L 500.4050, L100.0100 ####[facility] [address] [place], [address] T PROT 6.8 g/dL Normal 5.9-8.4 [facility] Comment on above: Order Comment: CBCD Performed By: #### L 500.4050, L100.0100 ####[facility] [address] [place], [address] Urea nitrogen [Mass/Vol] 17 mg/dL Normal 4-19 [facility] Comment on above: Order Comment: CBCD Performed By: #### L 500.4050, L100.0100 ####[facility] [address] [place], [address] Eosinophil percentageOrdered By: Elis Zaman on 10-30-2024 Eosinophils/100 WBC (Bld) 3.7 % 0-5 [facility] Erythrocyte distribution wid th ratioOrdered By: Elis Zaman on 10-30-2024 Erythrocyte distribution width (RBC) [Ratio] 13.6 % 11.6-14.6 [facility] Erythrocyte distribution wid th standard deviationOrdered By: Elis Zaman on 10-30-2024 Erythrocyte distribution width (RBC) [Entitic vol] 43.1 fL 35.1-43.9 [facility] Erythrocyte distribution width (RBC) [Ratio] 43.1 fl 35.1-43.9 [facility] GFR/1.73 sq M.predicted marsha g non-blacks MDRD (S/P/Bld) [Vol rate/Area]Ordered By: Elis Zaman on 10-30-2024 Estimated GFR (MDRD) Non-Af Amer 93 >60 [facility] Comment on above: mL/min/1.73m2 CKD-EP I Creatinine Equation (2020) Glomerular filtration rate ( GFR) estimation/1.73 sq m using serum, plasma, or whole bOrdered By: Elis Zaman on 10-30-2024 GFR/1.73 sq M.predicted among non-blacks MDRD (S/P/Bld) [Vol rate/Area] 93 mL/min/{1.73_m2} >60 [facility] Comment on above: mL/min/1.73m2 CKD-EP I Creatinine Equation (2020) Hematocrit Auto (Bld) [Volum e fraction]Ordered By: Elis Zaman on 10-30-2024 Hematocrit (Bld) [Volume fraction] 40.6 % 37-47 [facility] Hemoglobin measurementOrdere d By: Elis Zaman on 10-30-2024 Hemoglobin (Bld) [Mass/Vol] 13.3 g/dL 12.0-15.0 [facility] Immature granulocytes/100 WB C Auto (Bld)Ordered By: Elis Zaman on 10-30-2024 Immature granulocytes/100 WBC (Bld) 0.400 % 0.0-0.9 [facility] Comment on above: IG% - Immature Granu locytes (promyelocytes, myelocytes and metamyelocytes) > 1% indicates that a LEFT SHIFT is Present. Laboratory - Chemistry and C hemistry - challengeOrdered By: Elis Zaman on 10-30-2024 AST [Catalytic activity/Vol] 29 U/L <32 [facility] Lymphocytes Auto (Unsp spec) [#/Vol]Ordered By: Elis Zaman on 10-30-2024 Lymphocytes (Bld) [#/Vol] 1.38 10*3/uL 0.83-4.51 [facility] Lymphocytes/100 WBC Auto (Un sp spec)Ordered By: Elis Zaman on 10-30-2024 Lymphocytes/100 WBC (Bld) 28.5 % 19-41 [facility] MCV (mean corpuscular volume ) determinationOrdered By: Elis Zaman on 10-30-2024 MCV (RBC) [Entitic vol] 86.4 fL 81-[address] [facility] Mean corpuscular hemoglobin (MCH) determinationOrdered By: Elis Zaman on 10-30-2024 MCH (RBC) [Entitic mass] 28.3 pg 27.0-32.0 [facility] Mean corpuscular hemoglobin concentration (MCHC) determinationOrdered By: Elis Zaman on 10-30-2024 MCHC (RBC) [Mass/Vol] 32.8 g/dL 32-36 [facility] Mean platelet volume determi nationOrdered By: Elis Zaman on 10-30-2024 Platelet mean volume (Bld) [Entitic vol] 10.2 fL 6.2-12.0 [facility] Monocyte percentageOrdered B y: Elis Zaman on 10-30-2024 Monocytes/100 WBC (Bld) 9.9 % 0-[address] [facility] Neutrophil percentageOrdered By: Elis Zaman on 10-30-2024 Neutrophils/100 WBC (Bld) 56.1 % 47-70 [facility] Nucleated red blood cell per centageOrdered By: Elis Zaman on 10-30-2024 Nucleated RBC/100 WBC (Bld) [Ratio] 0 % 0-5 [facility] Platelet countOrdered By: Jeremie Zaman on 10-30-2024 Platelets (Bld) [#/Vol] 230 10*3/uL 150-450 [facility] RBC Auto (Bld) [#/Vol]Ordere d By: Elis Zaman on 10-30-2024 RBC (Bld) [#/Vol] 4.70 10*6/uL 4.2-5.4 [facility] Serum creatinine measurement (mass/volume)Ordered By: Elis Zaman on 10-30-2024 Creatinine [Mass/Vol] 0.75 mg/dL 0.70-1.20 [facility] Serum globulin measurementOr dered By: Elis Zaman on 10-30-2024 Globulin (S) [Mass/Vol] 2.6 g/dL 2.2-4.[address] [facility] Serum glucose measurement (m ass/volume)Ordered By: Elis Zaman on 10-30-2024 Glucose [Mass/Vol] 92 mg/dL 70-99 [facility] Serum or plasma alanine ortiz otransferase (ALT) measurementOrdered By: Elis Zaman on 10-30-2024 ALT [Catalytic activity/Vol] 25 U/L <35 [facility] Serum or plasma albumin maegan urement (mass/volume)Ordered By: Elis Zaman on 10-30-2024 Albumin [Mass/Vol] 4.1 g/dL 3.5-5.0 [facility] Serum or plasma albumin/glob ulin mass ratioOrdered By: Elis Zaman on 10-30-2024 Albumin/Globulin [Mass ratio] 1.6 {ratio} 0.9-2.4 [facility] Serum or plasma alkaline yayo sphatase measurementOrdered By: Elis Zaman on 10-30-2024 ALP [Catalytic activity/Vol] 128 U/L High 35-104 [facility] Serum or plasma anion gap de termination (moles/volume)Ordered By: Elis Zaman on 10-30-2024 Anion gap [Moles/Vol] 8 mmol/L 5-15 [facility] Serum or plasma calcium maegan urement (mass/volume)Ordered By: Elis Zaman on 10-30-2024 Calcium [Mass/Vol] 9.1 mg/dL 7.6-11.0 [facility] Serum or plasma potassium me asurementOrdered By: Elis Zaman on 10-30-2024 Potassium [Moles/Vol] 4.2 mmol/L 3.3-5.1 [facility] Serum or plasma sodium measu rement (moles/volume)Ordered By: Elis Zaman on 03-01-2025 Sodium [Moles/Vol] 143 mmol/L 133-145 [facility] Serum or plasma urea nitroge n measurement (mass/volume)Ordered By: Elis Zmaan on 10-30-2024 Urea nitrogen [Mass/Vol] 17 mg/dL - [facility] Total proteinOrdered By: Jeni Zaman on 10-30-2024 Protein [Mass/Vol] 6.8 g/dL 5.9-8.4 [facility] White blood cell (WBC) count Ordered By: Elis Zaman on 10-30-2024 WBC (Bld) [#/Vol] 4.8 10*3/uL 4.4-11.0 [facility] SCRN MAMM (CAD)W/DECLAN BILATo n 08-19-2024 SCRN MAMM (CAD)W/DECLAN BILAT [facility] Imaging Services [address] [place] [address] SCRN MAMM (CAD)W/DECLAN BILAT MR#: [id number] Acct: [id number] Name: RADHA CHASE Rep #: [id number] : 1970 F 54 From: Rodriguez ozuna MD PCP: Dr. Toshia Sousa MD Status: [facility] Study: SCRN MAMM (CAD)W/DECLAN BILAT Date of Exam: 08/01 05/25 Exam# [id number] Ordering Dr: Toshia Sousa MD [id number] MAMMOGRAPHY - BILATERAL SCREENING REASON FOR EXAM: [...] delay biopsy of a clinically suspicious abnormality. [id number] Electronically Signed: Rodriguez Kurtz MD at 11:16 [facility] Reading Location ID and State: [address] [place] [address] , Service support , CC: Dr. Toshia Sousa MD Tower Foreman: Signed Normal [facility] CCP IgG Antibodieson 024 CCP IgG Ab. 11 units Normal 0-19 [facility] Comment on above: Result Comment: Nega tive <20 Weak positive 20 - 39 Moderate positive 40 - 59 Strong positive >59 Performed at: [facility] [address] [id number] Train Attendant: Scott Dudley PhD, Phone: [phone] Performed By: #### L 100.0100, L3890.6100, L3890.6200, L4600.0100, L501.6710, L505.7010, L3890.6300, L500.4050, L101.9900 ####[facility] [address] [place], [place], [address] Absolute neutrophil countOrd ered By: Elis Zaman on 07-20-2024 Neutrophils (Bld) [#/Vol] 5.8 10*3/uL 2.0-7.7 [facility] Albumin to globulin ratioOrd ered By: Elis Zaman on 07-20-2024 Albumin/Globulin [Mass ratio] 1.0 {ratio} 0.9-2.4 [facility] Basophil percentageOrdered B y: Elis Zaman on 07-20-2024 Basophils/100 WBC (Bld) 1.1 % High 0-[address] [facility] Bilirubin, totalOrdered By: Elis Zaman on 07-20-2024 Bilirubin [Mass/Vol] 0.50 mg/dL 0.20-1.00 [facility] Comment on above: For patients on eltr ombopag therapy, use of Dimension [place] TBIL is not recommended. Blood urea nitrogen (BUN)/cr eatinine ratioOrdered By: Elis Zaman on 07-20-2024 Urea nitrogen/Creatinine [Mass ratio] 19.3 mg/mg 10-20 [facility] C-reactive protein measureme nt by high sensitivity methodOrdered By: Elis Zaman on 07-20-2024 C-Reactive Protein Extended Range 3.71 mg/L High 0.0-3.0 [facility] Comment on above: C-Reactive Protein ( CRP) provides useful information for thediagnosis, therapy and monitoring of inflammatory processesand associated diseases. For the evaluation of Relative Riskfor Cardiovascular Disease, a High Sensitivity CRP (HSCRP)should be ordered. CBC W/Diff, Automatedon 07-02 Absolute Lymph 1.98 X10 3/uL Normal 0.83-4.51 [facility] Comment on above: Performed By: #### L 100.0100, L3890.6100, L3890.6200, L4600.0100, L501.6710, L505.7010, L3890.6300, L500.4050, L101.9900 #### [facility] Laboratory [facility] [place], [address] Absolute Neut 5.8 X10 3/uL Normal 2.0-7.7 [facility] Comment on above: Performed By: #### L 100.0100, L3890.6100, L3890.6200, L4600.0100, L501.6710, L505.7010, L3890.6300, L500.4050, L101.9900 #### [facility] Laboratory [address] [place], [address] Basophils/100 WBC (Bld) 1.1 % High 0-[address] [facility] Comment on above: Performed By: #### L 100.0100, L3890.6100, L3890.6200, L4600.0100, L501.6710, L505.7010, L3890.6300, L500.4050, L101.9900 #### [facility] Laboratory [address] [facility] [place], [address] Eosinophils/100 WBC (Bld) 2.4 % Normal 0-5 [facility] Comment on above: Performed By: #### L 100.0100, L3890.6100, L3890.6200, L4600.0100, L501.6710, L505.7010, L3890.6300, L500.4050, L101.9900 #### [facility] Laboratory [address] [place] [place], [address] Erythrocyte distribution width (RBC) [Ratio] 14.3 % Normal 11.6-14.6 [facility] Comment on above: Performed By: #### L 100.0100, L3890.6100, L3890.6200, L4600.0100, L501.6710, L505.7010, L3890.6300, L500.4050, L101.9900 #### [facility] Laboratory [address] [place], [address] Hematocrit (Bld) [Volume fraction] 43.6 % Normal 37-47 [facility] Comment on above: Performed By: #### L 100.0100, L3890.6100, L3890.6200, L4600.0100, L501.6710, L505.7010, L3890.6300, L500.4050, L101.9900 #### [facility] Laboratory [address] [place], [address] Hemoglobin (Bld) [Mass/Vol] 14.1 g/dL Normal 12.0-15.0 [facility] Comment on above: Performed By: #### L 100.0100, L3890.6100, L3890.6200, L4600.0100, L501.6710, L505.7010, L3890.6300, L500.4050, L101.9900 #### [facility] [address] [place], [address] IG% 0.700 Normal 0.0-0.9 [facility] Comment on above: Result Comment: IG% - Immature Granulocytes (promyelocytes, myelocytes and metamyelocytes) > 1% indicates that a LEFT SHIFT is Present. Performed By: #### L 100.0100, L3890.6100, L3890.6200, L4600.0100, L501.6710, L505.7010, L3890.6300, L500.4050, L101.9900 #### [facility] Laboratory [address] [place], [address] Lymphocytes/100 WBC (Bld) 22.3 % Normal 19-41 [facility] Comment on above: Performed By: #### L 100.0100, L3890.6100, L3890.6200, L4600.0100, L501.6710, L505.7010, L3890.6300, L500.4050, L101.9900 #### [facility] [address] [facility] [address] [place], [address] MCH (RBC) [Entitic mass] 27.5 pg Normal 27.0-32.0 [facility] Comment on above: Performed By: #### L 100.0100, L3890.6100, L3890.6200, L4600.0100, L501.6710, L505.7010, L3890.6300, L500.4050, L101.9900 #### [facility] [address] [place], [address] MCHC (RBC) [Mass/Vol] 32.3 g/dL Normal 32-36 [facility] Comment on above: Performed By: #### L 100.0100, L3890.6100, L3890.6200, L4600.0100, L501.6710, L505.7010, L3890.6300, L500.4050, L101.9900 #### [facility] [address] [place], [address] MCV (RBC) [Entitic vol] 85.2 fL Normal 81-[address] [facility] Comment on above: Performed By: #### L 100.0100, L3890.6100, L3890.6200, L4600.0100, L501.6710, L505.7010, L3890.6300, L500.4050, L101.9900 #### [facility] [address] [place], [address] Monocytes/100 WBC (Bld) 7.8 % Normal 0-10 [facility] Comment on above: Performed By: #### L 100.0100, L3890.6100, L3890.6200, L4600.0100, L501.6710, L505.7010, L3890.6300, L500.4050, L101.9900 #### [facility] [address] [place], [address] Neutrophils/100 WBC (Bld) 65.7 % Normal 47-70 [facility] Comment on above: Performed By: #### L 100.0100, L3890.6100, L3890.6200, L4600.0100, L501.6710, L505.7010, L3890.6300, L500.4050, L101.9900 #### [facility] Laboratory [address] [place], [address] Nucleated RBC (Bld) [#/Vol] 0 10*3/uL Normal 0-5 [facility] Comment on above: Performed By: #### L 100.0100, L3890.6100, L3890.6200, L4600.0100, L501.6710, L505.7010, L3890.6300, L500.4050, L101.9900 #### [facility] Laboratory [address] [facility] [place], [address] Platelet mean volume (Bld) [Entitic vol] 10.8 fL Normal 6.2-12.0 [facility] Comment on above: Performed By: #### L 100.0100, L3890.6100, L3890.6200, L4600.0100, L501.6710, L505.7010, L3890.6300, L500.4050, L101.9900 #### [facility] [address] [place], [address] Platelets (Bld) [#/Vol] 264 10*3/uL Normal 150-450 [facility] Comment on above: Performed By: #### L 100.0100, L3890.6100, L3890.6200, L4600.0100, L501.6710, L505.7010, L3890.6300, L500.4050, L101.9900 #### [facility] [address] [facility] [place], [address] RBC (Bld) [#/Vol] 5.12 10*6/uL Normal 4.2-5.4 [facility] Comment on above: Performed By: #### L 100.0100, L3890.6100, L3890.6200, L4600.0100, L501.6710, L505.7010, L3890.6300, L500.4050, L101.9900 #### [facility] [address] [place], [place], [id number] (794) RDW SD 44.5 fl High 35.1-43.9 [facility] Comment on above: Performed By: #### L 100.0100, L3890.6100, L3890.6200, L4600.0100, L501.6710, L505.7010, L3890.6300, L500.4050, L101.9900 #### [facility] [address] [place], [address] WBC (Bld) [#/Vol] 8.9 10*3/uL Normal 4.4-11.0 [facility] Comment on above: Performed By: #### L 100.0100, L3890.6100, L3890.6200, L4600.0100, L501.6710, L505.7010, L3890.6300, L500.4050, L101.9900 #### [facility] [address] [place], [place], [id number] CRPon 07-20-2024 C-REACTIVE PROT 3.71 mg/L High 0.0-3.0 [facility] Comment on above: Result Comment: C-Re active Protein (CRP) provides useful information for the diagnosis, therapy and monitoring of inflammatory processes and associated diseases. For the evaluation of Relative Risk for Cardiovascular Disease, a High Sensitivity CRP (HSCRP) should be ordered. Performed By: #### L 100.0100, L3890.6100, L3890.6200, L4600.0100, L501.6710, L505.7010, L3890.6300, L500.4050, L101.9900 #### [facility] [address] [place], [address] Carbon dioxide measurementOr dered By: Elis Zaman on 07-20-2024 CO2 [Moles/Vol] 28.0 mmol/L 21.0-32.0 [facility] Chloride measurementOrdered By: Elis Zaman on 07-20-2024 Chloride [Moles/Vol] 107 mmol/L 98-107 [facility] Comprehensive Metabolic Prof ilon 07-20-2024 Albumin [Mass/Vol] 3.7 g/dL Normal 3.2-5.0 [facility] Comment on above: Performed By: #### L 100.0100, L3890.6100, L3890.6200, L4600.0100, L501.6710, L505.7010, L3890.6300, L500.4050, L101.9900 #### [facility] [address] [place], [address] Albumin/Globulin [Mass ratio] 1.0 {ratio} Normal 0.9-2.4 [facility] Comment on above: Performed By: #### L 100.0100, L3890.6100, L3890.6200, L4600.0100, L501.6710, L505.7010, L3890.6300, L500.4050, L101.9900 #### [facility] [address] [place], [address] ALK P 187 U/L High 45-117 [facility] Comment on above: Performed By: #### L 100.0100, L3890.6100, L3890.6200, L4600.0100, L501.6710, L505.7010, L3890.6300, L500.4050, L101.9900 #### [facility] [address] [facility] [address] [place], [address] ALT [Catalytic activity/Vol] 57 U/L High 13-56 [facility] Comment on above: Performed By: #### L 100.0100, L3890.6100, L3890.6200, L4600.0100, L501.6710, L505.7010, L3890.6300, L500.4050, L101.9900 #### [facility] [address] [place], [place], [phone] (826) AST [Catalytic activity/Vol] 30 U/L Normal 15-37 [facility] Comment on above: Performed By: #### L 100.0100, L3890.6100, L3890.6200, L4600.0100, L501.6710, L505.7010, L3890.6300, L500.4050, L101.9900 #### [facility] [address] [place], [address] (346) Bilirubin [Mass/Vol] 0.50 mg/dL Normal 0.20-1.00 [facility] Comment on above: Result Comment: For patients on eltrombopag therapy, use of Dimension [place] TBIL is not recommended. Performed By: #### L 100.0100, L3890.6100, L3890.6200, L4600.0100, L501.6710, L505.7010, L3890.6300, L500.4050, L101.9900 #### [facility] [address] [place], [place], [phone] (450) BUN/CRE 19.3 RATIO Normal 10-20 [facility] Comment on above: Performed By: #### L 100.0100, L3890.6100, L3890.6200, L4600.0100, L501.6710, L505.7010, L3890.6300, L500.4050, L101.9900 #### [facility] [address] [place], [address] (932) CA,Total 9.2 mg/dL Normal 8.5-10.1 [facility] Comment on above: Performed By: #### L 100.0100, L3890.6100, L3890.6200, L4600.0100, L501.6710, L505.7010, L3890.6300, L500.4050, L101.9900 #### [facility] [address] [place], [address] Chloride [Moles/Vol] 107 mmol/L Normal 98-107 [facility] Comment on above: Performed By: #### L 100.0100, L3890.6100, L3890.6200, L4600.0100, L501.6710, L505.7010, L3890.6300, L500.4050, L101.9900 #### [facility] [address] [place], [place], [phone] (374) CO2 [Moles/Vol] 28.0 mmol/L Normal 21.0-32.0 [facility] Comment on above: Performed By: #### L 100.0100, L3890.6100, L3890.6200, L4600.0100, L501.6710, L505.7010, L3890.6300, L500.4050, L101.9900 #### [facility] [address] [place], [place], [phone] (348) Creatinine [Mass/Vol] 0.73 mg/dL Normal 0.55-1.02 [facility] Comment on above: Result Comment: The validity of the calculated GFR GFRAA in patients over 70 years has not been determined. Clinical correlation is essential. Performed By: #### L 100.0100, L3890.6100, L3890.6200, L4600.0100, L501.6710, L505.7010, L3890.6300, L500.4050, L101.9900 #### [facility] [address] [place], [address] EST GFR - AA 107 mL/min Normal >60 [facility] Comment on above: Result Comment: Afri can Angolan GFR Calc Performed By: #### L 100.0100, L3890.6100, L3890.6200, L4600.0100, L501.6710, L505.7010, L3890.6300, L500.4050, L101.9900 #### [facility] [address] [place], [place], [phone] (262) GAP 3 Low 5-15 [facility] Comment on above: Performed By: #### L 100.0100, L3890.6100, L3890.6200, L4600.0100, L501.6710, L505.7010, L3890.6300, L500.4050, L101.9900 #### [facility] [address] [place], [address] (863 GFR/1.73 sq M.predicted among non-blacks MDRD (S/P/Bld) [Vol rate/Area] 89 mL/min/{1.73_m2} Normal >60 [facility] Comment on above: Result Comment: Non- GFR Calc Performed By: #### L 100.0100, L3890.6100, L3890.6200, L4600.0100, L501.6710, L505.7010, L3890.6300, L500.4050, L101.9900 #### [facility] Laboratory [address] [place], [place], [phone] ([address] Globulin (S) [Mass/Vol] 3.8 g/dL Normal 2.2-4.[address] [facility] Comment on above: Performed By: #### L 100.0100, L3890.6100, L3890.6200, L4600.0100, L501.6710, L505.7010, L3890.6300, L500.4050, L101.9900 #### [facility] [address] [place], [place], [phone] ([address] Glucose [Mass/Vol] 112 mg/dL High 74-106 [facility] Comment on above: Result Comment: Fast ing Glucose result from 100 to 125 mg/dL suggests IMPAIRED HOMEOSTASIS per A.D.A. criteria. Performed By: #### L 100.0100, L3890.6100, L3890.6200, L4600.0100, L501.6710, L505.7010, L3890.6300, L500.4050, L101.9900 #### [facility] [address] [place], [address] Potassium [Moles/Vol] 3.6 mmol/L Normal 3.5-5.1 [facility] Comment on above: Performed By: #### L 100.0100, L3890.6100, L3890.6200, L4600.0100, L501.6710, L505.7010, L3890.6300, L500.4050, L101.9900 #### [facility] [address] [place], [address] Sodium [Moles/Vol] 138 mmol/L Normal 136-145 [facility] Comment on above: Performed By: #### L 100.0100, L3890.6100, L3890.6200, L4600.0100, L501.6710, L505.7010, L3890.6300, L500.4050, L101.9900 #### [facility] [address] [place], [address] T PROT 7.5 g/dL Normal 6.4-8.2 [facility] Comment on above: Performed By: #### L 100.0100, L3890.6100, L3890.6200, L4600.0100, L501.6710, L505.7010, L3890.6300, L500.4050, L101.9900 #### [facility] [address] [place], [address] Urea nitrogen [Mass/Vol] 14 mg/dL Normal 7-18 [facility] Comment on above: Performed By: #### L 100.0100, L3890.6100, L3890.6200, L4600.0100, L501.6710, L505.7010, L3890.6300, L500.4050, L101.9900 #### [facility] [address] [place], [address] Cyclic citrullinated peptide IgG QnOrdered By: Elis Zaman on 07-20-2024 Cyclic Citrullinated Peptide IgG Ab 11 units 0-19 [facility] Comment on above: Negative <20 Weak po sitive 20 - 39 Moderate positive 40 - 59 Strong positive >59Performed at: [facility] [place] [id number] Director: Scott Dudley PhD, Phone: [phone] Eosinophil percentageOrdered By: Elis Zaman on 07-20-2024 Eosinophils/100 WBC (Bld) 2.4 % 0-5 [facility] Erythrocyte Sed Rateon 07-20 SED RATE 19 mm/hr Normal 0-30 [facility] Comment on above: Performed By: #### L 100.0100, L3890.6100, L3890.6200, L4600.0100, L501.6710, L505.7010, L3890.6300, L500.4050, L101.9900 #### [facility] [address] [facility] [place], [address] Erythrocyte distribution wid th ratioOrdered By: Elis Zaman on 07-20-2024 Erythrocyte distribution width (RBC) [Ratio] 14.3 % 11.6-14.6 [facility] Erythrocyte distribution wid th standard deviationOrdered By: Elis Zaman on 07-20-2024 Erythrocyte distribution width (RBC) [Entitic vol] 44.5 fL High 35.1-43.9 [facility] Erythrocyte sedimentation ra teOrdered By: Elis Zaman on 07-20-2024 ESR (Bld) [Velocity] 19 mm/h 0-30 [facility] Estimated glomerular filtrat ion rate (GFR) AmericanOrdered By: Elis Zaman on 07-20-2024 Estimated GFR (MDRD) Amer 107 mL/min >60 [facility] Comment on above: GFR Calc Glomerular filtration rate ( GFR) estimationOrdered By: Elis Zaman on 07-20-2024 Estimated GFR (MDRD) Non-Af Amer 89 mL/min >60 [facility] Comment on above: Non- GFR Calc Glucose measurementOrdered B y: Elis Zaman on 07-20-2024 Glucose [Mass/Vol] 112 mg/dL High 74-106 [facility] Comment on above: Fasting Glucose resu lt from 100 to 125 mg/dL suggests IMPAIRED HOMEOSTASIS per A.D.A. criteria. HBV surface IgG Ql (S)Ordere d By: Elis Zaman on 07-20-2024 Hepatitis B Surface Antibody Non-Reactive [facility] Comment on above: Non Reactive: Incons istent with immunity less than <10 mIU/mL Reactive: Consistent with immunity greater than or equal to 10 mIU/mL Hematocrit Auto (Bld) [Volum e fraction]Ordered By: Elis Zaman on 07-20-2024 Hematocrit (Bld) [Volume fraction] 43.6 % 37-47 [facility] Hemoglobin measurementOrdere d By: Elis Zaman on 07-20-2024 Hemoglobin (Bld) [Mass/Vol] 14.1 g/dL 12.0-15.0 [facility] Hepatitis B Surface Antibody on 07-20-2024 HEP B Surf Ab Non-Reactive Normal [facility] Comment on above: Result Comment: Non Reactive: Inconsistent with immunity less than <10 mIU/mL Reactive: Consistent with immunity greater than or equal to 10 mIU/mL Performed By: #### L 100.0100, L3890.6100, L3890.6200, L4600.0100, L501.6710, L505.7010, L3890.6300, L500.4050, L101.9900 ####[facility] [id number] [place], [address] Hepatitis B Surface Antigeno n 07-20-2024 HEP B Surf Ag Non-Reactive Normal Nonreactive [facility] Comment on above: Performed By: #### L 100.0100, L3890.6100, L3890.6200, L4600.0100, L501.6710, L505.7010, L3890.6300, L500.4050, L101.9900 ####[facility] [address] [place], [place], [id number] Hepatitis B surface antigen detectionOrdered By: Elis Zaman on 07-20-2024 Hepatitis B Surface Antigen Non-Reactive Nonreactive [facility] Hepatitis C Antibodyon 07-20 Hepatitis C AB Non-Reactive Normal Nonreactive [facility] Comment on above: Result Comment: Non Reactive: < 0.8 Equivocal: >/= 0.8 to < 1.0 Reactive: >/= 1.0 The [facility] requires that a reactive/equivocal HCV antibody result be sent out for confirmation. HCV Quant by PCR testing. Performed By: #### L 100.0100, L3890.6100, L3890.6200, L4600.0100, L501.6710, L505.7010, L3890.6300, L500.4050, L101.9900 ####[facility] [address] [place], [address] Hepatitis C virus antibody a ssayOrdered By: Elis Zaman on 07-20-2024 Hepatitis C Antibody Non-Reactive Nonreactive [facility] Comment on above: Non Reactive: < 0.8 Equivocal: >/= 0.8 to < 1.0 Reactive: >/= 1.0The CDC requires that a reactive/equivocal HCV antibody result be sent out for confirmation. HCV Quant by PCR testing. Immature granulocytes/100 WB C Auto (Bld)Ordered By: Elis Zaman on 07-20-2024 Immature granulocytes/100 WBC (Bld) 0.700 % 0.0-0.9 [facility] Comment on above: IG% - Immature Granu locytes (promyelocytes, myelocytes and metamyelocytes) > 1% indicates that a LEFT SHIFT is Present. Laboratory - Chemistry and C hemistry - challengeOrdered By: Elis Zaman on 07-20-2024 AST [Catalytic activity/Vol] 30 U/L 15-37 [facility] Lymphocytes Auto (Unsp spec) [#/Vol]Ordered By: Elischelo Zaman on 07-20-2024 Lymphocytes (Bld) [#/Vol] 1.98 10*3/uL 0.83-4.51 [facility] Lymphocytes/100 WBC Auto (Un sp spec)Ordered By: Elis Zaman on 07-20-2024 Lymphocytes/100 WBC (Bld) 22.3 % 19-41 [facility] MCV (mean corpuscular volume ) determinationOrdered By: Elischelo Zaman on 07-20-2024 MCV (RBC) [Entitic vol] 85.2 fL 81-[address] [facility] Mean corpuscular hemoglobin (MCH) determinationOrdered By: Elischelo Zaman on 07-20-2024 MCH (RBC) [Entitic mass] 27.5 pg 27.0-32.0 [facility] Mean corpuscular hemoglobin concentration (MCHC) determinationOrdered By: Elis Zaman on 07-20-2024 MCHC (RBC) [Mass/Vol] 32.3 g/dL 32-36 [facility] Mean platelet volume determi nationOrdered By: [facility] Junie on 07-20-2024 Platelet mean volume (Bld) [Entitic vol] 10.8 fL 6.2-12.0 [facility] Monocyte percentageOrdered B y: Elis Zaman on 07-20-2024 Monocytes/100 WBC (Bld) 7.8 % 0-[address] [facility] Neutrophil percentageOrdered By: [facility] Junie on 07-20-2024 Neutrophils/100 WBC (Bld) 65.7 % 47-70 [facility] Nucleated red blood cell per centageOrdered By: [facility] Junie on 07-20-2024 Nucleated RBC/100 WBC (Bld) [Ratio] 0 % 0-5 [facility] Pelvis 1 or 2 Viewson 2023 Pelvis 1 or 2 Views [facility] Imaging Services [address] [place] [address] Pelvis 1 or 2 Views MR#: [id number] Acct: [id number] Name: RADHA CHASE Rep #: [id number] : 1970 F 54 From: Anshul Mir MD PCP: Dr. Toshia Sousa MD Status: REG CLI Study: Pelvis 1 or 2 Views Date of Exam: 07/20/24 Exam# [id number] Ordering Dr: Elis Zaman MD [id number] STUDY: X-RAY - PELVIS REASON FOR EXAM: [...] Toshia Sousa MD; Dr. Elis Zaman MD Tower Foreman: Signed Normal [facility] Platelet countOrdered By: Jeremie Zaman on 07-20-2024 Platelets (Bld) [#/Vol] 264 10*3/uL 150-450 [facility] Potassium measurementOrdered By: Elis Zaman on 07-20-2024 Potassium [Moles/Vol] 3.6 mmol/L 3.5-5.1 [facility] RBC Auto (Bld) [#/Vol]Ordere d By: Elis Zaman on 07-20-2024 RBC (Bld) [#/Vol] 5.12 10*6/uL 4.2-5.4 [facility] Rheumatoid Factoron 07-20-20 24 RHEUMATOID FAC < 10.0 Normal <15 [facility] Comment on above: Performed By: #### L 100.0100, L3890.6100, L3890.6200, L4600.0100, L501.6710, L505.7010, L3890.6300, L500.4050, L101.9900 #### [facility] Laboratory [address] [place], [place], [id number] Rheumatoid factor measuremen tOrdered By: Elis Zaman on 07-20-2024 Rheumatoid Factor < 10.0 IU/mL <15 [facility] Serum anion gap measurementO rdered By: Elis Zaman on 07-20-2024 Anion gap [Moles/Vol] 3 mmol/L Low 5-15 [facility] Serum globulin measurementOr dered By: Elis Zaman on 07-20-2024 Globulin (S) [Mass/Vol] 3.8 g/dL 2.2-4.2 [facility] Serum or plasma alanine ortiz otransferase (ALT) measurementOrdered By: Elis Zaman on 07-20-2024 ALT [Catalytic activity/Vol] 57 U/L High 13-56 [facility] Serum or plasma albumin maegan urement (mass/volume)Ordered By: Elis Zaman on 07-20-2024 Albumin [Mass/Vol] 3.7 g/dL 3.2-5.0 [facility] Serum or plasma alkaline yayo sphatase measurementOrdered By: Elis Zaman on 07-20-2024 ALP [Catalytic activity/Vol] 187 U/L High 45-117 [facility] Serum or plasma calcium maegan urement (mass/volume)Ordered By: Elis Zaman on 07-20-2024 Calcium [Mass/Vol] 9.2 mg/dL 8.5-10.1 [facility] Serum or plasma creatinine m easurement (mass/volume)Ordered By: Elis Zaman on 07-20-2024 Creatinine [Mass/Vol] 0.73 mg/dL 0.55-1.02 [facility] Comment on above: The validity of the calculated GFR & GFRAA in patients over 70 years has not been determined. Clinical correlation is essential. Serum or plasma urea nitroge n measurement (mass/volume)Ordered By: Elis Zaman on 07-20-2024 Urea nitrogen [Mass/Vol] 14 mg/dL 7-18 [facility] Sodium levelOrdered By: Gino Zaman on 07-20-2024 Sodium [Moles/Vol] 138 mmol/L 136-145 [facility] Total proteinOrdered By: Jeni Zaman on 07-20-2024 Protein [Mass/Vol] 7.5 g/dL 6.4-8.2 [facility] White blood cell (WBC) count Ordered By: Elis Zaman on 07-20-2024 WBC (Bld) [#/Vol] 8.9 10*3/uL 4.4-11.0 [facility] Basophil percentageOrdered B y: Toshia Sousa on 12-26-2023 Bilirubin [Mass/Vol] 0.40 mg/dL 0.20-1.00 [facility] Comment on above: For patients on eltr ombopag therapy, use of Dimension [place] TBIL is not recommended. Protein [Mass/Vol] 7.0 g/dL 6.4-8.2 [facility] Direct bilirubinOrdered By: Toshia Sousa on 12-26-2023 Bilirubin.direct [Mass/Vol] 0.14 mg/dL 0.00-0.30 [facility] Laboratory - Chemistry and C hemistry - challengeOrdered By: Toshia Sousa on 12-26-2023 ALP [Catalytic activity/Vol] 149 U/L 45-117 [facility] ALT [Catalytic activity/Vol] 58 U/L 13-56 [facility] Globulin (S) [Mass/Vol] 3.4 g/dL 2.2-4.2 [facility] Serum or plasma thyroid stim ulating hormone (TSH) measurement (units/volume)Ordered By: Toshia Sousa on 12-26-2023 TSH Qn 0.02 uIU/mL 0.358-3.74 [facility] Thin prep Papanicolaou smear with manual screeningOrdered By: Toshia Sousa on 12-26-2023 Thin prep Papanicolaou smear with manual screening 3.6 g/dL 3.2-5.0 [facility] Thin prep Papanicolaou smear with manual screening 34 U/L 15-37 [facility] Absolute lymphocyte countOrd ered By: Lesia Mena on 10-15-2023 Lymphocytes Auto (Unsp spec) [#/Vol] 1.57 10*3/uL 0.83-4.51 [facility] Automated lymphocyte count a s percentage of total leukocytesOrdered By: Lesia Mena on 10-15-2023 Lymphocytes/100 WBC Auto (Unsp spec) 25.5 % 19-41 [facility] Basophil percentageOrdered B y: Lesia Mena on 10-15-2023 Basophil percentage 16.0 IU/mL <15 [facility] Basophils/100 WBC (Bld) 1.3 % 0-[address] [facility] Bilirubin [Mass/Vol] 0.30 mg/dL 0.20-1.00 [facility] Comment on above: For patients on eltr ombopag therapy, use of Dimension [place] TBIL is not recommended. Chloride [Moles/Vol] 109 mmol/L 98-107 [facility] Eosinophils/100 WBC (Bld) 2.6 % 0-5 [facility] Glucose [Mass/Vol] 94 mg/dL 74-106 [facility] Hemoglobin (Bld) [Mass/Vol] 13.7 g/dL 12.0-15.0 [facility] Monocytes/100 WBC (Bld) 12.0 % 0-[address] [facility] Neutrophils (Bld) [#/Vol] 3.6 10*3/uL 2.0-7.7 [facility] Neutrophils/100 WBC (Bld) 58.1 % 47-70 [facility] Potassium [Moles/Vol] 4.0 mmol/L 3.5-5.1 [facility] Protein [Mass/Vol] 7.0 g/dL 6.4-8.2 [facility] Sodium [Moles/Vol] 140 mmol/L 136-145 [facility] WBC (Bld) [#/Vol] 6.2 10*3/uL 4.4-11.0 [facility] Determination of erythrocyte mean corpuscular volume (MCV)Ordered By: Lesia Trina on 10-15-2023 MCV (RBC) [Entitic vol] 87.1 fL 81-[address] [facility] Erythrocyte distribution wid th ratioOrdered By: [facility] on 10-15-2023 Erythrocyte distribution width (RBC) [Ratio] 12.8 % 11.6-14.6 [facility] Erythrocyte distribution wid th standard deviationOrdered By: [facility] on 10-15-2023 Erythrocyte distribution width (RBC) [Entitic vol] 40.5 fL 35.1-43.9 [facility] Hematocrit Auto (Bld) [Volum e fraction]Or[facility]: [facility] 10-[facility]23 Hematocrit (Bld) [Volume fraction] 42.6 % 37-47 [facility] Immature granulocytes/100 WB C Auto (Bld)Ordered By: [facility] on 10-15-2023 Immature granulocytes/100 WBC (Bld) 0.500 % 0.0-0.9 [facility] Comment on above: IG% - Immature Granu locytes (promyelocytes, myelocytes and metamyelocytes) > 1% indicates that a LEFT SHIFT is Present. Laboratory - Chemistry and C hemistry - challengeOrdered By: [facility] on 10-15-2023 Albumin/Globulin [Mass ratio] 1.1 {ratio} 0.9-2.4 [facility] ALP [Catalytic activity/Vol] 155 U/L 45-117 [facility] ALT [Catalytic activity/Vol] 133 U/L 13-56 [facility] CO2 [Moles/Vol] 28.0 mmol/L 21.0-32.0 [facility] Cobalamin (Vitamin B12) [Mass/Vol] 483 pg/mL 211-911 [facility] Globulin (S) [Mass/Vol] 3.4 g/dL 2.2-4.2 [facility] Urea nitrogen/Creatinine [Mass ratio] 31.2 mg/mg 10-20 [facility] Laboratory - Hematology and Cell countsOrdered By: Lesia Mena on 10-15-2023 MCH (RBC) [Entitic mass] 28.0 pg 27.0-32.0 [facility] MCHC (RBC) [Mass/Vol] 32.2 g/dL 32-36 [facility] Nucleated RBC/100 WBC (Bld) [Ratio] 0 % 0-5 [facility] Platelet mean volume (Bld) [Entitic vol] 11.4 fL 6.2-12.0 [facility] Platelets (Bld) [#/Vol] 271 10*3/uL 150-450 [facility] No Panel InformationOrdered By: Lesia Mena on 10-15-2023 Anti-Nuclear Antibody Screen Negative Negative [facility] Comment on above: Performed at: [facility] [address] [id number] Director: Scott Dudley PhD, Phone: [phone] C-Reactive Protein Extended Range < 2.90 mg/L 0.0-3.0 [facility] Comment on above: C-Reactive Protein ( CRP) provides useful information for thediagnosis, therapy and monitoring of inflammatory processesand associated diseases. For the evaluation of Relative Riskfor Cardiovascular Disease, a High Sensitivity CRP (HSCRP)should be ordered. Estimated GFR (MDRD) Amer 117 mL/min >60 [facility] Comment on above: GFR Calc Estimated GFR (MDRD) Non-Af Amer 97 mL/min >60 [facility] Comment on above: Non- GFR Calc [...] 10-15-2023 RBC (Bld) [#/Vol] 4.89 10*6/uL 4.2-5.4 [facility] Serum or plasma calcium maegan urement (mass/volume)Ordered By: Lesia Mena on 10-15-2023 Calcium [Mass/Vol] 9.2 mg/dL 8.5-10.1 [facility] Serum or plasma creatinine m easurement (mass/volume)Ordered By: Lesia Mena on 10-15-2023 Creatinine [Mass/Vol] 0.67 mg/dL 0.55-1.02 [facility] Comment on above: The validity of the calculated GFR & GFRAA in patients over 70 years has not been determined. Clinical correlation is essential. Serum or plasma thyroid stim ulating hormone (TSH) measurement (units/volume)Ordered By: [facility] Trina on 10-15-2023 TSH Qn 0.01 uIU/mL 0.358-3.74 [facility] Serum or plasma urea nitroge n measurement (mass/volume)Ordered By: Lesia [facility] on 10-15-2023 Urea nitrogen [Mass/Vol] 21 mg/dL 7-18 [facility] Thin prep Papanicolaou smear with manual screeningOrdered By: [facility] 10-15[facility]2023 Thin prep Papanicolaou smear with manual screening 3.6 g/dL 3.2-5.0 [facility] Thin prep Papanicolaou smear with manual screening 62 U/L 15-37 [facility] Thin prep Papanicolaou smear with manual screening 3 5-15 [facility] Thin prep Papanicolaou smear with manual screening 1.57 ng/dL 0.76-1.46 [facility] Basophil percentageOrdered B y: Toshia Sousa on 08-07-2023 Chloride [Moles/Vol] 108 mmol/L 98-107 [facility] Glucose [Mass/Vol] 88 mg/dL 74-106 [facility] Potassium [Moles/Vol] 3.9 mmol/L 3.5-5.1 [facility] Sodium [Moles/Vol] 138 mmol/L 136-145 [facility] Laboratory - Chemistry and C hemistry - challengeOrdered By: Toshia Sousa on 08-07-2023 CO2 [Moles/Vol] 27.0 mmol/L 21.0-32.0 [facility] T4 [Mass/Vol] 16.0 ug/dL 4.8-13.9 [facility] Urea nitrogen/Creatinine [Mass ratio] 20.7 mg/mg 10-20 [facility] No Panel InformationOrdered By: Toshia Sousa on 08-07-2023 Estimated GFR (MDRD) Amer 108 mL/min >60 [facility] Comment on above: GFR Calc Estimated GFR (MDRD) Non-Af Amer 89 mL/min >60 [facility] Comment on above: Non- GFR Calc Thyroid Stimulating Hormone (TSH) 0.42 uIU/mL 0.358-3.74 [facility] Urine Microalbumin/Creatinine Ratio 15.7 mg/g CRE <30 [facility] Serum or plasma calcium maegan urement (mass/volume)Ordered By: Toshia Sousa on 08-07-2023 Calcium [Mass/Vol] 8.3 mg/dL 8.5-10.1 [facility] Serum or plasma creatinine m easurement (mass/volume)Ordered By: Toshia Sousa on 08-07-2023 Creatinine [Mass/Vol] 0.72 mg/dL 0.55-1.02 [facility] Comment on above: The validity of the calculated GFR & GFRAA in patients over 70 years has not been determined. Clinical correlation is essential. Serum or plasma urea nitroge n measurement (mass/volume)Ordered By: Toshia Sousa on 08-07-2023 Urea nitrogen [Mass/Vol] 15 mg/dL 7-18 [facility] Thin prep Papanicolaou smear with manual screeningOrdered By: Toshia Sousa on 08-07-2023 Thin prep Papanicolaou smear with manual screening 3 5-15 [facility] Thin prep Papanicolaou smear with manual screening 11.8 mg/L NO RANGE EST. [facility] Urine creatinine measurement (mass/volume)Ordered By: Toshia Sousa on 08-07-2023 Creatinine (U) [Mass/Vol] 75.00 mg/dL NO RANGE EST. [facility] Provider Note - ED v3on 10-2 [...] made to minimize errors. 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 Please call if questions.. [...] NOTE LACERATION REPAIR Procedure performed by: ia Mortgage Professional(s): none Findings: grossly normal anatomy Specimen: no [...] Referenced From Triage - ED 24-Jun-2021 10:14 [facility] Risk Screen - Adult Emergenc yon [...] Communicatenone Learning Preferencesaudio Cultural Considerationsnone Developmental Considerationsnone Zoroastrian Considerationsnone Learning Assessment (Other Learner): Learning Assessment (Other Learner): Other learner availableno Pressure Injury/TB/Substance: Pressure Injury: Pressure Injury Present on Admissionno Do you have a coughno Smoking Statusnever smoker Admission Risk Screen: Significant IndicatorsComplete CAGE: CAGE: Is this an injured patient at a Trauma Center ([facility]/[place]): no Electronic Signatures: Zari Gonzalez) (Signed 24-Jun-2021 11:01) Authored: Preferred Language, Advanced Directives, Family Violence Adult, Learning Assessment (Patient), Learning Assessment (Other Learner), Pressure Injury/TB/Substance, Pressure Injury, CAGE Last Updated: 24-Jun-2021 11:01 by Zari Gonzalez) [facility] Triage - EDon 06-24-2021 Triage - [...] BMI (kg/m2): 23.744 Calculated BSA (m2) 1.68 [place] Coma Scale: Best Eye Response: (E4) spontaneous [...] Updated: 24-Jun-2021 10:34 by Zari Gonzalez ([place]) [facility] Vital Signs Date Time Vital Sign Value Performing Clinician Facility 04-06-2025 08:44-0400 Body height 160.[address] Toshia Sousa MD Work Phone: [facility] 04-06-2025 08:44-0400 Body mass index (BMI) [Ratio] 25 kg/m2 Dr. Toshia Sousa MD Work Phone: [facility] 04-06-2025 08:44-0400 Body weight 63.[address] Toshia Sousa MD Work Phone: [facility] 04-06-2025 08:44-0400 Diastolic blood pressure 87 mm[Hg] Dr. Toshia Sousa MD Work Phone: [facility] 04-06-2025 08:44-0400 Heart rate 67 /min Dr. Toshia Sousa MD Work Phone: [facility] 04-06-2025 08:44-0400 SaO2% (BldA) [Mass fraction] 98 % Dr. Toshia Sousa MD Work Phone: [facility] 04-06-2025 08:44-0400 Systolic blood pressure 138 mm[Hg] Dr. Toshia Sousa MD Work Phone: [facility] 12-14-2024 14:06-0400 Body height 160.[address] Toshia Sousa MD Work Phone: [facility] 12-14-2024 14:06-0400 Body mass index (BMI) [Ratio] 25.1 kg/m2 Dr. Toshia Sousa MD Work Phone: [facility] 12-14-2024 14:06-0400 Body weight 64.[address] Toshia Sousa MD Work Phone: [facility] 12-14-2024 14:06-0400 Diastolic blood pressure 81 mm[Hg] Dr. Toshia Sousa MD Work Phone: [facility] 12-14-2024 14:06-0400 Heart rate 87 /min Dr. Toshia Sousa MD Work Phone: [facility] 12-14-2024 14:06-0400 SaO2% (BldA) [Mass fraction] 96 % Dr. Toshia Sousa MD Work Phone: [facility] 12-14-2024 14:06-0400 Systolic blood pressure 121 mm[Hg] Dr. Toshia Sousa MD Work Phone: [facility] 06-24-2021 12:14-0400 Body height 162.5 cm Toshia Sousa Other Phone: [facility] 06-24-2021 12:14-0400 Body temperature 98.24 [degF] Toshia Sousa Other Phone: [facility] 06-24-2021 12:14-0400 Body weight 62.7 kg Toshia Sousa Other Phone: [facility] 06-24-2021 12:14-0400 Diastolic blood pressure 82 mm[Hg] Toshia Sousa Other Phone: [facility] 06-24-2021 12:14-0400 Heart rate 87 /min Toshia Sousa Other Phone: [facility] 06-24-2021 12:14-0400 Respiratory rate 15 /min Toshia Sousa Other Phone: [facility] 06-24-2021 12:14-0400 SaO2% (BldA) [Mass fraction] 100 % Toshia Sousa Other Phone: [facility] 06-24-2021 12:14-0400 Systolic blood pressure 130 mm[Hg] Toshia Sousa Other Phone: [facility] Encounters Encounter Date Encounter Type Care Provider Facility Start: 05-28-2025 End: 05-28-[address] Stas Whittington MD Work Phone: -Laboratory Start: 05-28-2025 End: 05-28-[address] Elis Zaman MD -Laboratory Work Phone: Start: 05-28-2025 End: 05-28-2025 ambulatory Elis Zaman Facility:[facility] Start: 04-06-2025 End: 04-06-[address] Tyrel Tai MD -[facility] Work Phone: Start: 04-06-2025 End: 04-06-[address] Toshia Sousa MD Work Phone: -[facility] Start: 03-17-2025 End: 03-17-[address] Toshia Sousa MD Work Phone: -Ultrasound [facility] Start: 03-17-2025 End: 03-17-[address] Tyrel Tai MD -Ultrasound [facility] Work Phone: Start: 03-17-2025 End: 03-17-2025 ambulatory Stas Whittington Facility:[facility] Start: 03-05-2025 End: 03-05-[address] Toshia Sousa MD Work Phone: -Laboratory Start: 03-05-2025 End: 03-05-[address] Elis Zaman MD -Laboratory Work Phone: Start: 03-05-2025 End: 03-05-2025 ambulatory [facility] Facility:[facility] Start: 01-05-2025 End: 01-05-[address] Toshia Sousa MD Work Phone: [facility] Work Phone: Start: 01-05-2025 End: 01-05-[address] [facility] Start: 01-05-2025 End: 01-05-2025 ambulatory Stas Whittington Facility:[facility] Start: 12-14-2024 End: 12-14-[address] Tyrel Tai MD -[facility] Work Phone: Start: 12-14-2024 End: 12-14-2024 ambulatory Toshia Sousa Facility:[facility] Start: 10-30-2024 End: 10-30-[address] Toshia Sousa MD Work Phone: [facility] Work Phone: Start: 10-30-2024 End: 10-30-[address] Elis Zaman MD -Laboratory Work Phone: Start: 10-30-2024 End: 10-[facility] Start: 08-19-2024 End: 08-19-[address] Toshia Sousa MD -Outpatient Breast Imaging Work Phone: Start: 08-19-2024 End: 08-19-2024 ambulatory Toshia Sousa Facility:[facility] Start: 07-20-2024 End: 07-20-[address] Elis Zaman MD -Laboratory, [place] Work Phone: Start: 07-20-2024 End: 07-20-2024 ambulatory [facility] Facility:[facility] Start: 01-03-2024 End: 01-03-2024 ambulatory [facility] Work Phone: Start: 01-03-2024 End: 01-03-2024 Patient encounter procedure [facility]-Ultrasound, [facility] Work Phone: Start: 12-26-2023 End: 12-26-2023 ambulatory [facility] Work Phone: Start: 12-26-2023 End: 12-26-2023 [facility] Start: 10-15-2023 End: 10-15-2023 ambulatory [facility] Work Phone: Start: 10-15-2023 End: 10-15-2023 Patient encounter procedure [facility] Start: 08-07-2023 End: 08-07-2023 ambulatory [facility] Work Phone: Start: 08-07-2023 End: 08-07-2023 Patient encounter procedure [facility]-Outpatient Breast Imaging Work Phone: Start: 06-14-2022 End: 06-14-2022 ambulatory [facility] Work Phone: Start: 06-14-2022 End: 06-14-2022 Patient encounter procedure [facility]-Outpatient Breast [facility] Start: 06-24-2021 End: 06-24-2021 Emergency department patient visit Kandi Dillenmanuel [facility] Emergency 14 Procedures Date Procedure [...] in 7 to 14 days isrecommended.Performed at: [address] [id number] Director: Scott Dudley PhD, Phone: [phone] Start: 01-05-[address] Toshia [...] Bilirubin.direct [Ma ss/volume] in Serum or Plasma [facility] C reactive protein [ Mass/volume] in Serum or Plasma [facility] CBC W Auto Differential panel - Blood [facility] Comprehensive metabo lic 1999 panel - Serum or Plasma [facility] metabo lic 1999 panel - Serum or Plasma [facility] Cytoplasmic ANCA Screen [facility] Ferritin [Mass/volume] in Serum or Plasma [facility] Gamma glutamyl transferase measurement [facility] Hemoglobin A1c/Hemoglobin.total in Blood [facility] Hepatitis B virus rice rface Ab [Presence] in Serum [facility] Immunoglobulin measurement [facility] Iron and Iron bindin g capacity panel - Serum or Plasma [facility] Lipid 1995 panel - Serum or Plasma [facility] Liver stiffness by US.transient elastogra phy [facility] Mitochondria Ab [Presence] in Serum [facility] Procedure [facility] Prothrombin time [facility] Prothrombin time [facility] Serum immunofixation [facility] Smooth muscle Ab [Presence] in Serum [facility] T4 free measurement [facility] Thyroid stimulating hormone measurement [facility] Immunizations Immunization Date Immunization Notes Care Provider Fa antionetet 06-24-2021 tetanus toxoid, redu wilder diphtheria toxoid, and acellular pertussis vaccine, adsorbed Toshia Sousa Other Phone: [facility] Payers Date Payer Category Payer Self-pay [id number] 2024 Unknown [id number] 1999 Unknown [id number] Unknown [facility] CE PLAN\[facility] CHOICE PREF Unknown [employer] [facility] DO NOT USE [id number] Unknown [id number] Unknown [id number] Unknown [id number] Unknown [id number] Unknown [id number] Unknown [id number] Unknown [id number] Unknown [id number] Unknown [id number] Social History Date Type Detail Facility [facility] Start: 11-04-2019 End: 11-04-2019 Tobacco smoking consumption unknown [facility] Start: 11-04-2019 Non-smoker [facility] Start: 1970 Sex Assigned At Female [facility] Start: 02-24-2024 Tobacco smoking status NHIS Never smoked tobacco (finding) [facility] Start: 11-12-2024 Sex Female (finding) [facility] Sex Female [facility] Medical Equipment Procedure Code Equipment Code [...] liver enzymes chronic April 06, 2025 8:28am [facility] Work Phone: Radiology Diagnostic study note 03-17-2025 Note Date & Type Note Facility 03-17-2025 Radiology Diagnostic study note [facility] Imaging Services [address] [place] [address] ABD Limited w/ Elastography MR#: [id number] Acct: [id number] Name: RADHA CHASE Rep #: [id number] : 1970 F 54 From: Nathen Kurtz MD PCP: Dr. Stas Whittington MD Status: RE G CLI Study:ABD Limited w/ Elastography Date of Exa m: 03/17/25 Exam# [id number] Ordering Dr: Lauren Tai MD PROCEDURE: ABD [...] measurement may be in question. Reading Location: [place] [address] CC: Dr. Stas Whittington MD; Dr. Tyrel Tai MD ~ Tower Foreman: Signed [facility] Evaluation note 12-14-2024 Note Date & Type Note Facility 12-14-2024 Evaluation note Diagnosis Onset Date Resolution Elevated liver enzymes chronic December 14, 2024 2:01pm [facility] Work Phone: Evaluation note 12-14-2024 Note Date & Type Note Facility 12-14-2024 Evaluation note Diagnosis Onset Date Resolution Elevated liver enzymes chronic December 14, 2024 2:01pm Elevated liver enzymes chronic April 06, 2025 8:28am [facility] Work Phone: Evaluation note Note Date & Type Note Facility Evaluation note No assessment information availa ble [facility] Work Phone: Reason for referral (narrative) Note Date & Type Note Facility Reason for referral (narrative) No reason for referral information available [facility] Work Phone: Summary Purpose Family History No Family History Records FoundNo Family History Records Found Advance Directives Advance Directive Response Recorded Date/ Time Living Will No November 04, 2019 2:10pm Power of Bottom Scrubber No November 03 0 2:10pm Advance Directive Response Recorded Date/ Time Living Will No November 04, 2019 1:10pm Power of Bottom Scrubber No November 03 0 1:10pm Advance Directive Response Recorded Date/ Time Living Will No February 24, 2024 11:10am Power of Bottom Scrubber No February 23 11:10am Chief Complaint and [...] section and content) DATE CREATED AUTHOR 06/27/2021 [facility] DATE CREATED AUTHOR AUTHOR'S ORGANIZ ATION 06/13/2025 [facility] Goals (unrecognized section and content) Goals may [...] BE BASED ON THE PRIMARY CLINICAL RECORDS. [employer] provides no warranty or guarantee of the accuracy or completeness of information in this document.
[2025-08-24 12:23] LABS: Hematocrit 40.9 % (37-47); Hemoglobin 13.4 g/dL (12.0-15.0); Immature Granulocytes Count 0.030 X10^3/uL (0.0-0.0); Mean Corp Hgb Conc 32.8 g/dL (32-36); Mean Corpuscular Volume 85.9 fL (81-99); Mean Platelet Vol. 10.8 fl (6.2-12.0); NRBC Flagged by Analyzer 0 % (0-5); Platelet Count 252 K/mm3 (150-450); RBC Distribution Width CV 13.3 % (11.6-14.6); RBC Distribution Width SD 41.9 fl (35.1-43.9); Red Blood Count 4.76 M/mm3 (4.2-5.4); White Blood Count 5.2 K/mm3 (4.4-11.0)
[2025-08-24 13:02] LABS: AST(SGOT) 34 U/L (<=31); Alanine Aminotransfer ALT/SGPT 30 U/L (<=34); Albumin, Serum 4.4 g/dL (3.5-5.0); Alkaline Phosphatase 111 U/L (35-104); Anion Gap 11 (7-18); BUN 16 mg/dL (4-19); BUN/Creat Ratio 21.0 RATIO (10-20); Calcium,Total 9.7 mg/dL (7.6-11.0); Carbon Dioxide 24.8 mmol/L (20.0-29.0); Chloride 107 mmol/L (96-106); Globulin 2.4 g/dL (2.2-4.2); Glucose 88 mg/dL (70-99); Potassium 4.1 mmol/L (3.5-5.1)
== END | disposition home or self-care (01) ==
LOC: LAB 11:40
PROVIDERS: PCP Family Medicine; Referring Provider Internal Medicine Rheumatology; Visit Provider Internal Medicine Rheumatology
DX: M06.4 Inflammatory polyarthropathy (principal); Z79.899 Other long term (current) drug therapy; M35.00 Sjogren syndrome, unspecified
CPT/HCPCS: 36415; 80053; 85025